=== PATIENT | female | born 1955 | race African-American/Black ===

== ENCOUNTER 2022-02-08 18:12 | Outpatient (REF) | payer MEDICARE, SELFPAY ==
[2022-02-09 10:56] LABS: BV Int Neg Control Negative (Negative); BV Int Pos Control Positive (Positive)
== END 2022-02-08 18:13 | disposition home or self-care (01) ==
LOC: HO.LNP 18:12
PROVIDERS: Visit Provider Nurse Practitioner Family
DX: N89.8 Other specified noninflammatory disorders of vagina (principal)
CPT/HCPCS: 87480; 87510; 87660

== ENCOUNTER 2022-02-16 11:05 | Outpatient (REF) | payer MEDICARE, SELFPAY ==
[2022-02-16 11:58] LABS: Estimated Average Glucose 212 mg/dL
[2022-02-16 11:59] LABS: Appearance Urine CLOUDY; Color Urine YELLOW; Glucose Urine UA 100 MG/DL (NEG); Leukocyte Esterase Urine 2+ (NEG); Nitrite Urine NEG (NEG); UACC Culture Trigger YES; Urine Blood TRACE (NEG); Urine Ketones NEG (NEG); Urine Protein NEG (NEG-TRACE)
[2022-02-16 12:14] LABS: Cholesterol 240 mg/dL; HDL Cholesterol 38 mg/dL; LDL Cholesterol Calculated 171 mg/dl; Triglycerides 157 mg/dL
[2022-02-16 12:17] LABS: Bacteria Urine 1+ /LPF; Squamous Epithelial Cell Urine 1+ /LPF; WBC Urine TNTC /HPF (0-4)
== END 2022-02-16 11:06 | disposition home or self-care (01) ==
LOC: HO.LAB 11:05
PROVIDERS: PCP Internal Medicine; Visit Provider Nurse Practitioner Family
DX: Z00.00 Encounter for general adult medical examination without abnormal findings (principal); E78.00 Pure hypercholesterolemia, unspecified; E11.9 Type 2 diabetes mellitus without complications
CPT/HCPCS: 36415; 80061; 81001; 81003; 83036; 87086; 87147

== ENCOUNTER 2022-05-01 11:30 | Outpatient (REF) | payer MEDICARE, SELFPAY ==
[2022-05-05 14:37] LABS: HPV mRNA E6/E7 rflx Not Detected (Not Detected)
== END 2022-05-01 11:31 | disposition home or self-care (01) ==
LOC: HO.LAB 11:30
PROVIDERS: Visit Provider Advanced Practice Midwife
DX: Z01.419 Encounter for gynecological examination (general) (routine) without abnormal findings (principal); Z11.51 Encounter for screening for human papillomavirus (HPV)
CPT/HCPCS: 87624; 88142

== ENCOUNTER 2022-06-01 11:23 | Outpatient (REF) | payer MEDICARE, SELFPAY ==
--- NOTE | ~2022-06-01 | MM_ITS ---
EXAMINATION: MM SCREENING DIGITAL BREAST TOMOSYNTHESIS, BILATERAL CLINICAL INFORMATION: Screening. Asymptomatic. The lifetime risk of breast cancer based on the Tyrer-Cuzick Model is 4%. COMPARISON: Mammography: 08/10/2017, 05/24/2016, 04/08/2015 TECHNIQUE: Digital breast tomosynthesis is performed in both the craniocaudal and mediolateral oblique views along with computer-aided detection (CAD). Synthesized 2D images are generated from the tomosynthesis. FINDINGS: There are scattered areas of fibroglandular density (ACR BI-RADS breast composition Category b). Left breast shows no significant change from prior studies. There is no developing density or architectural abnormality. Neither breast shows abnormal calcifications. The axilla and skin contours are unremarkable. Right breast has a new nodule just under 5 mm in the lower breast approximately 6 cm from nipple. Margins are incompletely defined. Patient will be recalled for additional imaging. MM/MM tomosynthesis screening BI IMPRESSION: Right: -Nodule lower inner quadrant, new from prior studies. Left: -No mammographic evidence of malignancy. ASSESSMENT: BI-RADS 0: Incomplete - Need Additional Imaging Evaluation RECOMMENDATION: 1. Additional views of the right breast for margins (spot CC, spot ML). 2. Targeted ultrasound right breast. 3. Radiology department staff will contact the patient for additional imaging. This patient's information was entered into a reminder system with a target due date for their next mammogram.
== END 2022-06-01 11:24 | disposition home or self-care (01) ==
LOC: HO.MAMMO 11:23
PROVIDERS: PCP Internal Medicine; Visit Provider Internal Medicine
DX: Z12.31 Encounter for screening mammogram for malignant neoplasm of breast (principal)
CPT/HCPCS: 77063; 77067

== ENCOUNTER 2022-06-07 10:22 | Outpatient (REF) | payer MEDICARE, SELFPAY ==
--- NOTE | ~2022-06-07 | MM_ITS ---
EXAMINATION: MM DIAGNOSTIC DIGITAL BREAST TOMOSYNTHESIS, RIGHT US DIAGNOSTIC ULTRASOUND BREAST, RIGHT CLINICAL INFORMATION: Recall from screening for new nodule lower right breast just under 5 mm. COMPARISON: Mammography: 06/01/2022, 08/10/2017 TECHNIQUE: Digital breast tomosynthesis is performed. 2D images are generated from the tomosynthesis. The following views are obtained: Spot CC, spot MLO x2. Ultrasound right breast is targeted to the lower breast using grayscale imaging and color Doppler without and with harmonics. FINDINGS: There are scattered areas of fibroglandular density (ACR BI-RADS breast composition Category b). The additional views confirm a superficial nodule just under 5 mm which appears to likely correspond to an intradermal lesion on the MLO views. No spiculation or associated calcifications. Ultrasound confirms an intradermal cystic lesion just under 5 mm lower right breast. There is no subdermal extension. No surrounding hyperemia on color Doppler. No other cystic or solid mass. Results are discussed with the patient at time of visit. Patient notes that the finding is palpable for a while and non-tender and stable in size. MM/MM tomosynthesis added views R IMPRESSION: Small intradermal cystic lesion lower right breast just under 5 mm corresponding to recent mammography, likely sebaceous cyst or epidermal cyst. No surrounding hyperemia. ASSESSMENT: BI-RADS 2: Benign RECOMMENDATION: Patient may be managed based on the clinical impression as needed. Otherwise, routine annual screening mammography. This patient's information was entered into a reminder system with a target due date for their next mammogram.
== END 2022-06-07 10:23 | disposition home or self-care (01) ==
LOC: HO.MAMMO 10:22
PROVIDERS: PCP Internal Medicine; Visit Provider Internal Medicine
DX: N60.01 Solitary cyst of right breast (principal)
CPT/HCPCS: 76642; 77061; 77065

== ENCOUNTER 2023-01-17 15:11 | Outpatient (REF) | payer MEDICARE, SELFPAY ==
--- NOTE | ~2023-01-17 | US_ITS ---
EXAMINATION: US VENOUS ULTRASOUND WITH DOPPLER LOWER EXTREMITY, RIGHT CLINICAL INFORMATION: Pain. COMPARISON: None available. TECHNIQUE: Ultrasound of the deep veins is performed from the hip to the calf with compression sonography and color and pulse Doppler assessment. Spectral analysis with color-flow imaging is performed. FINDINGS: There is normal venous compression and respiratory variation and augmented flow. The visualized common femoral vein, superficial femoral vein, profunda femoral vein, popliteal vein, and the trifurcation region shows no evidence of deep venous thrombosis. There is no significant popliteal fossa cyst. If the patient's symptoms persist, followup ultrasound in 5 days 7 days might be of value to exclude proximal propagation from a non-visualized calf vein. US/US venous duplex LE RT IMPRESSION: No DVT demonstrated in the right lower extremity.
== END 2023-01-17 15:12 | disposition home or self-care (01) ==
LOC: HO.HMGCX 15:11
PROVIDERS: Visit Provider Nurse Practitioner Family
DX: M79.604 Pain in right leg (principal)
CPT/HCPCS: 93971

== ENCOUNTER 2023-02-01 12:40 | Outpatient (REF) | payer MEDICARE, SELFPAY ==
--- NOTE | ~2023-02-01 | XR_ITS ---
EXAMINATION: Right hip and right knee x-ray CLINICAL INFORMATION: Pain COMPARISON: None. TECHNIQUE: 2 views of the right hip and 3 views of the right knee FINDINGS: Right knee: The bones are osteopenic. Bone alignment is normal. No fracture or dislocation. Normal joint spaces. Small osteophyte at the quadriceps tendon insertion to the patella and patellar tendon origin. No joint effusion. Right hip: Bone alignment is normal. No fracture or dislocation. Mild degenerative changes of the right hip joint with joint space narrowing and osteophyte formation. Normal soft tissues. XR/XR hip RT min 2V IMPRESSION: Mild degenerative changes at the right knee and hip joint.
--- NOTE | ~2023-02-01 | XR_ITS ---
EXAMINATION: Right hip and right knee x-ray CLINICAL INFORMATION: Pain COMPARISON: None. TECHNIQUE: 2 views of the right hip and 3 views of the right knee FINDINGS: Right knee: The bones are osteopenic. Bone alignment is normal. No fracture or dislocation. Normal joint spaces. Small osteophyte at the quadriceps tendon insertion to the patella and patellar tendon origin. No joint effusion. Right hip: Bone alignment is normal. No fracture or dislocation. Mild degenerative changes of the right hip joint with joint space narrowing and osteophyte formation. Normal soft tissues. XR/XR knee RT 3V IMPRESSION: Mild degenerative changes at the right knee and hip joint.
== END 2023-02-01 12:41 | disposition home or self-care (01) ==
LOC: HO.XRAY 12:40
PROVIDERS: PCP Internal Medicine; Visit Provider Nurse Practitioner Family
DX: M79.606 Pain in leg, unspecified (principal); M25.551 Pain in right hip
CPT/HCPCS: 73502; 73562

== ENCOUNTER 2023-03-10 11:17 | Observation (INO) | payer MEDICARE, SELFPAY ==
--- NOTE | ~2023-03-10 | CT_ITS ---
EXAMINATION: CT ANGIOGRAPHY CHEST PE PROTOCOL CT ABDOMEN AND PELVIS WITH IV CONTRAST CLINICAL INFORMATION: Shortness of breath. Lung mass. Rule out pulmonary embolism. Lower abdominal pain. Vaginal bleeding and active bleeding. COMPARISON: Pelvic ultrasound of 03/10/2023, 06/06/2018. CT abdomen and pelvis of 11/12/2015. Chest x-ray of 03/10/2023. TECHNIQUE: A few noncontrast axial images of the chest are obtained for contrast localization purposes. Following intravenous administration of 85 mL of Omnipaque [address] imaging of the chest is acquired as per pulmonary CT angiography protocol. Post processing is performed at a dedicated workstation. Multiplanar reformatted images and vascular MIPS are submitted for review. Following acquisition of the CT angiography, multidetector volumetric CT imaging of the abdomen and pelvis is acquired as well. Postprocessing is performed at a dedicated workstation. Multiplanar reformatted images are submitted. This CT scan was performed using dose optimization techniques as appropriate to a performed exam including the following: *Automated exposure control *Adjustment of mA and/or kV according to patient size (this includes techniques or standardized protocols for targeted exams were dose is matched to indication/reason for exam; i.e. extremities or head) *Use of iterative reconstruction technique. DLP: 243 mGy-cm. (Chest CT) 486 mGy-cm (abdomen and pelvic CT). FINDINGS: CHEST: There is satisfactory enhancement of the pulmonary arterial tree. There is no evidence of pulmonary embolism. Moderate changes of centrilobular emphysema are noted throughout the lungs. Paraseptal emphysematous changes are noted at the lung apices. There is an irregular spiculated mass in the left upper lobe measuring 4.6 x 3.9 x 3.6 cm abutting the pleural surface of the left apex posterolaterally. A 0.2 cm nodule is noted in the right upper lobe anterolaterally (series 10, image 98). There is a 0.3 cm nodule in the right upper lobe (series 10, image 157). A 0.4 cm noncalcified nodule is noted in the right middle lobe (series 10, image 226). Mild bronchiectatic changes are noted as well. Diffuse enlargement of the visualized thyroid gland is noted without focal nodule. Mediastinal and left hilar adenopathy is noted with more discrete-appearing prevascular lymph node measuring 2.8 x 2.3 cm in AP and transverse dimension (series 10, image 125). Left hilar lymph node measures 1.6 x 2.2 cm (series 10, image 174). Subcarinal nilo mass measures 2.6 x 4.5 cm. Trachea and central bronchi are well patent; however, there is mild extrinsic mass effect over the distalmost trachea and left mainstem bronchi from surrounding adenopathy. There is no evidence of pleural effusion, pleural mass or pneumothorax. Cardiac size is normal. Small pericardial fluid. No definite coronary calcifications are noted. Small hiatal hernia. Aorta is normal in caliber. Mild calcific atherosclerosis of the aortic arch. There is no evidence of axillary adenopathy. Chest wall soft tissues are grossly unremarkable. ABDOMEN AND PELVIS: The liver is normal in size, contour and attenuation. Ill-defined hypoattenuation noted in the liver adjacent to the falciform ligament is a stable finding when compared to previous CT scan of 2016 representing focal area of fatty infiltration or transient perfusion abnormality. No focal liver lesion is seen. The gallbladder is unremarkable without evidence of radiopaque stones, wall thickening or pericholecystic inflammatory changes. No evidence of biliary ductal dilatation. No radiopaque filling defect is noted in the common bile duct. The spleen, adrenal glands, and pancreas is unremarkable. The kidneys are normal in size, shape and attenuation. There is symmetrical enhancement of the kidneys. A 1 cm hypoattenuation in the right mid kidney laterally is a stable finding since previous CT probably representing a cyst. No further imaging follow-up of this finding is warranted. There is no evidence of radiopaque urinary tract calculi, hydroureteronephrosis or perinephric stranding. Urinary bladder is largely decompressed and therefore not optimally evaluated. Enlarged fibroid containing multiple calcified and noncalcified fibroids is again noted. There is overall increased size of the uterus/uterine fibroids since the previous CT scan of 2016. No adnexal masses are noted otherwise. The stomach is partially distended and grossly unremarkable. No abnormal small bowel dilatation is noted. An appendix is not clearly identified however there are no inflammatory changes in the expected location of the appendix. Moderate stool burden is noted in the colon. In the pelvis, there is presacral enhancing ill-defined soft tissue/phlegmonous changes which are inseparable from the rectosigmoid colon in the region. Thickening of the wall of the lower rectum/anal canal is suspected. Remainder of the colon is unremarkable without evidence of wall thickening of pericolonic fat stranding. Aortoiliac vessels are normal in caliber and well opacified. Moderate calcific atherosclerosis of the aortoiliac vessels. There is no evidence of free intraperitoneal air or fluid. There is no evidence of significant abdominal wall hernia. OSSEOUS STRUCTURES: There is no evidence of acute or suspicious osseous lesions in the chest, abdomen and pelvis. Mild degenerative changes in the spine. 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 Mild thoracic dextroscoliosis and mild left convex curvature of the lumbar spine. CT/CT abdomen pelvis w IV con IMPRESSION: 1. No evidence of pulmonary embolism. 2. A 4.6 x 3.9 x 3.6 cm irregular spiculated mass in the left upper lobe abutting the pleural surface in the late left apex posterolaterally is highly concerning for malignancy. 3. Mediastinal and left hilar adenopathy concerning for metastasis adenopathy. 4. A few subcentimeter right lung nodules are nonspecific. Given the left lung mass and mediastinal and left hilar adenopathy, findings could represent metastatic nodules. Recommend attention to the finding on follow-up imaging. 5. Enlarged uterus containing multiple calcified and noncalcified fibroids with overall increase in the size of the uterus/multiple fibroids since previous CT of 2016. 6. Enhancing ill-defined soft tissue/phlegmonous changes in the presacral region inseparable from the rectosigmoid colon in the region with suggestion of thickening of the wall of the lower rectum/anal canal. This finding is nonspecific and could be inflammatory or infectious in etiology, however, neoplastic process cannot be excluded. 7. Otherwise, no evidence of metastatic disease in the abdomen and pelvis. VTE: Negative.
--- NOTE | ~2023-03-10 | US_ITS ---
EXAMINATION: US PELVIS CLINICAL INFORMATION: Vaginal bleeding and lower abdominal pain. COMPARISON: Previous pelvic ultrasound 05/[address] of the abdomen and pelvis from 2016. TECHNIQUE: Ultrasound of the pelvis is performed using both transabdominal and transvaginal transducers along with Doppler. Transvaginal imaging is performed due to inadequate visualization transabdominally. Exam is limited due to patient body habitus and physical limitations. FINDINGS: The uterus is anteverted and measures 8.6 x 6.6 x 10 cm in sagittal, AP and transverse dimension. There are two partially calcified uterine lesions probably representing fibroids measuring 6.4 x 5.5 x 5.8 cm centrally in the upper uterine body or fundus and 2.3 x 2.4 x 2.2 cm in the left upper uterine body. The endometrium is not seen. The cervix is normal-appearing. The right ovary is seen transabdominally only and measures 2 x 1.2 x 1 cm. Arterial and venous flow is documented to the right ovary. The left ovary is not seen. There is a 1.4 x 1.4 x 1.5 cm simple left adnexal cyst. There is no fluid in the pelvis. US/US pelvic ovarian doppler IMPRESSION: Limited exam. Enlarged fibroid uterus. Endometrium not seen. Normal-appearing right ovary. Left ovary not seen. Small left simple adnexal cyst.
--- NOTE | ~2023-03-10 | US_ITS ---
EXAMINATION: US PELVIS CLINICAL INFORMATION: Vaginal bleeding and lower abdominal pain. COMPARISON: Previous pelvic ultrasound 05/[address] of the abdomen and pelvis from 2016. TECHNIQUE: Ultrasound of the pelvis is performed using both transabdominal and transvaginal transducers along with Doppler. Transvaginal imaging is performed due to inadequate visualization transabdominally. Exam is limited due to patient body habitus and physical limitations. FINDINGS: The uterus is anteverted and measures 8.6 x 6.6 x 10 cm in sagittal, AP and transverse dimension. There are two partially calcified uterine lesions probably representing fibroids measuring 6.4 x 5.5 x 5.8 cm centrally in the upper uterine body or fundus and 2.3 x 2.4 x 2.2 cm in the left upper uterine body. The endometrium is not seen. The cervix is normal-appearing. The right ovary is seen transabdominally only and measures 2 x 1.2 x 1 cm. Arterial and venous flow is documented to the right ovary. The left ovary is not seen. There is a 1.4 x 1.4 x 1.5 cm simple left adnexal cyst. There is no fluid in the pelvis. US/US pelvic and transvaginal IMPRESSION: Limited exam. Enlarged fibroid uterus. Endometrium not seen. Normal-appearing right ovary. Left ovary not seen. Small left simple adnexal cyst.
--- NOTE | ~2023-03-10 | XR_ITS ---
EXAMINATION: XR CHEST CLINICAL INFORMATION: Cough. Smoker. COMPARISON: Previous chest x-ray November 2009 TECHNIQUE: Frontal view of the chest was obtained. FINDINGS: The heart does not appear enlarged. There is increased soft tissue seen in the left AP window region and paratracheal region questionable for lymphadenopathy. There is a 3.6 x 4.8 cm mass in the left lung apex worrisome for neoplasm. The lungs are otherwise clear. There is bilateral pleural thickening. There is no pleural effusion. There is scoliosis and degenerative changes of the spine. XR/XR chest 1V IMPRESSION: 4.8 x 3.7 cm left upper lobe mass and likely lymphadenopathy. Appearance is concerning for neoplasm. Findings will be communicated by the [facility] work flow produce specialist.
[2023-03-10 11:18] VITALS: BP 118/62; PULSE 93; RESP 18; TEMP 36.7; O2SAT 99; BMI 25.7
--- NOTE | 2023-03-10 11:27 | ED_ITS ---
HPI - General Adult General Chief complaint: General Medical Stated complaint: cough vaginal discharge Time Seen by Provider: 03/10/23 12:44 Source: patient Mode of arrival: ambulatory Limitations: no limitations History of Present Illness HPI narrative: This is a 67-year-old female history of diabetes, hypertension, GERD, CVA with right-sided hemiparesis presenting to the emergency department for evaluation of productive cough for the past few weeks worsening with some associated shortness of breath, also reporting vaginal discharge with occasional vaginal bleeding for the past few weeks also. Patient reports when she wipes she notices blood on the tissue. She is not sure if it is coming from her vagina or her rectum. She reports a moderate amount of white foul-smelling vaginal discharge, denies francisco rns for STDs or STIs. Patient tells me she was a daily smoker who smoked a half a pack a day for over 20 years, recently stop smoking 3 weeks ago. Patient reports associated fatigue, malaise and a 20 lb unintentional weight loss. Patient denies fevers, chills, chest pain, headache, vision changes, dizziness. Related Data Home Medications Medication Instructions Recorded Confirmed aspirin 81 mg tablet,delayed 81 mg PO DAILY 02/08/22 03/13/23 release (Adult Low Dose Aspirin) escitalopram oxalate 10 mg tablet 10 mg PO DAILY 02/08/22 03/13/23 trazodone 50 mg tablet 50 mg PO BEDTIME 01/17/23 03/13/23 Previous Rx's Medication Instructions Recorded insulin degludec 100 unit/mL (3 28 unit (0.28 mL) subcut BEDTIME 03/13/22 mL) subcutaneous pen (Tresiba 90 days #25.2 mL FlexTouch U-100 insulin) cholecalciferol (vitamin D3) 50 50 mcg PO DAILY 90 days #90 caps 06/24/22 mcg (2,000 unit) capsule pioglitazone 30 mg tablet 30 mg PO DAILY 90 days #90 tabs 07/01/22 pen needle, diabetic 31 gauge x #100 ea 10/03/2202/12 (Comfort EZ Pen Hawley) cetirizine 10 mg tablet (Allergy 10 mg PO DAILY PRN allergy 10/29/22 Relief (cetirizine)) symptoms 90 days #90 tabs ferrous sulfate 325 mg (65 mg 325 mg PO DAILY 90 days #90 tabs 10/29/22 iron) tablet irbesartan 150 mg tablet 150 mg PO DAILY 90 days #90 tabs 10/29/22 lorazepam 0.5 mg tablet 0.5 mg PO DAILY PRN anxiety 90 10/30/22 days #90 tabs tramadol 50 mg tablet 50 mg PO BID PRN pain 30 days #60 02/20/23 tabs acetaminophen 650 mg 650 mg PO Q8H PRN fever or pain 90 03/06/23 tablet,extended release (Mapap days #270 tabs Arthritis Pain) cefuroxime axetil 500 mg tablet 500 mg PO BID #14 tabs 03/12/23 hydrocortisone 2.5 % topical cream 1 appl MN BEDTIME PRN hemorrhoids 03/12/23 with perineal applicator #30 grams (Procto-Med HC) pseudoephedrine-guaifenesin ER 60 1 tab PO Q12H PRN Cough #30 tabs 03/13/23 mg-600 mg tablet,extend release 12hr (Mucinex D) Allergies Allergy/AdvReac Type Severity Reaction Status Date / Time codeine [CODEINE] Allergy Unknown HIVES Verified 01/29/23 10:59 morphine [MORPHINE] Allergy Unknown ITCHING, Verified 01/29/23 10:59 itchy Review of Systems Review of Systems: Constitutional : + Weight loss, No Fever, No Chills, + Fatigue, + Malaise ENT/Mouth : No sore throat, No Rhinorrhea Eyes: No Eye Pain, No Swelling, No Redness Cardiovascular : No Chest Pain, + SOB, + Dyspnea on Exertion, No Orthopnea, No Edema, No Palpitations Respiratory : + Cough, + Sputum, No Wheezing Gastrointestinal : No Nausea, No Vomiting, No Diarrhea, No Constipation, No abdominal Pain, No Hematochezia, No Melena Genitourinary : No Dysuria, No Urinary Frequency, No Hematuria, + vaginal bleeding Musculoskeletal : No joint pain, No Myalgias, No Joint Swelling Skin : No Skin Lesions, No rash Neuro : + Weakness, No Numbness, No Dizziness, No Headache Psych : No Anxiety/Panic, No Depression All other systems reviewed and are negative Yes all other systems are reviewed and are negative [facility] Past Medical History Attestation statement: The following information was validated with the patient. Source: old records reviewed and nursing notes reviewed Medical History (Updated 03/13/23 @ 09:37 by Edna Carcamo MD) Diabetes mellitus Essential hypertension History of gastric ulcer Stroke Surgical History (Updated 03/13/23 @ 09:37 by Edna Carcamo MD) Hx of colonoscopy No pertinent past surgical history Family History Family History Mother Hypertension Father No problems noted. Social History Social History (Updated 03/13/23 @ 09:29 by Allyssa Burks) Household Members: Spouse Housing: House Do you presently have visiting nurse or other home services: No Alcohol intake: never Patient Tobacco Use Status: Former Tobacco user Quit Date: Quit a month ago Tobacco use type: Cigarette Years Smoked: 30 e-Cigarette/Vaping Use: Never Used Second Hand Smoke Exposure: No service: No Current occupational status: retired Cognitive needs: No Hearing needs: No Vision needs: No Physical Exam ED Vital Signs: Vital Signs - 24 hr 03/10/23 11:18 03/10/23 19:14 Temperature 98.1 F 97.6 F Pulse Rate 93 77 Respiratory Rate 18 14 Blood Pressure 118/62 176/82 H Pulse Oximetry 99 98 Oxygen Delivery Method Room Air Room Air BMI result Body Mass Index 25.7 vss Appearance: Alert.? Oriented X3.? No acute distress.? Head: Normocephalic, atraumatic, no step-offs or deformities Eyes: Pupils equal, round and reactive to light.? ENT: Pharynx normal.? Neck: Normal inspection.? Neck supple.? CVS: Normal heart rate and rhythm.? Pulses normal.? Respiratory: No respiratory distress.? Breath sounds diminished bilaterally.? Abdomen: Soft and nontender.? Skin: Skin warm and dry.? Normal skin color.? Normal skin turgor.? Extremities: No lower extremity edema.? No calf ttp. 5/5 strength to bilateral upper and lower extremities Sensitive exam: Normal external genitalia, there is a moderate amount of white cream colored discharge from vaginal canal with scant bleeding, friable vaginal canal, closed cervical os, cervical os appears friable. Discomfort with pelvic exam. Rectal exam was done no osvaldo blood. OBS sent for analysis. Neuro: Oriented X 3.? No motor deficit.? No sensory deficit. CN 2-12 intact Course Course Course Narrative: RME: 67 yold female smokwer with pmh of stroke presents to the ED with cough for 3 weeks wih green phglegm AND ALSO vaginal discharge that is white for one month and now dark brown blood discharge. patient states maybe rectal bleeding also. labs and chest xray ordered. Reevaluation(s) Reevaluation #1: CBC appears to be around patient's baseline with normocytic anemia. Chemistry with no acute electrolyte abnormalities requiring intervention. Lactic elevated likely secondary to poor p.o. intake/dehydration. Coags unremarkable. COVID, influenza negative. Patient is noted to have a 4.8 x 3.7 cm left upper lobe mass unlikely lymphadenopathy. Concerning for neoplasm. CTA ordered, CT of the abdomen and pelvis ordered. Ultrasound ordered. Patient aware of mass found on x-ray of chest. Patient will likely require hospital admission. Time: 13:31 Reevaluation #2: No Trichomonas or yeast noted. Remainder of swabs pending. OBS was negative unlikely lower GI bleed. Pending CTA of chest, abdomen and pelvis. Pending ultrasound & UA Time: 13:50 Reevaluation #3: Sign out to [employer] Anjali pending imaging, disposition Medications Administered Discontinued Medications Generic Name Dose Route Start Last Admin Trade Name Freq PRN Reason Stop Dose Admin Albuterol Sulfate 2.5 mg 03/11/23 13:24 03/11/23 13:36 Albuterol Sulfate (0.083%) 2.5 Mg/3 Ml Vial.Neb INHALE 03/11/23 13:25 2.5 mg ONCE ONE Administration Albuterol Sulfate 2.5 mg 03/11/23 13:20 03/11/23 16:38 Albuterol Sulfate (0.083%) 2.5 Mg/3 Ml Vial.Neb INHALE 03/11/23 13:21 2.5 mg PREOP ONE Administration Benzonatate 100 mg 03/10/23 20:13 03/11/23 17:55 Benzonatate 100 Mg Capsule PO 100 mg TID PRN Administration Cough Cefuroxime Axetil 500 mg 03/12/23 11:45 03/12/23 12:11 Cefuroxime Axetil 500 Mg Tablet PO 03/12/23 11:46 500 mg ONCE ONE Administration Fluconazole 150 mg 03/10/23 20:08 03/10/23 20:36 Fluconazole 150 Mg Tablet PO 03/10/23 20:09 150 mg ONCE ONE Administration Sodium Chloride 1,000 mls @ 999 mls/hr 03/10/23 14:45 03/10/23 17:26 Ns IV 03/10/23 15:45 Infused .Q1H1M JANNETH Infusion Ceftriaxone Sodium 1 gm/ 50 mls @ 100 mls/hr 03/10/23 14:38 03/10/23 17:26 Sodium Chloride IV 03/10/23 15:07 Infused ONCE ONE Infusion Sodium Chloride 1,000 mls @ 999 mls/hr 03/10/23 15:45 03/10/23 17:57 Ns IV 03/10/23 16:45 Infused .Q1H1M JANNETH Infusion Ceftriaxone Sodium 1 gm/ 50 mls @ 100 mls/hr 03/11/23 16:00 03/11/23 18:42 Sodium Chloride IV Infused Q24H JANNETH Infusion Dextrose 250 mls @ 0 mls/hr 03/11/23 13:24 03/11/23 17:29 D5w IV Infused .Q0M PRN Infusion Per Protocol KVO Lactated Ringer's 1,000 mls @ 100 mls/hr 03/11/23 13:30 03/12/23 09:16 Lr IVCONT 100 mls/hr .Q10H JANNETH Administration Dextrose 500 mls @ 250 mls/hr 03/11/23 13:22 03/11/23 17:25 D5w IV 03/11/23 15:21 Not Given .Q2H ONE Insulin Glargine 15 unit 03/10/23 21:00 03/11/23 20:42 Insulin Glargine,Hum.Rec.Anlog 100 Unit/Ml 10 Ml Vial SUBCUT 15 unit BEDTIME JANNETH Administration Insulin Human Lispro 0 unit 03/10/23 21:00 03/12/23 07:45 Insulin Lispro 100 Unit/Ml 3 Ml Vial SUBCUT Not Given QIDACHS [facility] Protocol Iohexol 100 ml 03/10/23 16:20 03/10/23 16:20 Iohexol 350 Mg/Ml 100 Ml Infus..Btl IV 03/10/23 16:21 85 ml ONCE ONE Administration Polyethylene Glycol/Electrolytes 4,000 ml 03/10/23 19:45 03/10/23 20:36 Peg 3350/Na Sulf,Bicarb,Cl/Kcl 4,000 Ml Soln.Recon PO 03/10/23 19:46 4,000 ml ONCE ONE Administration Sodium Chloride 3 ml 03/11/23 00:00 03/12/23 07:05 0.9 % Sodium Chloride Flush 3 Ml Syringe IVFLUSH Not Given QSHIFT JANNETH Trazodone HCl 50 mg 03/10/23 21:00 03/11/23 20:41 Trazodone Hcl 50 Mg Tablet PO 50 mg BEDTIME JANNETH Administration Medical Decision Making Medical Decision Making [facility] Narrative: 67-year-old female presents with productive cough for the past few weeks worsening as well as vaginal discharge and scant bleeding, fatigue, malaise, unintentional weight loss the past few weeks Physical exam significant for Normal external genitalia, there is a moderate amount of white cream colored discharge from vaginal canal with scant bleeding, friable vaginal canal, closed cervical os, cervical os appears friable. Discomfort with pelvic exam. Rectal exam was done no osvaldo blood. OBS sent for analysis. Breath sounds diminished bilaterally. Regular rate and rhythm. Abdomen soft nontender nondistended. Concerns for possible malignancy. Will rule out electrolyte abnormalities, anemia. Unlikely ACS, CHF. Will rule out pneumonia, PE. Plan labs, imaging, urine Differential Diagnosis Differential Diagnoses: The differential diagnosis associated with the presentation includes Concerns for possible malignancy. Will rule out electrolyte abnormalities, anemia. Unlikely ACS, CHF. Will rule out pneumonia, PE. Admission/Observation Consideration of admission/observation: Escalation of care including admission/observation considered Likely hospital admission Consult Healthcare Provider Management of the patient was discussed with: Hospitalist and Head Of Conservation I spoke to Dr. Awan from Oncology b due to the new lung mass seen on CT scan with associated adenopathy. She will follow the patient outpatient I spoke to Dr. Pires from GI. Patient has concern for rectal mass. He will see the patient and perform a colonoscopy tomorrow. Recommended clear liquids with GoLYTELY prep tonight I discussed the case with Dr. De Los Santos from the medicine team who accepted admission Lab Data [facility] Lab Attestation statement: I reviewed the patient's lab results. 03/10/23 11:42 03/10/23 11:42 Labs: Lab Results 03/10/23 03/10/23 03/10/23 Range/Units 11:38 11:38 11:42 WBC 5.3 (4.8-10.8) X10*3/uL RBC 3.90 L (4.20-5.50) X10*6/uL Hgb 11.9 L (12.0-16.0) g/dl Hct 37.3 (37.0-47.0) % MCV 95.6 (80.0-98.0) fL MCH 30.5 (27.0-33.0) pg MCHC 31.9 (31.0-35.0) g/dl RDW 13.2 (11.0-16.0) % Plt Count 276 (160-400) X10*3/uL MPV 9.1 L (9.4-12.3) fL Immature Gran % (Auto) 0.4 (0.0-0.4) % Neut % (Auto) 74.7 H (45-73) % Lymph % (Auto) 16.4 L (20-40) % [place] % (Auto) 7.7 (2-11) % Eos % (Auto) 0.4 (0-4) % Baso % (Auto) 0.4 (0-2) % Lymph # (Auto) 0.9 L (1.2-4.9) X10*3/uL [place] # (Auto) 0.4 (0.1-1.2) X10*3/uL Eos # (Auto) 0.0 (0.0-0.4) X10*3/uL Baso # (Auto) 0.0 (0.0-0.2) X10*3/uL Abs Immat Gran (auto) 0.02 (0.00-0.03) X10*3/uL Absolute Neuts (auto) 4.0 (2.0-8.3) x10*3/uL Absolute Nucleated RBC 0.000 (0.0-0.012) X10*3/uL Nucleated RBC % (auto) 0.0 (0.0-0.2) /100WBC PT (10.0-13.1) SEC INR (0.9-1.1) APTT (26.0-36.4) SEC Sodium (135-145) mmol/L Potassium (3.3-5.1) mmol/L Chloride (96-108) mmol/L Carbon Dioxide (22-29) mmol/L Anion Gap (12-20) BUN (9-16) mg/dL Creatinine (0.5-1.4) mg/dL Estim Creat Clear Calc Estimated GFR Random Glucose (60-115) mg/dL Lactic Acid (0.5-2.0) mmol/L Lactic Acid F/U @ 2Hr (0.5-2.0) mmol/L Calcium (8.4-10.2) mg/dL Total Bilirubin (0.0-1.0) mg/dL AST (5-31) U/L ALT (0-31) U/L Alkaline Phosphatase (39-117) U/L Troponin I High Sens (<3.5-17.0) ng/L B-Natriuretic Peptide (<100) pg/mL Total Protein (6.5-8.0) g/dL Albumin (3.5-5.0) g/dL Urine Color Urine Appearance Urine pH (5.0-9.0) Ur Specific [place] (1.005-1.025) Urine Protein (Neg-Trace) mg/dL Urine Glucose (UA) (Negative) mg/dL Urine Ketones (Negative) mg/dL Urine Blood (Negative) Urine Nitrite (Negative) Ur Leukocyte Esterase (Negative) Urine RBC (0-2) /HPF Urine WBC (0-5) /HPF Ur Squamous Epith Cells (0-2) /HPF Urine Bacteria (None Seen) Hyaline Casts (0-2) /LPF Stool Occult Blood (NEGATIVE) Sweetie species DNA (Negative) Chlam trachomat DNA PCR (Not Detect.) COVID-19 (ISAEL) Negative (Negative) COVID-19 Clin Com See Note Gardnerella DNA Probe (Negative) Influenza Type A (GORDON) Negative (Negative) Influenza Type B (GORDON) Negative (Negative) Influenza A & B Note See Note N.gonorrhoeae DNA (PCR) (Not Detect.) Trichomonas DNA Probe (Negative) 03/10/23 03/10/23 03/10/23 Range/Units 11:42 11:42 13:24 WBC (4.8-10.8) X10*3/uL RBC (4.20-5.50) X10*6/uL Hgb (12.0-16.0) g/dl Hct (37.0-47.0) % MCV (80.0-98.0) fL MCH (27.0-33.0) pg MCHC (31.0-35.0) g/dl RDW (11.0-16.0) % Plt Count (160-400) X10*3/uL MPV (9.4-12.3) fL Immature Gran % (Auto) (0.0-0.4) % Neut % (Auto) (45-73) % Lymph % (Auto) (20-40) % [place] % (Auto) (2-11) % Eos % (Auto) (0-4) % Baso % (Auto) (0-2) % Lymph # (Auto) (1.2-4.9) X10*3/uL [place] # (Auto) (0.1-1.2) X10*3/uL Eos # (Auto) (0.0-0.4) X10*3/uL Baso # (Auto) (0.0-0.2) X10*3/uL Abs Immat Gran (auto) (0.00-0.03) X10*3/uL Absolute Neuts (auto) (2.0-8.3) x10*3/uL Absolute Nucleated RBC (0.0-0.012) X10*3/uL Nucleated RBC % (auto) (0.0-0.2) /100WBC PT 11.4 (10.0-13.1) SEC INR 1.0 (0.9-1.1) APTT 35.1 (26.0-36.4) SEC Sodium 142 (135-145) mmol/L Potassium 4.2 (3.3-5.1) mmol/L Chloride 106 (96-108) mmol/L Carbon Dioxide 27 (22-29) mmol/L Anion Gap 13 (12-20) BUN 8 L (9-16) mg/dL Creatinine 0.81 (0.5-1.4) mg/dL Estim Creat Clear Calc 62.2 Estimated GFR > 60 Random Glucose 77 (60-115) mg/dL Lactic Acid (0.5-2.0) mmol/L Lactic Acid F/U @ 2Hr (0.5-2.0) mmol/L Calcium 9.6 (8.4-10.2) mg/dL Total Bilirubin 0.9 (0.0-1.0) mg/dL AST 12 (5-31) U/L ALT 6 (0-31) U/L Alkaline Phosphatase 90 (39-117) U/L Troponin I High Sens (<3.5-17.0) ng/L B-Natriuretic Peptide (<100) pg/mL Total Protein 7.8 (6.5-8.0) g/dL Albumin 4.0 (3.5-5.0) g/dL Urine Color Urine Appearance Urine pH (5.0-9.0) Ur Specific [place] (1.005-1.025) Urine Protein (Neg-Trace) mg/dL Urine Glucose (UA) (Negative) mg/dL Urine Ketones (Negative) mg/dL Urine Blood (Negative) Urine Nitrite (Negative) Ur Leukocyte Esterase (Negative) Urine RBC (0-2) /HPF Urine WBC (0-5) /HPF Ur Squamous Epith Cells (0-2) /HPF Urine Bacteria (None Seen) Hyaline Casts (0-2) /LPF Stool Occult Blood (NEGATIVE) Sweetie species DNA (Negative) Chlam trachomat DNA PCR NOT DETECTED (Not Detect.) COVID-19 (ISAEL) (Negative) COVID-19 Clin Com [place]rella DNA Probe (Negative) Influenza Type A (GORDON) (Negative) Influenza Type B (GORDON) (Negative) Influenza A & B Note N.gonorrhoeae DNA (PCR) NOT DETECTED (Not Detect.) Trichomonas DNA Probe (Negative) 03/10/23 03/10/23 03/10/23 Range/Units 13:24 13:25 14:16 WBC (4.8-10.8) X10*3/uL RBC (4.20-5.50) X10*6/uL Hgb (12.0-16.0) g/dl Hct (37.0-47.0) % MCV (80.0-98.0) fL MCH (27.0-33.0) pg MCHC (31.0-35.0) g/dl RDW (11.0-16.0) % Plt Count (160-400) X10*3/uL MPV (9.4-12.3) fL Immature Gran % (Auto) (0.0-0.4) % Neut % (Auto) (45-73) % Lymph % (Auto) (20-40) % [place] % (Auto) (2-11) % Eos % (Auto) (0-4) % Baso % (Auto) (0-2) % Lymph # (Auto) (1.2-4.9) X10*3/uL [place] # (Auto) (0.1-1.2) X10*3/uL Eos # (Auto) (0.0-0.4) X10*3/uL Baso # (Auto) (0.0-0.2) X10*3/uL Abs Immat Gran (auto) (0.00-0.03) X10*3/uL Absolute Neuts (auto) (2.0-8.3) x10*3/uL Absolute Nucleated RBC (0.0-0.012) X10*3/uL Nucleated RBC % (auto) (0.0-0.2) /100WBC PT (10.0-13.1) SEC INR (0.9-1.1) APTT (26.0-36.4) SEC Sodium (135-145) mmol/L Potassium (3.3-5.1) mmol/L Chloride (96-108) mmol/L Carbon Dioxide (22-29) mmol/L Anion Gap (12-20) BUN (9-16) mg/dL Creatinine (0.5-1.4) mg/dL Estim Creat Clear Calc Estimated GFR Random Glucose (60-115) mg/dL Lactic Acid (0.5-2.0) mmol/L Lactic Acid F/U @ 2Hr (0.5-2.0) mmol/L Calcium (8.4-10.2) mg/dL Total Bilirubin (0.0-1.0) mg/dL AST (5-31) U/L ALT (0-31) U/L Alkaline Phosphatase (39-117) U/L Troponin I High Sens < 2.7 (<3.5-17.0) ng/L B-Natriuretic Peptide (<100) pg/mL Total Protein (6.5-8.0) g/dL Albumin (3.5-5.0) g/dL Urine Color Urine Appearance Urine pH (5.0-9.0) Ur Specific [place] (1.005-1.025) Urine Protein (Neg-Trace) mg/dL Urine Glucose (UA) (Negative) mg/dL Urine Ketones (Negative) mg/dL Urine Blood (Negative) Urine Nitrite (Negative) Ur Leukocyte Esterase (Negative) Urine RBC (0-2) /HPF Urine WBC (0-5) /HPF Ur Squamous Epith Cells (0-2) /HPF Urine Bacteria (None Seen) Hyaline Casts (0-2) /LPF Stool Occult Blood NEGATIVE (NEGATIVE) Sweetie species DNA Negative (Negative) Chlam trachomat DNA PCR (Not Detect.) COVID-19 (ISAEL) (Negative) COVID-19 Clin Com [place] DNA Probe Negative (Negative) Influenza Type A (GORDON) (Negative) Influenza Type B (GORDON) (Negative) Influenza A & B Note N.gonorrhoeae DNA (PCR) (Not Detect.) Trichomonas DNA Probe Negative (Negative) 03/10/23 03/10/23 03/10/23 Range/Units 14:16 14:16 16:36 WBC (4.8-10.8) X10*3/uL RBC (4.20-5.50) X10*6/uL Hgb (12.0-16.0) g/dl Hct (37.0-47.0) % MCV (80.0-98.0) fL MCH (27.0-33.0) pg MCHC (31.0-35.0) g/dl RDW (11.0-16.0) % Plt Count (160-400) X10*3/uL MPV (9.4-12.3) fL Immature Gran % (Auto) (0.0-0.4) % Neut % (Auto) (45-73) % Lymph % (Auto) (20-40) % [place] % (Auto) (2-11) % Eos % (Auto) (0-4) % Baso % (Auto) (0-2) % Lymph # (Auto) (1.2-4.9) X10*3/uL [place] # (Auto) (0.1-1.2) X10*3/uL Eos # (Auto) (0.0-0.4) X10*3/uL Baso # (Auto) (0.0-0.2) X10*3/uL Abs Immat Gran (auto) (0.00-0.03) X10*3/uL Absolute Neuts (auto) (2.0-8.3) x10*3/uL Absolute Nucleated RBC (0.0-0.012) X10*3/uL Nucleated RBC % (auto) (0.0-0.2) /100WBC PT (10.0-13.1) SEC INR (0.9-1.1) APTT (26.0-36.4) SEC Sodium (135-145) mmol/L Potassium (3.3-5.1) mmol/L Chloride (96-108) mmol/L Carbon Dioxide (22-29) mmol/L Anion Gap (12-20) BUN (9-16) mg/dL Creatinine (0.5-1.4) mg/dL Estim Creat Clear Calc Estimated GFR Random Glucose (60-115) mg/dL Lactic Acid 2.6 H* (0.5-2.0) mmol/L Lactic Acid F/U @ 2Hr (0.5-2.0) mmol/L Calcium (8.4-10.2) mg/dL Total Bilirubin (0.0-1.0) mg/dL AST (5-31) U/L ALT (0-31) U/L Alkaline Phosphatase (39-117) U/L Troponin I High Sens (<3.5-17.0) ng/L B-Natriuretic Peptide 49 (<100) pg/mL Total Protein (6.5-8.0) g/dL Albumin (3.5-5.0) g/dL Urine Color Yellow Urine Appearance Clear Urine pH 7.5 (5.0-9.0) Ur Specific [place] 1.025 (1.005-1.025) Urine Protein Negative (Neg-Trace) mg/dL Urine Glucose (UA) Negative (Negative) mg/dL Urine Ketones Trace (Negative) mg/dL Urine Blood Trace H (Negative) Urine Nitrite Negative (Negative) Ur Leukocyte Esterase Large (3+) H (Negative) Urine RBC 0-2 (0-2) /HPF Urine WBC >50 H (0-5) /HPF Ur Squamous Epith Cells 6-10 (0-2) /HPF Urine Bacteria 2+ (None Seen) Hyaline Casts 0-2 (0-2) /LPF Stool Occult Blood (NEGATIVE) Sweetie species DNA (Negative) Chlam trachomat DNA PCR (Not Detect.) COVID-19 (ISAEL) (Negative) COVID-19 Clin Com Gard[place]rella DNA Probe (Negative) Influenza Type A (GORDON) (Negative) Influenza Type B (GORDON) (Negative) Influenza A & B Note N.gonorrhoeae DNA (PCR) (Not Detect.) Trichomonas DNA Probe (Negative) 03/10/23 Range/Units 18:03 WBC (4.8-10.8) X10*3/uL RBC (4.20-5.50) X10*6/uL Hgb (12.0-16.0) g/dl Hct (37.0-47.0) % MCV (80.0-98.0) fL MCH (27.0-33.0) pg MCHC (31.0-35.0) g/dl RDW (11.0-16.0) % Plt Count (160-400) X10*3/uL MPV (9.4-12.3) fL Immature Gran % (Auto) (0.0-0.4) % Neut % (Auto) (45-73) % Lymph % (Auto) (20-40) % [place] % (Auto) (2-11) % Eos % (Auto) (0-4) % Baso % (Auto) (0-2) % Lymph # (Auto) (1.2-4.9) X10*3/uL [place] # (Auto) (0.1-1.2) X10*3/uL Eos # (Auto) (0.0-0.4) X10*3/uL Baso # (Auto) (0.0-0.2) X10*3/uL Abs Immat Gran (auto) (0.00-0.03) X10*3/uL Absolute Neuts (auto) (2.0-8.3) x10*3/uL Absolute Nucleated RBC (0.0-0.012) X10*3/uL Nucleated RBC % (auto) (0.0-0.2) /100WBC PT (10.0-13.1) SEC INR (0.9-1.1) APTT (26.0-36.4) SEC Sodium (135-145) mmol/L Potassium (3.3-5.1) mmol/L Chloride (96-108) mmol/L Carbon Dioxide (22-29) mmol/L Anion Gap (12-20) BUN (9-16) mg/dL Creatinine (0.5-1.4) mg/dL Estim Creat Clear Calc Estimated GFR Random Glucose (60-115) mg/dL Lactic Acid (0.5-2.0) mmol/L Lactic Acid F/U @ 2Hr 0.9 (0.5-2.0) mmol/L Calcium (8.4-10.2) mg/dL Total Bilirubin (0.0-1.0) mg/dL AST (5-31) U/L ALT (0-31) U/L Alkaline Phosphatase (39-117) U/L Troponin I High Sens (<3.5-17.0) ng/L B-Natriuretic Peptide (<100) pg/mL Total Protein (6.5-8.0) g/dL Albumin (3.5-5.0) g/dL Urine Color Urine Appearance Urine pH (5.0-9.0) Ur Specific [place] (1.005-1.025) Urine Protein (Neg-Trace) mg/dL Urine Glucose (UA) (Negative) mg/dL Urine Ketones (Negative) mg/dL Urine Blood (Negative) Urine Nitrite (Negative) Ur Leukocyte Esterase (Negative) Urine RBC (0-2) /HPF Urine WBC (0-5) /HPF Ur Squamous Epith Cells (0-2) /HPF Urine Bacteria (None Seen) Hyaline Casts (0-2) /LPF Stool Occult Blood (NEGATIVE) Sweetie species DNA (Negative) Chlam trachomat DNA PCR (Not Detect.) COVID-19 (ISAEL) (Negative) COVID-19 Clin Com [place] DNA Probe (Negative) Influenza Type A (GORDON) (Negative) Influenza Type B (GORDON) (Negative) Influenza A & B Note N.gonorrhoeae DNA (PCR) (Not Detect.) Trichomonas DNA Probe (Negative) Independent Interpretation I performed an independent interpretation of an: Plain X-Ray Radiology Impression Discussion of test interpretation with radiology: I have reviewed the radiologist's reading. Radiologist Impression: [address] [address] [address] Scan Report Signed Patient: Jennifer Reid MR#: [id number] : 1955 Acct:[id number] Age/Sex: 67 / F ADM Date: 03/10/23 Loc: HO.ED Attending Dr: Ordering Physician: Rod Dsouza Date of Service: 03/10/23 Procedure(s): CT angio chest PE protocol Accession Number(s): [id number] cc: Rod Dsouza~ EXAMINATION: CT ANGIOGRAPHY CHEST PE PROTOCOL CT ABDOMEN AND PELVIS WITH IV CONTRAST CLINICAL INFORMATION: Shortness of breath. Lung mass. Rule out pulmonary embolism. Lower abdominal pain. Vaginal bleeding and active bleeding. COMPARISON: Pelvic ultrasound of 03/10/2023, 06/06/2018. CT abdomen and pelvis of 11/12/2015. Chest x-ray of 03/10/2023. TECHNIQUE: A few noncontrast axial images of the chest are obtained for contrast localization purposes. Following intravenous administration of 85 mL of Omnipaque [address] imaging of the chest is acquired as per pulmonary CT angiography protocol. Post processing is performed at a dedicated workstation. Multiplanar reformatted images and vascular MIPS are submitted for review. Following acquisition of the CT angiography, multidetector volumetric CT imaging of the abdomen and pelvis is acquired as well. Postprocessing is performed at a dedicated workstation. Multiplanar reformatted images are submitted. This CT scan was performed using dose optimization techniques as appropriate to a performed exam including the following: *Automated exposure control *Adjustment of mA and/or kV according to patient size (this includes techniques or standardized protocols for targeted exams were dose is matched to indication/reason for exam; i.e. extremities or head) *Use of iterative reconstruction technique. DLP: 243 mGy-cm. (Chest CT) 486 mGy-cm (abdomen and pelvic CT). FINDINGS: CHEST: There is satisfactory enhancement of the pulmonary arterial tree. There is no evidence of pulmonary embolism. Moderate changes of centrilobular emphysema are noted throughout the lungs. Paraseptal emphysematous changes are noted at the lung apices. There is an irregular spiculated mass in the left upper lobe measuring 4.6 x 3.9 x 3.6 cm abutting the pleural surface of the left apex posterolaterally. A 0.2 cm nodule is noted in the right upper lobe anterolaterally (series 10, image 98). There is a 0.3 cm nodule in the right upper lobe (series 10, image 157). A 0.4 cm noncalcified nodule is noted in the right middle lobe (series 10, image 226). Mild bronchiectatic changes are noted as well. Diffuse enlargement of the visualized thyroid gland is noted without focal nodule. Mediastinal and left hilar adenopathy is noted with more discrete-appearing prevascular lymph node measuring 2.8 x 2.3 cm in AP and transverse dimension (series 10, image 125). Left hilar lymph node measures 1.6 x 2.2 cm (series 10, image 174). Subcarinal nilo mass measures 2.6 x 4.5 cm. Trachea and central bronchi are well patent; however, there is mild extrinsic mass effect over the distalmost trachea and left mainstem bronchi from surrounding adenopathy. There is no evidence of pleural effusion, pleural mass or pneumothorax. Cardiac size is normal. Small pericardial fluid. No definite coronary calcifications are noted. Small hiatal hernia. Aorta is normal in caliber. Mild calcific atherosclerosis of the aortic arch. There is no evidence of axillary adenopathy. Chest wall soft tissues are grossly unremarkable. ABDOMEN AND PELVIS: The liver is normal in size, contour and attenuation. Ill-defined hypoattenuation noted in the liver adjacent to the falciform ligament is a stable finding when compared to previous CT scan of 2016 representing focal area of fatty infiltration or transient perfusion abnormality. No focal liver lesion is seen. The gallbladder is unremarkable without evidence of radiopaque stones, wall thickening or pericholecystic inflammatory changes. No evidence of biliary ductal dilatation. No radiopaque filling defect is noted in the common bile duct. The spleen, adrenal glands, and pancreas is unremarkable. The kidneys are normal in size, shape and attenuation. There is symmetrical enhancement of the kidneys. A 1 cm hypoattenuation in the right mid kidney laterally is a stable finding since previous CT probably representing a cyst. No further imaging follow-up of this finding is warranted. There is no evidence of radiopaque urinary tract calculi, hydroureteronephrosis or perinephric stranding. Urinary bladder is largely decompressed and therefore not optimally evaluated. Enlarged fibroid containing multiple calcified and noncalcified fibroids is again noted. There is overall increased size of the uterus/uterine fibroids since the previous CT scan of 2016. No adnexal masses are noted otherwise. The stomach is partially distended and grossly unremarkable. No abnormal small bowel dilatation is noted. An appendix is not clearly identified however there are no inflammatory changes in the expected location of the appendix. Moderate stool burden is noted in the colon. In the pelvis, there is presacral enhancing ill-defined soft tissue/phlegmonous changes which are inseparable from the rectosigmoid colon in the region. Thickening of the wall of the lower rectum/anal canal is suspected. Remainder of the colon is unremarkable without evidence of wall thickening of pericolonic fat stranding. Aortoiliac vessels are normal in caliber and well opacified. Moderate calcific atherosclerosis of the aortoiliac vessels. There is no evidence of free intraperitoneal air or fluid. There is no evidence of significant abdominal wall hernia. OSSEOUS STRUCTURES: There is no evidence of acute or suspicious osseous lesions in the chest, abdomen and pelvis. Mild degenerative changes in the spine. 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 Mild thoracic dextroscoliosis and mild left convex curvature of the lumbar spine. CT/CT angio chest PE protocol IMPRESSION: 1.? No evidence of pulmonary embolism. 2.? A 4.6 x 3.9 x 3.6 cm irregular spiculated mass in the left upper lobe abutting the pleural surface in the late left apex posterolaterally is highly concerning for malignancy. 3.? Mediastinal and left hilar adenopathy concerning for metastasis adenopathy. 4.? A few subcentimeter right lung nodules are nonspecific. Given the left lung mass and mediastinal and left hilar adenopathy, findings could represent metastatic nodules. Recommend attention to the finding on follow-up imaging. 5.? Enlarged uterus containing multiple calcified and noncalcified fibroids with overall increase in the size of the uterus/multiple fibroids since previous CT of 2016. 6.? Enhancing ill-defined soft tissue/phlegmonous changes in the presacral region inseparable from the rectosigmoid colon in the region with suggestion of thickening of the wall of the lower rectum/anal canal. This finding is nonspecific and could be inflammatory or infectious in etiology, however, neoplastic process cannot be excluded. 7.? Otherwise, no evidence of metastatic disease in the abdomen and pelvis. ? VTE: Negative. [address] [address] Ultrasound Report Signed Patient: Jennifer Reid MR#: [id number] : 1955 Acct:[id number] Age/Sex: 67 / F ADM Date: 03/10/23 Loc: [facility].ED Attending Dr: Ordering Physician: Rod Dsouza Date of Service: 03/10/23 Procedure(s): US pelvic and transvaginal Accession Number(s): [id number] cc: Rod Dsouza~ EXAMINATION:? US PELVIS CLINICAL INFORMATION:? Vaginal bleeding and lower abdominal pain. COMPARISON: Previous pelvic ultrasound 05/[address] of the abdomen and pelvis from 2015. TECHNIQUE: Ultrasound of the pelvis is performed using both transabdominal and transvaginal transducers along with Doppler. Transvaginal imaging is performed due to inadequate visualization transabdominally. Exam is limited due to patient body habitus and physical limitations. FINDINGS: The uterus is anteverted and measures 8.6 x 6.6 x 10 cm in sagittal, AP and transverse dimension. There are two partially calcified uterine lesions probably representing fibroids measuring 6.4 x 5.5 x 5.8 cm centrally in the upper uterine body or fundus and 2.3 x 2.4 x 2.2 cm in the left upper uterine body. The endometrium is not seen. The cervix is normal-appearing. The right ovary is seen transabdominally only and measures 2 x 1.2 x 1 cm. Arterial and venous flow is documented to the right ovary. The left ovary is not seen. There is a 1.4 x 1.4 x 1.5 cm simple left adnexal cyst. There is no fluid in the pelvis. US/US pelvic and transvaginal IMPRESSION: Limited exam. Enlarged fibroid uterus. Endometrium not seen. Normal-appearing right ovary. Left ovary not seen. Small left simple adnexal cyst. ? External Record Review External record reviewed: Inpatient record, Office record, Outpatient record, Prior outpatient labs, Prior outpatient radiology, Primary care record and Outside ED record Core Measures AMI core measures followed: Yes Measure exclusions: not indicated Critical Care Time Critical Care Time Critical Care Time: No Discharge Plan Discharge Clinical Impression: Abnormal vaginal bleeding, Discharge of vagina, Lung mass, Shortness of breath, Rectal mass, Acute UTI Patient Disposition: Admitted As Inpatient Interventions: Admission Worksheet (ED) Last Done: 03/10/23 21:00 Discharge Date/Time: 03/10/23 21:00
[2023-03-10 11:46] LABS: MANUAL DIFF FLAG NO
[2023-03-10 11:48] LABS: Basophils Percent Auto 0.4 % (0-2); Eosinophils Percent Auto 0.4 % (0-4); Hematocrit 37.3 % (37.0-47.0); Hemoglobin 11.9 g/dl (12.0-16.0); Imm Gran Abs Auto 0.02 X10*3/uL (0.00-0.03); Imm Gran Pct Auto 0.4 % (0.0-0.4); Lymphocytes Absolute Auto 0.9 X10*3/uL (1.2-4.9); Lymphocytes Percent Auto 16.4 % (20-40); Mean Corpuscular HGB Conc 31.9 g/dl (31.0-35.0); Mean Corpuscular Hemoglobin 30.5 pg (27.0-33.0); Mean Corpuscular Volume 95.6 fL (80.0-98.0); Mean Platelet Volume 9.1 fL (9.4-12.3); Monocytes Absolute Auto 0.4 X10*3/uL (0.1-1.2); Monocytes Percent Auto 7.7 % (2-11); Neutrophils Percent Auto 74.7 % (45-73); Platelet Count 276 X10*3/uL (160-400); Red Cell Distribution Width 13.2 % (11.0-16.0); White Blood Count 5.3 X10*3/uL (4.8-10.8)
[2023-03-10 11:54] LABS: Prothrombin Time 11.4 SEC (10.0-13.1)
[2023-03-10 11:57] LABS: Partial Thromboplastin Time 35.1 SEC (26.0-36.4)
[2023-03-10 12:04] LABS: COVID-19 Test Negative (Negative); IDNOW Serial# 08D9AD1C
[2023-03-10 12:06] LABS: IDNOW Serial# BCCEAD1C; Influenza A Negative (Negative); Influenza B2 Negative (Negative)
[2023-03-10 12:09] LABS: Alanine Aminotransferase 6 U/L (0-31); Alkaline Phosphatase 90 U/L (39-117); Anion Gap 13 (12-20); Aspartate Amino Transferase 12 U/L (5-31); Bilirubin Total 0.9 mg/dL (0.0-1.0); Blood Urea Nitrogen 8 mg/dL (9-16); Calcium 9.6 mg/dL (8.4-10.2); Carbon Dioxide 27 mmol/L (22-29); Chloride 106 mmol/L (96-108); Creatinine Clr Calc Pharmacy 62.2; Estimated Glomerular Filt Rate > 60; Glucose Random 77 mg/dL (60-115); Potassium 4.2 mmol/L (3.3-5.1); Sodium 142 mmol/L (135-145); Total Protein 7.8 g/dL (6.5-8.0)
[2023-03-10 13:31] LABS: OBS Int Ctl Valid YES; OBS1 NEGATIVE (NEGATIVE)
[2023-03-10 14:36] LABS: Lactic Acid 2.6 mmol/L (0.5-2.0)
[2023-03-10 14:44] LABS: B Type Natriuretic Peptide 49 pg/mL (<100)
[2023-03-10 14:46] LABS: Troponin-I High Sensitivity < 2.7 ng/L (<3.5-17.0)
[2023-03-10] MEDS: 0.9 % Sodium Chloride 1,000 ML 999 ML IV ×2 (15:12→16:55)
[2023-03-10 16:13] LABS: CT PCR NOT DETECTED (Not Detect.); NG PCR NOT DETECTED (Not Detect.)
[2023-03-10 16:20] LABS: Reflex Lactate? Lactic Acid Added
[2023-03-10] MEDS: iohexoL 350 MG/ML 100 ML INFUS..BTL IV (16:20)
[2023-03-10 16:44] LABS: Appearance Urine Clear; Color Urine Yellow; Glucose Urine UA Negative (Negative); Leukocyte Esterase Urine Large (3+) (Negative); Nitrite Urine Negative (Negative); PH 7.5 (5.0-9.0); Specific Gravity - Urine 1.025 (1.005-1.025); UMIC TRIGGER UACC YES; Urine Blood Trace (Negative); Urine Ketones Trace mg/dL (Negative); Urine Protein Negative (Neg-Trace)
[2023-03-10] MEDS: cefTRIAXone sodium 1 GM in 0.9 % Sodium Chloride 50 ML IV (16:48)
[2023-03-10 16:49] LABS: Bacteria Urine 2+ (None Seen); Hyaline Casts Urine 0-2 /LPF (0-2); RBC Urine 0-2 /HPF (0-2); UACC Culture Trigger YES; WBC Urine >50 /HPF (0-5)
--- NOTE | 2023-03-10 18:34 | PHA.MEDREC ---
Pharmacy Consult ? Medication Reconciliation Pharmacy has completed the medication reconciliation. Spoke with patient. She brought in her medications and confirmed all of them including her insulin units.
[2023-03-10 18:37] LABS: ~Lactic Acid-LAB USE ONLY 0.9 mmol/L (0.5-2.0)
[2023-03-10 19:14] VITALS: BP 176/82; PULSE 77; RESP 14; TEMP 36.4; O2SAT 98
--- NOTE | 2023-03-10 19:40 | PC.NURSE ---
this rn assumed care of pt @ 1900. pt calm and cooperative. this rn provided pt with warm blanket at this time
--- NOTE | 2023-03-10 19:48 | P.HPHOSP_ITS ---
History of Present Illness Date of Service: 03/10/23 Attending physician on admission: Avril De Los Santos Chief Complaint: cough, vaginal bleeding 67 year old female with history of GERD, htn, hx cva, insulin dependent type 2 diabetes, who recently quit smoking 2 weeks ago presented to the ED earlier today for evaluation of productive cough with clear sputum ongoing for two weeks (preceded smoking cessation) as well as for suspected vaginal bleeding. She reports pleuritic chest pain associated with the cough but no fevers, chills, sore throat, congestion, sick contacts, or chest pressure. She states for the past week she has had white vaginal discharge without any foul odor, pruritus. She states it may have been tinged brown at some points but no osvaldo bleeding from the vaginal canal. She did also no 2 episodes of bright red blood on the toilet paper following a bowel movement. There is no associated abdominal pain, nausea, vomiting, constipation, diarrhea, rectal pressure. She does endorse tenesmus as well as a an unintentional 20 lb weight loss with anorexia ongoing f or several months. Has no prior history of cancer or known family history of cancer. On arrival, patient hypertensive to 176/82, vital signs otherwise stable. There is no leukocytosis. Mild normocytic anemia with H/H 11.9/37.3%. Coag studies normal. Electrolyte levels normal, renal function normal. Lactic acid initially elevated at 2.6 and given IV fluids with improvement to 0.9. Hepatic function normal. BNP normal, troponin below detectable limits. Urinalysis significant for 3+ leukocytes, negative nitrites, trace blood, urinary sediment, 2+ bacteria. Patient denies any urinary symptoms. Stool occult blood is negative. Pelvic exam was performed noting friable vaginal canal and cervix but no osvaldo bleeding. Cervical swab negative for chlamydia, gonorrhea and [place] pending for Gardnerella, Trichomonas, and Sweetie. CXR showed a 4.8 x 3.7 cm left upper lobe mass and probable lymphadenopathy concerning for neoplasm. CTA chest negative for PE but confirms presence of an irregular Jessica speculated mass measuring 4.6 x 3.9 x 3.6 cm in the left upper lobe abutting the pleural space in the late left apex highly concerning for malignancy as well as mediastinal and left hilar adenopathy concerning for metastasis. There also several subcentimeter right lung nodules are nonspecific. There is an enlarged uterus containing multiple calcified and noncalcified fibroids with overall increase in size of the uterus. There is also enhancing ill-defined soft tissue/phlegmonous changes in the presacral region inseparable from the rectosigmoid colon in the region with suggestion of thickening of the wall of the lower rectum/anal canal possibly inflammatory or infectious or neoplastic. No other evidence of metastatic disease in the abdomen and pelvis. Transvaginal ultrasound with similar findings as well as normal appearing right ovary but left ovary not seen with a small left simple adnexal cyst. In the ED, given 2 L IV NS, 1 g IV Rocephin. ED provider discussed case with Gastroenterology who will perform colonoscopy tomorrow. Review of Systems Review of Systems: General: No fevers, malaise. +unintentional weight loss HEENT: No blurred vision, diplopia. No sore throat, nasal congestion, rhinorrhea, sinus pain, ear pain Cardiovascular: +pleuritic chest pain. No chest pressure, palpitations, or leg edema Respiratory: +cough. No shortness of breath, wheezin GI: +BRBPR. No abdominal pain, nausea, vomiting, diarrhea, constipation, melena, hematochezia : No dysuria, hematuria, increased urinary frequency, decreased urinary output DRIVE THRU ORDER TAKER: +vaginal discharge. No osvaldo vaginal bleeding, pain, pruritus, foul odor MSK: No myalgia, back pain Neuro: No headaches, weakness, paresthesias Skin: No rashes or lesions [facility] Medical History (Updated 03/10/23 @ 20:08 by LAQUITA Banks) Diabetes mellitus Essential hypertension History of gastric ulcer Stroke Family History Mother Hypertension Father No problems noted. Surgical History No pertinent past surgical history Social History Alcohol intake: never Patient Tobacco Use Status: Current someday Tobacco user Tobacco use type: Cigarette Cigarettes Per Day: 6 Years Smoked: 30 e-Cigarette/Vaping Use: Never Used Second Hand Smoke Exposure: No Advance Directives: No Advance Directives Information Provided: Yes Cognitive needs: No Hearing needs: No Vision needs: No Meds Allergies Allergy/AdvReac Type Severity Reaction Status Date / Time codeine [CODEINE] Allergy Unknown HIVES Verified 01/29/23 10:59 morphine [MORPHINE] Allergy Unknown ITCHING, Verified 01/29/23 10:59 itchy Active Medications: Current Medications Acetaminophen (Acetaminophen 325 Mg Tablet) 650 mg PO Q6H PRN PRN Reason: Pain, Mild (Pain Scale 1-3) Docusate Sodium (Docusate Sodium 100 Mg Capsule) 100 mg PO DAILY PRN PRN Reason: Constipation Ondansetron HCl (Ondansetron Hcl 4 Mg/2 Ml Vial) 4 mg IVPUSH Q8H PRN PRN Reason: Nausea and Vomiting Pharmacy Consult (Consult Rx Perform Med Rec) 1 each MISCELLANE ONCE PRN PRN Reason: Consult order Sodium Chloride (0.9 % Sodium Chloride Flush 3 Ml Syringe) 3 ml IVFLUSH [facility] Home Medications Medication Instructions Recorded Confirmed Last Taken Type aspirin 81 mg tablet,delayed 81 mg PO DAILY 02/08/22 03/10/23 03/10/23 History release (Adult Low Dose Aspirin) escitalopram oxalate 10 mg tablet 10 mg PO DAILY 02/08/22 03/10/23 03/10/23 History trazodone 50 mg tablet 50 mg PO BEDTIME 01/17/23 03/10/23 Unknown History Physical Exam Vital Signs and Narrative: Vital Signs: Last Vital Signs Temp 97.6 F 03/10/23 19:14 Pulse 77 03/10/23 19:14 Resp 14 03/10/23 19:14 BP 176/82 H 03/10/23 19:14 Pulse Ox 98 03/10/23 19:14 O2 Del Method Room Air 03/10/23 19:14 BMI result Body Mass Index 25.7 Constitutional - Awake and Alert, No apparent distress Eyes - PERRLA, EOMI Cardiovascular - S1S2, RRR, No edema Respiratory - Normal lung expansion, Normal respiratory effort, No respiratory distress, CTA bilaterally Gastrointestinal - NT / ND; +BS; No rebound or guarding Extremities - no calf tenderness bilaterally, no swelling Skin - Warm/Dry Neurological - Alert & oriented x3 Psychological - Appropriate affect Results Labs 03/10/23 11:42 03/10/23 11:42 Labs: Laboratory Results - last 24 hr 03/10/23 03/10/23 03/10/23 11:38 11:38 11:42 MCV 95.6 MCH 30.5 MCHC 31.9 RDW 13.2 Plt Count 276 MPV 9.1 L Immature Gran % (Auto) 0.4 Neut % (Auto) 74.7 H Lymph % (Auto) 16.4 L Carl[place] % (Auto) 7.7 Eos % (Auto) 0.4 Baso % (Auto) 0.4 Lymph # (Auto) 0.9 L [place] # (Auto) 0.4 Eos # (Auto) 0.0 Baso # (Auto) 0.0 Abs Immat Gran (auto) 0.02 Absolute Neuts (auto) 4.0 Absolute Nucleated RBC 0.000 Nucleated RBC % (auto) 0.0 PT INR APTT Anion Gap Estim Creat Clear Calc Estimated GFR Random Glucose Lactic Acid Lactic Acid F/U @ 2Hr Calcium Total Bilirubin AST ALT Alkaline Phosphatase Troponin I High Sens B-Natriuretic Peptide Total Protein Albumin Urine Color Urine Appearance Urine pH Ur Specific [place] Urine Protein Urine Glucose (UA) Urine Ketones Urine Blood Urine Nitrite Ur Leukocyte Esterase Urine RBC Urine WBC Ur Squamous Epith Cells Urine Bacteria Hyaline Casts Stool Occult Blood Chlam trachomat DNA PCR COVID-19 (ISAEL) Negative COVID-19 Clin Com See Note Influenza Type A (GORDON) Negative Influenza Type B (GORDON) Negative Influenza A & B Note See Note N.gonorrhoeae DNA (PCR) 03/10/23 03/10/23 03/10/23 11:42 11:42 13:24 MCV MCH MCHC RDW Plt Count MPV Immature Gran % (Auto) Neut % (Auto) Lymph % (Auto) [place] % (Auto) Eos % (Auto) Baso % (Auto) Lymph # (Auto) [place] # (Auto) Eos # (Auto) Baso # (Auto) Abs Immat Gran (auto) Absolute Neuts (auto) Absolute Nucleated RBC Nucleated RBC % (auto) PT 11.4 INR 1.0 APTT 35.1 Anion Gap 13 Estim Creat Clear Calc 62.2 Estimated GFR > 60 Random Glucose 77 Lactic Acid Lactic Acid F/U @ 2Hr Calcium 9.6 Total Bilirubin 0.9 AST 12 ALT 6 Alkaline Phosphatase 90 Troponin I High Sens B-Natriuretic Peptide Total Protein 7.8 Albumin 4.0 Urine Color Urine Appearance Urine pH Ur Specific [place] Urine Protein Urine Glucose (UA) Urine Ketones Urine Blood Urine Nitrite Ur Leukocyte Esterase Urine RBC Urine WBC Ur Squamous Epith Cells Urine Bacteria Hyaline Casts Stool Occult Blood Chlam trachomat DNA PCR NOT DETECTED COVID-19 (ISAEL) COVID-19 Clin Com Influenza Type A (GORDON) Influenza Type B (GORDON) Influenza A & B Note N.gonorrhoeae DNA (PCR) NOT DETECTED 03/10/23 03/10/23 03/10/23 13:25 14:16 14:16 MCV MCH MCHC RDW Plt Count MPV Immature Gran % (Auto) Neut % (Auto) Lymph % (Auto) [place] % (Auto) Eos % (Auto) Baso % (Auto) Lymph # (Auto) [place] # (Auto) Eos # (Auto) Baso # (Auto) Abs Immat Gran (auto) Absolute Neuts (auto) Absolute Nucleated RBC Nucleated RBC % (auto) PT INR APTT Anion Gap Estim Creat Clear Calc Estimated GFR Random Glucose Lactic Acid Lactic Acid F/U @ 2Hr Calcium Total Bilirubin AST ALT Alkaline Phosphatase Troponin I High Sens < 2.7 B-Natriuretic Peptide 49 Total Protein Albumin Urine Color Urine Appearance Urine pH Ur Specific [place] Urine Protein Urine Glucose (UA) Urine Ketones Urine Blood Urine Nitrite Ur Leukocyte Esterase Urine RBC Urine WBC Ur Squamous Epith Cells Urine Bacteria Hyaline Casts Stool Occult Blood NEGATIVE Chlam trachomat DNA PCR COVID-19 (ISAEL) COVID-19 Clin Com Influenza Type A (GORDON) Influenza Type B (GORDON) Influenza A & B Note N.gonorrhoeae DNA (PCR) 03/10/23 03/10/23 03/10/23 14:16 16:36 18:03 MCV MCH MCHC RDW Plt Count MPV Immature Gran % (Auto) Neut % (Auto) Lymph % (Auto) [place] % (Auto) Eos % (Auto) Baso % (Auto) Lymph # (Auto) [place] # (Auto) Eos # (Auto) Baso # (Auto) Abs Immat Gran (auto) Absolute Neuts (auto) Absolute Nucleated RBC Nucleated RBC % (auto) PT INR APTT Anion Gap Estim Creat Clear Calc Estimated GFR Random Glucose Lactic Acid 2.6 H* Lactic Acid F/U @ 2Hr 0.9 Calcium Total Bilirubin AST ALT Alkaline Phosphatase Troponin I High Sens B-Natriuretic Peptide Total Protein Albumin Urine Color Yellow Urine Appearance Clear Urine pH 7.5 Ur Specific [place] 1.025 Urine Protein Negative Urine Glucose (UA) Negative Urine Ketones Trace Urine Blood Trace H Urine Nitrite Negative Ur Leukocyte Esterase Large (3+) H Urine RBC 0-2 Urine WBC >50 H Ur Squamous Epith Cells 6-10 Urine Bacteria 2+ Hyaline Casts 0-2 Stool Occult Blood Chlam trachomat DNA PCR COVID-19 (ISAEL) COVID-19 Clin Com Influenza Type A (GORDON) Influenza Type B (GORDON) Influenza A & B Note N.gonorrhoeae DNA (PCR) Imaging Radiologist's Impressions: Impressions Chest X-Ray 03/10/23 12:10 IMPRESSION: 4.8 x 3.7 cm left upper lobe mass and likely lymphadenopathy. Appearance is concerning for neoplasm. Findings will be communicated by the [place] work flow system safety manager. Doppler Study Ultrasound 03/10/23 15:31 IMPRESSION: Limited exam. Enlarged fibroid uterus. Endometrium not seen. Normal-appearing right ovary. Left ovary not seen. Small left simple adnexal cyst. Pelvic/Transvag US 03/10/23 15:31 IMPRESSION: Limited exam. Enlarged fibroid uterus. Endometrium not seen. Normal-appearing right ovary. Left ovary not seen. Small left simple adnexal cyst. Abdomen/Pelvis CT 03/10/23 16:05 IMPRESSION: 1. No evidence of pulmonary embolism. 2. A 4.6 x 3.9 x 3.6 cm irregular spiculated mass in the left upper lobe abutting the pleural surface in the late left apex posterolaterally is highly concerning for malignancy. 3. Mediastinal and left hilar adenopathy concerning for metastasis adenopathy. 4. A few subcentimeter right lung nodules are nonspecific. Given the left lung mass and mediastinal and left hilar adenopathy, findings could represent metastatic nodules. Recommend attention to the finding on follow-up imaging. 5. Enlarged uterus containing multiple calcified and noncalcified fibroids with overall increase in the size of the uterus/multiple fibroids since previous CT of 2016. 6. Enhancing ill-defined soft tissue/phlegmonous changes in the presacral region inseparable from the rectosigmoid colon in the region with suggestion of thickening of the wall of the lower rectum/anal canal. This finding is nonspecific and could be inflammatory or infectious in etiology, however, neoplastic process cannot be excluded. 7. Otherwise, no evidence of metastatic disease in the abdomen and pelvis. VTE: Negative. Chest CTA 03/10/23 16:05 IMPRESSION: 1. No evidence of pulmonary embolism. 2. A 4.6 x 3.9 x 3.6 cm irregular spiculated mass in the left upper lobe abutting the pleural surface in the late left apex posterolaterally is highly concerning for malignancy. 3. Mediastinal and left hilar adenopathy concerning for metastasis adenopathy. 4. A few subcentimeter right lung nodules are nonspecific. Given the left lung mass and mediastinal and left hilar adenopathy, findings could represent metastatic nodules. Recommend attention to the finding on follow-up imaging. 5. Enlarged uterus containing multiple calcified and noncalcified fibroids with overall increase in the size of the uterus/multiple fibroids since previous CT of 2016. 6. Enhancing ill-defined soft tissue/phlegmonous changes in the presacral region inseparable from the rectosigmoid colon in the region with suggestion of thickening of the wall of the lower rectum/anal canal. This finding is nonspecific and could be inflammatory or infectious in etiology, however, neoplastic process cannot be excluded. 7. Otherwise, no evidence of metastatic disease in the abdomen and pelvis. VTE: Negative. Assessment and Plan (1) Rectal mass: Status: Acute (2) Unintentional weight loss: Status: Acute (3) Mass of upper lobe of left lung: Status: Acute (4) Discharge of vagina: Status: Acute Plan 67 year old female with history of GERD, htn, hx cva, insulin dependent type 2 diabetes, who recently quit smoking 2 weeks ago to be observed overnight for rectal mass with plan for colonoscopy tomorrow. #Rectal mass -Suspcious for malignancy on CT scan. Has constitutional symptoms including anorexia and unintentional weight loss -2 episodes blood on toilet paper, most likely rectal in origin. No significant blood loss anemia -ED discussed with GI. Plan for colonoscopy tomorrow -Golytely colonoscopy prep ordered -Clear liquid diet, NPO after midnight -GI consult. Oncology consult -Remote history colonoscopy which she believes was negative. No FH GI cancer #TYE lung mass -suspicious for malignancy with mediastinal adenopathy. Recently quit smoking 2 weeks ago -Oncology consult -Outpt follow up with thoracic surgery #Acute cough -likely secondary to above. Recent smoking cessation likely contributory -symptomatic management #Vaginal discharge -Most consistent with a vaginal candidiasis though cultures for Gardnerella, Trichomonas, Sweetie are still pending -will empirically treat with fluconazole 150 mg once, can repeat dose once in 72 hours if symptoms persist -per ED provider, vaginal and cervical friability noted on exam without osvaldo bleeding. However patient has question of brown vaginal discharge. Outpatient follow-up with house admin recommended # asymptomatic bacteruria -UA positive for 3+ leuks, neg nitrates, negative blood, urinary sediment, 2+ bacteria -possibly related to above -hold on empiric abx treatment until cultures result # insulin-dependent type 2 diabetes -hold basal insulin tonight as patient is on clear liquids and will be NPO after midnight with glucose on arrival in the 70s -once diet is resumed, consider resuming dose adjusted basal insulin -diabetic diet -POC glucose -Humalog on sliding scale # hypertension -continue home meds DVT prophylaxis- SCPs Full code Time Spent With Patient Time: Total time managing care of this patient today ____ minutes. Quality Stroke Does the patient have a stroke diagnosis?: No VTE Prior VTE?: No VTE Risk Level:: Medical - moderate - high VTE Device Contraindication: N/A - Device Ordered VTE Drug Contraindication: Treatment Not Indicated
[2023-03-10] MEDS: Fluconazole 150 MG TABLET PO (20:36)
[2023-03-10] MEDS: PEG 3350/Na Sulf,Bicarb,Cl/KCL 4,000 ML SOLN.RECON 4000 ML PO (20:36)
--- NOTE | 2023-03-10 20:59 | PC.NURSE ---
pt medicated according to nov. rn to rn report given. pt awaiting transport to bed assignment
[2023-03-10 21:35] VITALS: BP 168/86; PULSE 68; RESP 16; TEMP 36.3; O2SAT 96
[2023-03-10 21:36] LABS: Glucose, Whole Blood 69 mg/dL (60-115)
[2023-03-10] MEDS: traZODone HCL 50 MG TABLET PO (22:56)
[2023-03-10] MEDS: 0.9 % Sodium Chloride Flush 3 ML SYRINGE IVFLUSH (22:59)
[2023-03-11] VITALS (11 sets, daily range): BP systolic 107–183; BP diastolic 52–88; PULSE 65–116; RESP 16–24; TEMP 36.2–37.6; O2SAT 94–100; BMI 25.7
[2023-03-11 05:10] LABS: MANUAL DIFF FLAG NO
[2023-03-11 05:12] LABS: Basophils Percent Auto 0.2 % (0-2); Eosinophils Percent Auto 0.2 % (0-4); Imm Gran Abs Auto 0.04 X10*3/uL (0.00-0.03); Imm Gran Pct Auto 0.6 % (0.0-0.4); Lymphocytes Absolute Auto 0.9 X10*3/uL (1.2-4.9); Lymphocytes Percent Auto 14.3 % (20-40); Mean Corpuscular HGB Conc 32.4 g/dl (31.0-35.0); Mean Corpuscular Hemoglobin 31.3 pg (27.0-33.0); Mean Corpuscular Volume 96.6 fL (80.0-98.0); Mean Platelet Volume 9.4 fL (9.4-12.3); Monocytes Absolute Auto 0.6 X10*3/uL (0.1-1.2); Monocytes Percent Auto 10.4 % (2-11); Neutrophils Absolute Auto 4.6 x10*3/uL (2.0-8.3); Neutrophils Percent Auto 74.3 % (45-73); Platelet Count 266 X10*3/uL (160-400); Red Blood Count 3.52 X10*6/uL (4.20-5.50); Red Cell Distribution Width 13.1 % (11.0-16.0); White Blood Count 6.2 X10*3/uL (4.8-10.8)
[2023-03-11 05:25] LABS: Anion Gap 15 (12-20); Blood Urea Nitrogen 5 mg/dL (9-16); Calcium 8.9 mg/dL (8.4-10.2); Carbon Dioxide 23 mmol/L (22-29); Chloride 108 mmol/L (96-108); Creatinine Clr Calc Pharmacy 67.2; Estimated Glomerular Filt Rate > 60; Glucose Random 107 mg/dL (60-115); Potassium 3.9 mmol/L (3.3-5.1); Sodium 142 mmol/L (135-145)
--- NOTE | 2023-03-11 07:27 | P.PNIM_ITS ---
Subjective Subjective Date of Service: 03/11/23 Interval History: f/u rectal mass, rectal bleed Physical Exam Vital Signs: Vital Signs: Last Vital Signs Temp 97.3 F 03/11/23 03:13 Pulse 88 03/11/23 03:13 Resp 16 03/11/23 03:13 BP 148/88 H 03/11/23 03:13 Pulse Ox 97 03/11/23 03:13 O2 Del Method Room Air 03/11/23 03:13 BMI result Body Mass Index 25.7 Const: Other: General: AO X 3, no acute distress Resp: CTA bilateral CVS: S1,S2,RRR GI: +BS, NT, no distention rectal and vaginal exam defered Skin: No rash Neuro: motor grossly intact Psych: appropriate affect Objective Data Active Medications Acetaminophen (Acetaminophen 325 Mg Tablet) 650 mg PO Q6H PRN PRN Reason: Pain, Mild (Pain Scale 1-3) Benzonatate (Benzonatate 100 Mg Capsule) 100 mg PO TID PRN PRN Reason: Cough Docusate Sodium (Docusate Sodium 100 Mg Capsule) 100 mg PO DAILY PRN PRN Reason: Constipation Glucose (Glucose Gel 15 Gm Gel..Gram.) 15 gm PO Q15M PRN; Protocol PRN Reason: per Hypoglycemia Standing Ord. Dextrose (D10) 250 mls @ 750 mls/hr IV Q15M PRN; Protocol PRN Reason: per Hypoglycemia Standing Ord. Insulin Glargine (Insulin Glargine,Hum.Rec.Anlog 100 Unit/Ml 10 Ml Vial) 15 unit SUBCUT BEDTIME [facility] Last Admin: 03/10/23 21:59 Dose: Not Given Documented By: KYM Non-Admin Reason: NPO Insulin Human Lispro (Insulin Lispro 100 Unit/Ml 3 Ml Vial) 0 unit SUBCUT Q IDACHS [facility]; Protocol Last Admin: 03/10/23 21:59 Dose: Not Given Documented By: KYM Non-Admin Reason: No Insulin Coverage Loratadine (Loratadine 10 Mg Tablet) 10 mg PO DAILY PRN PRN Reason: allergy symptoms Lorazepam (Lorazepam 0.5 Mg Tablet) 0.5 mg PO DAILY PRN PRN Reason: anxiety Ondansetron HCl (Ondansetron Hcl 4 Mg/2 Ml Vial) 4 mg IVPUSH Q8H PRN PRN Reason: Nausea and Vomiting Pharmacy Consult (Consult Rx Perform Med Rec) 1 each MISCELLANE ONCE PRN PRN Reason: Consult order Sodium Chloride (0.9 % Sodium Chloride Flush 3 Ml Syringe) 3 ml IVFLUSH QSHIFT [facility] Last Admin: 03/10/23 22:59 Dose: 3 ml Documented By: KYM Tramadol HCl (Tramadol Hcl 50 Mg Tablet) 50 mg PO BID PRN PRN Reason: Pain, Moderate(Pain Scale 4-6) Trazodone HCl (Trazodone Hcl 50 Mg Tablet) 50 mg PO BEDTIME [facility] Last Admin: 03/10/23 22:56 Dose: 50 mg Documented By: KYM Labs 03/11/23 05:05 03/11/23 05:05 Labs: Laboratory Results - last 24 hr 03/10/23 03/10/23 03/10/23 11:38 11:38 11:42 MCV 95.6 MCH 30.5 MCHC 31.9 RDW 13.2 Plt Count 276 MPV 9.1 L Immature Gran % (Auto) 0.4 Neut % (Auto) 74.7 H Lymph % (Auto) 16.4 L [place] % (Auto) 7.7 Eos % (Auto) 0.4 Baso % (Auto) 0.4 Lymph # (Auto) 0.9 L [place] # (Auto) 0.4 Eos # (Auto) 0.0 Baso # (Auto) 0.0 Abs Immat Gran (auto) 0.02 Absolute Neuts (auto) 4.0 Absolute Nucleated RBC 0.000 Nucleated RBC % (auto) 0.0 PT INR APTT Anion Gap Estim Creat Clear Calc Estimated GFR POC Glucose Random Glucose Lactic Acid Lactic Acid F/U @ 2Hr Calcium Total Bilirubin AST ALT Alkaline Phosphatase Troponin I High Sens B-Natriuretic Peptide Total Protein Albumin Urine Color Urine Appearance Urine pH Ur Specific [place] Urine Protein Urine Glucose (UA) Urine Ketones Urine Blood Urine Nitrite Ur Leukocyte Esterase Urine RBC Urine WBC Ur Squamous Epith Cells Urine Bacteria Hyaline Casts Stool Occult Blood Chlam trachomat DNA PCR COVID-19 (ISAEL) Negative COVID-19 Clin Com See Note Influenza Type A (GORDON) Negative Influenza Type B (GORDON) Negative Influenza A & B Note See Note N.gonorrhoeae DNA (PCR) 03/10/23 03/10/23 03/10/23 11:42 11:42 13:24 MCV MCH MCHC RDW Plt Count MPV Immature Gran % (Auto) Neut % (Auto) Lymph % (Auto) [place] % (Auto) Eos % (Auto) Baso % (Auto) Lymph # (Auto) [place] # (Auto) Eos # (Auto) Baso # (Auto) Abs Immat Gran (auto) Absolute Neuts (auto) Absolute Nucleated RBC Nucleated RBC % (auto) PT 11.4 INR 1.0 APTT 35.1 Anion Gap 13 Estim Creat Clear Calc 62.2 Estimated GFR > 60 POC Glucose Random Glucose 77 Lactic Acid Lactic Acid F/U @ 2Hr Calcium 9.6 Total Bilirubin 0.9 AST 12 ALT 6 Alkaline Phosphatase 90 Troponin I High Sens B-Natriuretic Peptide Total Protein 7.8 Albumin 4.0 Urine Color Urine Appearance Urine pH Ur Specific [place] Urine Protein Urine Glucose (UA) Urine Ketones Urine Blood Urine Nitrite Ur Leukocyte Esterase Urine RBC Urine WBC Ur Squamous Epith Cells Urine Bacteria Hyaline Casts Stool Occult Blood Chlam trachomat DNA PCR NOT DETECTED COVID-19 (ISAEL) COVID-19 Clin Com Influenza Type A (GORDON) Influenza Type B (GORDON) Influenza A & B Note N.gonorrhoeae DNA (PCR) NOT DETECTED 03/10/23 03/10/23 03/10/23 13:25 14:16 14:16 MCV MCH MCHC RDW Plt Count MPV Immature Gran % (Auto) Neut % (Auto) Lymph % (Auto) [place] % (Auto) Eos % (Auto) Baso % (Auto) Lymph # (Auto) [place] # (Auto) Eos # (Auto) Baso # (Auto) Abs Immat Gran (auto) Absolute Neuts (auto) Absolute Nucleated RBC Nucleated RBC % (auto) PT INR APTT Anion Gap Estim Creat Clear Calc Estimated GFR POC Glucose Random Glucose Lactic Acid Lactic Acid F/U @ 2Hr Calcium Total Bilirubin AST ALT Alkaline Phosphatase Troponin I High Sens < 2.7 B-Natriuretic Peptide 49 Total Protein Albumin Urine Color Urine Appearance Urine pH Ur Specific [place] Urine Protein Urine Glucose (UA) Urine Ketones Urine Blood Urine Nitrite Ur Leukocyte Esterase Urine RBC Urine WBC Ur Squamous Epith Cells Urine Bacteria Hyaline Casts Stool Occult Blood NEGATIVE Chlam trachomat DNA PCR COVID-19 (ISAEL) COVID-19 Clin Com Influenza Type A (GORDON) Influenza Type B (GORDON) Influenza A & B Note N.gonorrhoeae DNA (PCR) 03/10/23 03/10/23 03/10/23 14:16 16:36 18:03 MCV MCH MCHC RDW Plt Count MPV Immature Gran % (Auto) Neut % (Auto) Lymph % (Auto) [place] % (Auto) Eos % (Auto) Baso % (Auto) Lymph # (Auto) [place] # (Auto) Eos # (Auto) Baso # (Auto) Abs Immat Gran (auto) Absolute Neuts (auto) Absolute Nucleated RBC Nucleated RBC % (auto) PT INR APTT Anion Gap Estim Creat Clear Calc Estimated GFR POC Glucose Random Glucose Lactic Acid 2.6 H* Lactic Acid F/U @ 2Hr 0.9 Calcium Total Bilirubin AST ALT Alkaline Phosphatase Troponin I High Sens B-Natriuretic Peptide Total Protein Albumin Urine Color Yellow Urine Appearance Clear Urine pH 7.5 Ur Specific [place] 1.025 Urine Protein Negative Urine Glucose (UA) Negative Urine Ketones Trace Urine Blood Trace H Urine Nitrite Negative Ur Leukocyte Esterase Large (3+) H Urine RBC 0-2 Urine WBC >50 H Ur Squamous Epith Cells 6-10 Urine Bacteria 2+ Hyaline Casts 0-2 Stool Occult Blood Chlam trachomat DNA PCR COVID-19 (ISAEL) COVID-19 Clin Com Influenza Type A (GORDON) Influenza Type B (GORDON) Influenza A & B Note N.gonorrhoeae DNA (PCR) 03/10/23 03/11/23 03/11/23 21:18 05:05 05:05 MCV 96.6 MCH 31.3 MCHC 32.4 RDW 13.1 Plt Count 266 MPV 9.4 Immature Gran % (Auto) 0.6 H Neut % (Auto) 74.3 H Lymph % (Auto) 14.3 L [place] % (Auto) 10.4 Eos % (Auto) 0.2 Baso % (Auto) 0.2 Lymph # (Auto) 0.9 L [place] # (Auto) 0.6 Eos # (Auto) 0.0 Baso # (Auto) 0.0 Abs Immat Gran (auto) 0.04 H Absolute Neuts (auto) 4.6 Absolute Nucleated RBC 0.000 Nucleated RBC % (auto) 0.0 PT INR APTT Anion Gap 15 Estim Creat Clear Calc 67.2 Estimated GFR > 60 POC Glucose 69 Random Glucose 107 Lactic Acid Lactic Acid F/U @ 2Hr Calcium 8.9 D Total Bilirubin AST ALT Alkaline Phosphatase Troponin I High Sens B-Natriuretic Peptide Total Protein Albumin Urine Color Urine Appearance Urine pH Ur Specific [place] Urine Protein Urine Glucose (UA) Urine Ketones Urine Blood Urine Nitrite Ur Leukocyte Esterase Urine RBC Urine WBC Ur Squamous Epith Cells Urine Bacteria Hyaline Casts Stool Occult Blood Chlam trachomat DNA PCR COVID-19 (ISAEL) COVID-19 Clin Com Influenza Type A ([facility]ORDON) Influenza Type B (G[facility]ON) Influenza A & B Note N.gonorrhoeae DNA (PCR) Microbiology Microbiology Results: Microbiology 03/10/23 13:24 Trichomonas Preparation - Final Vaginal Assessment and Plan (1) Rectal mass: Status: Acute (2) Acute UTI: Status: Acute Plan 67 year old female with history of GERD, htn, hx cva, insulin dependent type 2 diabetes, who recently quit smoking 2 weeks ago to be observed overnight for rectal mass with plan for colonoscopy tomorrow. #Rectal mass, rectal blee, acute blood loss anemia -Suspcious for malignancy on CT scan. Has constitutional symptoms including anorexia and unintentional weight loss -2 episodes blood on toilet paper, most likely rectal in origin. 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 Recently quit smoking 2 weeks ago -Oncology consult -Outpt follow up with thoracic surgery #Acute cough -likely secondary to above. Recent smoking cessation likely contributory -symptomatic management #Vaginal discharge -Most consistent with a vaginal candidiasis though cultures for Gardnerella, Trichomonas, Sweetie are still pending -will empirically treat with fluconazole 150 mg once, can repeat dose once in 72 hours if symptoms persist -per ED provider, vaginal and cervical friability noted on exam without osvaldo bleeding.? However patient has question of brown vaginal discharge.? 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 Quality Stroke Does the patient have a stroke diagnosis?: No VTE Prior VTE?: No VTE Risk Level:: Medical - moderate - high VTE Device Contraindication: N/A - Device Ordered VTE Drug Contraindication: Treatment Not Indicated
[2023-03-11 07:45] LABS: Glucose, Whole Blood 106 mg/dL (60-115)
[2023-03-11] MEDS: 0.9 % Sodium Chloride Flush 3 ML SYRINGE IVFLUSH ×2 (08:22→20:42)
[2023-03-11 10:52] LABS: BV Int Neg Control Negative (Negative); BV Int Pos Control Positive (Positive)
[2023-03-11 11:19] LABS: Glucose, Whole Blood 90 mg/dL (60-115)
--- NOTE | 2023-03-11 11:35 | MHC.CM.PN ---
PT REPORTS SHE LIVES WITH HER AND IS INDEPENDENT WITH CARE SHE DENIES USE OF DME OR HOME SERVICES PT SAYS SHE HAS A HCP NAMING HER DAUGHTER, MEKHI, HER AGENT PCP: ALANNAH TIMMONS OBSERVATION NOTICE DELIVERED CURRENT DC PLAN IS HOME WITH NO SERVICES TO TRANSPORT PER MD ROUNDS, PT WILL NOT BE MEDICALLY CLEARED TO DC TODAY, HOWEVER PT REPORTS SHE WILL LEAVE AFTER HER PROCEDURE AND PLANS TO FOLLOW UP OUTPATIENT
[2023-03-11 12:50] LABS: Glucose, Whole Blood 78 mg/dL (60-115)
--- NOTE | 2023-03-11 12:57 | PM.GICN ---
History of Present Illness Data of Consult Service Date: 03/11/23 [facility] Primary Care Provider: Lizy Laguna MD HPI Reason for consult: abn imaging of rectum 67 year old female with history of GERD, htn, hx cva, insulin dependent type 2 diabetes, who I am seeing for abn imaging Patient came to the ED due to abn vaginal brownish d/c. She also incidentally mentioned a few episodes of rectal bleeding with bowel motions as well as cough with clear sputum. she denied abdominal pain, nausea, vomiting, constipation, diarrhea, rectal pressure but did admit to tenesmus and weight loss of 20 lb with poor appetite for several months. She had imaging which revealed left upper lobe mass and probable lymphadenopathy concerning for neoplasm with enhancing ill-defined soft tissue/phlegmonous changes in the presacral region inseparable from the rectosigmoid colon. Fibroids and bulky uterus was also noted. Patient said she has not had colonoscopy in >10 yrs Labs: mild anemia Review of Systems Review of Systems: Constitutional : + Weight loss, No Fever, No Chills ENT/Mouth : No sore throat, No Rhinorrhea Eyes: No Swelling, No Redness Cardiovascular : No Chest Pain, No SOB, No Edema Respiratory : No Cough, No Sputum, No Wheezing Gastrointestinal : see HPI Genitourinary : NO Dysuria, No Urinary Frequency, No Hematuria, No Urgency Musculoskeletal : No joint pain, No Myalgias, No Joint Swelling Skin : No Skin Lesions, No rash Neuro : No Weakness, No Numbness, No Dizziness, No Headache Psych : No Anxiety/Panic, No Depression Heme/Lymph: No Bruising, No Lymphadenopathy Endocrine : No Polyuria, No Polydipsia All other systems reviewed and are negative. [facility] Past Medical History Medical History (Updated 03/11/23 @ 13:09 by Howard Pires MD) Diabetes mellitus Essential hypertension History of gastric ulcer Stroke Family History Family History Mother Hypertension Father No problems noted. Surgical History Surgical History No pertinent past surgical history Social History Social History Household Members: Spouse Housing: House Do you presently have visiting nurse or other home services: No Alcohol intake: never Patient Tobacco Use Status: Former Tobacco user Tobacco use type: Cigarette Cigarettes Per Day: 6 Years Smoked: 30 e-Cigarette/Vaping Use: Never Used Second Hand Smoke Exposure: No service: No Current occupational status: retired Cognitive needs: No Hearing needs: No Vision needs: No Meds Allergies Allergy/AdvReac Type Severity Reaction Status Date / Time codeine [CODEINE] Allergy Unknown HIVES Verified 01/29/23 10:59 morphine [MORPHINE] Allergy Unknown ITCHING, Verified 01/29/23 10:59 itchy Active Medications: Current Medications Acetaminophen (Acetaminophen 325 Mg Tablet) 650 mg PO Q6H PRN PRN Reason: Pain, Mild (Pain Scale 1-3) Benzonatate (Benzonatate 100 Mg Capsule) 100 mg PO TID PRN PRN Reason: Cough Docusate Sodium (Docusate Sodium 100 Mg Capsule) 100 mg PO DAILY PRN PRN Reason: Constipation Glucose (Glucose Gel 15 Gm Gel..Gram.) 15 gm PO Q15M PRN; Protocol PRN Reason: per Hypoglycemia Standing Ord. Dextrose (D10) 250 mls @ 750 mls/hr IV Q15M PRN; Protocol PRN Reason: per Hypoglycemia Standing Ord. Ceftriaxone Sodium 1 gm/ (Sodium Chloride) 50 mls @ 100 mls/hr IV Q24H [facility] Insulin Glargine (Insulin Glargine,Hum.Rec.Anlog 100 Unit/Ml 10 Ml Vial) 15 unit SUBCUT BEDTIME [facility] Last Admin: 03/10/23 21:59 Dose: Not Given Insulin Human Lispro (Insulin Lispro 100 Unit/Ml 3 Ml Vial) 0 unit SUBCUT QIDACHS [facility]; Protocol Last Admin: 03/11/23 11:23 Dose: Not Given Loratadine (Loratadine 10 Mg Tablet) 10 mg PO DAILY PRN PRN Reason: allergy symptoms Lorazepam (Lorazepam 0.5 Mg Tablet) 0.5 mg PO DAILY PRN PRN Reason: anxiety Ondansetron HCl (Ondansetron Hcl 4 Mg/2 Ml Vial) 4 mg IVPUSH Q8H PRN PRN Reason: Nausea and Vomiting Pharmacy Consult (Consult Rx Perform Med Rec) 1 each MISCELLANE ONCE PRN PRN Reason: Consult order Sodium Chloride (0.9 % Sodium Chloride Flush 3 Ml Syringe) 3 ml IVFLUSH QSHIFT [facility] Last Admin: 03/11/23 08:22 Dose: 3 ml Tramadol HCl (Tramadol Hcl 50 Mg Tablet) 50 mg PO BID PRN PRN Reason: Pain, Moderate(Pain Scale 4-6) Trazodone HCl (Trazodone Hcl 50 Mg Tablet) 50 mg PO BEDTIME [facility] Last Admin: 03/10/23 22:56 Dose: 50 mg Home Medications Medication Instructions Recorded Confirmed Last Taken Type aspirin 81 mg tablet,delayed 81 mg PO DAILY 02/08/22 03/10/23 03/10/23 History release (Adult Low Dose Aspirin) escitalopram oxalate 10 mg tablet 10 mg PO DAILY 02/08/22 03/10/23 03/10/23 History trazodone 50 mg tablet 50 mg PO BEDTIME 01/17/23 03/10/23 Unknown History Physical Exam Vital Signs: Vital Signs: Last Vital Signs Temp 98.6 F 03/11/23 12:45 Pulse 99 03/11/23 12:45 Resp 18 03/11/23 12:45 BP 153/63 H 03/11/23 12:45 Pulse Ox 99 03/11/23 12:45 O2 Del Method Room Air 03/11/23 12:45 BMI result Body Mass Index 25.7 EXAM: GENERAL: The patient is well developed and nontoxic. VITAL SIGNS:see workflow HEENT: Nonicteric sclerae, PERRLA, EOMI. Oropharynx clear. Moist mucous membranes. Conjunctivae appear well perfused. No thyroid mass. CHEST: Chest wall is nontender. HEART: Regular rate and rhythm without murmurs. LUNGS: Clear to auscultation bilaterally. ABDOMEN: Soft, positive bowel sounds, nontender, no organomegaly.no flank tenderness SKIN: No rash, no excessive bruising, petechiae, or purpura. NEUROLOGIC: Cranial nerves II-XII intact without motor/sensory deficit. Psych: Appearance: grossly normal Results Labs 03/11/23 05:05 03/11/23 05:05 Labs: Short CBC 03/11/23 Range/Units 05:05 WBC 6.2 (4.8-10.8) X10*3/uL Hgb 11.0 L (12.0-16.0) g/dl Hct 34.0 L (37.0-47.0) % Plt Count 266 (160-400) X10*3/uL BMP 03/11/23 05:05 Sodium 142 Potassium 3.9 Chloride 108 Carbon Dioxide 23 BUN 5 L Creatinine 0.75 Calcium 8.9 D Urine 03/10/23 Range/Units 16:36 Urine Color Yellow Urine Appearance Clear Urine pH 7.5 (5.0-9.0) Ur Specific [place] 1.025 (1.005-1.025) Urine Protein Negative (Neg-Trace) mg/dL Urine Glucose (UA) Negative (Negative) mg/dL Microbiology Microbiology Results: Microbiology 03/10/23 16:50 Urine clean catch - Urine german top Urine Culture - Preliminary Gram negative maria alejandra 03/10/23 13:24 Vaginal Trichomonas Preparation - Final Imaging CT scan - abdomen: My impression: spiculated mass left upper lobe noted spondylosis rectal thickening with stranding bulky uterus with calcifications Assessment and Plan (1) Rectal mass: Status: Acute (2) Unintentional weight loss: Status: Acute (3) Anemia: Status: Acute Plan 1/Lung mass with changes in the rectum, may have 2 primary tumours or mets from rectum to the lung, or maybe endometrial ca 2/ anemia 2/2 to rectal bleeding PLAN: 1/ Colonoscopy for further assessment and bx today Time Spent With Patient Time: Total time managing care of this patient today ____ minutes. Procedures Date of Service Date of Service: 03/11/23
--- NOTE | 2023-03-11 13:10 | MHC.SHP ---
Pre-Procedural Eval Section A Date of Service: 03/11/23 The patient is an INPATIENT: Yes The History & Physical has been completed within 30 days and I have reviewed it.: Yes Section B Chief Complaint: rectal mass Allergies: Allergies Allergy/AdvReac Type Severity Reaction Status Date / Time codeine [CODEINE] Allergy Unknown HIVES Verified 01/29/23 10:59 morphine [MORPHINE] Allergy Unknown ITCHING, Verified 01/29/23 10:59 itchy Plan Diagnosis/Plan: Unchanged I have reviewed the history and physical and performed a pertinent physical examination on my patient. No changes have occurred unless specified. Time Spent With Patient Time: Total time managing care of this patient today ____ minutes.
[2023-03-11] MEDS: Dextrose 5 % 250 ML IV (13:34)
[2023-03-11] MEDS: Albuterol Sulfate (0.083%) 2.5 MG/3 ML VIAL.NEB INHALE ×2 (13:36→16:38)
--- NOTE | 2023-03-11 14:00 | HO.ANESPROP2 ---
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 Past Medical History Medical History Diabetes mellitus Essential hypertension History of gastric ulcer Stroke Family History Family History Mother Hypertension Father No problems noted. Family history of problems with anesthesia: No Surgical History Surgical History (Updated 03/11/23 @ 15:00 by Rhoda Bobby MD) Hx of colonoscopy No pertinent past surgical history History of Problems with Anesthesia: No Social History Social History (Updated 03/11/23 @ 15:01 by Rhoda Bobby MD) Household Members: Spouse Housing: House Do you presently have visiting nurse or other home services: No Alcohol intake: never Patient Tobacco Use Status: Former Tobacco user Quit Date: Quit a month ago Tobacco use type: Cigarette Cigarettes Per Day: 6 Years Smoked: 30 e-Cigarette/Vaping Use: Never Used Second Hand Smoke Exposure: No service: No Current occupational status: retired Cognitive needs: No Hearing needs: No Vision needs: No Meds Allergies Allergy/AdvReac Type Severity Reaction Status Date / Time codeine [CODEINE] Allergy Unknown HIVES Verified 01/29/23 10:59 morphine [MORPHINE] Allergy Unknown ITCHING, Verified 01/29/23 10:59 itchy Active Medications: Current Medications Acetaminophen (Acetaminophen 325 Mg Tablet) 650 mg PO Q6H PRN PRN Reason: Pain, Mild (Pain Scale 1-3) Benzonatate (Benzonatate 100 Mg Capsule) 100 mg PO TID PRN PRN Reason: Cough Docusate Sodium (Docusate Sodium 100 Mg Capsule) 100 mg PO DAILY PRN PRN Reason: Constipation Glucose (Glucose Gel 15 Gm Gel..Gram.) 15 gm PO Q15M PRN; Protocol PRN Reason: per Hypoglycemia Standing Ord. Dextrose (D10) 250 mls @ 750 mls/hr IV Q15M PRN; Protocol PRN Reason: per Hypoglycemia Standing Ord. Ceftriaxone Sodium 1 gm/ (Sodium Chloride) 50 mls @ 100 mls/hr IV Q24H JANNETH Lactated Ringer's (Lr) 1,000 mls @ 100 mls/hr IVCONT .Q10H JANNETH Dextrose (D5w) 500 mls @ 250 mls/hr IV .Q2H ONE Stop: 03/11/23 15:21 Insulin Glargine (Insulin Glargine,Hum.Rec.Anlog 100 Unit/Ml 10 Ml Vial) 15 unit SUBCUT BEDTIME [facility] Last Admin: 03/10/23 21:59 Dose: Not Given Insulin Human Lispro (Insulin Lispro 100 Unit/Ml 3 Ml Vial) 0 unit SUBCUT QIDACHS [facility]; Protocol Last Admin: 03/11/23 11:23 Dose: Not Given Loratadine (Loratadine 10 Mg Tablet) 10 mg PO DAILY PRN PRN Reason: allergy symptoms Lorazepam (Lorazepam 0.5 Mg Tablet) 0.5 mg PO DAILY PRN PRN Reason: anxiety Ondansetron HCl (Ondansetron Hcl 4 Mg/2 Ml Vial) 4 mg IVPUSH Q8H PRN PRN Reason: Nausea and Vomiting Pharmacy Consult (Consult Rx Perform Med Rec) 1 each MISCELLANE ONCE PRN PRN Reason: Consult order Sodium Chloride (0.9 % Sodium Chloride Flush 3 Ml Syringe) 3 ml IVFLUSH QSHIFT [facility] Last Admin: 03/11/23 08:22 Dose: 3 ml Tramadol HCl (Tramadol Hcl 50 Mg Tablet) 50 mg PO BID PRN PRN Reason: Pain, Moderate(Pain Scale 4-6) Trazodone HCl (Trazodone Hcl 50 Mg Tablet) 50 mg PO BEDTIME [facility] Last Admin: 03/10/23 22:56 Dose: 50 mg Home Medications Medication Instructions Recorded Confirmed Last Taken Type aspirin 81 mg tablet,delayed 81 mg PO DAILY 02/08/22 03/10/23 03/10/23 History release (Adult Low Dose Aspirin) escitalopram oxalate 10 mg tablet 10 mg PO DAILY 02/08/22 03/10/23 03/10/23 History trazodone 50 mg tablet 50 mg PO BEDTIME 01/17/23 03/10/23 Unknown History Exam Exam Date and Time: March 11, 2023 1400 Height,Weight and Vital Signs: Height 5 ft 3 in Weight 65.771 kg Last Vital Signs Temp 98.6 F 03/11/23 12:45 Pulse 99 03/11/23 12:45 Resp 18 03/11/23 12:45 BP 153/63 H 03/11/23 12:45 Pulse Ox 99 03/11/23 12:45 O2 Del Method Room Air 03/11/23 12:45 Pertinent Lab Results Pertinent Lab Results: Laboratory Tests 03/10/23 03/10/23 03/10/23 11:38 11:38 11:42 WBC 5.3 RBC 3.90 L Hgb 11.9 L Hct 37.3 MCV 95.6 MCH 30.5 MCHC 31.9 RDW 13.2 Plt Count 276 MPV 9.1 L Immature Gran % (Auto) 0.4 Neut % (Auto) 74.7 H Lymph % (Auto) 16.4 L [place] % (Auto) 7.7 Eos % (Auto) 0.4 Baso % (Auto) 0.4 Lymph # (Auto) 0.9 L [place] # (Auto) 0.4 Eos # (Auto) 0.0 Baso # (Auto) 0.0 Abs Immat Gran (auto) 0.02 Absolute Neuts (auto) 4.0 Absolute Nucleated RBC 0.000 Nucleated RBC % (auto) 0.0 PT INR APTT Sodium Potassium Chloride Carbon Dioxide Anion Gap BUN Creatinine Estim Creat Clear Calc Estimated GFR POC Glucose Random Glucose Lactic Acid Lactic Acid F/U @ 2Hr Calcium Total Bilirubin AST ALT Alkaline Phosphatase Troponin I High Sens B-Natriuretic Peptide Total Protein Albumin Urine Color Urine Appearance Urine pH Ur Specific [place] Urine Protein Urine Glucose (UA) Urine Ketones Urine Blood Urine Nitrite Ur Leukocyte Esterase Urine RBC Urine WBC Ur Squamous Epith Cells Urine Bacteria Hyaline Casts Stool Occult Blood Sweetie species DNA Chlam trachomat DNA PCR COVID-19 (ISAEL) Negative COVID-19 Clin Com See Note Gardnerella DNA Probe Influenza Type A (GORDON) Negative Influenza Type B (GORDON) Negative Influenza A & B Note See Note N.gonorrhoeae DNA (PCR) Trichomonas DNA Probe 03/10/23 03/10/23 03/10/23 11:42 11:42 13:24 WBC RBC Hgb Hct MCV MCH MCHC RDW Plt Count MPV Immature Gran % (Auto) Neut % (Auto) Lymph % (Auto) [place] % (Auto) Eos % (Auto) Baso % (Auto) Lymph # (Auto) [place] # (Auto) Eos # (Auto) Baso # (Auto) Abs Immat Gran (auto) Absolute Neuts (auto) Absolute Nucleated RBC Nucleated RBC % (auto) PT 11.4 INR 1.0 APTT 35.1 Sodium 142 Potassium 4.2 Chloride 106 Carbon Dioxide 27 Anion Gap 13 BUN 8 L Creatinine 0.81 Estim Creat Clear Calc 62.2 Estimated GFR > 60 POC Glucose Random Glucose 77 Lactic Acid Lactic Acid F/U @ 2Hr Calcium 9.6 Total Bilirubin 0.9 AST 12 ALT 6 Alkaline Phosphatase 90 Troponin I High Sens B-Natriuretic Peptide Total Protein 7.8 Albumin 4.0 Urine Color Urine Appearance Urine pH Ur Specific [place] Urine Protein Urine Glucose (UA) Urine Ketones Urine Blood Urine Nitrite Ur Leukocyte Esterase Urine RBC Urine WBC Ur Squamous Epith Cells Urine Bacteria Hyaline Casts Stool Occult Blood Sweetie species DNA Chlam trachomat DNA PCR NOT DETECTED COVID-19 (ISAEL) COVID-19 Clin Com Gardnerella DNA Probe Influenza Type A (GORDON) Influenza Type B (GORDON) Influenza A & B Note N.gonorrhoeae DNA (PCR) NOT DETECTED Trichomonas DNA Probe 03/10/23 03/10/23 03/10/23 13:24 13:25 14:16 WBC RBC Hgb Hct MCV MCH MCHC RDW Plt Count MPV Immature Gran % (Auto) Neut % (Auto) Lymph % (Auto) [place] % (Auto) Eos % (Auto) Baso % (Auto) Lymph # (Auto) [place] # (Auto) Eos # (Auto) Baso # (Auto) Abs Immat Gran (auto) Absolute Neuts (auto) Absolute Nucleated RBC Nucleated RBC % (auto) PT INR APTT Sodium Potassium Chloride Carbon Dioxide Anion Gap BUN Creatinine Estim Creat Clear Calc Estimated GFR POC Glucose Random Glucose Lactic Acid Lactic Acid F/U @ 2Hr Calcium Total Bilirubin AST ALT Alkaline Phosphatase Troponin I High Sens < 2.7 B-Natriuretic Peptide Total Protein Albumin Urine Color Urine Appearance Urine pH Ur Specific [place] Urine Protein Urine Glucose (UA) Urine Ketones Urine Blood Urine Nitrite Ur Leukocyte Esterase Urine RBC Urine WBC Ur Squamous Epith Cells Urine Bacteria Hyaline Casts Stool Occult Blood NEGATIVE Sweetie species DNA Negative Chlam trachomat DNA PCR COVID-19 (ISAEL) COVID-19 Clin Com Gard[place]rella DNA Probe Negative Influenza Type A (GORDON) Influenza Type B (GORDON) Influenza A & B Note N.gonorrhoeae DNA (PCR) Trichomonas DNA Probe Negative 03/10/23 03/10/23 03/10/23 14:16 14:16 16:36 WBC RBC Hgb Hct MCV MCH MCHC RDW Plt Count MPV Immature Gran % (Auto) Neut % (Auto) Lymph % (Auto) [place] % (Auto) Eos % (Auto) Baso % (Auto) Lymph # (Auto) [place] # (Auto) Eos # (Auto) Baso # (Auto) Abs Immat Gran (auto) Absolute Neuts (auto) Absolute Nucleated RBC Nucleated RBC % (auto) PT INR APTT Sodium Potassium Chloride Carbon Dioxide Anion Gap BUN Creatinine Estim Creat Clear Calc Estimated GFR POC Glucose Random Glucose Lactic Acid 2.6 H* Lactic Acid F/U @ 2Hr Calcium Total Bilirubin AST ALT Alkaline Phosphatase Troponin I High Sens B-Natriuretic Peptide 49 Total Protein Albumin Urine Color Yellow Urine Appearance Clear Urine pH 7.5 Ur Specific [place] 1.025 Urine Protein Negative Urine Glucose (UA) Negative Urine Ketones Trace Urine Blood Trace H Urine Nitrite Negative Ur Leukocyte Esterase Large (3+) H Urine RBC 0-2 Urine WBC >50 H Ur Squamous Epith Cells 6-10 Urine Bacteria 2+ Hyaline Casts 0-2 Stool Occult Blood Sweetie species DNA Chlam trachomat DNA PCR COVID-19 (ISAEL) COVID-19 Clin Com Gard[place]rella DNA Probe Influenza Type A (GORDON) Influenza Type B (GORDON) Influenza A & B Note N.gonorrhoeae DNA (PCR) Trichomonas DNA Probe 03/10/23 03/10/23 03/11/23 18:03 21:18 05:05 WBC 6.2 RBC 3.52 L Hgb 11.0 L Hct 34.0 L MCV 96.6 MCH 31.3 MCHC 32.4 RDW 13.1 Plt Count 266 MPV 9.4 Immature Gran % (Auto) 0.6 H Neut % (Auto) 74.3 H Lymph % (Auto) 14.3 L [place] % (Auto) 10.4 Eos % (Auto) 0.2 Baso % (Auto) 0.2 Lymph # (Auto) 0.9 L [place] # (Auto) 0.6 Eos # (Auto) 0.0 Baso # (Auto) 0.0 Abs Immat Gran (auto) 0.04 H Absolute Neuts (auto) 4.6 Absolute Nucleated RBC 0.000 Nucleated RBC % (auto) 0.0 PT INR APTT Sodium Potassium Chloride Carbon Dioxide Anion Gap BUN Creatinine Estim Creat Clear Calc Estimated GFR POC Glucose 69 Random Glucose Lactic Acid Lactic Acid F/U @ 2Hr 0.9 Calcium Total Bilirubin AST ALT Alkaline Phosphatase Troponin I High Sens B-Natriuretic Peptide Total Protein Albumin Urine Color Urine Appearance Urine pH Ur Specific [place] Urine Protein Urine Glucose (UA) Urine Ketones Urine Blood Urine Nitrite Ur Leukocyte Esterase Urine RBC Urine WBC Ur Squamous Epith Cells Urine Bacteria Hyaline Casts Stool Occult Blood Sweetie species DNA Chlam trachomat DNA PCR COVID-19 (ISAEL) COVID-19 Clin Com Gardnerella DNA Probe Influenza Type A (GRODON) Influenza Type B (GORDON) Influenza A & B Note N.gonorrhoeae DNA (PCR) Trichomonas DNA Probe 03/11/23 03/11/23 03/11/23 05:05 07:38 11:15 WBC RBC Hgb Hct MCV MCH MCHC RDW Plt Count MPV Immature Gran % (Auto) Neut % (Auto) Lymph % (Auto) [place] % (Auto) Eos % (Auto) Baso % (Auto) Lymph # (Auto) [place] # (Auto) Eos # (Auto) Baso # (Auto) Abs Immat Gran (auto) Absolute Neuts (auto) Absolute Nucleated RBC Nucleated RBC % (auto) PT INR APTT Sodium 142 Potassium 3.9 Chloride 108 Carbon Dioxide 23 Anion Gap 15 BUN 5 L Creatinine 0.75 Estim Creat Clear Calc 67.2 Estimated GFR > 60 POC Glucose 106 90 Random Glucose 107 Lactic Acid Lactic Acid F/U @ 2Hr Calcium 8.9 D Total Bilirubin AST ALT Alkaline Phosphatase Troponin I High Sens B-Natriuretic Peptide Total Protein Albumin Urine Color Urine Appearance Urine pH Ur Specific [place] Urine Protein Urine Glucose (UA) Urine Ketones Urine Blood Urine Nitrite Ur Leukocyte Esterase Urine RBC Urine WBC Ur Squamous Epith Cells Urine Bacteria Hyaline Casts Stool Occult Blood Sweetie species DNA Chlam trachomat DNA PCR COVID-19 (ISAEL) COVID-19 Clin Com Gard[place]rella DNA Probe Influenza Type A (GORDON) Influenza Type B (GORDON) Influenza A & B Note N.gonorrhoeae DNA (PCR) Trichomonas DNA Probe 03/11/23 12:44 WBC RBC Hgb Hct MCV MCH MCHC RDW Plt Count MPV Immature Gran % (Auto) Neut % (Auto) Lymph % (Auto) [place] % (Auto) Eos % (Auto) Baso % (Auto) Lymph # (Auto) [place] # (Auto) Eos # (Auto) Baso # (Auto) Abs Immat Gran (auto) Absolute Neuts (auto) Absolute Nucleated RBC Nucleated RBC % (auto) PT INR APTT Sodium Potassium Chloride Carbon Dioxide Anion Gap BUN Creatinine Estim Creat Clear Calc Estimated GFR POC Glucose 78 Random Glucose Lactic Acid Lactic Acid F/U @ 2Hr Calcium Total Bilirubin AST ALT Alkaline Phosphatase Troponin I High Sens B-Natriuretic Peptide Total Protein Albumin Urine Color Urine Appearance Urine pH Ur Specific [place] Urine Protein Urine Glucose (UA) Urine Ketones Urine Blood Urine Nitrite Ur Leukocyte Esterase Urine RBC Urine WBC Ur Squamous Epith Cells Urine Bacteria Hyaline Casts Stool Occult Blood Sweetie species DNA Chlam trachomat DNA PCR COVID-19 (ISAEL) COVID-19 Clin Com [place]rella DNA Probe Influenza Type A (GORDON) Influenza Type B (GORDON) Influenza A & B Note N.gonorrhoeae DNA (PCR) Trichomonas DNA Probe Airway Mallampati Class: III TM Dist: >3cm Neck ROM: Limited (Limited extension) Loose/Missing/Broken Teeth: Yes (Edentulous) Heart: RRR Lungs: CTAB. No wheezing post respiratory treatment Assessment and Plan Assessment Anesthesia Assessment: Anesthesia Plan Discussed and Chart Reviewed Final Anesthetic Review Family History of Problems with Anesthesia: No History of Problems with Anesthesia: No NPO: Yes ASA Class: III Final Preanesthetic Review: No Changes in Pt Med Stat, Meds/Allgs Chart Reviewed, Consent Obtained/Reviewed and Anes Risks/Benef Reviewed Patient Risk: Intermediate Procedure Risk: Low Assessment/Block/Sedation in SS: Assess/Block/Sedation- Anesthetic Plan Anesthetic Plan: MAC: Disposition: Standard PACU
--- NOTE | 2023-03-11 16:11 | W.PM.OPN ---
Operative Note Operative Note Date of Service: 03/11/23 Narrative: Operative Information Procedure Description: Colonoscopy Indication: rectal mass Anesthesia: MAC COLONOSCOPY Instrument: Olympus variable stiffness pediatric scope 190L thenswapped for upper GI scope due to tight sigmoid possibly from extrinsic compression Colonoscopy Monitoring: Vital signs and clinical assessment, continuous EKG monitoring, Pulse oximetry, Carbon Dioxide monitoring and blood pressure monitoring were done throughout the procedure. Procedure: The patient was placed in the left lateral decubitis position and pre-procedure medications were administered. After a digital rectal examination of the ano-rectum, the video colonoscope was inserted into the rectum and advanced through the colon to the cecum/TI. The colonoscope was slowly withdrawn in a retrograde panoramic fashion and the colon mucosa was carefully examined including a retroflexed view of the rectum. Findings and interventions are described below. Procedure Difficulty: difficult Findings: Terminal Ileum- 5-6 mm sessile polyp over ileocecal valve removed with cold snare Cecum:normal Ascending Colon: x 2 semi pedunculated polyps 14-16 mm removed piece meal and one area clipped x 2 for hemostasis Transverse Colon -normal Descending Colon: distal area 14-18 mm semi pedunculated polyp removed piece meal with cold snare with x 2 clips applied for hemostais Sigmoid Colon: severe diverticulosis with narrowing and edema of mucosa, possible extrinsic compression Rectum: Retroflexion with small internal hemorrhoids, grade I, rectal mucosa appeared congested and edematous, cold forceps biopsies taken Anorectum - normal Colon preparation: [place] Bowel Preparation Scale Right colon; 1 Transverse colon: 1 Left colon; 1-2 (0 = Unprepared colon segment with mucosa not seen due to solid stool that cannot be cleared. 1 = Portion of mucosa of the colon segment seen, but other areas of the colon segment not well seen due to staining, residual stool and/or opaque liquid. 2 = Minor amount of residual staining, small fragments of stool and/or opaque liquid, but mucosa of colon segment seen well. 3 = Entire mucosa of colon segment seen well with no residual staining, small fragments of stool or opaque liquid) Impression and Post Procedure Diagnosis: polyps internal hemorrhoids diverticular disease Plan: High fiber diet leaflet Avoid straining at stool, epsom salts and sitz bath, anusol supps or cream Repeat Colonoscopy 3-6 months depending on her lung mass work up, she should also see social media content manager for endometrial bx Above findings were reviewed with the patient and relevant handouts were provided if indicated.
[2023-03-11 16:42] LABS: Glucose, Whole Blood 124 mg/dL (60-115)
--- NOTE | 2023-03-11 16:47 | PM.DS ---
DS: Providers Provider Date of Service: 03/11/23 Date of admission: 03/10/23 19:41 Primary care physician: Lizy Laguna MD Consults: 03/10/23 19:41 Consult to Gastroenterology Routine Consulting Provider: Howard Pires Reason for consultation: rectal mass; colonoscopy Consult to Hematology / Oncology Routine Consulting Provider: Darling Awan Reason for consultation: rectal and lung mass DS: Diagnosis Discharge Diagnosis (1) Rectal mass: Status: Acute (2) Unintentional weight loss: Status: Acute (3) Anemia: Status: Acute DS: Summary Time Spent with Patient Time attestation: Total time managing care of this patient today ____ minutes. Physical Exam Vital Signs: Vital Signs: Last Vital Signs Temp 97.6 F 03/11/23 16:20 Pulse 104 H 03/11/23 16:41 Resp 16 03/11/23 16:41 BP 107/62 03/11/23 16:20 Pulse Ox 94 03/11/23 16:20 O2 Del Method Room Air 03/11/23 16:20 BMI result Body Mass Index 25.7 DS: Data Data Completed and Pending Pending studies at discharge: Pending at discharge 03/11/23 16:22 Surgical [PTH] Routine Labs on day of discharge: Laboratory Results - last 24 hr 03/10/23 03/10/23 03/10/23 13:24 16:36 18:03 WBC RBC Hgb Hct MCV MCH MCHC RDW Plt Count MPV Immature Gran % (Auto) Neut % (Auto) Lymph % (Auto) [place] % (Auto) Eos % (Auto) Baso % (Auto) Lymph # (Auto) [place] # (Auto) Eos # (Auto) Baso # (Auto) Abs Immat Gran (auto) Absolute Neuts (auto) Absolute Nucleated RBC Nucleated RBC % (auto) Sodium Potassium Chloride Carbon Dioxide Anion Gap BUN Creatinine Estim Creat Clear Calc Estimated GFR POC Glucose Random Glucose Lactic Acid F/U @ 2Hr 0.9 Calcium Urine Color Yellow Urine Appearance Clear Urine pH 7.5 Ur Specific [place] 1.025 Urine Protein Negative Urine Glucose (UA) Negative Urine Ketones Trace Urine Blood Trace H Urine Nitrite Negative Ur Leukocyte Esterase Large (3+) H Urine RBC 0-2 Urine WBC >50 H Ur Squamous Epith Cells 6-10 Urine Bacteria 2+ Hyaline Casts 0-2 Sweetie species DNA Negative [place] DNA Probe Negative Trichomonas DNA Probe Negative 03/10/23 03/11/23 03/11/23 21:18 05:05 05:05 WBC 6.2 RBC 3.52 L Hgb 11.0 L Hct 34.0 L MCV 96.6 MCH 31.3 MCHC 32.4 RDW 13.1 Plt Count 266 MPV 9.4 Immature Gran % (Auto) 0.6 H Neut % (Auto) 74.3 H Lymph % (Auto) 14.3 L [place] % (Auto) 10.4 Eos % (Auto) 0.2 Baso % (Auto) 0.2 Lymph # (Auto) 0.9 L [place] # (Auto) 0.6 Eos # (Auto) 0.0 Baso # (Auto) 0.0 Abs Immat Gran (auto) 0.04 H Absolute Neuts (auto) 4.6 Absolute Nucleated RBC 0.000 Nucleated RBC % (auto) 0.0 Sodium 142 Potassium 3.9 Chloride 108 Carbon Dioxide 23 Anion Gap 15 BUN 5 L Creatinine 0.75 Estim Creat Clear Calc 67.2 Estimated GFR > 60 POC Glucose 69 Random Glucose 107 Lactic Acid F/U @ 2Hr Calcium 8.9 D Urine Color Urine Appearance Urine pH Ur Specific [place] Urine Protein Urine Glucose (UA) Urine Ketones Urine Blood Urine Nitrite Ur Leukocyte Esterase Urine RBC Urine WBC Ur Squamous Epith Cells Urine Bacteria Hyaline Casts Sweetie species DNA [place] DNA Probe Trichomonas DNA Probe 03/11/23 03/11/23 03/11/23 07:38 11:15 12:44 WBC RBC Hgb Hct MCV MCH MCHC RDW Plt Count MPV Immature Gran % (Auto) Neut % (Auto) Lymph % (Auto) [place] % (Auto) Eos % (Auto) Baso % (Auto) Lymph # (Auto) [place] # (Auto) Eos # (Auto) Baso # (Auto) Abs Immat Gran (auto) Absolute Neuts (auto) Absolute Nucleated RBC Nucleated RBC % (auto) Sodium Potassium Chloride Carbon Dioxide Anion Gap BUN Creatinine Estim Creat Clear Calc Estimated GFR POC Glucose 106 90 78 Random Glucose Lactic Acid F/U @ 2Hr Calcium Urine Color Urine Appearance Urine pH Ur Specific [place] Urine Protein Urine Glucose (UA) Urine Ketones Urine Blood Urine Nitrite Ur Leukocyte Esterase Urine RBC Urine WBC Ur Squamous Epith Cells Urine Bacteria Hyaline Casts Sweetie species DNA [place] DNA Probe Trichomonas DNA Probe 03/11/23 16:37 WBC RBC Hgb Hct MCV MCH MCHC RDW Plt Count MPV Immature Gran % (Auto) Neut % (Auto) Lymph % (Auto) [place] % (Auto) Eos % (Auto) Baso % (Auto) Lymph # (Auto) [place] # (Auto) Eos # (Auto) Baso # (Auto) Abs Immat Gran (auto) Absolute Neuts (auto) Absolute Nucleated RBC Nucleated RBC % (auto) Sodium Potassium Chloride Carbon Dioxide Anion Gap BUN Creatinine Estim Creat Clear Calc Estimated GFR POC Glucose 124 H Random Glucose Lactic Acid F/U @ 2Hr Calcium Urine Color Urine Appearance Urine pH Ur Specific [place] Urine Protein Urine Glucose (UA) Urine Ketones Urine Blood Urine Nitrite Ur Leukocyte Esterase Urine RBC Urine WBC Ur Squamous Epith Cells Urine Bacteria Hyaline Casts Sweetie species DNA [place] DNA Probe Trichomonas DNA Probe Preliminary micro results at discharge 03/10/23 14:16 Blood Culture - Preliminary Blood - Venous No growth after 24 hours. 03/10/23 14:16 Blood Culture - Preliminary Blood - Venous No growth after 24 hours. 03/10/23 16:50 Urine Culture - Preliminary Urine clean catch - Urine german top Gram negative maria alejandra Discharge Plan Discharge Patient Disposition: Home, Self-Care Discharge Diagnosis: lung mass, internal hemorrhoid, anemia, uti, vaginitis Referrals: Lizy Carey MD [Primary Care Provider] - 1 Week Discharge Medications: Continued Tresiba FlexTouch U-100 100 unit/mL (3 mL) insulin pen 28 unit subcut BEDTIME 90 Days Qty: 25.2 3RF cholecalciferol (vitamin D3) 50 mcg (2,000 unit) capsule 50 mcg PO DAILY 90 Days Qty: 90 1RF pioglitazone 30 mg tablet 30 mg PO DAILY 90 Days Qty: 90 1RF (DME) pen needle, diabetic [Comfort EZ Pen [place]] 31 gauge x 5/16 needle See Rx Instructions .Route Qty: 100 3RF Rx Instructions: Use 1 pen needle once a day ferrous sulfate 325 mg (65 mg iron) tablet 325 mg PO DAILY 90 Days Qty: 90 1RF irbesartan 150 mg tablet 150 mg PO DAILY 90 Days Qty: 90 1RF cetirizine [Allergy Relief (cetirizine)] 10 mg tablet 10 mg PO DAILY PRN (Reason: allergy symptoms) 90 Days Qty: 90 1RF lorazepam 0.5 mg tablet 0.5 mg PO DAILY PRN (Reason: anxiety) 90 Days Qty: 90 0RF tramadol 50 mg tablet 50 mg PO BID PRN (Reason: pain) 30 Days Qty: 60 0RF acetaminophen [Mapap Arthritis Pain] 650 mg tablet extended release 650 mg PO Q8H PRN (Reason: fever or pain) 90 Days Qty: 270 2RF aspirin [Adult Low Dose Aspirin] 81 mg tablet,delayed release (DR/EC) 81 mg PO DAILY escitalopram oxalate 10 mg tablet 10 mg PO DAILY trazodone 50 mg tablet 50 mg PO BEDTIME Diet: Advance to usual diet Activity on Discharge: As tolerated Stand Alone Forms: Patient Portal Discharge page Care Plan Goals: Full work up for lung mass treatment for hemorrhoid Health Concerns: lung mass Plan of Treatment: follow up with Dr. Carcamo office for lung mass work up Assessment: As above
[2023-03-11 16:57] LABS: Lactate Dehydrogenase 301 U/L (122-220)
[2023-03-11 17:30] LABS: Glucose, Whole Blood 122 mg/dL (60-115)
[2023-03-11] MEDS: cefTRIAXone sodium 1 GM in 0.9 % Sodium Chloride 50 ML IV (17:40)
[2023-03-11] MEDS: Benzonatate 100 MG CAPSULE PO (17:55)
[2023-03-11 20:31] LABS: Glucose, Whole Blood 195 mg/dL (60-115)
[2023-03-11] MEDS: traZODone HCL 50 MG TABLET PO (20:41)
[2023-03-11] MEDS: Insulin Lispro 100 UNIT/ML 3 ML VIAL SUBCUT (20:41)
[2023-03-11] MEDS: Insulin Glargine,Hum.rec.anlog 100 UNIT/ML 10 ML VIAL 15 UNIT SUBCUT (20:42)
[2023-03-11] MEDS: Lactated Ringers 1,000 ML 100 ML IVCONT (22:31)
[2023-03-12 04:00] VITALS: BP 132/60; PULSE 100; RESP 18; TEMP 36.4; O2SAT 97
[2023-03-12 07:27] VITALS: BP 113/63; PULSE 80; RESP 18; TEMP 36.2; O2SAT 100
[2023-03-12 07:35] VITALS: BP 135/60; PULSE 92; RESP 16; TEMP 36.6; O2SAT 95
[2023-03-12 07:42] LABS: Glucose, Whole Blood 110 mg/dL (60-115)
[2023-03-12] MEDS: Lactated Ringers 1,000 ML 100 ML IVCONT (09:16)
[2023-03-12 11:23] LABS: Glucose, Whole Blood 166 mg/dL (60-115)
--- NOTE | 2023-03-12 11:33 | MHC.CM.PN ---
pt [facility] no skilled services ordered by
--- NOTE | 2023-03-12 11:43 | PM.DS ---
DS: Providers Provider Date of Service: 03/12/23 Date of admission: 03/10/23 19:41 Date of discharge: 03/12/23 Primary care physician: Lizy Laguna MD Consults: 03/10/23 19:41 Consult to Gastroenterology Routine Consulting Provider: Howard Pires Reason for consultation: rectal mass; colonoscopy Consult to Hematology / Oncology Routine Consulting Provider: Darling Awan Reason for consultation: rectal and lung mass DS: Diagnosis Discharge Diagnosis (1) Rectal mass: Status: Acute (2) Unintentional weight loss: Status: Acute (3) Anemia: Status: Acute DS: Summary Hospital Course Hospital Course: 67 year old female with history of GERD, htn, hx cva, insulin dependent type 2 diabetes, who recently quit smoking 2 weeks ago presented to the ED earlier today for evaluation of productive cough with clear sputum ongoing for two weeks (preceded smoking cessation) as well as for suspected vaginal bleeding. She reports pleuritic chest pain associated with the cough but no fevers, chills, sore throat, congestion, sick contacts, or chest pressure. She states for the past week she has had white vaginal discharge without any foul odor, pruritus.? She states it may have been tinged brown at some points but no osvaldo bleeding from the vaginal canal.? She did also no 2 episodes of bright red blood on the toilet paper following a bowel movement.? There is no associated abdominal pain, nausea, vomiting, constipation, diarrhea, rectal pressure.? She does endorse tenesmus as well as a an unintentional 20 lb weight loss with anorexia ongoing for several months.? Has no prior history of cancer or known family history of cancer. On arrival, patient hypertensive to 176/82, vital signs otherwise stable.? There is no leukocytosis.? Mild normocytic anemia with H/H 11.9/37.3%.? Coag studies normal.? Electrolyte levels normal, renal function normal.? Lactic acid initially elevated at 2.6 and given IV fluids with improvement to 0.9.? Hepatic function normal.? BNP normal, troponin below detectable limits.? Urinalysis significant for 3+ leukocytes, negative nitrites, trace blood, urinary sediment, 2+ bacteria.? Patient denies any urinary symptoms.? Stool occult blood is negative.? Pelvic exam was performed noting friable vaginal canal and cervix but no osvaldo bleeding.? Cervical swab negative for chlamydia, gonorrhea and Mandujano pending for Gardnerella, Trichomonas, and Sweetie.? CXR showed a 4.8 x 3.7 cm left upper lobe mass and probable lymphadenopathy concerning for neoplasm.? CTA chest negative for PE but confirms presence of an irregular Jessica speculated mass measuring 4.6 x 3.9 x 3.6 cm in the left upper lobe abutting the pleural space in the late left apex highly concerning for malignancy as well as mediastinal and left hilar adenopathy concerning for metastasis.? There also several subcentimeter right lung nodules are nonspecific.? There is an enlarged uterus containing multiple calcified and noncalcified fibroids with overall increase in size of the uterus.? There is also enhancing ill-defined soft tissue/phlegmonous changes in the presacral region inseparable from the rectosigmoid colon in the region with suggestion of thickening of the wall of the lower rectum/anal canal possibly inflammatory or infectious or neoplastic.? No other evidence of metastatic disease in the abdomen and pelvis.? Transvaginal ultrasound with similar findings as well as normal appearing right ovary but left ovary not seen with a small left simple adnexal cyst.? In the ED, given 2 L IV NS, 1 g IV Rocephin.? ED provider discussed case with Gastroenterology who will perform colonoscopy tomorrow. Hospital course and plan: Patient was admitted for dry cough, possible vaginal discharge-further workup and imaging done-found to have possible lung mass, also UTI-started on IV antibiotics, blood culture urine culture sent as well as checked for Sweetie, chlamydia, Gardnerella, gonorrhea, Trichomonas, in addition patient also had a colonoscopy due to question of rectal bleeding-on colonoscopy patient was found to have hemorrhoids, diverticulosis, terminal ileum and ascending and descending colon polyps. Gi biopsy taken during colonoscopy. Patient cough is improved, chest imaging showed -possible lung mass (please see imaging section for further details). currently patient seems imporoving-no more vaginal discharge.Sweetie, chlamydia, Gardnerella, gonorrhea, Trichomonas-came negative. Blood culture negative at 24 hours, urine culture grew E coli sensitive to ceftriaxone. Patient will be going home p.o. antibiotics. follow-up of GI out patiently for biopsy results. Full work up for lung mass outpatient with oncology. follow up with painting and coating worker for uterus fibroids. treatment for hemorrhoid. plan: Complete course of Ceftin for 7 days. Patient needs to follow up with GI for biopsy results Follow-up with Oncology tomorrow for lung mass and further workup. Considering history of fibrillated, vaginal discharge -patient was strongly advised to follow-up with outpatient with painting and coating worker. Above management discussed with the patient and her in detail length, both understand and in agreement with the above plan, time spent 50 minute. Time Spent with Patient Time attestation: Total time managing care of this patient today ____ minutes. Discharge coordination time: Greater than 30 minutes Quality: Safe Use of Opioids Does Pt have an Active Cancer Diagnosis on the Problem List?: No Quality: Stroke Does the patient have a stroke diagnosis?: No Physical Exam Vital Signs: Vital Signs: Last Vital Signs Temp 97.9 F 03/12/23 07:35 Pulse 92 03/12/23 07:35 Resp 16 03/12/23 07:35 BP 135/60 03/12/23 07:35 Pulse Ox 95 03/12/23 07:35 O2 Del Method Room Air 03/12/23 07:35 O2 Flow Rate 1 03/12/23 07:27 BMI result Body Mass Index 25.7 General: AO X 3, no acute distress Resp:? CTA bilateral CVS: S1,S2,RRR GI: +BS, NT, no distention rectal and vaginal exam defered Skin: No rash Neuro:? motor grossly intact Psych: appropriate affect. DS: Data Data Completed and Pending Pending studies at discharge: Pending at discharge 03/11/23 16:23 Surgical [PTH] Routine Labs on day of discharge: Laboratory Results - last 24 hr 03/11/23 03/11/23 03/11/23 05:05 12:44 16:37 POC Glucose 78 124 H Lactate Dehydrogenase 301 H Carcinoembryonic Ag 81.40 03/11/23 03/11/23 03/12/23 17:26 20:15 07:36 POC Glucose 122 H 195 H 110 Lactate Dehydrogenase Carcinoembryonic Ag 03/12/23 11:18 POC Glucose 166 H Lactate Dehydrogenase Carcinoembryonic Ag Preliminary micro results at discharge 03/10/23 14:16 Blood Culture - Preliminary Blood - Venous No growth after 24 hours. 03/10/23 14:16 Blood Culture - Preliminary Blood - Venous No growth after 24 hours. Imaging Chest x-ray: Radiologist's impression: ITS Impressions Chest X-Ray 03/10/23 12:10 IMPRESSION: 4.8 x 3.7 cm left upper lobe mass and likely lymphadenopathy. Appearance is concerning for neoplasm. Findings will be communicated by the [facility] work flow per diem rn. Doppler Study Ultrasound 03/10/23 15:31 IMPRESSION: Limited exam. Enlarged fibroid uterus. Endometrium not seen. Normal-appearing right ovary. Left ovary not seen. Small left simple adnexal cyst. Pelvic/Transvag US 03/10/23 15:31 IMPRESSION: Limited exam. Enlarged fibroid uterus. Endometrium not seen. Normal-appearing right ovary. Left ovary not seen. Small left simple adnexal cyst. Abdomen/Pelvis CT 03/10/23 16:05 IMPRESSION: 1. No evidence of pulmonary embolism. 2. A 4.6 x 3.9 x 3.6 cm irregular spiculated mass in the left upper lobe abutting the pleural surface in the late left apex posterolaterally is highly concerning for malignancy. 3. Mediastinal and left hilar adenopathy concerning for metastasis adenopathy. 4. A few subcentimeter right lung nodules are nonspecific. Given the left lung mass and mediastinal and left hilar adenopathy, findings could represent metastatic nodules. Recommend attention to the finding on follow-up imaging. 5. Enlarged uterus containing multiple calcified and noncalcified fibroids with overall increase in the size of the uterus/multiple fibroids since previous CT of 2016. 6. Enhancing ill-defined soft tissue/phlegmonous changes in the presacral region inseparable from the rectosigmoid colon in the region with suggestion of thickening of the wall of the lower rectum/anal canal. This finding is nonspecific and could be inflammatory or infectious in etiology, however, neoplastic process cannot be excluded. 7. Otherwise, no evidence of metastatic disease in the abdomen and pelvis. VTE: Negative. Chest CTA 03/10/23 16:05 IMPRESSION: 1. No evidence of pulmonary embolism. 2. A 4.6 x 3.9 x 3.6 cm irregular spiculated mass in the left upper lobe abutting the pleural surface in the late left apex posterolaterally is highly concerning for malignancy. 3. Mediastinal and left hilar adenopathy concerning for metastasis adenopathy. 4. A few subcentimeter right lung nodules are nonspecific. Given the left lung mass and mediastinal and left hilar adenopathy, findings could represent metastatic nodules. Recommend attention to the finding on follow-up imaging. 5. Enlarged uterus containing multiple calcified and noncalcified fibroids with overall increase in the size of the uterus/multiple fibroids since previous CT of 2016. 6. Enhancing ill-defined soft tissue/phlegmonous changes in the presacral region inseparable from the rectosigmoid colon in the region with suggestion of thickening of the wall of the lower rectum/anal canal. This finding is nonspecific and could be inflammatory or infectious in etiology, however, neoplastic process cannot be excluded. 7. Otherwise, no evidence of metastatic disease in the abdomen and pelvis. VTE: Negative. Discharge Plan Discharge Anticipated Discharge Date/Time: 03/12/23 11:32 Patient Disposition: Home, Self-Care Discharge Diagnosis: lung mass, internal hemorrhoid, anemia, uti, vaginitis Referrals: Edna Carcamo MD [Physician] - 1 Week (follow up tomorrow outpatient) Howard Pires MD [Physician] - 1 Week (follow up outpatient ) Lizy Carey MD [Primary Care Provider] - 1 Week Discharge Medications: New cefuroxime axetil 500 mg tablet 500 mg PO BID Qty: 14 0RF hydrocortisone [Procto-Med HC] 2.5 % cream with perineal applicator 1 appl OK BEDTIME PRN (Reason: hemorrhoids) Qty: 30 0RF Continued Tresiba FlexTouch U-100 100 unit/mL (3 mL) insulin pen 28 unit subcut BEDTIME 90 Days Qty: 25.2 3RF cholecalciferol (vitamin D3) 50 mcg (2,000 unit) capsule 50 mcg PO DAILY 90 Days Qty: 90 1RF pioglitazone 30 mg tablet 30 mg PO DAILY 90 Days Qty: 90 1RF (DME) pen needle, diabetic [Comfort EZ Pen [place]co] 31 gauge x 5/16 needle See Rx Instructions .Route Qty: 100 3RF Rx Instructions: Use 1 pen needle once a day ferrous sulfate 325 mg (65 mg iron) tablet 325 mg PO DAILY 90 Days Qty: 90 1RF irbesartan 150 mg tablet 150 mg PO DAILY 90 Days Qty: 90 1RF cetirizine [Allergy Relief (cetirizine)] 10 mg tablet 10 mg PO DAILY PRN (Reason: allergy symptoms) 90 Days Qty: 90 1RF lorazepam 0.5 mg tablet 0.5 mg PO DAILY PRN (Reason: anxiety) 90 Days Qty: 90 0RF tramadol 50 mg tablet 50 mg PO BID PRN (Reason: pain) 30 Days Qty: 60 0RF acetaminophen [Mapap Arthritis Pain] 650 mg tablet extended release 650 mg PO Q8H PRN (Reason: fever or pain) 90 Days Qty: 270 2RF aspirin [Adult Low Dose Aspirin] 81 mg tablet,delayed release (DR/EC) 81 mg PO DAILY escitalopram oxalate 10 mg tablet 10 mg PO DAILY trazodone 50 mg tablet 50 mg PO BEDTIME Discharge Orders: Discharge Order (Routine); Ordered 03/12/23 Ordered By: Sharmin Castro Diet: Advance to usual diet Activity on Discharge: As tolerated Stand Alone Forms: Patient Portal Discharge page Care Plan Goals: Patient was admitted for dry cough, possible vaginal discharge-further workup and imaging done-found to have possible lung mass, also UTI-started on IV antibiotics, blood culture urine culture sent as well as checked for Sweetie, chlamydia, Gardnerella, gonorrhea, Trichomonas, in addition patient also had a colonoscopy due to question of rectal bleeding-on colonoscopy patient was found to have hemorrhoids, diverticulosis, terminal ileum and ascending and descending colon polyps. Gi biopsy taken during colonoscopy. Patient cough is improved, no more vaginal discharge.Sweetie, chlamydia, Gardnerella, gonorrhea, Trichomonas-came negative. Blood culture negative at 24 hours, urine culture grew E coli sensitive to ceftriaxone. Patient will be going home p.o. antibiotics. follow-up of GI out patiently for biopsy results. Full work up for lung mass outpatient with oncology. follow up with painting and coating worker for uterus fibroids. treatment for hemorrhoid Health Concerns: lung mass Plan of Treatment: follow up with Dr. Carcamo office for lung mass work up Assessment: As above Discharge Date/Time: 03/12/23 12:48
--- NOTE | 2023-03-12 13:57 | HO.POSTANES ---
Post Anesthesia Evaluation Post Anesthesia Evaluation Date of Service: 03/12/23 Vital Signs: Vital Signs Temp Pulse Resp BP Pulse Ox O2 Del Method O2 Flow Rate 03/12/23 07:35 97.9 F 92 16 135/60 95 Room Air 03/12/23 07:27 97.1 F 80 18 113/63 100 Nasal Cannula 1 03/12/23 04:00 97.6 F 100 18 132/60 97 Room Air Anesthesia: General Mental Status: Awake Pain Control: Satisfactory Nausea/Vomiting: None Hydration: Adequate Anesthesia-Related Issues: No Anes. Related Issues
== END 2023-03-12 12:48 | disposition home or self-care (01) ==
LOC: HO.ED 14:11 → HO.EDOVER 20:07 → HO.S3 20:11
PROVIDERS: Internal Medicine; Internal Medicine Gastroenterology; Physician Assistant; Student in an Organized Health Care Education/Training Program; Admitting Provider Physician Assistant; Emergency Provider Student in an Organized Health Care Education/Training Program; PCP Internal Medicine; Visit Provider Internal Medicine
PROC: 0DJD8ZZ Inspection of Lower Intestinal Tract, Via Natural or Artificial Opening Endoscopic (ICD-10-PCS; CPT 45378; principal; 2023-03-11 13:20)
DX: K63.5 Polyp of colon (principal); K64.8 Other hemorrhoids; D64.9 Anemia, unspecified; K57.30 Diverticulosis of large intestine without perforation or abscess without bleeding; K50.00 Crohn's disease of small intestine without complications; R91.8 Other nonspecific abnormal finding of lung field; N39.0 Urinary tract infection, site not specified; B96.20 Unspecified Escherichia coli [E. coli] as the cause of diseases classified elsewhere; R10.30 Lower abdominal pain, unspecified; R59.0 Localized enlarged lymph nodes; N85.2 Hypertrophy of uterus; N76.0 Acute vaginitis; D25.9 Leiomyoma of uterus, unspecified; N83.292 Other ovarian cyst, left side; K62.89 Other specified diseases of anus and rectum; N89.8 Other specified noninflammatory disorders of vagina; N93.9 Abnormal uterine and vaginal bleeding, unspecified; R05.9 Cough, unspecified; R63.4 Abnormal weight loss; Z68.25 Body mass index [BMI] 25.0-25.9, adult; R06.02 Shortness of breath; Z20.822 Contact with and (suspected) exposure to COVID-19; E11.9 Type 2 diabetes mellitus without complications; I10 Essential (primary) hypertension; I69.351 Hemiplegia and hemiparesis following cerebral infarction affecting right dominant side; F17.210 Nicotine dependence, cigarettes, uncomplicated; Z79.82 Long term (current) use of aspirin; Z79.4 Long term (current) use of insulin; Z79.899 Other long term (current) drug therapy
CPT/HCPCS: 45385; 45380; 0353U; 36415; 71045; 71275; 74177; 76830; 76856; 80048; 80053; 81001; 82272; 82378; 82947; 83605; 83615; 83880; 84484; 85025; 85610; 85730; 87040; 87086; 87088; 87186; 87480; 87502; 87510; 87635; 87660; 88305; 93975; 94640; 96361; 96365; 99221; 99285; J0696; Q9967

== ENCOUNTER 2023-03-13 09:18 | Outpatient (RCR) | payer MEDICARE, SELFPAY ==
[2023-03-13 09:27] VITALS: BP 156/70; PULSE 89; RESP 15; TEMP 36.4; O2SAT 100
--- NOTE | 2023-03-13 09:33 | PM.HEMONCCN ---
Subjective - Subjective Chief complaint: Cough Patient: new to practice Consult date: 03/13/23 Requesting Physician: Dr. Castro Primary Care Provider: Lizy Laguna MD Medical Summary: Diagnosis: Lung mass/rectal mass HPI - Consult Narrative Reason for consult: Probable lung cancer Narrative: Jennifer Reid is a 67 year old female sent for evaluation of recently diagnosed lung mass and mediastinal adenopathy. Patient presented to the emergency department in February 2023 with complaints of productive cough, pleuritic chest pain and vaginal spotting. She also had hematochezia, reported weight loss and anorexia for several months. Pelvic exam was performed noting friable vaginal canal and cervix but no osvaldo bleeding.? Cervical swab negative for chlamydia, gonorrhea and Mandujano pending for Gardnerella, Trichomonas, and Sweetie.? CXR showed a 4.8 x 3.7 cm left upper lobe mass and probable lymphadenopathy concerning for neoplasm.? CTA chest negative for PE but confirms presence of an irregular speculated mass measuring 4.6 x 3.9 x 3.6 cm in the left upper lobe abutting the pleural space in the late left apex highly concerning for malignancy as well as mediastinal and left hilar adenopathy concerning for metastasis.? There also several subcentimeter right lung nodules are nonspecific.? There is an enlarged uterus containing multiple calcified and noncalcified fibroids with overall increase in size of the uterus.? There is also enhancing ill-defined soft tissue/phlegmonous changes in the presacral region inseparable from the rectosigmoid colon in the region with suggestion of thickening of the wall of the lower rectum/anal canal possibly inflammatory or infectious or neoplastic.? No other evidence of metastatic disease in the abdomen and pelvis.? Transvaginal ultrasound with similar findings as well as normal appearing right ovary but left ovary not seen with a small left simple adnexal cyst.? She underwent colonoscopy on 03/11/2023 which revealed multiple sessile and pedunculated polyps in terminal ileum, ascending colon and descending colon. In the sigmoid colon there was severe diverticulosis with narrowing in edema mucosa, possible extrinsic compression. Rectal mucosa appeared congested and edema tests, biopsies were taken. Patient was discharged on oral antibiotics. Patient recently quit smoking. There is family history of lung cancer. Patient states that she had previous colonoscopy years ago. She denies vaginal bleeding at this time. No other complaints such as chest pain, shortness of breath, headache or dizziness. She does report productive cough and chest congestion, she wants something for it. 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 Review of Systems - Constitutional Reports as per HPI, Reports fatigue, Reports lack of energy, Reports malaise, Denies night sweats, Reports poor appetite - Cardiovascular Reports no additional cardiovascular complaints, Denies chest pain, Denies fast heart rate, Denies foot swelling - Respiratory Reports no additional respiratory complaints, Reports chest congestion, Reports cough, Denies hemoptysis - Gastrointestinal Reports no additional gastrointestinal complaints [facility] Medical History: Medical History (Last Reviewed 03/13/23 @ 09:29 by Allyssa Burks) Diabetes mellitus Essential hypertension History of gastric ulcer Stroke Family History: Family History (Last Reviewed 03/13/23 @ 09:29 by Allyssa Burks) Mother Hypertension Father No problems noted. Surgical History: Surgical History (Last Reviewed 03/13/23 @ 09:29 by Allyssa Burks) Hx of colonoscopy No pertinent past surgical history Social History: Social History (Last Updated 03/13/23 @ 09:29 by Allyssa Burks) Living Situation History: Household Members: Spouse Housing: House Do you presently have visiting nurse or other home services: No Alcohol History Details: 1. How often do you have a drink containing alcohol?: a. Never Tobacco History: Patient Tobacco Use Status: Former Tobacco user Tobacco use type: Cigarette Years Smoked: 30 Smoke Quit Date: Quit a month ago e-Cigarette/Vaping Use: Never Used Second Hand Smoke Exposure: No Substance Use History: Use of substances other than those prescribed or required for medical reasons: No Domestic Abuse History: Have you been hit, kicked, punched, or otherwise hurt by someone within the past year? If so, by whom?: No Do you feel safe in your current relationship?: Yes Homicidal Assessment: Do you have thoughts of harming others: None Do you have a plan to hurt others: No Plan Do you have the means to hurt others: No Nutrition Assessment: Recently lost weight without trying: No Occupation Assessmet: service: No Current occupational status: retired Home Medications and Allergies Home Medications Medication Instructions Recorded Confirmed Type aspirin 81 mg tablet,delayed 81 mg PO DAILY 02/08/22 03/13/23 History release (Adult Low Dose Aspirin) escitalopram oxalate 10 mg tablet 10 mg PO DAILY 02/08/22 03/13/23 History trazodone 50 mg tablet 50 mg PO BEDTIME 01/17/23 03/13/23 History Allergies Allergy/AdvReac Type Severity Reaction Status Date / Time codeine [CODEINE] Allergy Unknown HIVES Verified 01/29/23 10:59 morphine [MORPHINE] Allergy Unknown ITCHING, Verified 01/29/23 10:59 itchy Physical Exam Vital signs: Vital Signs Temp 97.6 F 03/13/23 09:27 Pulse 89 03/13/23 09:27 Resp 15 03/13/23 09:27 BP 156/70 H 03/13/23 09:27 Pulse Ox 100 03/13/23 09:27 O2 Del Method Room Air 03/13/23 09:27 - Constitutional Present: no acute distress - Routine HEENT Exam Head: Present: normal inspection Eye: Present: PERRL - Routine Neck Exam Present: supple. Absent: lymphadenopathy - Routine Respiratory Exam Present: rhonchi. Absent: accessory muscle use - Routine Cardiovascular Exam Cardiovascular: Present: S1, S2 - Routine Abdominal Exam Present: soft - Routine Extremities Exam Absent: pedal edema - Routine Skin Exam Present: intact. Absent: cyanosis - Routine Neurological Exam Present: alert, oriented X3 Hem/Onc Consult Result - Labs Labs: Laboratory Tests 03/11/23 03/11/23 05:05 05:05 WBC 6.2 RBC 3.52 L Hgb 11.0 L Hct 34.0 L Plt Count 266 Sodium 142 Potassium 3.9 BUN 5 L Creatinine 0.75 Lactate Dehydrogenase 301 H Carcinoembryonic Ag 81.40 Assessment and Plan Patient Active problem list reviewed?: Yes (1) Mass of upper lobe of left lung Status: Acute Assessment and plan: 1. This is a pleasant 67-year-old black woman, ex-smoker presenting with left upper lobe lung mass measuring 4.6 x 3.9 cm along with mediastinal and left hilar lymphadenopathy which is worrisome for malignancy. There were also bilateral subcentimeter pulmonary nodules, no pleural effusion. CEA is elevated at 81 NG/mL, LDH is also elevated 301 U/L. For further evaluation I have recommended pulmonary consultation for bronchoscopy and biopsy. CT abdomen/ pelvis showed ill-defined soft tissue mass in the presacral region inseparable from rectosigmoid colon. She has undergone colonoscopy on 03/11/2023, pathology is awaited. Patient appears to have metastatic lung cancer. Once pathological diagnosis is confirmed, staging with PET-CT and brain MRI will be performed. Recommendations about treatment will be made after pathological diagnosis. I explained all of the above to patient and her who was with her today. Follow-up in 2 weeks. - Time Spent With Patient Time Spent with Patient (in minutes): 45
--- NOTE | 2023-03-13 10:32 | MHC.HEMONCMA ---
Patient seen today for new consult for left lung mass, Neris BERNABE met with family and followup TBD.
--- NOTE | 2023-03-14 10:14 | MHC.HEMONCMA ---
Did urgent referral to pulmonary for patient.
--- NOTE | 2023-03-19 11:57 | MHC.HEMONC ---
I called pt to let her know about Pulmonology Appt tomorrow and she informed me that she canceled it as well as her f/u with Dr Carcamo, here, in March. I asked her if she was changing Providers and she said I really don't know what I'm doing - I have to think about things . I told her she could follow up with us at any point if she decides she wants to continue with workup and I did notify Dr Carcamo of pt's decision.
--- NOTE | 2023-07-15 09:48 | HE.ONCSEC ---
LVM reminding pt of appt on 07/15/23
== END 2023-07-26 | disposition home or self-care (01) ==
LOC: HO.ONC 09:18
PROVIDERS: PCP Internal Medicine; Visit Provider Internal Medicine
DX: R91.8 Other nonspecific abnormal finding of lung field (principal); R97.0 Elevated carcinoembryonic antigen [CEA]; Z87.891 Personal history of nicotine dependence
CPT/HCPCS: 99204

== ENCOUNTER 2023-06-08 05:32 | Emergency (ER) | payer MEDICARE, SELFPAY ==
--- NOTE | ~2023-06-08 | CT_ITS ---
CT brain and CT cervical spine without contrast. CLINICAL HISTORY: Fall. COMPARISON: CT head for stroke 10/27/2019. CTA chest 03/10/2023. TECHNIQUE: 5 mm thin axial and reformatted 2 mm thin sagittal and coronal images of brain were obtained. Subsequently axial 3 mm thin and reformatted 2 mm thin sagittal and coronal images of cervical spine were obtained. DLP 811. This CT examination was performed using dose optimization technique as appropriate, variously including the following: Automated exposure control Adjustment of MA and/or KV according to patient size(this includes techniques or standardized protocols for targeted exams where dose is matched to indication/reason for exam; extremities or head. Use of iterative reconstruction techniques. FINDINGS: Brain: There is no acute intra-axial, extra-axial bleed, masses or midline shift. There is no acute infarction in evolution. There is no edema. The german to white matter differentiation is maintained. The lateral ventricles are symmetrical in size and configuration without enlargement. Bone windows reveal no calvarial abnormality. There is no scalp soft tissue abnormality. Bilateral paranasal sinuses and mastoid air cells are well aerated. Cervical spine: There is mild straightening of cervical lordosis. The vertebral heights, and alignment is normal. There is mild loss of disc at C3-C4 through C6-C7 disc levels with moderate ventral spondylosis. The craniovertebral junction and C1-C2 alignment is normal. There is no visible acute fracture, dislocation or subluxation seen. The facet joints are symmetric and normal. The prevertebral and paravertebral soft tissues are normal. There is mild bilateral uncovertebral hypertrophic changes from C3-C4 through C6-C7 disc levels with narrowing of neural foramina. The central trachea and the airway is widely patent. Left thyroid lobe is enlarged. There is a large left apical mass measuring at least 4 cm. It is partially visualized on this exam This was noted on the previous CTA chest 03/10/2023. CT/CT cervical spine wo IV con IMPRESSION: No acute intracranial process seen. Reversal of cervical lordosis with degenerative disc changes and ventral spondylosis. No visible acute fracture or dislocation seen. 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 Large left upper lobe pulmonary mass. It was noted on the previous CTA exam 03/10/2023
[2023-06-08 05:54] LABS: MANUAL DIFF FLAG NO
[2023-06-08 05:56] VITALS: BMI 20.6
[2023-06-08 05:56] LABS: Basophils Percent Auto 0.2 % (0-2); Hematocrit 35.8 % (37.0-47.0); Hemoglobin 11.6 g/dl (12.0-16.0); Imm Gran Abs Auto 0.05 X10*3/uL (0.00-0.03); Imm Gran Pct Auto 0.8 % (0.0-0.4); Lymphocytes Absolute Auto 0.8 X10*3/uL (1.2-4.9); Lymphocytes Percent Auto 12.3 % (20-40); Mean Corpuscular HGB Conc 32.4 g/dl (31.0-35.0); Mean Corpuscular Hemoglobin 30.9 pg (27.0-33.0); Mean Corpuscular Volume 95.5 fL (80.0-98.0); Monocytes Absolute Auto 0.4 X10*3/uL (0.1-1.2); Monocytes Percent Auto 6.8 % (2-11); Neutrophils Percent Auto 79.9 % (45-73); Platelet Count 333 X10*3/uL (160-400); Red Blood Count 3.75 X10*6/uL (4.20-5.50); Red Cell Distribution Width 13.1 % (11.0-16.0); White Blood Count 6.2 X10*3/uL (4.8-10.8)
--- NOTE | 2023-06-08 05:56 | ECG_ITS ---
Test Reason : FALL Blood Pressure : / mmHG Vent. Rate : 099 BPM Atrial Rate : 099 BPM P-R Int : 112 ms QRS Dur : 066 ms QT Int : 338 ms P-R-T Axes : 076 064 -22 degrees QTc Int : 433 ms Normal sinus rhythm Nonspecific T wave abnormality Abnormal ECG When compared with ECG of 27-OCT-2019 14:04, T wave inversion now evident in Inferior leads Referred By: Rashel Hamilton Electronically Signed By:ARACELIS MARIN
[2023-06-08 06:03] LABS: Glucose, Whole Blood 34 mg/dL (60-115)
[2023-06-08] MEDS: Dextrose 50 % 25 GM/50 ML SYRINGE IVPUSH (06:09)
[2023-06-08 06:11] LABS: Glucose, Whole Blood 35 mg/dL (60-115)
[2023-06-08] MEDS: Glucose Gel 15 GM GEL..GRAM. PO (06:15)
[2023-06-08 06:17] LABS: Alanine Aminotransferase 8 U/L (0-31); Albumin Level 3.4 g/dL (3.5-5.0); Alkaline Phosphatase 90 U/L (39-117); Anion Gap 12 (12-20); Aspartate Amino Transferase 17 U/L (5-31); Bilirubin Total 0.7 mg/dL (0.0-1.0); Blood Urea Nitrogen 10 mg/dL (9-16); Calcium 9.5 mg/dL (8.4-10.2); Carbon Dioxide 24 mmol/L (22-29); Chloride 106 mmol/L (96-108); Estimated Glomerular Filt Rate > 60; Glucose Random 44 mg/dL (60-115); Potassium 3.8 mmol/L (3.3-5.1); Sodium 138 mmol/L (135-145); Total Protein 7.3 g/dL (6.5-8.0)
[2023-06-08 06:24] VITALS: BP 163/75; PULSE 101; RESP 19; TEMP 36.8; O2SAT 97
--- NOTE | 2023-06-08 06:25 | PC.NURSE ---
critical lab Poc 44 reported to JEFFY Mariscal and Shailesh. Dr. Padilla aware.
[2023-06-08 06:29] LABS: Magnesium 2.2 mg/dL (1.6-2.6)
[2023-06-08 06:34] LABS: Glucose, Whole Blood 166 mg/dL (60-115)
[2023-06-08 06:41] LABS: Troponin-I High Sensitivity < 2.7 ng/L (<3.5-17.0)
[2023-06-08 07:06] VITALS: BP 131/67; PULSE 100; RESP 16; O2SAT 98
--- NOTE | 2023-06-08 07:16 | ED.GENADULT ---
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 Her glucose was found to be in the 40s. Patient has minimal recollection of the events other than she fell twice in the bathroom and was unable to get up. She does not know how long she was on the floor for. She hit her forehead and sustained a laceration. She denies losing consciousness. She denies any pain or injuries from the fall. She denies history of frequent falls. She states she has been taking her insulin as directed but she admits to not eating dinner yesterday. She cannot recall if she ate lunch or not. She reports history of frequent hypoglycemia events. She does not check her blood sugar reguarly. She was admitted to [facility] in February and found to have a spiculated lung mass concerning for malignancy. She was supposed to set up outpatient bronch and biopsy but never did. She admits she was too scared to know the true diagnosis but now she is ready to proceed with further evaluation. MD complaint: fall 2/2 hypoglycemia Onset (ago): hour(s) Location: head Radiation: non-radiation Severity: mild Pain Consistency: constant Relieving factors: none Exacerbating factors: none Associated symptoms: confusion, headaches, loss of appetite and malaise Treatments prior to arrival: none Related Data Home Medications Medication Instructions Recorded Confirmed aspirin 81 mg tablet,delayed 81 mg PO DAILY 02/08/22 06/08/23 release (Adult Low Dose Aspirin) escitalopram oxalate 10 mg tablet 10 mg PO DAILY 02/08/22 06/08/23 trazodone 100 mg tablet 100 mg PO BEDTIME 06/08/23 06/08/23 Previous Rx's Medication Instructions Recorded cholecalciferol (vitamin D3) 50 50 mcg PO DAILY 90 days #90 caps 06/24/22 mcg (2,000 unit) capsule pen needle, diabetic 31 gauge x #100 ea 01/04/23 5/16 (Comfort EZ Pen [place]) cetirizine 10 mg tablet (Allergy 10 mg PO DAILY PRN allergy 10/29/22 Relief (cetirizine)) symptoms 90 days #90 tabs ferrous sulfate 325 mg (65 mg 325 mg PO DAILY 90 days #90 tabs 10/29/22 iron) tablet lorazepam 0.5 mg tablet 0.5 mg PO DAILY PRN anxiety 90 10/30/22 days #90 tabs acetaminophen 650 mg 650 mg PO Q8H PRN fever or pain 90 03/06/23 tablet,extended release (Mapap days #270 tabs Arthritis Pain) hydrocortisone 2.5 % topical cream 1 appl CA BEDTIME PRN hemorrhoids 03/12/23 with perineal applicator #30 grams (Procto-Med HC) insulin degludec 100 unit/mL (3 28 unit (0.28 mL) subcut BEDTIME 03/22/23 mL) subcutaneous pen (Tresiba 90 days #25.2 mL FlexTouch U-100 insulin) tramadol 50 mg tablet 50 mg PO BID PRN pain 30 days #60 04/17/23 tabs irbesartan 150 mg tablet 150 mg PO DAILY 90 days #90 tabs 04/25/23 Allergies Allergy/AdvReac Type Severity Reaction Status Date / Time codeine [CODEINE] Allergy Unknown HIVES Verified 04/03/23 11:26 morphine [MORPHINE] Allergy Unknown ITCHING, Verified 04/03/23 11:26 itchy Review of Systems Review of Systems: Yes all other systems are reviewed and are negative [facility] Past Medical History Medical History (Updated 06/08/23 @ 16:21 by LAQUITA Goodrich) History of gastric ulcer Stroke Diabetes mellitus Essential hypertension Surgical History Hx of colonoscopy No pertinent past surgical history Family History Family History Mother Hypertension Father No problems noted. Social History Social History Household Members: Spouse Housing: House Do you presently have visiting nurse or other home services: No Alcohol intake: never Patient Tobacco Use Status: Former Tobacco user Quit Date: Quit a month ago Tobacco use type: Cigarette Years Smoked: 30 e-Cigarette/Vaping Use: Never Used Second Hand Smoke Exposure: No Advance Directives: Yes Advance Directives on File: Yes Advance Directives Date on File: 06/10/23 service: No Current occupational status: retired Cognitive needs: No Hearing needs: No Vision needs: No Physical Exam ED Vital Signs: Vital Signs - 24 hr 06/09/23 14:00 06/09/23 22:24 06/10/23 06:00 Temperature 98.6 F 97.8 F 96.8 F Pulse Rate 97 109 H 100 Respiratory Rate 18 20 18 Blood Pressure 128/65 140/72 H 120/62 Pulse Oximetry 99 100 95 Oxygen Delivery Method Room Air Room Air Room Air 06/10/23 08:40 Temperature 97.8 F Pulse Rate 112 H Respiratory Rate 18 Blood Pressure 132/75 Pulse Oximetry 98 Oxygen Delivery Method Room Air BMI result Body Mass Index 20.6 Appearance: Alert. Oriented X3. No acute distress. Appears older than stated age, frail Head: normocephalic, superficial 3cm linear laceration down the center of the forehead without active bleeding or surrounding ecchymosis Eyes: Pupils equal, round and reactive to light. EOMI. ENT: Pharynx normal. No tonsillar swelling or exudate. Neck: Normal inspection. Neck supple. No midline tenderness. CVS: Normal heart rate and rhythm. Pulses normal. Respiratory: No respiratory distress. Breath sounds diminished in TYE. No wheezing or rhonchi Abdomen: Soft and nontender. +BS x4 Skin: Skin warm and dry. Normal skin color. Normal skin turgor. No rashes. Extremities: No lower extremity edema. No joint swelling. Neuro/psych: Oriented X 3. No motor deficit. No sensory deficit. CN II-XII intact. Normal speech and cognition. Slow but steady gait with walker Course Course Course Narrative: 06/10/23-1139--physician observation completed. Patient accepted to [facility] will be transferred via BLS at 12pm. Reevaluation(s) Reevaluation #1: Patient seen by Physical therapy. They are recommending short-term rehab. will need to do med rec and restart home meds, may need to adjust insulin dosing with weight loss and decreased PO intake. Time: 15:29 Reevaluation #2: At this time patient to remain in observation, med reconciliation done, and acknowledged, home meds to be administered. Pending case management and disposition. Time: 08:14 Medications Administered Generic Name Dose Route Start Last Admin Trade Name Lidia PRN Reason Stop Dose Admin Acetaminophen 650 mg 06/09/23 08:48 06/09/23 10:12 Acetaminophen 325 Mg Tablet PO 650 mg Q8H PRN Administration fever or pain Aspirin 81 mg 06/09/23 09:00 06/10/23 09:28 Aspirin Enteric Coated 81 Mg Tablet. PO 81 mg DAILY JANNETH Administration Cefuroxime Axetil 250 mg 06/08/23 16:20 06/10/23 09:28 Cefuroxime Axetil 250 Mg Tablet PO 250 mg BID JANNETH Administration Escitalopram Oxalate 10 mg 06/09/23 09:00 06/10/23 09:28 Escitalopram Oxalate 10 Mg Tablet PO 10 mg DAILY JANNETH Administration Ferrous Sulfate 324 mg 06/09/23 09:00 06/10/23 09:28 Ferrous Sulfate 324 Mg Tablet. PO 324 mg DAILY JANNETH Administration Insulin Glargine 20 unit 06/09/23 21:00 06/09/23 20:24 Insulin Glargine,Hum.Rec.Anlog 100 Unit/Ml 10 Ml Vial SUBCUT 20 unit BEDTIME JANNETH Administration Trazodone HCl 100 mg 06/09/23 21:00 06/09/23 20:23 Trazodone Hcl 100 Mg Tablet PO 100 mg BEDTIME JANNETH Administration Valsartan 80 mg 06/09/23 09:00 06/10/23 09:28 Valsartan 80 Mg Tablet PO 80 mg DAILY JANNETH Administration Vitamin D 50 mcg 06/09/23 09:00 06/10/23 09:28 Cholecalciferol (Vitamin D3) 25 Mcg Tablet PO 50 mcg DAILY JANNETH Administration Discontinued Medications Generic Name Dose Route Start Last Admin Trade Name Lidia PRN Reason Stop Dose Admin Dextrose 25 gm 06/08/23 06:07 06/08/23 06:09 Dextrose 50 % 25 Gm/50 Ml Syringe IVPUSH 06/08/23 06:08 25 gm ONCE ONE Administration Glucagon 1 mg 06/08/23 05:56 06/08/23 06:58 Glucagon Hcl 1 Mg Vial IM 06/08/23 05:57 Not Given ONCE ONE Glucose 15 gm 06/08/23 06:10 06/08/23 06:15 Glucose Gel 15 Gm Gel..Gram. 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 +headstrike w/ lac to the forehead, no LOC. Not on blood thinners. Slightly tachycardic on arrival. glucose 44. Given amp D50 and oral glucose gel. Glucose improved to 166. Awake and drinking juice. Reporting mild headache. Lac was able to be repaired w/ exofin skin glue and steristrips. CT head and C-spine unremarkable for bleed or trauamtic injuried. C-collar cleared. Labs showing stable anemia, negative troponin, normal renal function and normal CPK. Spoke w/ patient's at the bedside who reports overall decline at home. Poor PO intake, weight loss and weakness. PT consult ordered for possible short term rehab. Will place in physician observation pending PT eval and case management consult. Differential Diagnosis Differential Diagnoses: The differential diagnosis associated with the presentation includes hypoglycemia due to poor PO intake vs infection vs MA vs exogenous insulin may have UTI or other infection doubt PE as she has no chest pain or SOB, not sob or hypoxic. she most likely has a metastatic lung cancer so it at high risk however no clinical signs of DVT or PE Admission/Observation Consideration of admission/observation: Escalation of care including admission/observation considered Lab Data [facility] Lab Attestation statement: I reviewed the patient's lab results. Stable anemia, hypoglycemia, normal renal function, negative troponin, negative CPK 06/08/23 05:51 06/08/23 05:51 Labs: Lab Results 06/08/23 06/08/23 06/08/23 Range/Units 05:40 05:51 06:06 WBC 6.2 (4.8-10.8) X10*3/uL RBC 3.75 L (4.20-5.50) X10*6/uL Hgb 11.6 L (12.0-16.0) g/dl Hct 35.8 L (37.0-47.0) % MCV 95.5 (80.0-98.0) fL MCH 30.9 (27.0-33.0) pg MCHC 32.4 (31.0-35.0) g/dl RDW 13.1 (11.0-16.0) % Plt Count 333 D (160-400) X10*3/uL MPV 8.0 L (9.4-12.3) fL Immature Gran % (Auto) 0.8 H (0.0-0.4) % Neut % (Auto) 79.9 H (45-73) % Lymph % (Auto) 12.3 L (20-40) % [place] % (Auto) 6.8 (2-11) % Eos % (Auto) 0.0 (0-4) % Baso % (Auto) 0.2 (0-2) % Lymph # (Auto) 0.8 L (1.2-4.9) X10*3/uL [place] # (Auto) 0.4 (0.1-1.2) X10*3/uL Eos # (Auto) 0.0 (0.0-0.4) X10*3/uL Baso # (Auto) 0.0 (0.0-0.2) X10*3/uL Abs Immat Gran (auto) 0.05 H (0.00-0.03) X10*3/uL Absolute Neuts (auto) 5.0 (2.0-8.3) x10*3/uL Absolute Nucleated RBC 0.000 (0.0-0.012) X10*3/uL Nucleated RBC % (auto) 0.0 (0.0-0.2) /100WBC Sodium 138 (135-145) mmol/L Potassium 3.8 (3.3-5.1) mmol/L Chloride 106 (96-108) mmol/L Carbon Dioxide 24 (22-29) mmol/L Anion Gap 12 (12-20) BUN 10 (9-16) mg/dL Creatinine 0.78 (0.5-1.4) mg/dL Estim Creat Clear Calc TNP Estimated GFR > 60 POC Glucose 34 L* 35 L* (60-115) mg/dL Random Glucose 44 L* (60-115) mg/dL Calcium 9.5 D (8.4-10.2) mg/dL Magnesium 2.2 (1.6-2.6) mg/dL Total Bilirubin 0.7 (0.0-1.0) mg/dL AST 17 (5-31) U/L ALT 8 (0-31) U/L Alkaline Phosphatase 90 (39-117) U/L Total Creatine Kinase 74 (26-140) U/L Troponin I High Sens < 2.7 (<3.5-17.0) ng/L Total Protein 7.3 (6.5-8.0) g/dL Albumin 3.4 L (3.5-5.0) g/dL Urine Color Urine Appearance Urine pH (5.0-9.0) Ur Specific [place] (1.005-1.025) Urine Protein (Neg-Trace) mg/dL Urine Glucose (UA) (Negative) mg/dL Urine Ketones (Negative) mg/dL Urine Blood (Negative) Urine Nitrite (Negative) Ur Leukocyte Esterase (Negative) Urine RBC (0-2) /HPF Urine WBC (0-5) /HPF Ur Squamous Epith Cells (0-2) /HPF Urine Bacteria (None Seen) Hyaline Casts (0-2) /LPF 06/08/23 06/08/23 06/08/23 Range/Units 06:31 15:47 15:52 WBC (4.8-10.8) X10*3/uL RBC (4.20-5.50) X10*6/uL Hgb (12.0-16.0) g/dl Hct (37.0-47.0) % MCV (80.0-98.0) fL MCH (27.0-33.0) pg MCHC (31.0-35.0) g/dl RDW (11.0-16.0) % Plt Count (160-400) X10*3/uL MPV (9.4-12.3) fL Immature Gran % (Auto) (0.0-0.4) % Neut % (Auto) (45-73) % Lymph % (Auto) (20-40) % [place] % (Auto) (2-11) % Eos % (Auto) (0-4) % Baso % (Auto) (0-2) % Lymph # (Auto) (1.2-4.9) X10*3/uL [place] # (Auto) (0.1-1.2) X10*3/uL Eos # (Auto) (0.0-0.4) X10*3/uL Baso # (Auto) (0.0-0.2) X10*3/uL Abs Immat Gran (auto) (0.00-0.03) X10*3/uL Absolute Neuts (auto) (2.0-8.3) x10*3/uL Absolute Nucleated RBC (0.0-0.012) X10*3/uL Nucleated RBC % (auto) (0.0-0.2) /100WBC Sodium (135-145) mmol/L Potassium (3.3-5.1) mmol/L Chloride (96-108) mmol/L Carbon Dioxide (22-29) mmol/L Anion Gap (12-20) BUN (9-16) mg/dL Creatinine (0.5-1.4) mg/dL Estim Creat Clear Calc Estimated GFR POC Glucose 166 H 284 H (60-115) mg/dL Random Glucose (60-115) mg/dL Calcium (8.4-10.2) mg/dL Magnesium (1.6-2.6) mg/dL Total Bilirubin (0.0-1.0) mg/dL AST (5-31) U/L ALT (0-31) U/L Alkaline Phosphatase (39-117) U/L Total Creatine Kinase (26-140) U/L Troponin I High Sens (<3.5-17.0) ng/L Total Protein (6.5-8.0) g/dL Albumin (3.5-5.0) g/dL Urine Color Dark Yellow Urine Appearance Cloudy Urine pH 5.5 (5.0-9.0) Ur Specific [place] 1.025 (1.005-1.025) Urine Protein 30 (1+) H (Neg-Trace) mg/dL Urine Glucose (UA) Negative (Negative) mg/dL Urine Ketones Trace (Negative) mg/dL Urine Blood Negative (Negative) Urine Nitrite Positive H (Negative) Ur Leukocyte Esterase Moderate (2+) H (Negative) Urine RBC 11-20 H (0-2) /HPF Urine WBC >50 H (0-5) /HPF Ur Squamous Epith Cells 6-10 (0-2) /HPF Urine Bacteria 4+ (None Seen) Hyaline Casts 3-5 (0-2) /LPF 06/09/23 06/10/23 06/10/23 Range/Units 19:51 07:26 08:15 WBC (4.8-10.8) X10*3/uL RBC (4.20-5.50) X10*6/uL Hgb (12.0-16.0) g/dl Hct (37.0-47.0) % MCV (80.0-98.0) fL MCH (27.0-33.0) pg MCHC (31.0-35.0) g/dl RDW (11.0-16.0) % Plt Count (160-400) X10*3/uL MPV (9.4-12.3) fL Immature Gran % (Auto) (0.0-0.4) % Neut % (Auto) (45-73) % Lymph % (Auto) (20-40) % [place] % (Auto) (2-11) % Eos % (Auto) (0-4) % Baso % (Auto) (0-2) % Lymph # (Auto) (1.2-4.9) X10*3/uL [place] # (Auto) (0.1-1.2) X10*3/uL Eos # (Auto) (0.0-0.4) X10*3/uL Baso # (Auto) (0.0-0.2) X10*3/uL Abs Immat Gran (auto) (0.00-0.03) X10*3/uL Absolute Neuts (auto) (2.0-8.3) x10*3/uL Absolute Nucleated RBC (0.0-0.012) X10*3/uL Nucleated RBC % (auto) (0.0-0.2) /100WBC Sodium (135-145) mmol/L Potassium (3.3-5.1) mmol/L Chloride (96-108) mmol/L Carbon Dioxide (22-29) mmol/L Anion Gap (12-20) BUN (9-16) mg/dL Creatinine (0.5-1.4) mg/dL Estim Creat Clear Calc Estimated GFR POC Glucose 314 H 57 L* 100 (60-115) mg/dL Random Glucose (60-115) mg/dL Calcium (8.4-10.2) mg/dL Magnesium (1.6-2.6) mg/dL Total Bilirubin (0.0-1.0) mg/dL AST (5-31) U/L ALT (0-31) U/L Alkaline Phosphatase (39-117) U/L Total Creatine Kinase (26-140) U/L Troponin I High Sens (<3.5-17.0) ng/L Total Protein (6.5-8.0) g/dL Albumin (3.5-5.0) g/dL Urine Color Urine Appearance Urine pH (5.0-9.0) Ur Specific [place] (1.005-1.025) Urine Protein (Neg-Trace) mg/dL Urine Glucose (UA) (Negative) mg/dL Urine Ketones (Negative) mg/dL Urine Blood (Negative) Urine Nitrite (Negative) Ur Leukocyte Esterase (Negative) Urine RBC (0-2) /HPF Urine WBC (0-5) /HPF Ur Squamous Epith Cells (0-2) /HPF Urine Bacteria (None Seen) Hyaline Casts (0-2) /LPF 06/10/23 Range/Units 10:05 WBC (4.8-10.8) X10*3/uL RBC (4.20-5.50) X10*6/uL Hgb (12.0-16.0) g/dl Hct (37.0-47.0) % MCV (80.0-98.0) fL MCH (27.0-33.0) pg MCHC (31.0-35.0) g/dl RDW (11.0-16.0) % Plt Count (160-400) X10*3/uL MPV (9.4-12.3) fL Immature Gran % (Auto) (0.0-0.4) % Neut % (Auto) (45-73) % Lymph % (Auto) (20-40) % [place] % (Auto) (2-11) % Eos % (Auto) (0-4) % Baso % (Auto) (0-2) % Lymph # (Auto) (1.2-4.9) X10*3/uL [place] # (Auto) (0.1-1.2) X10*3/uL Eos # (Auto) (0.0-0.4) X10*3/uL Baso # (Auto) (0.0-0.2) X10*3/uL Abs Immat Gran (auto) (0.00-0.03) X10*3/uL Absolute Neuts (auto) (2.0-8.3) x10*3/uL Absolute Nucleated RBC (0.0-0.012) X10*3/uL Nucleated RBC % (auto) (0.0-0.2) /100WBC Sodium (135-145) mmol/L Potassium (3.3-5.1) mmol/L Chloride (96-108) mmol/L Carbon Dioxide (22-29) mmol/L Anion Gap (12-20) BUN (9-16) mg/dL Creatinine (0.5-1.4) mg/dL Estim Creat Clear Calc Estimated GFR POC Glucose 102 (60-115) mg/dL Random Glucose (60-115) mg/dL Calcium (8.4-10.2) mg/dL Magnesium (1.6-2.6) mg/dL Total Bilirubin (0.0-1.0) mg/dL AST (5-31) U/L ALT (0-31) U/L Alkaline Phosphatase (39-117) U/L Total Creatine Kinase (26-140) U/L Troponin I High Sens (<3.5-17.0) ng/L Total Protein (6.5-8.0) g/dL Albumin (3.5-5.0) g/dL Urine Color Urine Appearance Urine pH (5.0-9.0) Ur Specific [place] (1.005-1.025) Urine Protein (Neg-Trace) mg/dL Urine Glucose (UA) (Negative) mg/dL Urine Ketones (Negative) mg/dL Urine Blood (Negative) Urine Nitrite (Negative) Ur Leukocyte Esterase (Negative) Urine RBC (0-2) /HPF Urine WBC (0-5) /HPF Ur Squamous Epith Cells (0-2) /HPF Urine Bacteria (None Seen) Hyaline Casts (0-2) /LPF Independent Interpretation I performed an independent interpretation of an: EKG and CT Scan Interpretation: EKG with normal sinus rhythm, ventricular rate 99 beats per minute, normal CA interval, normal QTC, no ST segment elevations or depressions CT scan of the head without any edema or bleed, agree w/ radiology read Radiology Impression Discussion of test interpretation with radiology: I have reviewed the radiologist's reading. Radiologist Impression: CT brain and CT cervical spine without contrast. CLINICAL HISTORY: Fall. COMPARISON: CT head for stroke 10/27/2019. CTA chest 03/10/2023. TECHNIQUE: 5 mm thin axial and reformatted 2 mm thin sagittal and coronal images of brain were obtained. Subsequently axial 3 mm thin and reformatted 2 mm thin sagittal and coronal images of cervical spine were obtained. DLP 811. This CT examination was performed using dose optimization technique as appropriate, variously including the following: Automated exposure control Adjustment of MA and/or KV according to patient size(this includes techniques or standardized protocols for targeted exams where dose is matched to indication/reason for exam; extremities or head. Use of iterative reconstruction techniques. FINDINGS: Brain: There is no acute intra-axial, extra-axial bleed, masses or midline shift. There is no acute infarction in evolution. There is no edema. The german to white matter differentiation is maintained. The lateral ventricles are symmetrical in size and configuration without enlargement. Bone windows reveal no calvarial abnormality. There is no scalp soft tissue abnormality. Bilateral paranasal sinuses and mastoid air cells are well aerated. Cervical spine: There is mild straightening of cervical lordosis. The vertebral heights, and alignment is normal. There is mild loss of disc at C3-C4 through C6-C7 disc levels with moderate ventral spondylosis. The craniovertebral junction and C1-C2 alignment is normal. There is no visible acute fracture, dislocation or subluxation seen. The facet joints are symmetric and normal. The prevertebral and paravertebral soft tissues are normal. There is mild bilateral uncovertebral hypertrophic changes from C3-C4 through C6-C7 disc levels with narrowing of neural foramina. The central trachea and the airway is widely patent. Left thyroid lobe is enlarged. There is a large left apical mass measuring at least 4 cm. It is partially visualized on this exam This was noted on the previous CTA chest 03/10/2023. CT/CT head/brain wo IV con IMPRESSION: No acute intracranial process seen. Reversal of cervical lordosis with degenerative disc changes and ventral spondylosis. No visible acute fracture or dislocation seen. 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 Large left upper lobe pulmonary mass. It was noted on the previous CTA exam 03/10/2023 Independent Historian Clinical information obtained from an independent historian. History obtained from or confirmed by: Spouse and EMS External Record Review External record reviewed: Inpatient record, Outpatient record, Prior outpatient labs and Prior outpatient radiology Prescription Management I considered prescription management with: Pain Medication Chronic Conditions Patient?s care impacted by: Diabetes Critical Care Time Critical Care Time Critical Care Time: Yes Total Critical Care Time: 38 Attestation: I have personally provided critical care time exclusive of time spent on separately billable procedures. Time includes review of lab data, radiology results, frequent bedside reevaluations of mental status and glucose levels and monitoring for potential decompensation. Intervention performed as documented. Discharge Plan Discharge Clinical Impression: Hypoglycemia, Fall, Forehead laceration, Adult failure to thrive, Acute UTI Patient Disposition: Still a Patient Prescriptions: No Action cholecalciferol (vitamin D3) 50 mcg (2,000 unit) capsule 50 mcg PO DAILY 90 Days Qty: 90 1RF (DME) pen needle, diabetic [Comfort EZ Pen [place]] 31 gauge x 5/16 needle See Rx Instructions .Route Qty: 100 3RF Rx Instructions: Use 1 pen needle once a day ferrous sulfate 325 mg (65 mg iron) tablet 325 mg PO DAILY 90 Days Qty: 90 1RF cetirizine [Allergy Relief (cetirizine)] 10 mg tablet 10 mg PO DAILY PRN (Reason: allergy symptoms) 90 Days Qty: 90 1RF lorazepam 0.5 mg tablet 0.5 mg PO DAILY PRN (Reason: anxiety) 90 Days Qty: 90 0RF acetaminophen [Mapap Arthritis Pain] 650 mg tablet extended release 650 mg PO Q8H PRN (Reason: fever or pain) 90 Days Qty: 270 2RF insulin degludec [Tresiba FlexTouch U-100] 100 unit/mL (3 mL) insulin pen 28 unit subcut BEDTIME 90 Days Qty: 25.2 3RF tramadol 50 mg tablet 50 mg PO BID PRN (Reason: pain) 30 Days Qty: 60 0RF irbesartan 150 mg tablet 150 mg PO DAILY 90 Days Qty: 90 1RF hydrocortisone [Procto-Med HC] 2.5 % cream with perineal applicator 1 appl CA BEDTIME PRN (Reason: hemorrhoids) Qty: 30 0RF trazodone 100 mg tablet 100 mg PO BEDTIME aspirin [Adult Low Dose Aspirin] 81 mg tablet,delayed release (DR/EC) 81 mg PO DAILY escitalopram oxalate 10 mg tablet 10 mg PO DAILY Referrals: [facility] [Outside]
--- NOTE | 2023-06-08 07:27 | PC.NURSE ---
ed provider at bedside. c-collar on. pt axox4; neuros intact (R. sided weakness noted which pt states to be baseline from previous stroke). forehead lac cleaned; steri strips applied by provider. vss. multiple failed attempts to obtain blood cultures d/t pt difficult stick. will continue to attempt to draw labs. call brannon within reach.
--- NOTE | 2023-06-08 08:10 | PC.NURSE ---
c-collar removed by LAQUITA Kumar.
--- NOTE | 2023-06-08 10:22 | PC.NURSE ---
pt ambulatory to bathroom with walker; steady gait.
--- NOTE | 2023-06-08 11:52 | PC.NURSE ---
vital sign interval changed to q8 per provider approval.
--- NOTE | 2023-06-08 12:16 | PC.NURSE ---
pt aware of plan for pt/cm. denies questions/concerns at this time. will reach out to transport for hospital bed for pt comfort. call brannon within reach.
--- NOTE | 2023-06-08 12:59 | PC.NURSE ---
PT at bedside ambulating pt.
[2023-06-08 13:10] VITALS: PULSE 128; O2SAT 97
--- NOTE | 2023-06-08 14:52 | PC.NURSE ---
pt ate 100% lunch; family at bedside. call brannon within reach.
--- NOTE | 2023-06-08 15:37 | MHC.CM.PN ---
CM RECEIVED CONSULT FROM ED PROVIDER. MET WITH PT AT BEDSIDE. PT HAS BEEN REC FOR STR BY Anil. PT IS AGREEABLE BUT CONCERNED ABOUT COST. REFERRALS SENT TO SNF'S IN THE [facility] THAT ARE CONTRACTED WITH HER INSURANCE. AWAITING RESPONSES. INSURANCE AUTH MAY NOT BE ABLE TO HAPPEN UNTIL SATURDAY. PT GAVE PERMISSION FOR CM TO CALL DAUGHTER MEKHI JIMENEZ TO REQUEST A COPY OF HER HCP. MESSAGE LEFT FOR MEKHI AT [phone]. CM WILL CONTINUE TO FOLLOW FOR DC NEEDS/PLAN.
[2023-06-08 15:50] VITALS: BP 128/62; PULSE 106; RESP 16; O2SAT 100
[2023-06-08 15:53] LABS: Glucose, Whole Blood 284 mg/dL (60-115)
[2023-06-08 16:12] LABS: Appearance Urine Cloudy; Color Urine Dark Yellow; Glucose Urine UA Negative (Negative); Leukocyte Esterase Urine Moderate (2+) (Negative); Nitrite Urine Positive (Negative); PH 5.5 (5.0-9.0); Specific Gravity - Urine 1.025 (1.005-1.025); UMIC TRIGGER UACC YES; Urine Blood Negative (Negative); Urine Ketones Trace mg/dL (Negative); Urine Protein 30 (1+) mg/dL (Neg-Trace)
[2023-06-08 16:26] LABS: Bacteria Urine 4+ (None Seen); UACC Culture Trigger YES; WBC Urine >50 /HPF (0-5)
--- NOTE | 2023-06-08 16:27 | MHC.EDTECH ---
Pt walked with assistance from walker to the bathroom. Pt had BM, washed hands and walked back to room with walker. She was able to get out of bed with very little asstance, and return to bed with no assistance. SG
--- NOTE | 2023-06-08 16:37 | PHA.MEDREC ---
Pharmacy Consult ? Medication Reconciliation Pharmacy has completed the medication reconciliation. Spoke to patient to confirm meds.
[2023-06-08 21:10] VITALS: BP 131/69; PULSE 95; RESP 16; TEMP 36.7; O2SAT 96
[2023-06-08] MEDS: traZODone HCL 100 MG TABLET PO (21:48)
--- NOTE | 2023-06-09 01:44 | PC.NURSE ---
Assumed care for patient at apporoximately 1900. A&O x3, no c/o pain. Patient resting comfortably. Continue with plan care.
[2023-06-09 06:13] VITALS: BP 141/70; PULSE 97; RESP 16; TEMP 37.2; O2SAT 100
[2023-06-09] MEDS: Acetaminophen 325 MG TABLET 650 MG PO (10:12)
[2023-06-09] MEDS: Valsartan 80 MG TABLET PO (10:12)
[2023-06-09] MEDS: Ferrous Sulfate 324 MG TABLET.DR PO (10:13)
[2023-06-09] MEDS: Aspirin Enteric Coated 81 MG TABLET.DR PO (10:13)
[2023-06-09] MEDS: Cholecalciferol (Vitamin D3) 25 MCG TABLET 50 MCG PO (10:13)
[2023-06-09] MEDS: Escitalopram Oxalate 10 MG TABLET PO (10:14)
--- NOTE | 2023-06-09 13:57 | MHC.CM.PN ---
CM CONTACTED PT'S DTR MEKHI AT NUMBER IN PREVIOUS CM NOTE, MEKHI REPORTS THAT WE WILL NEED TO DISCUSS SNF'S W/PT'S [facility], BARRETT CONTACTED [facility] AT 1:50PM TO REVIEW SNF OPRTIONS, [facility] REPORTS [facility] PREFERRED [facility], DTR MEKHI REPORTS SHE WILL GO TO PT'S HOUSE TO LOOK FOR HCP AND WILL BE HERE AT [facility] BETWEEN 9:30-10AM TOMORROW 06/10. CM WILL CONT TO FOLLOW.
[2023-06-09 14:00] VITALS: BP 128/65; PULSE 97; RESP 18; TEMP 37; O2SAT 99
--- NOTE | 2023-06-09 15:11 | PC.NURSE ---
pt assisted to bedside commode. complete bed change done and new merrick put on. pt resting quietly, no apparent distress. denies pain.
--- NOTE | 2023-06-09 16:08 | MHC.EDTECH ---
Assisted patient on to commode.
[2023-06-09 20:15] LABS: Glucose, Whole Blood 314 mg/dL (60-115)
[2023-06-09] MEDS: traZODone HCL 100 MG TABLET PO (20:23)
[2023-06-09] MEDS: Insulin Glargine,Hum.rec.anlog 100 UNIT/ML 10 ML VIAL 20 UNIT SUBCUT (20:24)
[2023-06-09 22:24] VITALS: BP 140/72; PULSE 109; RESP 20; TEMP 36.6; O2SAT 100
[2023-06-10 06:00] VITALS: BP 120/62; PULSE 100; RESP 18; TEMP 36; O2SAT 95
[2023-06-10 07:30] LABS: Glucose, Whole Blood 57 mg/dL (60-115)
[2023-06-10 08:18] LABS: Glucose, Whole Blood 100 mg/dL (60-115)
[2023-06-10 08:40] VITALS: BP 132/75; PULSE 112; RESP 18; TEMP 36.6; O2SAT 98
--- NOTE | 2023-06-10 09:05 | MHC.CM.ED ---
Patient remains in ER overflow. [facility] is able to offer a bed once a copy of HCP is provided. Patient's daughter will be at [facility] by 10am with a HCP. HCP will be provided to [facility]. Continue to monitor for d/c needs.
[2023-06-10] MEDS: Ferrous Sulfate 324 MG TABLET.DR PO (09:28)
[2023-06-10] MEDS: Escitalopram Oxalate 10 MG TABLET PO (09:28)
[2023-06-10] MEDS: Valsartan 80 MG TABLET PO (09:28)
[2023-06-10] MEDS: Aspirin Enteric Coated 81 MG TABLET.DR PO (09:28)
[2023-06-10] MEDS: Cholecalciferol (Vitamin D3) 25 MCG TABLET 50 MCG PO (09:28)
[2023-06-10 10:09] LABS: Glucose, Whole Blood 102 mg/dL (60-115)
--- NOTE | 2023-06-10 10:37 | PC.NURSE ---
resting, calm, no distress. talking w visitors. no pain reported. reg breathing. no cp/dizziness/SOB/CAMERON. piv c/d/i.
--- NOTE | 2023-06-10 11:12 | MHC.CM.ED ---
Patient remains in ER overflow. HCP completed, signed, and witnessed. Original given to patient. Copy placed in chart. [facility] is able to offer a bed and has obtained insurance auth. Patient can leave at 12pm. Dannie SUN booked. [facility] with chart. Patient, daughter JeriAnnalisa tyler RN and Yun COELHO aware. Continue to monitor for d/c needs.
--- NOTE | 2023-06-10 11:45 | PC.NURSE ---
eating lunch. no distress.
[2023-06-10 11:52] LABS: Glucose, Whole Blood 88 mg/dL (60-115)
--- NOTE | 2023-06-10 12:21 | PC.NURSE ---
being d/c'd w ambulance. iv taken out. no distress. calm, coop, talking well +CMS
== END 2023-06-10 12:23 | disposition skilled nursing facility (03) ==
PROVIDERS: Physician Assistant; Emergency Provider Internal Medicine; PCP Internal Medicine
DX: E11.649 Type 2 diabetes mellitus with hypoglycemia without coma (principal); S01.81XA Laceration without foreign body of other part of head, initial encounter; W18.30XA Fall on same level, unspecified, initial encounter; R29.6 Repeated falls; N39.0 Urinary tract infection, site not specified; R62.7 Adult failure to thrive; Z68.20 Body mass index [BMI] 20.0-20.9, adult; R00.0 Tachycardia, unspecified; R91.8 Other nonspecific abnormal finding of lung field; R59.0 Localized enlarged lymph nodes; I10 Essential (primary) hypertension; Z91.81 History of falling; Z86.73 Personal history of transient ischemic attack (TIA), and cerebral infarction without residual deficits; Z87.891 Personal history of nicotine dependence; Z79.899 Other long term (current) drug therapy; Z79.4 Long term (current) use of insulin; Y93.9 Activity, unspecified; Y92.019 Unspecified place in single-family (private) house as the place of occurrence of the external cause; Y99.9 Unspecified external cause status
CPT/HCPCS: 36415; 70450; 72125; 80053; 81001; 82550; 82947; 83735; 84484; 85025; 87086; 93005; 96374; 97163; 99285

== ENCOUNTER 2023-06-13 18:31 | Inpatient (IN) | payer MEDICARE, SELFPAY ==
--- NOTE | ~2023-06-13 | XR_ITS ---
EXAMINATION: XR CHEST CLINICAL INFORMATION: Hypoxia COMPARISON: Chest CT June 14, 2023 and chest x-ray June 13, 2023 TECHNIQUE: Frontal view of the chest was obtained. FINDINGS: Cardiac silhouette is normal in size. The lungs are well aerated. No left upper lobe mass again demonstrated. No gross lobar consolidation. No pleural effusion or pneumothorax. XR/XR chest 1V IMPRESSION: 1. No acute pulmonary pathology. 2. Left upper lobe mass again demonstrated.
--- NOTE | ~2023-06-13 | XR_ITS ---
EXAMINATION: XR HUMERUS, RIGHT CLINICAL INFORMATION: Follow-up sclerotic lesion right humeral head on chest x-ray COMPARISON: Previous chest x-ray 06/13/2023 TECHNIQUE: AP and lateral views of the right humerus. FINDINGS: The sclerotic density in the right humeral head on yesterday's chest x-ray is no longer seen. There is a sclerotic density in the distal humeral shaft seen on one of 2 views, the lateral view measuring 1 cm. There is a more inferior 7 mm sclerotic density in the distal humeral metaphysis seen on one of 2 views, the AP view. Findings may represent osteopenia and heterogeneous attenuation of the bones as opposed to true sclerotic bone lesions. Follow-up bone scan should be considered given lung mass. There is arthritis at the right shoulder joint. The right elbow joint is normal. Soft tissues are normal. XR/XR humerus RT IMPRESSION: Sclerotic focus in the right humeral head on yesterday's chest x-ray to longer seen. There are two 7 and 10 mm sclerotic densities seen in the distal humeral shaft and metaphysis measuring 1 and 0.7 cm on only one of 2 views. Question findings secondary to heterogeneous attenuation of the bones and osteopenia. Given lung mass, follow-up bone scan should be considered.
--- NOTE | ~2023-06-13 | CT_ITS ---
EXAMINATION: CT CHEST WITHOUT CONTRAST CLINICAL INFORMATION: Follow-up lung mass COMPARISON: Previous chest x-ray from yesterday and chest CT February 2023 TECHNIQUE: Multidetector volumetric CT imaging of the chest was done. Axial MIP volume rendering provided. Sagittal and coronal reformatted images were obtained. This CT examination was performed using dose optimization techniques as appropriate, variously including the following: *Automated exposure control *Adjustment of mA and/or kV according to patient size (this includes techniques or standardized protocols for targeted exams where dose is matched to indication/reason for exam; i.e. extremities or head) *Use of iterative reconstruction technique DLP: 180 mGy-cm FINDINGS: LUNGS: There is emphysema. Lobulated left upper lobe mass measures 3.6 x 3.6 cm in AP and transverse dimension and is probably not appreciably changed in size. Evaluation of the lungs is limited due to respiratory motion artifact. There is a 4 mm right upper lobe nodule axial image 197. There is a 3 to 4 mm right middle lobe nodule axial image 257 series 7. Both these nodules are stable. MEDIASTINUM: The visualized thyroid gland appears enlarged. There there are enlarged mediastinal lymph nodes. Comparison with February exam is difficult due to lack of IV contrast. There is an AP window lymph node that measures 2.2 cm in short axis axial image 20 series 5 that appears unchanged. There is pretracheal lymphadenopathy measuring 2 x 2.4 cm axial image 18 series 5 compared probably unchanged. There is a subcarinal lymphadenopathy measuring 2.3 cm in short axis axial image 26 series 5 that is unchanged. There is adenopathy encasing the left proximal mainstem bronchus. This is difficult to define and measure due to lack of IV contrast. Overall, mediastinal lymphadenopathy is probably not appreciably changed. Evaluation for hilar lymphadenopathy is difficult due to lack of IV contrast. There is left hilar lymphadenopathy. The heart size is normal. There is a small pericardial effusion that is appreciably changed. The thoracic aorta is normal in caliber. There are bilateral lower cervical or supraclavicular lymph nodes largest is in the right lower cervical or supraclavicular region measuring 1.3 cm in short axis. Coronal reconstructed image 34 There are enlarged left direct lymph nodes, largest measuring 8 mm in short axis axial image 41 series 5 CORONARY ARTERY CALCIFICATION: Mild to moderate PLEURA: There is no pleural effusion. Left lateral apical pleural thickening adjacent to the mass and left first and second ribs. AXILLA: No lymphadenopathy. Subcutaneous nodule in the right medial lower chest wall measuring 6 mm axial image 48 series 5. This is similar to previous exam. UPPER ABDOMEN: Unremarkable. OSSEOUS STRUCTURES: Mild degenerative changes of the thoracic spine and scoliosis. No focal bone lesion or fracture seen. CT/CT chest wo IV con IMPRESSION: Emphysema. No appreciable change in the left upper lobe mass, mediastinal lymphadenopathy and lower cervical or supraclavicular lymphadenopathy. Left retrocrural adenopathy appears increased. Small stable periCardial effusion.. Stable subcutaneous nodule in the right lower medial chest wall. Fleischner guidelines were followed.
--- NOTE | ~2023-06-13 | XR_ITS ---
EXAMINATION: XR CHEST CLINICAL INFORMATION: Shortness of breath. COMPARISON: Chest radiograph and CT chest dated 03/10/2023. TECHNIQUE: Frontal view of the chest was obtained. FINDINGS: The heart, great vessels, pulmonary vasculature and mediastinum are stable. There is atherosclerotic calcification of the aortic knob. At the left apex, a 3.9 x 4.3 cm mass is redemonstrated. No new infiltrate, effusion or pneumothorax is seen. There is a moderately severe thoracic dextroscoliosis. An 8 mm sclerotic density is newly seen of the right humeral head. There are degenerative changes of the shoulders. XR/XR chest 1V IMPRESSION: 1. A 4.3 cm in maximal diameter left apical mass is redemonstrated, consistent with prior CT findings. Again, this is highly concerning for neoplasm. Further work-up is indicated, possibly to include bronchoscopy or CT biopsy. 2. There is interim appearance of an 8 mm sclerotic lesion within the right humeral head. This could be more fully evaluated with dedicated right humeral radiographs.
--- NOTE | ~2023-06-13 | MR_ITS ---
EXAMINATION: MR BRAIN WITHOUT AND WITH CONTRAST CLINICAL INFORMATION: Evaluate for brain metastases, seizure COMPARISON: CT head without contrast 06/13/2023, MRI Brain without contrast 05/16/2020 TECHNIQUE: Multiplanar multisequence MR imaging of the brain was obtained without and following the administration of 5 mL Gadavist intravenous contrast. FINDINGS: Significantly motion degraded examination. There is no acute infarct on diffusion-weighted imaging. There is no intracranial hemorrhage on iron-sensitive imaging. No extra-axial collection or mass effect/herniation. Scattered periventricular and deep white matter T2 FLAIR hyperintensities consistent with mild underlying microangiopathy. Chronic lacunar infarcts involving the bilateral basal ganglia, thalami, and hossein. No hydrocephalus. The ventricles are normal in morphology and size. No abnormal parenchymal or extra-axial enhancement. The major flow voids at the skull base are preserved. The midline structures are normal. The cerebellar tonsils are normally positioned. The craniocervical junction is normal. Marrow signal is within normal limits. The visualized soft tissues are without significant abnormality. No signal abnormality within the paranasal sinuses or within the mastoid air cells. MR/MR head/brain wo/w con IMPRESSION: Significantly motion degraded examination. Within this limitation, no acute intracranial abnormality or evidence of intracranial metastatic disease. Sensitivity for small metastases is limited and repeat examination can be obtained if clinically indicated.
--- NOTE | ~2023-06-13 | CT_ITS ---
EXAMINATION: CT HEAD WITHOUT CONTRAST CLINICAL INFORMATION: Status post seizure. COMPARISON: CT head dated 06/08/2023. TECHNIQUE: Contiguous axial imaging was performed from the skull base to vertex without intravenous administration of contrast. Multiplanar reformatted images are submitted. This CT examination was performed using dose optimization techniques as appropriate, variously including the following: *Automated exposure control *Adjustment of mA and/or kV according to patient size (this includes techniques or standardized protocols for targeted exams where dose is matched to indication/reason for exam; i.e. extremities or head) *Use of iterative reconstruction technique DLP: 1102 mGy-cm FINDINGS: There is no acute intracranial hemorrhage or evidence of territorial infarction. No abnormal mass effect or midline shift is seen. Tsai to white matter differentiation is well preserved. There is no abnormal attenuation within the brain parenchyma. The ventricles are normal in size. No extra-axial fluid collections are identified. The calvarium and scalp soft tissues are normal. The middle ear cavity and mastoid air cells are clear. The visualized paranasal sinuses are clear. CT/CT head/brain wo IV con IMPRESSION: No acute intracranial pathology.
--- NOTE | ~2023-06-13 | CT_ITS ---
EXAMINATION: CT ABDOMEN AND PELVIS WITHOUT CONTRAST CLINICAL INFORMATION: Lung mass. Question ET tube biopsy site. COMPARISON: Pelvic ultrasound May [address] of the abdomen and pelvis October 2015 TECHNIQUE: Multidetector volumetric imaging was performed from the superior aspect of the liver through the pubic symphysis. Sagittal and coronal reformatted images were obtained on the technologist's workstation. This CT examination was performed using dose optimization techniques as appropriate, variously including the following: *Automated exposure control *Adjustment of mA and/or kV according to patient size (this includes techniques or standardized protocols for targeted exams where dose is matched to indication/reason for exam; i.e. extremities or head) *Use of iterative reconstruction technique DLP: 326 mGy-cm FINDINGS: LIVER, GALLBLADDER, AND BILIARY TREE: The liver is normal in size, shape, and attenuation. No focal hepatic lesion or biliary ductal dilatation is present. The gallbladder is unremarkable with no evidence of radiopaque gallstones, gallbladder wall thickening, or obvious pericholecystic inflammatory changes. PANCREAS: Unremarkable. SPLEEN: Unremarkable. ADRENAL GLANDS: Unremarkable. KIDNEYS AND URETERS: The kidneys are normal in size, shape, and attenuation. No hydronephrosis, hydroureter, or calculi seen. No perinephric stranding. BLADDER: Unremarkable. GASTROINTESTINAL TRACT: Stool throughout the colon suggestive of constipation. Mild diverticulosis of the distal colon. No evidence of diverticulitis. There is wall thickening of the rectum. There is stranding of the surrounding fat and infiltration of the presacral space. There is air outside the left lateral wall of the rectum axial image 74 series 8. This measures 1 x 1.4 x 1.5 cm. The small and large bowel are otherwise unremarkable. The appendix is unremarkable. ABDOMINAL WALL: No significant hernia is appreciated. Air in the subcutaneous fat of the left lower abdominal wall likely related to injection site. LYMPH NODES: perirectal lymph nodes, largest measuring 7 mm in short axis axial series 8. VASCULAR: Atherosclerotic disease. No aneurysm. PELVIC VISCERA: Enlarged lobulated uterus with calcifications probably representing an enlarged fibroid uterus. OSSEOUS STRUCTURES: Degenerative changes of the spine and hip joints. Mild curvature of the lumbar spine to the left. CT/CT abdomen pelvis wo IV con IMPRESSION: Wall thickening of the rectum. Stranding of the surrounding fat and infiltration of the fat in the presacral space. Small extraluminal air outside the left lateral wall of the rectum. Appearance is suggestive of proctitis and perirectal abscess. Rectal mass cannot be excluded. Correlation with clinical findings recommended. Mild diverticulosis of the colon and constipation. Enlarged fibroid uterus. Fleischner guidelines were followed. Findings will be communicated by the [place] work flow x ray tech
[2023-06-13 18:36] VITALS: BP 176/91; PULSE 117; O2SAT 100
[2023-06-13 18:42] VITALS: BP 156/80; PULSE 112; RESP 14; TEMP 36.8; O2SAT 100; BMI 19.6
[2023-06-13 18:58] LABS: MANUAL DIFF FLAG NO
[2023-06-13 19:00] LABS: Basophils Percent Auto 0.2 % (0-2); Eosinophils Percent Auto 0.3 % (0-4); Hematocrit 35.5 % (37.0-47.0); Hemoglobin 11.7 g/dl (12.0-16.0); Imm Gran Abs Auto 0.09 X10*3/uL (0.00-0.03); Imm Gran Pct Auto 1.4 % (0.0-0.4); Lymphocytes Absolute Auto 1.3 X10*3/uL (1.2-4.9); Lymphocytes Percent Auto 19.9 % (20-40); Mean Corpuscular Volume 94.2 fL (80.0-98.0); Mean Platelet Volume 8.1 fL (9.4-12.3); Monocytes Absolute Auto 0.7 X10*3/uL (0.1-1.2); Monocytes Percent Auto 10.7 % (2-11); Neutrophils Absolute Auto 4.3 x10*3/uL (2.0-8.3); Neutrophils Percent Auto 67.5 % (45-73); Platelet Count 326 X10*3/uL (160-400); Red Blood Count 3.77 X10*6/uL (4.20-5.50); Red Cell Distribution Width 12.6 % (11.0-16.0); White Blood Count 6.3 X10*3/uL (4.8-10.8)
[2023-06-13 19:12] LABS: Alanine Aminotransferase 12 U/L (0-31); Albumin Level 3.4 g/dL (3.5-5.0); Alkaline Phosphatase 77 U/L (39-117); Anion Gap 14 (12-20); Aspartate Amino Transferase 18 U/L (5-31); Bilirubin Total 0.6 mg/dL (0.0-1.0); Blood Urea Nitrogen 9 mg/dL (9-16); Calcium 9.2 mg/dL (8.4-10.2); Carbon Dioxide 24 mmol/L (22-29); Chloride 103 mmol/L (96-108); Estimated Glomerular Filt Rate > 60; Glucose Random 111 mg/dL (60-115); Potassium 3.7 mmol/L (3.3-5.1); Sodium 137 mmol/L (135-145); Total Protein 7.1 g/dL (6.5-8.0)
--- NOTE | 2023-06-13 19:37 | ED.SEIZURE ---
HPI - Seizure General Chief Complaint: Seizure Stated Complaint: SEIZURES Time Seen by Provider: 06/13/23 18:33 Source: patient and family () Mode of arrival: EMS History of Present Illness HPI Narrative: 67-year-old [facility] having 1 unwitnessed seizure, she did have a 2nd seizure that was witnessed by staff lasting approximately 2-3 minutes, no fall or head strike, patient does not have a seizure history. Patient has had a recent fall on Saturday with a head strike and at that time underwent full evaluation to include a CT of the head. Patient does have history of prior CVAs and has known metastatic lung mass. Seizure History: No Place: SNF Related Data Home Medications Medication Instructions Recorded Confirmed aspirin 81 mg tablet,delayed 81 mg PO DAILY 02/08/22 06/08/23 release (Adult Low Dose Aspirin) escitalopram oxalate 10 mg tablet 10 mg PO DAILY 02/08/22 06/08/23 trazodone 100 mg tablet 100 mg PO BEDTIME 06/08/23 06/13/23 Previous Rx's Medication Instructions Recorded cholecalciferol (vitamin D3) 50 50 mcg PO DAILY 90 days #90 caps 06/24/22 mcg (2,000 unit) capsule pen needle, diabetic 31 gauge x #100 ea 10/03/2202/12 (Comfort EZ Pen [place]) cetirizine 10 mg tablet (Allergy 10 mg PO DAILY PRN allergy 10/29/22 Relief (cetirizine)) symptoms 90 days #90 tabs ferrous sulfate 325 mg (65 mg 325 mg PO DAILY 90 days #90 tabs 10/29/22 iron) tablet lorazepam 0.5 mg tablet 0.5 mg PO DAILY PRN anxiety 90 10/30/22 days #90 tabs acetaminophen 650 mg 650 mg PO Q8H PRN fever or pain 90 03/06/23 tablet,extended release (Mapap days #270 tabs Arthritis Pain) hydrocortisone 2.5 % topical cream 1 appl [place] BEDTIME PRN hemorrhoids 03/12/23 with perineal applicator #30 grams (Procto-Med HC) insulin degludec 100 unit/mL (3 28 unit (0.28 mL) subcut BEDTIME 03/22/23 mL) subcutaneous pen (Tresiba 90 days #25.2 mL FlexTouch U-100 insulin) tramadol 50 mg tablet 50 mg PO BID PRN pain 30 days #60 04/17/23 tabs irbesartan 150 mg tablet 150 mg PO DAILY 90 days #90 tabs 04/25/23 Allergies Allergy/AdvReac Type Severity Reaction Status Date / Time codeine [CODEINE] Allergy Unknown HIVES Verified 04/03/23 11:26 morphine [MORPHINE] Allergy Unknown ITCHING, Verified 04/03/23 11:26 itchy Review of Systems Review of Systems: Pertinent positives and negatives as stated in [facility] Past Medical History Source: nursing notes reviewed Medical History (Updated 06/13/23 @ 21:49 by Isadora Brito MD) History of gastric ulcer Stroke Diabetes mellitus Essential hypertension Surgical History Hx of colonoscopy No pertinent past surgical history Family History Family History Mother Hypertension Father No problems noted. Social History Social History Household Members: Spouse Housing: House Do you presently have visiting nurse or other home services: No Alcohol intake: never Patient Tobacco Use Status: Former Tobacco user Quit Date: Quit a month ago Tobacco use type: Cigarette Years Smoked: 30 e-Cigarette/Vaping Use: Never Used Second Hand Smoke Exposure: No Advance Directives: Yes Advance Directives on File: Yes Advance Directives Date on File: 06/10/23 service: No Current occupational status: retired Cognitive needs: No Hearing needs: No Vision needs: No Physical Exam Vital Signs: Vital Signs: Last Vital Signs Temp 98.3 F 06/13/23 18:42 Pulse 106 H 06/13/23 20:47 Resp 15 06/13/23 20:47 BP 178/88 H 06/13/23 20:47 Pulse Ox 97 06/13/23 20:47 O2 Del Method Room Air 06/13/23 20:47 BMI result Body Mass Index 19.6 VITAL SIGNS: Reviewed. GENERAL: Cachectic, elderly, frail, in no acute distress. HEAD: Normocephalic/patient has mid forehead Steri-Strips EYES: PERRLA, EOMI EARS: Ext canals without abnormality NOSE: Nares patent bilateral OROPHARYNX: no oral lesions noted, posterior pharynx clear NECK: Supple, no adenopathy LUNGS: Normal breath sounds. No adventitious sounds or accessory muscle use. SpO2<97> CARDIOVASCULAR: Regular rate and rhythm without noted murmurs ABDOMEN: Soft, non-tender, non-distended with bowel sounds. MUSCULOSKELETAL: No tenderness, deformities, or effusions noted on gross inspection. EXTREMITIES: No cyanosis, clubbing or edema. SKIN: Inspection of the skin reveals no rashes NEUROLOGIC: Alert and oriented x 3. Strength and sensation to light touch were grossly intact x 4. Medications Administered Discontinued Medications Generic Name Dose Route Start Last Admin Trade Name Freq PRN Reason Stop Dose Admin Sodium Chloride 500 mls @ 999 mls/hr 06/13/23 20:00 06/13/23 20:45 Ns IV 06/13/23 20:30 999 mls/hr .Q31M JANNETH Administration Levetiracetam 1,000 mg in 100 mls @ 400 mls/hr 06/13/23 20:33 06/13/23 20:45 Keppra IV 06/13/23 20:47 400 mls/hr ONCE ONE Administration Lorazepam 1 mg 06/13/23 19:35 06/13/23 19:40 Lorazepam 2 Mg/Ml Vial IVPUSH 06/13/23 19:36 1 mg ONCE ONE Administration Medical Decision Making Medical Decision Making MDM Narrative: 67-year-old female with history and clinical presentation concerning for etiology of onset of seizure that could be evaluated for possible infection, anemia, electrolyte abnormality, intracranial hemorrhage. 1936: myoclonic seizure and given 1mg Ativan, fall last week, but also has lung mass 1944: I spoke with Jamel, of the patient, who states he is unsure with the plan is with patient's current status as she does not tell him anything. He does endorse that she informed him she has the doctor's appointment on June 30. New onset seizures, recurrent, 1 mg Ativan provided and will Keppra load with 1000 mg. 2114: I reviewed all investigations, hematologic indices negative for leukocytosis or left shift, there is a stable normocytic anemia, no thrombocytopenia.Chemistry indices are grossly within normal limits without electrolyte or liver enzyme abnormalities, TSH is within normal limits, there is no EMIL. Patient is not hypoglycemic. Urinalysis although not positive for nitrites shows moderate leukocyte esterase with 4+ bacteria. I did discuss this with the inpatient hospital does not feel that this is a positive urinalysis and I will defer. Pain is otherwise admitted. CT head negative for intracranial hemorrhage or other mass effect findings. Chest x-ray redemonstrates lung mass with new right humeral head sclerotic lesion. My interpretation is that patient has developed new onset of recurrent seizures of unclear etiology at this time. Differential Diagnosis Differential Diagnoses: The differential diagnosis associated with the presentation includes Please see the discussion above Admission/Observation Consideration of admission/observation: Escalation of care including admission/observation considered Please see the discussion above Consult Healthcare Provider Management of the patient was discussed with: Hospitalist Please see the discussion above Lab Data MDM Lab Attestation statement: I reviewed the patient's lab results. Please see the discussion above 06/13/23 18:55 06/13/23 18:55 Labs: Lab Results 06/13/23 06/13/23 Range/Units 18:55 20:32 WBC 6.3 (4.8-10.8) X10*3/uL RBC 3.77 L (4.20-5.50) X10*6/uL Hgb 11.7 L (12.0-16.0) g/dl Hct 35.5 L (37.0-47.0) % MCV 94.2 (80.0-98.0) fL MCH 31.0 (27.0-33.0) pg MCHC 33.0 (31.0-35.0) g/dl RDW 12.6 (11.0-16.0) % Plt Count 326 (160-400) X10*3/uL MPV 8.1 L (9.4-12.3) fL Immature Gran % (Auto) 1.4 H (0.0-0.4) % Neut % (Auto) 67.5 (45-73) % Lymph % (Auto) 19.9 L (20-40) % [place] % (Auto) 10.7 (2-11) % Eos % (Auto) 0.3 (0-4) % Baso % (Auto) 0.2 (0-2) % Lymph # (Auto) 1.3 (1.2-4.9) X10*3/uL [place] # (Auto) 0.7 (0.1-1.2) X10*3/uL Eos # (Auto) 0.0 (0.0-0.4) X10*3/uL Baso # (Auto) 0.0 (0.0-0.2) X10*3/uL Abs Immat Gran (auto) 0.09 H (0.00-0.03) X10*3/uL Absolute Neuts (auto) 4.3 (2.0-8.3) x10*3/uL Absolute Nucleated RBC 0.000 (0.0-0.012) X10*3/uL Nucleated RBC % (auto) 0.0 (0.0-0.2) /100WBC Sodium 137 (135-145) mmol/L Potassium 3.7 (3.3-5.1) mmol/L Chloride 103 (96-108) mmol/L Carbon Dioxide 24 (22-29) mmol/L Anion Gap 14 (12-20) BUN 9 (9-16) mg/dL Creatinine 0.72 (0.5-1.4) mg/dL Estim Creat Clear Calc 61.0 Estimated GFR > 60 Random Glucose 111 (60-115) mg/dL Calcium 9.2 (8.4-10.2) mg/dL Total Bilirubin 0.6 (0.0-1.0) mg/dL AST 18 (5-31) U/L ALT 12 (0-31) U/L Alkaline Phosphatase 77 (39-117) U/L Total Protein 7.1 (6.5-8.0) g/dL Albumin 3.4 L (3.5-5.0) g/dL TSH 0.91 (0.32-4.0) uIU/mL Urine Color Yellow Urine Appearance Clear Urine pH 6.0 (5.0-9.0) Ur Specific [place] 1.010 (1.005-1.025) Urine Protein Negative (Neg-Trace) mg/dL Urine Glucose (UA) Negative (Negative) mg/dL Urine Ketones Negative (Negative) mg/dL Urine Blood Negative (Negative) Urine Nitrite Negative (Negative) Ur Leukocyte Esterase Moderate (2+) H (Negative) Urine RBC 0-2 (0-2) /HPF Urine WBC 0-5 (0-5) /HPF Ur Squamous Epith Cells 0-2 (0-2) /HPF Urine Bacteria 4+ (None Seen) Hyaline Casts 0-2 (0-2) /LPF Urine Opiates Screen Not Detected (Not Detect) Urine Fentanyl Screen Not Detected (Not Detect) Ur Barbiturates Screen Not Detected (Not Detect) Ur Phencyclidine Scrn Not Detected (Not Detect) Ur Amphetamines Screen Not Detected (Not Detect) U Benzodiazepines Scrn Not Detected (Not Detect) Urine Cocaine Screen Not Detected (Not Detect) U Marijuana (THC) Screen Not Detected (Not Detect) Radiology Impression Discussion of test interpretation with radiology: I have reviewed the radiologist's reading. Radiologist Impression: Please see the discussion above External Record Review External record reviewed: Office record, Outpatient record, Prior outpatient labs and Prior outpatient radiology Chronic Conditions Patient?s care impacted by: Diabetes and Hypertension Critical Care Time Critical Care Time Critical Care Time: Yes Total Critical Care Time: 30 Attestation: I personally attest to this time spent taking care of the patient. Discharge Plan Discharge Clinical Impression: New onset seizure with history of head trauma, Lung mass Patient Disposition: Admitted As Inpatient Prescriptions: No Action cholecalciferol (vitamin D3) 50 mcg (2,000 unit) capsule 50 mcg PO DAILY 90 Days Qty: 90 1RF (DME) pen needle, diabetic [Comfort EZ Pen [place]] 31 gauge x 5/16 needle See Rx Instructions .Route Qty: 100 3RF Rx Instructions: Use 1 pen needle once a day ferrous sulfate 325 mg (65 mg iron) tablet 325 mg PO DAILY 90 Days Qty: 90 1RF cetirizine [Allergy Relief (cetirizine)] 10 mg tablet 10 mg PO DAILY PRN (Reason: allergy symptoms) 90 Days Qty: 90 1RF lorazepam 0.5 mg tablet 0.5 mg PO DAILY PRN (Reason: anxiety) 90 Days Qty: 90 0RF acetaminophen [Mapap Arthritis Pain] 650 mg tablet extended release 650 mg PO Q8H PRN (Reason: fever or pain) 90 Days Qty: 270 2RF insulin degludec [Tresiba FlexTouch U-100] 100 unit/mL (3 mL) insulin pen 28 unit subcut BEDTIME 90 Days Qty: 25.2 3RF tramadol 50 mg tablet 50 mg PO BID PRN (Reason: pain) 30 Days Qty: 60 0RF irbesartan 150 mg tablet 150 mg PO DAILY 90 Days Qty: 90 1RF hydrocortisone [Procto-Med HC] 2.5 % cream with perineal applicator 1 appl [place] BEDTIME PRN (Reason: hemorrhoids) Qty: 30 0RF trazodone 100 mg tablet 100 mg PO BEDTIME aspirin [Adult Low Dose Aspirin] 81 mg tablet,delayed release (DR/EC) 81 mg PO DAILY escitalopram oxalate 10 mg tablet 10 mg PO DAILY
[2023-06-13] MEDS: LORazepam 2 MG/ML VIAL 1 MG IVPUSH (19:40)
[2023-06-13 20:27] LABS: Thyroid Stimulating Hormone 0.91 uIU/mL (0.32-4.0)
[2023-06-13 20:41] LABS: Appearance Urine Clear; Color Urine Yellow; Glucose Urine UA Negative (Negative); Leukocyte Esterase Urine Moderate (2+) (Negative); Nitrite Urine Negative (Negative); UMIC TRIGGER UACC YES; Urine Blood Negative (Negative); Urine Ketones Negative (Negative); Urine Protein Negative (Neg-Trace)
[2023-06-13] MEDS: levETIRAcetam in NaCl (iso-os) 1,000 MG/100 ML PIGGYBACK 400 MG IV (20:45)
[2023-06-13] MEDS: 0.9 % Sodium Chloride 500 ML 999 ML IV ×2 (20:45→22:33)
[2023-06-13 20:47] VITALS: BP 178/88; PULSE 106; RESP 15; O2SAT 97
[2023-06-13 21:07] LABS: Amphetamine Screen Urine Not Detected (Not Detect); Bacteria Urine 4+ (None Seen); Barbiturates, Urine Not Detected (Not Detect); Benzodiazepines Screen Urine Not Detected (Not Detect); Cannabinoid Screen Urine Not Detected (Not Detect); Cocaine Screen Urine Not Detected (Not Detect); Fentanyl, urine Not Detected (Not Detect); Hyaline Casts Urine 0-2 /LPF (0-2); Opiate Screen Urine Not Detected (Not Detect); Phencyclidine Screen Urine Not Detected (Not Detect); RBC Urine 0-2 /HPF (0-2); Squamous Epithelial Cell Urine 0-2 /HPF (0-2); WBC Urine 0-5 /HPF (0-5)
--- NOTE | 2023-06-13 21:41 | PHA.MEDREC ---
Addendum entered by Dolores Campos [facility] 06/14/23 08:48: Patient awake when I went to speak with her, however she was not very verbal. Nodded head yes or no to medications on list. Used claim history and pt information. She was unsure about some of the medications names like irbesartan, but considering how recently they were filled I added to med list. Said she does not take tramadol. Unsure of when she last took her medications Original Note: med rec partially done based on pharmacy claim history only. Patient was post seizure and extremely tired and unable to answer. was called but does not know her medications at all. Will need to revisit justin to see if patient alert. Pharmacy Consult ? Medication Reconciliation Pharmacy has completed the medication reconciliation.
--- NOTE | 2023-06-13 21:46 | P.HPHOSP_ITS ---
History of Present Illness Date of Service: 06/13/23 Attending physician on admission: Avril De Los Santos Chief Complaint: New onset seizure Pt is a 67-year-old female with a PMH significant for?HTN, hx of CVA, insulin- dependent type 2 diabetes, GERD, and recent diagnosis of lung mass concerning for malignancy who presents to the ED after having an unwitnessed seizure at home and a 2nd seizure witnessed by staff in the ED that lasted approximately 2- 3 minutes. Patient currently nonverbal, confused, possibly postictal and does incapable of providing HPI which is instead obtained from provider and chart review. Patient without fall or head strike today. No known previous seizure history. Patient did have a recent fall 5 days prior on Saturday with a head strike. Presented to the ED where frontal scalp laceration was repaired with glue and Steri-Strips. CT of head and C-spine unremarkable for bleeding or acute traumatic injury. Labs unremarkable. Patient was admitted in February for evaluation of productive cough, pleuritic chest pain, and vaginal spotting. Patient had hematochezia, reported weight loss, and anorexia for several months. CTA of chest found irregular spiculated mass measuring 4.6 x 3.9 x 3.6 cm and upper left lobe concerning for malignancy, as well finding mediastinal and left hilar adenopathy concerning for metastasis. Patient was supposed to have outpatient bronchoscopy and biopsy, however patient does not appear to have completed these procedures. According to ED note on 06/08/2023 she admits that she was too scared to know her true diagnosis. In the ED labs were largely unremarkable: No leukocytosis, H&H stable. Electrolytes WNL. Renal function baseline, hepatic function baseline. UA likely negative for UTI. Tox screen negative. CXR redemonstrated left atypical mass concerning for neoplasm, and interim appearance of an 8 mm sclerotic lesion within the right humeral head. CT?of head showed no acute intracranial pathology. Pt was treated with Ativan, Keppra, and IVF. Pt will be admitted to the hospital under observation on telemetry for further evaluation of new onset seizures in the setting of recent fall with head strike and lung mass concerning for malignancy with possible metastasis. Review of Systems 2 Review of Systems: Unable to obtain due to patient's mentation [facility] Medical History (Updated 06/13/23 @ 22:54 by LAQUITA Cho) History of gastric ulcer Stroke Diabetes mellitus Essential hypertension Family History Mother Hypertension Father No problems noted. Surgical History Hx of colonoscopy No pertinent past surgical history Social History Household Members: Spouse Housing: House Do you presently have visiting nurse or other home services: No Alcohol intake: never Patient Tobacco Use Status: Former Tobacco user Quit Date: Quit a month ago Tobacco use type: Cigarette Years Smoked: 30 e-Cigarette/Vaping Use: Never Used Second Hand Smoke Exposure: No Advance Directives: Yes Advance Directives on File: Yes Advance Directives Date on File: 06/10/23 service: No Current occupational status: retired Cognitive needs: No Hearing needs: No Vision needs: No Meds Allergies Allergy/AdvReac Type Severity Reaction Status Date / Time codeine [CODEINE] Allergy Unknown HIVES Verified 04/03/23 11:26 morphine [MORPHINE] Allergy Unknown ITCHING, Verified 04/03/23 11:26 itchy Active Medications: Current Medications Acetaminophen (Acetaminophen 325 Mg Tablet) 650 mg PO Q6H PRN PRN Reason: Pain, Mild (Pain Scale 1-3) Dextrose (Dextrose 50 % 25 Gm/50 Ml Syringe) 25 gm IVPUSH Q15M PRN; Protocol PRN Reason: per Hypoglycemia Standing Ord. Enoxaparin Sodium (Enoxaparin Sodium 40 Mg/0.4 Ml Syringe) 40 mg SUBCUT Q24H JANNETH Glucose (Glucose Gel 15 Gm Gel..Gram.) 15 gm PO Q15M PRN; Protocol PRN Reason: per Hypoglycemia Standing Ord. Insulin Human Lispro (Insulin Lispro 100 Unit/Ml 3 Ml Vial) 0 unit SUBCUT QIDACHS [facility]; Protocol Melatonin (Melatonin 3 Mg Tablet) 6 mg PO BEDTIME PRN PRN Reason: Insomnia Ondansetron HCl (Ondansetron Hcl 4 Mg/2 Ml Vial) 4 mg IVPUSH Q8H PRN PRN Reason: Nausea and Vomiting Sodium Chloride (0.9 % Sodium Chloride Flush 3 Ml Syringe) 3 ml [facility]USH [facility] Home Medications Medication Instructions Recorded Confirmed Last Taken Type aspirin 81 mg tablet,delayed 81 mg PO DAILY 05/12/22 09/09/23 09/08/23 History release (Adult Low Dose Aspirin) escitalopram oxalate 10 mg tablet 10 mg PO DAILY 02/08/22 06/08/23 06/07/23 History trazodone 100 mg tablet 100 mg PO BEDTIME 06/08/23 06/13/23 06/07/23 History Physical Exam 2 Vital Signs and Narrative: Vital Signs: Last Vital Signs Temp 98.3 F 06/13/23 18:42 Pulse 106 H 06/13/23 20:47 Resp 15 06/13/23 20:47 BP 178/88 H 06/13/23 20:47 Pulse Ox 97 06/13/23 20:47 O2 Del Method Room Air 06/13/23 20:47 BMI result Body Mass Index 19.6 General: Alert, cachectic, frail, somnolent but arousable, currently nonverbal, not answering questions, no acute distress Head: Small vertical, healing laceration on forehead covered by Steri-Strips Resp: Diffuse rhonchi bilaterally CVS: S1, S2, RRR GI: +BS, NT, no distention Skin: No rash Neuro: Cranial nerves II-XII grossly intact bilaterally. Motor grossly intact bilaterally Extremities: No edema Results Labs 06/13/23 18:55 06/13/23 18:55 Labs: Laboratory Results - last 24 hr 06/13/23 06/13/23 18:55 20:32 MCV 94.2 MCH 31.0 MCHC 33.0 RDW 12.6 Plt Count 326 MPV 8.1 L Immature Gran % (Auto) 1.4 H Neut % (Auto) 67.5 Lymph % (Auto) 19.9 L Steele % (Auto) 10.7 Eos % (Auto) 0.3 Baso % (Auto) 0.2 Lymph # (Auto) 1.3 Steele # (Auto) 0.7 Eos # (Auto) 0.0 Baso # (Auto) 0.0 Abs Immat Gran (auto) 0.09 H Absolute Neuts (auto) 4.3 Absolute Nucleated RBC 0.000 Nucleated RBC % (auto) 0.0 Anion Gap 14 Estim Creat Clear Calc 61.0 Estimated GFR > 60 Random Glucose 111 Calcium 9.2 Total Bilirubin 0.6 AST 18 ALT 12 Alkaline Phosphatase 77 Total Protein 7.1 Albumin 3.4 L TSH 0.91 Urine Color Yellow Urine Appearance Clear Urine pH 6.0 Ur Specific [place] 1.010 Urine Protein Negative Urine Glucose (UA) Negative Urine Ketones Negative Urine Blood Negative Urine Nitrite Negative Ur Leukocyte Esterase Moderate (2+) H Urine RBC 0-2 Urine WBC 0-5 Ur Squamous Epith Cells 0-2 Urine Bacteria 4+ Hyaline Casts 0-2 Urine Opiates Screen Not Detected Urine Fentanyl Screen Not Detected Ur Barbiturates Screen Not Detected Ur Phencyclidine Scrn Not Detected Ur Amphetamines Screen Not Detected U Benzodiazepines Scrn Not Detected Urine Cocaine Screen Not Detected U Marijuana (THC) Screen Not Detected Imaging Radiologist's Impressions: Impressions Head CT 06/13/23 19:55 IMPRESSION: No acute intracranial pathology. Chest X-Ray 06/13/23 20:27 IMPRESSION: 1. A 4.3 cm in maximal diameter left apical mass is redemonstrated, consistent with prior CT findings. Again, this is highly concerning for neoplasm. Further work-up is indicated, possibly to include bronchoscopy or CT biopsy. 2. There is interim appearance of an 8 mm sclerotic lesion within the right humeral head. This could be more fully evaluated with dedicated right humeral radiographs. Assessment and Plan (1) New onset seizure: Status: Acute Plan Pt is a 67-year-old female with a PMH significant for?HTN, hx of CVA, insulin- dependent type 2 diabetes, GERD, and recent diagnosis of lung mass concerning for malignancy who [facility] ED [facility] after having 1 unwitnessed seizure and a 2nd seizure witnessed by staff that lasted approximately 2-3 minutes. Pt will be admitted to the hospital under observation on telemetry for further evaluation of new onset seizures in the setting of recent fall with head strike and lung mass concerning for malignancy with possible metastasis. New onset seizures Patient with 2 episodes of seizure activity at earlier today, 1st unwitnessed at home with 2nd witnessed by staff at ED Etiology unclear:? No history of seizures, lytes normal, random glucose 111, CT negative for acute intracranial pathology Patient did have fall with head strike 5 days prior on 06/08/2023, has lung mass concerning for metastatic cancer: Head trauma versus metastasis to brain Patient loaded with 1000 mg of Keppra in the ED Will start Keppra 500mg bid Will get EEG Will get MRI of head and brain Aspiration precautions Seizure precautions Neurology consult Admit to observation Monitor on telemetry Altered mental status Likely multifactorial: Postictal, received Ativan, question of metastasis to brain Keep patient NPO for now pending swallow evaluation Monitor mental status Abnormal CXR findings CXR found interference of an 8 mm sclerotic lesion within the right humeral head Will get dedicated right humeral radiographs tomorrow Lung mass with mediastinal adenopathy CTA from February 2023 found irregular spiculated mass measuring 4.6 x 3.9 x 3.6 cm in left upper lobe, highly concerning for malignancy as well as mediastinal and left hilar adenopathy concerning for metastasis Patient followed by Dr. Carcamo, the patient apparently has missed follow-up appointments Patient has not set up pulmonology/thoracic surgery outpatient follow-up Will get Oncology consult Will get pulmonology consult Insulin-dependent type 2 diabetes Hold basal insulin tonight since patient NPO Once diet is resumed, consider resuming adjusted basal insulin Placed on sliding scale insulin Diabetic diet Full Code Attending:? DVT Prophylaxis: [place] Patient be admitted hospital under observation on telemetry for treatment further evaluation of new onset seizures in the setting of possible head trauma versus metastasis. Time Spent With Patient Time: Total time managing care of this patient today ____ minutes. Quality Stroke Does the patient have a stroke diagnosis?: No VTE Prior VTE?: No VTE Risk Level:: Medical - moderate - high VTE Device Contraindication: Treatment Not Indicated VTE Drug Contraindication: N/A - Med Ordered
[2023-06-13 22:09] VITALS: BP 168/95; PULSE 106; RESP 18; TEMP 37.1
--- NOTE | 2023-06-14 | EEG_ITS ---
This is a 16 channel EEG with an EKG lead. The patient is reported awake and confused during the tracing. Background EEG rhythm is almost continuously contaminated by muscle artifacts. Occasionally activity without muscle artifacts is noted and it was low amplitude fast with no obvious asymmetry or paroxysmal tendency. Photic stimulation does not produce any significant abnormality. Hyperventilation is not performed. Cardiac lead does not reveal any significant abnormality. No obvious sharp wave spikes or paroxysmal tendency noted. IMPRESSION: Limited EEG with no obvious indication of epilepsy. MD WILLY Lamar/GURMEET / [id number]
[2023-06-14 00:34] VITALS: BP 152/79; PULSE 93; RESP 14; O2SAT 96
[2023-06-14] MEDS: Enoxaparin Sodium 40 MG/0.4 ML SYRINGE SUBCUT (01:07)
[2023-06-14 01:10] LABS: Glucose, Whole Blood 113 mg/dL (60-115)
[2023-06-14 03:11] VITALS: BP 152/71; PULSE 96; RESP 12; O2SAT 98
--- NOTE | 2023-06-14 03:16 | MHC.EDTECH ---
while rounding this Tech noticed pt was soiled. Pt cleaned by this Tech and ERT [place] bed linens changed and mattress cleaned. pt placed in a clean hospital gown and clean pullup. Pt placed back on nuclear monitoring technician and vital signs updated
[2023-06-14 05:19] LABS: Alanine Aminotransferase 11 U/L (0-31); Albumin Level 2.9 g/dL (3.5-5.0); Alkaline Phosphatase 73 U/L (39-117); Anion Gap 13 (12-20); Aspartate Amino Transferase 17 U/L (5-31); Bilirubin Total 0.6 mg/dL (0.0-1.0); Blood Urea Nitrogen 6 mg/dL (9-16); Calcium 8.6 mg/dL (8.4-10.2); Carbon Dioxide 19 mmol/L (22-29); Chloride 108 mmol/L (96-108); Creatinine Clr Calc Pharmacy 70.8; Estimated Glomerular Filt Rate > 60; Glucose Random 105 mg/dL (60-115); Potassium 3.6 mmol/L (3.3-5.1); Sodium 136 mmol/L (135-145); Total Protein 6.6 g/dL (6.5-8.0)
[2023-06-14 07:27] VITALS: BP 136/74; PULSE 100; RESP 14; O2SAT 100
[2023-06-14 07:33] LABS: Glucose, Whole Blood 84 mg/dL (60-115)
--- NOTE | 2023-06-14 08:17 | PM.HEMONCCN ---
Subjective - Subjective Chief complaint: None reported Patient: known to practice within the last 3 years Consult date: 06/14/23 Primary Care Provider: Lizy Laguna MD Medical Summary: Diagnosis: Lung mass/rectal mass Patient presented to the emergency department in February 2023 with complaints of productive cough, pleuritic chest pain and vaginal spotting. She also had hematochezia, reported weight loss and anorexia for several months. Pelvic exam was performed noting friable vaginal canal and cervix but no osvaldo bleeding.? Cervical swab negative for chlamydia, gonorrhea and Mandujano pending for Gardnerella, Trichomonas, and Sweetie.? CXR showed a 4.8 x 3.7 cm left upper lobe mass and probable lymphadenopathy concerning for neoplasm.? CTA chest negative for PE but confirms presence of an irregular speculated mass measuring 4.6 x 3.9 x 3.6 cm in the left upper lobe abutting the pleural space in the late left apex highly concerning for malignancy as well as mediastinal and left hilar adenopathy concerning for metastasis.? There also several subcentimeter right lung nodules are nonspecific.? There is an enlarged uterus containing multiple calcified and noncalcified fibroids with overall increase in size of the uterus.? There is also enhancing ill-defined soft tissue/phlegmonous changes in the presacral region inseparable from the rectosigmoid colon in the region with suggestion of thickening of the wall of the lower rectum/anal canal possibly inflammatory or infectious or neoplastic.? No other evidence of metastatic disease in the abdomen and pelvis.? She underwent colonoscopy on 03/11/2023 which revealed multiple sessile and pedunculated polyps in terminal ileum, ascending colon and descending colon. In the sigmoid colon there was severe diverticulosis with narrowing in edema mucosa, possible extrinsic compression. Rectal mucosa appeared congested and edema tests, biopsies were taken. Multiple adenomatous polyps but no carcinoma. HPI - Consult Narrative Reason for consult: Probable lung cancer, admitted with new onset seizures Narrative: Jennifer Reid is a 67 year old female with a recently diagnosed lung mass suspicious for cancer, remote history of CVA, type 2 diabetes mellitus and GERD who is presenting from home with new onset seizures. She had a the seizure witnessed by the ED staff, CT head and C-spine did not show any bleed or acute pathology. MRI with contrast has been ordered. CTA of chest previously found irregular spiculated mass measuring 4.6 x 3.9 x 3.6 cm and upper left lobe concerning for malignancy, as well finding mediastinal and left hilar adenopathy concerning for metastasis. Patient was supposed to have outpatient bronchoscopy and biopsy, however patient canceled her appointments and did not want to pursue diagnostic workup. On admission, her kidney functions and CBCs at baseline. CXR redemonstrated left atypical mass concerning for neoplasm, and interim appearance of an 8 mm sclerotic lesion within the right humeral head. At this time patient is awake, responding minimally to questions. Unable to provide history. She seems to be oriented to place and person. Review of Systems - Constitutional Reports as per [facility] Medical History: Medical History (Last Reviewed 06/08/23 @ 13:10 by Zhang Walker PT) Diabetes mellitus Essential hypertension History of gastric ulcer Stroke Family History: Family History (Last Reviewed 04/03/23 @ 11:28 by ALEXANDRA Andrade) Mother Hypertension Father No problems noted. Surgical History: Surgical History (Last Reviewed 06/08/23 @ 13:10 by Zhang Walker, PT) Hx of colonoscopy No pertinent past surgical history Social History: Social History (Last Reviewed 04/03/23 @ 11:28 by ALEXANDRA Andrade) Living Situation History: Household Members: Spouse Housing: House Do you presently have visiting nurse or other home services: No Tobacco History: Patient Tobacco Use Status: Former Tobacco user Tobacco use type: Cigarette Years Smoked: 30 Smoke Quit Date: Quit a month ago e-Cigarette/Vaping Use: Never Used Second Hand Smoke Exposure: No Advance Directives: Advance Directives: Yes Advance Directives on File: Yes Advance Directives Date on File: 06/10/23 Occupation Assessmet: service: No Current occupational status: retired Home Medications and Allergies Current Medications: Current Medications Acetaminophen (Acetaminophen 325 Mg Tablet) 650 mg PO Q6H PRN PRN Reason: Pain, Mild (Pain Scale 1-3) Dextrose (Dextrose 50 % 25 Gm/50 Ml Syringe) 25 gm IVPUSH Q15M PRN; Protocol PRN Reason: per Hypoglycemia Standing Ord. Enoxaparin Sodium (Enoxaparin Sodium 40 Mg/0.4 Ml Syringe) 40 mg SUBCUT Q24H JANNETH Last Admin: 06/14/23 01:07 Dose: 40 mg Glucose (Glucose Gel 15 Gm Gel..Gram.) 15 gm PO Q15M PRN; Protocol PRN Reason: per Hypoglycemia Standing Ord. Levetiracetam (Keppra) 500 mg in 100 mls @ 400 mls/hr IV Q12H [facility] Insulin Human Lispro (Insulin Lispro 100 Unit/Ml 3 Ml Vial) 0 unit SUBCUT QIDACHS [facility]; Protocol Last Admin: 06/14/23 07:48 Dose: Not Given Melatonin (Melatonin 3 Mg Tablet) 6 mg PO BEDTIME PRN PRN Reason: Insomnia Ondansetron HCl (Ondansetron Hcl 4 Mg/2 Ml Vial) 4 mg IVPUSH Q8H PRN PRN Reason: Nausea and Vomiting Sodium Chloride (0.9 % Sodium Chloride Flush 3 Ml Syringe) [facility] Last Admin: 06/14/23 01:55 Dose: Not Given Home Medications Medication Instructions Recorded Confirmed Type aspirin 81 mg tablet,delayed 81 mg PO DAILY 02/08/22 06/08/23 History release (Adult Low Dose Aspirin) escitalopram oxalate 10 mg tablet 10 mg PO DAILY 02/08/22 06/08/23 History trazodone 100 mg tablet 100 mg PO BEDTIME 06/08/23 06/13/23 History Allergies Allergy/AdvReac Type Severity Reaction Status Date / Time codeine [CODEINE] Allergy Unknown HIVES Verified 04/03/23 11:26 morphine [MORPHINE] Allergy Unknown ITCHING, Verified 04/03/23 11:26 itchy Physical Exam Vital signs: Vital Signs Temp 98.7 F 06/13/23 22:09 Pulse 100 06/14/23 07:27 Resp 14 06/14/23 07:27 BP 136/74 06/14/23 07:27 Pulse Ox 100 06/14/23 07:27 O2 Del Method Room Air 06/14/23 07:27 O2 Flow Rate 98 06/13/23 22:09 Intake & Output 06/13/23 06/14/23 06/14/23 18:59 06:59 18:59 Intake Total 1100 / 1100 Balance 1100 / 1100 Intake: Intake, IV Amount 1100 / 1100 0.9 % Sodium Chloride 500 ml @ 1000 / 1000 999 mls/hr IV .Q31M [facility] Rx#: [id number] levETIRAcetam in NaCl (iso-os) 100 / 100 1,000 mg In 100 ml @ 400 mls/hr IV ONCE ONE Rx#:[id number] Other: Weight 50.3 kg Weight 50.3 kg - Constitutional Present: no acute distress, chronically ill appearing - Routine HEENT Exam Eye: Present: normal appearance, PERRL - Routine Neck Exam Absent: lymphadenopathy - Routine Respiratory Exam Present: CTAB - Routine Cardiovascular Exam Cardiovascular: Present: S1, S2 - Routine Abdominal Exam Present: soft Hem/Onc Consult Result - Labs CBC & Chem 7: 06/13/23 18:55 06/14/23 04:20 Labs: Short CBC 06/13/23 Range/Units 18:55 WBC 6.3 (4.8-10.8) X10*3/uL Hgb 11.7 L (12.0-16.0) g/dl Hct 35.5 L (37.0-47.0) % Plt Count 326 (160-400) X10*3/uL BMP 06/13/23 06/14/23 18:55 04:20 Sodium 137 136 Potassium 3.7 3.6 Chloride 103 108 Carbon Dioxide 24 19 L BUN 9 6 L Creatinine 0.72 0.62 Calcium 9.2 8.6 D Liver Function 06/13/23 06/14/23 Range/Units 18:55 04:20 Total Bilirubin 0.6 0.6 (0.0-1.0) mg/dL AST 18 17 (5-31) U/L ALT 12 11 (0-31) U/L Alkaline Phosphatase 77 73 (39-117) U/L Albumin 3.4 L 2.9 L (3.5-5.0) g/dL Urine 06/13/23 Range/Units 20:32 Urine Color Yellow Urine Appearance Clear Urine pH 6.0 (5.0-9.0) Ur Specific [place] 1.010 (1.005-1.025) Urine Protein Negative (Neg-Trace) mg/dL Urine Glucose (UA) Negative (Negative) mg/dL Assessment and Plan Patient Active problem list reviewed?: Yes (1) Lung mass Status: Acute Assessment and plan: 1. This is a 67-year-old woman who was diagnosed with left upper lobe lung mass measuring 4.6 x 3.9 cm along with mediastinal and left hilar lymphadenopathy in February [address]23. CT abdomen/pelvis showed ill-defined soft tissue mass in the presacral region inseparable from rectosigmoid colon. She had undergone colonoscopy in February 2023, she was found to have benign polyps, no carcinoma. CEA was elevated at 81 NG/mL and LDH was 301 units/liter. She was recommended at bronchoscopy/biopsy but patient cancelled all appointments including a follow-up with Oncology. According to chart review, patient's reports overall decline with poor oral intake, weight loss and generalized weakness. She was seen in the emergency department on 06/08/2023 for a fall at home and short-term rehabilitation was recommended. She now presents with seizure disorder. MRI brain with contrast is awaited. She has been started on Keppra. Given her history, brain metastasis is a possibility. It is not clear if patient wants to pursue further workup or treatment for her lung cancer. I agree with above plan of care. I will follow with you thank you for the consultation. - Time Spent With Patient Time Spent with Patient (in minutes): 15
[2023-06-14] MEDS: 0.9 % Sodium Chloride Flush 3 ML SYRINGE IVFLUSH (08:46)
--- NOTE | 2023-06-14 08:51 | P.CONPL_ITS ---
History of Present Illness History of Present Illness Consult date: 06/14/23 Chief complaint: seizure Narrative: This is an inpatient pulmonary consultation. Currently with altered mental status ?post ictal, there the information was gathered from the chart. The patient is a 67-year-old female with a PMH significant for?HTN, hx of CVA, insulin-dependent type 2 diabetes, GERD, and recent diagnosis of lung mass concerning for malignancy who presents to the ED after having an unwitnessed seizure at home and a 2nd seizure witnessed by staff in the ED that lasted approximately 2-3 minutes. Patient currently nonverbal, confused, possibly postictal and does incapable of providing HPI which is instead obtained from provider and chart review. Patient without fall or head strike today. No known previous seizure history. Patient did have a recent fall 5 days prior on Saturday with a head strike. Presented to the ED where frontal scalp laceration was repaired with glue and Steri-Strips. CT of head and C-spine unremarkable for bleeding or acute traumatic injury. Labs unremarkable. Patient was admitted in February for evaluation of productive cough, pleuritic chest pain, and vaginal spotting. Patient had hematochezia, reported weight loss, and anorexia for several months. CTA of chest found irregular spiculated mass measuring 4.6 x 3.9 x 3.6 cm and upper left lobe concerning for malignancy, as well finding mediastinal and left hilar adenopathy concerning for metastasis. Patient was supposed to have outpatient bronchoscopy and biopsy, however patient does not appear to have completed these procedures. According to ED note on 06/08/2023 she admits that she was too scared to know her true diagnosis. Pt was treated with Ativan, Keppra, and IVF. Pt will be admitted to the hospital under observation on telemetry for further evaluation of new onset seizures in the setting of recent fall with head strike and lung mass concerning for malignancy with possible metastasis. Review of Systems 2 Review of Systems: Yes Unobtainable due to mental status Constitutional: Constitutional: Reports fatigue and Reports weakness Eyes: Eyes: Denies change in vision ENT: Denies neck pain Cardiovascular: Cardiovascular: Denies chest pain Respiratory: Respiratory: Reports chest congestion, Reports cough and Reports wheezing Gastrointestinal: Gastrointestinal: Reports no additional gastrointestinal complaints Musculoskeletal: Musculoskeletal: Denies neck pain Neurologic: Reports Abnormal speech present and Reports weakness Endocrine: Endocrine: Reports fatigue Hematologic/Lymphatic: Hematologic/Lymphatic: Reports lymphadenopathy Allergic/Immunologic: Allergic/Immunologic: Reports wheezing [facility] Past Medical History Medical History (Updated 06/14/23 @ 09:01 by Salvador Waller MD) Bronchitis History of gastric ulcer Stroke Diabetes mellitus Essential hypertension Family History Family History Mother Hypertension Father No problems noted. Surgical History Surgical History Hx of colonoscopy No pertinent past surgical history Social History Social History Household Members: Spouse Housing: House Do you presently have visiting nurse or other home services: No Alcohol intake: never Patient Tobacco Use Status: Former Tobacco user Quit Date: Quit a month ago Tobacco use type: Cigarette Years Smoked: 30 Smoked in Last 30 Days: No e-Cigarette/Vaping Use: Never Used Second Hand Smoke Exposure: No Use of substances other than those prescribed or required for medical reasons: No Advance Directives: Yes Advance Directives on File: Yes Advance Directives Date on File: 06/10/23 Nutrition Risks: No Nutritional Risk service: No Current occupational status: retired Cognitive needs: No Hearing needs: No Vision needs: No Meds Allergies Allergy/AdvReac Type Severity Reaction Status Date / Time codeine [CODEINE] Allergy Unknown HIVES Verified 04/03/23 11:26 morphine [MORPHINE] Allergy Unknown ITCHING, Verified 04/03/23 11:26 itchy Active Medications: Current Medications Acetaminophen (Acetaminophen 325 Mg Tablet) 650 mg PO Q6H PRN PRN Reason: Pain, Mild (Pain Scale 1-3) Dextrose (Dextrose 50 % 25 Gm/50 Ml Syringe) 25 gm IVPUSH Q15M PRN; Protocol PRN Reason: per Hypoglycemia Standing Ord. Enoxaparin Sodium (Enoxaparin Sodium 40 Mg/0.4 Ml Syringe) 40 mg SUBCUT Q24H JANNETH Last Admin: 06/14/23 01:07 Dose: 40 mg Glucose (Glucose Gel 15 Gm Gel..Gram.) 15 gm PO Q15M PRN; Protocol PRN Reason: per Hypoglycemia Standing Ord. Levetiracetam (Keppra) 500 mg in 100 mls @ 400 mls/hr IV Q12H [facility] Insulin Human Lispro (Insulin Lispro 100 Unit/Ml 3 Ml Vial) 0 unit SUBCUT QIDACHS [facility]; Protocol Last Admin: 06/14/23 07:48 Dose: Not Given Melatonin (Melatonin 3 Mg Tablet) 6 mg PO BEDTIME PRN PRN Reason: Insomnia Ondansetron HCl (Ondansetron Hcl 4 Mg/2 Ml Vial) 4 mg IVPUSH Q8H PRN PRN Reason: Nausea and Vomiting Sodium Chloride (0.9 % Sodium Chloride Flush 3 Ml Syringe) [facility] Last Admin: 06/14/23 08:46 Dose: 3 ml Home Medications Medication Instructions Recorded Confirmed Last Taken Type aspirin 81 mg tablet,delayed 81 mg PO DAILY 02/08/22 06/14/23 06/07/23 History release (Adult Low Dose Aspirin) escitalopram oxalate 10 mg tablet 10 mg PO DAILY 02/08/22 06/14/23 06/07/23 History trazodone 100 mg tablet 100 mg PO BEDTIME 06/08/23 06/14/23 06/07/23 History Physical Exam 2 Vital Signs: Vital Signs: Last Vital Signs Temp 98.7 F 06/13/23 22:09 Pulse 100 06/14/23 07:27 Resp 14 06/14/23 07:27 BP 136/74 06/14/23 07:27 Pulse Ox 100 06/14/23 07:27 O2 Del Method Room Air 06/14/23 07:27 O2 Flow Rate 98 06/13/23 22:09 BMI result Body Mass Index 19.6 Const: General: tired appearing Nutritional Appearance: underweight HEENT: Head: Yes normocephalic Neck: Neck: Yes supple Chest: Chest palpation & inspection: normal inspection of the chest Resp: Effort & Inspection: normal respiratory effort Auscultation: rhonchi Cardio: Heart sounds: S1 normal heart sound present and S2 normal heart sound present GI: Palpation (GI): Soft to palpation Skin: General skin exam: no rashes or lesions noted Neuro: Speech: Abnormal speech present Extrem: General: Yes no clubbing, cyanosis or edema Results Laboratory Findings 06/13/23 18:55 06/14/23 04:20 Abnormal lab findings: Abnormal Labs 06/13/23 06/13/23 06/14/23 18:55 20:32 04:20 RBC 3.77 L Hgb 11.7 L Hct 35.5 L MPV 8.1 L Immature Gran % (Auto) 1.4 H Lymph % (Auto) 19.9 L Abs Immat Gran (auto) 0.09 H Carbon Dioxide 19 L BUN 6 L Albumin 3.4 L 2.9 L Ur Leukocyte Esterase Moderate (2+) H Assessment and Plan (1) New onset seizure: Status: Acute (2) Lung mass: Status: Acute Likely stage 4 lung cancer with significant mediastinal lymphadenopathy, lytic bone lesions and now with new onset seizures (3) Bronchitis: Status: Acute Plan MRI of the brain Will benefit from IV decadron Nebs as needed repeat CTchest/ABD Will need a biopsy to assess type of lung cancer, but would not recommend lung biopsy if an alternative safer site is located (ie. bone lesion) Time Spent With Patient Time: Total time managing care of this patient today ____ minutes. Procedures Date of Service Date of Service: 06/14/23
[2023-06-14] MEDS: levETIRAcetam in NaCl (iso-os) 500 MG/100 ML PIGGYBACK 400 MG IV (08:59)
--- NOTE | 2023-06-14 09:03 | PC.NURSE ---
pt is alert and oriented but pt is very slow in responding, skin appropriate for ethnicity, respirations even and unlabored, pt denies pain at this time, vs stable and ns on the monitor, seizure precautions in place and no seizure activity at this time.
[2023-06-14 09:08] LABS: Lactate Dehydrogenase 495 U/L (122-220)
--- NOTE | 2023-06-14 09:27 | PC.NURSE ---
called med/surg for report awaiting a call back
--- NOTE | 2023-06-14 09:39 | PC.NURSE ---
report given to imc rn
--- NOTE | 2023-06-14 10:14 | P.PNIM_ITS ---
Subjective Subjective Date of Service: 06/14/23 Interval History: no complaints Physical Exam 2 Vital Signs: Vital Signs: Last Vital Signs Temp 98.7 F 06/13/23 22:09 Pulse 100 06/14/23 07:27 Resp 14 06/14/23 07:27 BP 136/74 06/14/23 07:27 Pulse Ox 100 06/14/23 07:27 O2 Del Method Room Air 06/14/23 07:27 O2 Flow Rate 98 06/13/23 22:09 BMI result Body Mass Index 19.6 alert, oriented times 3, poor insight, Objective Data Active Medications Acetaminophen (Acetaminophen 325 Mg Tablet) 650 mg PO Q6H PRN PRN Reason: Pain, Mild (Pain Scale 1-3) Dextrose (Dextrose 50 % 25 Gm/50 Ml Syringe) 25 gm IVPUSH Q15M PRN; Protocol PRN Reason: per Hypoglycemia Standing Ord. Enoxaparin Sodium (Enoxaparin Sodium 40 Mg/0.4 Ml Syringe) 40 mg SUBCUT Q24H [facility] Last Admin: 06/14/23 01:07 Dose: 40 mg Documented By: JOO Glucose (Glucose Gel 15 Gm Gel..Gram.) 15 gm PO Q15M PRN; Protocol PRN Reason: per Hypoglycemia Standing Ord. Levetiracetam (Keppra) 500 mg in 100 mls @ 400 mls/hr IV Q12H [facility] Last Infusion: 06/14/23 09:27 Dose: Infused Documented By: NOLAN Insulin Human Lispro (Insulin Lispro 100 Unit/Ml 3 Ml Vial) 0 unit SUBCUT QIDACHS [facility]; Protocol Last Admin: 06/14/23 07:48 Dose: Not Given Documented By: NOLAN Non-Admin Reason: poc 84 npo Melatonin (Melatonin 3 Mg Tablet) 6 mg PO BEDTIME PRN PRN Reason: Insomnia Ondansetron HCl (Ondansetron Hcl 4 Mg/2 Ml Vial) 4 mg IVPUSH Q8H PRN PRN Reason: Nausea and Vomiting Sodium Chloride (0.9 % Sodium Chloride Flush 3 Ml Syringe) 3 ml IVFLUSH QSHIFT [facility] Last Admin: 06/14/23 08:46 Dose: 3 ml Documented By: NOLAN Labs 06/13/23 18:55 06/14/23 04:20 Labs: Laboratory Results - last 24 hr 06/13/23 06/13/23 06/14/23 18:55 20:32 01:01 MCV 94.2 MCH 31.0 MCHC 33.0 RDW 12.6 Plt Count 326 MPV 8.1 L Immature Gran % (Auto) 1.4 H Neut % (Auto) 67.5 Lymph % (Auto) 19.9 L [place] % (Auto) 10.7 Eos % (Auto) 0.3 Baso % (Auto) 0.2 Lymph # (Auto) 1.3 [place] # (Auto) 0.7 Eos # (Auto) 0.0 Baso # (Auto) 0.0 Abs Immat Gran (auto) 0.09 H Absolute Neuts (auto) 4.3 Absolute Nucleated RBC 0.000 Nucleated RBC % (auto) 0.0 Anion Gap 14 Estim Creat Clear Calc 61.0 Estimated GFR > 60 POC Glucose 113 Random Glucose 111 Calcium 9.2 Total Bilirubin 0.6 AST 18 ALT 12 Alkaline Phosphatase 77 Lactate Dehydrogenase Total Protein 7.1 Albumin 3.4 L Carcinoembryonic Ag TSH 0.91 Urine Color Yellow Urine Appearance Clear Urine pH 6.0 Ur Specific [place] 1.010 Urine Protein Negative Urine Glucose (UA) Negative Urine Ketones Negative Urine Blood Negative Urine Nitrite Negative Ur Leukocyte Esterase Moderate (2+) H Urine RBC 0-2 Urine WBC 0-5 Ur Squamous Epith Cells 0-2 Urine Bacteria 4+ Hyaline Casts 0-2 Urine Opiates Screen Not Detected Urine Fentanyl Screen Not Detected Ur Barbiturates Screen Not Detected Ur Phencyclidine Scrn Not Detected Ur Amphetamines Screen Not Detected U Benzodiazepines Scrn Not Detected Urine Cocaine Screen Not Detected U Marijuana (THC) Screen Not Detected 06/14/23 06/14/23 04:20 07:26 MCV MCH MCHC RDW Plt Count MPV Immature Gran % (Auto) Neut % (Auto) Lymph % (Auto) [place] % (Auto) Eos % (Auto) Baso % (Auto) Lymph # (Auto) [place] # (Auto) Eos # (Auto) Baso # (Auto) Abs Immat Gran (auto) Absolute Neuts (auto) Absolute Nucleated RBC Nucleated RBC % (auto) Anion Gap 13 Estim Creat Clear Calc 70.8 Estimated GFR > 60 POC Glucose 84 Random Glucose 105 Calcium 8.6 D Total Bilirubin 0.6 AST 17 ALT 11 Alkaline Phosphatase 73 Lactate Dehydrogenase 495 H Total Protein 6.6 Albumin 2.9 L Carcinoembryonic Ag 80.00 TSH Urine Color Urine Appearance Urine pH Ur Specific [place] Urine Protein Urine Glucose (UA) Urine Ketones Urine Blood Urine Nitrite Ur Leukocyte Esterase Urine RBC Urine WBC Ur Squamous Epith Cells Urine Bacteria Hyaline Casts Urine Opiates Screen Urine Fentanyl Screen Ur Barbiturates Screen Ur Phencyclidine Scrn Ur Amphetamines Screen U Benzodiazepines Scrn Urine Cocaine Screen U Marijuana (THC) Screen Assessment and Plan (1) New onset seizure: Status: Acute Plan 67F PMH htn, cva, dm, gerd, lung mass (patient did not follow up for work up), presented with seizure seizure concern for brain mets MRI keppra lung mass check ct chest and abd, ? optimal biopsy site hsitory of cva holding asa dm insulin dvt prophylaxis - lovenox full code reason for continued hospitalization:working up seizure Time Spent With Patient Time: Total time managing care of this patient today ____ minutes. Quality Stroke Does the patient have a stroke diagnosis?: No VTE Prior VTE?: No VTE Risk Level:: Medical - moderate - high VTE Device Contraindication: Treatment Not Indicated VTE Drug Contraindication: N/A - Med Ordered
[2023-06-14 10:20] VITALS: BP 155/84; PULSE 92; RESP 18; TEMP 36.6; O2SAT 98
--- NOTE | 2023-06-14 11:20 | P.CNNE_ITS ---
History of Present Illness Data of Consult Service Date: 06/14/23 Primary Care Provider: Lizy Laguna MD HPI Reason for consult: Seizure disorder 67 years old woman with no previous history of seizure disorder came to hospital apparently after she had a seizure outside the hospital and then and other 1 in emergency room that was treated with medicine. 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 She was not known to have any long consider in the past. In emergency room she was noted to be not speaking and probably postictal. I saw her when she was admitted on the floor. Review of Systems 2 Review of Systems: No recent trauma cold or flu-like illness or headache PMFSH Past Medical History Medical History (Updated 06/14/23 @ 09:01 by Salvador Waller MD) Bronchitis History of gastric ulcer Stroke Diabetes mellitus Essential hypertension Family History Family History Mother Hypertension Father No problems noted. Surgical History Surgical History Hx of colonoscopy No pertinent past surgical history Social History Social History Household Members: Spouse Housing: House Do you presently have visiting nurse or other home services: No Alcohol intake: never Patient Tobacco Use Status: Former Tobacco user Quit Date: Quit a month ago Tobacco use type: Cigarette Years Smoked: 30 e-Cigarette/Vaping Use: Never Used Second Hand Smoke Exposure: No Advance Directives Date on File: 06/10/23 service: No Current occupational status: retired Cognitive needs: No Hearing needs: No Vision needs: No Meds Allergies Allergy/AdvReac Type Severity Reaction Status Date / Time codeine [CODEINE] Allergy Unknown HIVES Verified 04/03/23 11:26 morphine [MORPHINE] Allergy Unknown ITCHING, Verified 04/03/23 11:26 itchy Active Medications: Current Medications Acetaminophen (Acetaminophen 325 Mg Tablet) 650 mg PO Q6H PRN PRN Reason: Pain, Mild (Pain Scale 1-3) Dextrose (Dextrose 50 % 25 Gm/50 Ml Syringe) 25 gm IVPUSH Q15M PRN; Protocol PRN Reason: per Hypoglycemia Standing Ord. Enoxaparin Sodium (Enoxaparin Sodium 40 Mg/0.4 Ml Syringe) 40 mg SUBCUT Q24H [facility] Last Admin: 06/14/23 01:07 Dose: 40 mg Glucose (Glucose Gel 15 Gm Gel..Gram.) 15 gm PO Q15M PRN; Protocol PRN Reason: per Hypoglycemia Standing Ord. Levetiracetam (Keppra) 500 mg in 100 mls @ 400 mls/hr IV Q12H [facility] Last Infusion: 06/14/23 09:27 Dose: Infused Insulin Human Lispro (Insulin Lispro 100 Unit/Ml 3 Ml Vial) 0 unit SUBCUT QIDACHS [facility]; Protocol Last Admin: 06/14/23 07:48 Dose: Not Given Melatonin (Melatonin 3 Mg Tablet) 6 mg PO BEDTIME PRN PRN Reason: Insomnia Ondansetron HCl (Ondansetron Hcl 4 Mg/2 Ml Vial) 4 mg IVPUSH Q8H PRN PRN Reason: Nausea and Vomiting Sodium Chloride (0.9 % Sodium Chloride Flush 3 Ml Syringe) 3 ml IVFLUSH QSHIFT [facility] Last Admin: 06/14/23 08:46 Dose: 3 ml Home Medications Medication Instructions Recorded Confirmed Last Taken Type aspirin 81 mg tablet,delayed 81 mg PO DAILY 02/08/22 06/14/23 06/07/23 History release (Adult Low Dose Aspirin) escitalopram oxalate 10 mg tablet 10 mg PO DAILY 02/08/22 06/14/23 06/07/23 History trazodone 100 mg tablet 100 mg PO BEDTIME 06/08/23 06/14/23 06/07/23 History Physical Exam 2 Vital Signs: Vital Signs: Last Vital Signs Temp 97.8 F 06/14/23 10:20 Pulse 92 06/14/23 10:20 Resp 18 06/14/23 10:20 BP 155/84 H 06/14/23 10:20 Pulse Ox 98 06/14/23 10:20 O2 Del Method Room Air 06/14/23 10:20 O2 Flow Rate 98 06/13/23 22:09 BMI result Body Mass Index 19.6 Neuro: Other: She is alert and awake with normal spontaneity of speech fluency comprehension and affect. She is resistant to examination and and exam was limited. Face is symmetrical weight. Visual verdugo seem to be intact. There is no obvious focal arm or leg weakness. Results Labs 06/13/23 18:55 06/14/23 04:20 Labs: Short CBC 06/13/23 Range/Units 18:55 WBC 6.3 (4.8-10.8) X10*3/uL Hgb 11.7 L (12.0-16.0) g/dl Hct 35.5 L (37.0-47.0) % Plt Count 326 (160-400) X10*3/uL BMP 06/13/23 06/14/23 18:55 04:20 Sodium 137 136 Potassium 3.7 3.6 Chloride 103 108 Carbon Dioxide 24 19 L BUN 9 6 L Creatinine 0.72 0.62 Calcium 9.2 8.6 D Liver Function 06/13/23 06/14/23 Range/Units 18:55 04:20 Total Bilirubin 0.6 0.6 (0.0-1.0) mg/dL AST 18 17 (5-31) U/L ALT 12 11 (0-31) U/L Alkaline Phosphatase 77 73 (39-117) U/L Albumin 3.4 L 2.9 L (3.5-5.0) g/dL Urine 06/13/23 Range/Units 20:32 Urine Color Yellow Urine Appearance Clear Urine pH 6.0 (5.0-9.0) Ur Specific [place] 1.010 (1.005-1.025) Urine Protein Negative (Neg-Trace) mg/dL Urine Glucose (UA) Negative (Negative) mg/dL Noncontrast head CT did not reveal any significant abnormality. Assessment and Plan (1) New onset seizure: Status: Acute 67 years old woman with new onset of seizure disorder with possible left lung malignancy. As far as seizure disorder is concerned, continue levetiracetam 500 mg twice a day. An MRI of brain with and without contrast is recommended to rule out any possibility of metastatic disease. Time Spent With Patient Time: Total time managing care of this patient today ____ minutes. Procedures Date of Service Date of Service: 06/14/23
[2023-06-14 11:31] LABS: Glucose, Whole Blood 77 mg/dL (60-115)
--- NOTE | 2023-06-14 14:28 | MHC.SL.SWA ---
Speech Pathologist Impression: Risk of aspiration, oropharyngeal dysphagia Risk of Aspiration Due to: Neurological Condition Dysphasia Diet Status: START on NDD1/THIN Liquid Consistency and Strategies for Safe Swallow: Liquid Intake Recommendation: Thin Liquid Intake Strategies: Small Sips No Straws Solid Food Consistency: Dietary Recommendations: Pureed (NDD1) Additional Modifications to Solid Foods: Recommend UPGRADE from NPO, START on PUREED (NDD1) diet with THIN liquids, pills CRUSHED in PUREE. Pt to have 1:1 supervision during PO intake, provide assistance as needed throughout meal and ensure aspiration precautions. Oral Medication Intake: Crushed with Puree Please contact the pharmacy regarding appropriate crushable or liquid drug formulations that are available whenever modified delivery is recommended. Compensatory Strategies and Precautions to be Taken for Safe Swallow: Sitting Upright (90 deg) No Straw Liquids from Cup Liquids from Spoon Small Bites and Sips Alternate Liquids/Solids Rate of Ingestion Change Oral Check Avoid Specific Foods Supervision While Eating and Drinking for Safe Swallow: Total Assistance (1:1) Foods to Avoid: Mixed textures Swallowing Recommended Treatments: Compens. Strategy Educat. Recommendation for Speech: Inpatient Speech Therapy Comment: Pt w/ hx CVA, now here w/ new onset seizure. MICROFILM MACHINE OPERATOR to follow as needed during hospitalization. Vulcanizing Press Operator Clinican/Clinical Fellow: No Supervisory Statement: I have reviewed and agree with the student/clinical fellow's documentation: N/A Speech Language Pathologist: Sarah Dumont M.A., [facility]-MICROFILM MACHINE OPERATOR
--- NOTE | 2023-06-14 15:16 | MHC.CM.PN ---
PT REPORTS SHE LIVES WITH HER AND IS INDEPENDENT WITH CARE SHE DENIES USE OF DME OR HOME SERVICES PT HAS A HCP ON FILE, SHE CONFIRMS HER AGENT IS HER DAUGHTER, MEKHI PCP: ALANNAH TIMMONS OBSERVATION NOTICE DELIVERED DCP: HOME NO SERVICES VIA FAMILY TRANSPORT
[2023-06-14 15:49] VITALS: BP 186/90; PULSE 100; RESP 19; TEMP 36.1; O2SAT 99
[2023-06-14 16:52] LABS: Glucose, Whole Blood 80 mg/dL (60-115)
[2023-06-14 21:15] LABS: Glucose, Whole Blood 99 mg/dL (60-115)
[2023-06-14] MEDS: OLANZapine 10 MG VIAL 5 MG IM (22:37)
[2023-06-15] VITALS: TEMP 36.3
[2023-06-15] MEDS: LORazepam 2 MG/ML VIAL 1 MG IM (00:58)
[2023-06-15] MEDS: levETIRAcetam in NaCl (iso-os) 500 MG/100 ML PIGGYBACK 400 MG IV ×2 (02:57→13:25)
--- NOTE | 2023-06-15 07:14 | PC.NURSE ---
This RN assumed care of pt at 19:00. Pt A&Ox2, with no IV access, and resistive to care. According to AM RN shift report, pt was combative and pulled out IV. hr manager on unit was notified of the no IV access and attempted to get an IV but pt became combative and refused. Nure tool machine shop supervisor was notified and sent another RN to tried, but no success. MD De Los Santos was notified and ordered one time dose of Zyprexa 5mg IM. Medication was given to pt per NOV with no effect. Pt was still combative and resistive to care with no IV access. Later on, MD De Los Santos ordered one time dose of Ativan 1mg IM with positive effect. Nursing tool machine shop supervisor was able to get an #22 IV to R wrist with success. IV Keppra was given to pt per NOV after the new IV access. Will continue to monitor.
[2023-06-15 07:52] LABS: Glucose, Whole Blood 108 mg/dL (60-115)
[2023-06-15 08:00] VITALS: BP 114/64; PULSE 111; RESP 18; TEMP 36.1; O2SAT 100
--- NOTE | 2023-06-15 09:31 | HO.PM.IMPN ---
Subjective Subjective Date of Service: 06/15/23 Interval History: Seen and evaluated Sleepy but alert when stimulated Feels weak and sleepy No reported seizures overnight Review of Systems Review of Systems: Yes all other systems are reviewed and are negative Physical Exam Vital Signs: Vital Signs: Last Vital Signs Temp 96.9 F 06/15/23 08:00 Pulse 111 H 06/15/23 08:00 Resp 18 06/15/23 08:00 BP 114/64 06/15/23 08:00 Pulse Ox 100 06/15/23 08:00 O2 Del Method Room Air 06/15/23 08:00 O2 Flow Rate 98 06/13/23 22:09 BMI result Body Mass Index 19.6 Const: Other: Constitutional : Sleepy, easy to arouse but goes back easily to sleep, not in distress Neck : Normal inspection, Supple Cardiovascular : RRR, no JVP, no lower extremity edema Respiratory : good bilateral air entry, no crackles, scatterred wheezes Gastrointestinal: soft, lax, Normal bowel sounds, Non tender Skin : Warm, Dry Neurological : alert with stimulation but remains sleepy, no abnormal movements, No focal deficit Objective Data Active Medications Acetaminophen (Acetaminophen 325 Mg Tablet) 650 mg PO Q6H PRN PRN Reason: Pain, Mild (Pain Scale 1-3) Dextrose (Dextrose 50 % 25 Gm/50 Ml Syringe) 25 gm IVPUSH Q15M PRN; Protocol PRN Reason: per Hypoglycemia Standing Ord. Enoxaparin Sodium (Enoxaparin Sodium 40 Mg/0.4 Ml Syringe) 40 mg SUBCUT Q24H [facility] Last Admin: 06/15/23 00:23 Dose: Not Given Documented By: KAMLA Non-Admin Reason: Patient Refused Escitalopram Oxalate (Escitalopram Oxalate 10 Mg Tablet) 10 mg PO DAILY [facility] Glucose (Glucose Gel 15 Gm Gel..Gram.) 15 gm PO Q15M PRN; Protocol PRN Reason: per Hypoglycemia Standing Ord. Levetiracetam (Keppra) 500 mg in 100 mls @ 400 mls/hr IV Q12H [facility] Insulin Human Lispro (Insulin Lispro 100 Unit/Ml 3 Ml Vial) 0 unit SUBCUT QIDACHS [facility]; Protocol Last Admin: 06/15/23 08:01 Dose: Not Given Documented By: KYLEIGH Non-Admin Reason: No Insulin Coverage Lorazepam (Lorazepam 0.5 Mg Tablet) 0.5 mg PO DAILY PRN PRN Reason: anxiety Melatonin (Melatonin 3 Mg Tablet) 6 mg PO BEDTIME PRN PRN Reason: Insomnia Ondansetron HCl (Ondansetron Hcl 4 Mg/2 Ml Vial) 4 mg IVPUSH Q8H PRN PRN Reason: Nausea and Vomiting Sodium Chloride (0.9 % Sodium Chloride Flush 3 Ml Syringe) 3 ml IVFLUSH QSHIFT [facility] Last Admin: 06/15/23 00:28 Dose: Not Given Documented By: KAMLA Non-Admin Reason: No Access Trazodone HCl (Trazodone Hcl 100 Mg Tablet) 100 mg PO BEDTIME [facility] Last Admin: 06/15/23 01:03 Dose: Not Given Documented By: KAMLA Non-Admin Reason: Patient Refused Valsartan (Valsartan 80 Mg Tablet) 80 mg PO DAILY [facility] Labs 06/13/23 18:55 06/14/23 04:20 Labs: Laboratory Results - last 24 hr 06/14/23 06/14/23 06/14/23 11:27 16:35 21:10 POC Glucose 77 80 99 06/15/23 07:42 POC Glucose 108 Assessment and Plan (1) Bronchitis: Status: Acute (2) New onset seizure: Status: Acute (3) Lung mass: Status: Acute (4) Rectal mass: Status: Acute Plan 67F PMH htn, cva, dm, gerd, lung mass (patient did not follow up for work up), presented with seizure Toxic encephalopathy likely from medications; Zyprexa, keppra reorientation Acute seizure concern for brain mets MRI pending continue [facility] Neuro and Oncology input appreciated lung mass 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 hsitory of cva holding asa dm insulin dvt prophylaxis - lovenox full code reason for continued hospitalization:working up seizure Time Spent With Patient Time: Total time managing care of this patient today ____ minutes. Quality Stroke Does the patient have a stroke diagnosis?: No VTE Prior VTE?: No VTE Risk Level:: Medical - moderate - high VTE Device Contraindication: Treatment Not Indicated VTE Drug Contraindication: N/A - Med Ordered
[2023-06-15] MEDS: 0.9 % Sodium Chloride Flush 3 ML SYRINGE IVFLUSH ×3 (09:45→22:39)
[2023-06-15] MEDS: Escitalopram Oxalate 10 MG TABLET PO (09:49)
[2023-06-15] MEDS: Valsartan 80 MG TABLET PO (09:49)
[2023-06-15] MEDS: LORazepam 2 MG/ML VIAL 1 MG IVPUSH (11:33)
[2023-06-15] MEDS: gadobutroL 7.5 ML VIAL IVPUSH (12:01)
[2023-06-15 12:53] LABS: Glucose, Whole Blood 147 mg/dL (60-115)
--- NOTE | 2023-06-15 14:51 | P.CONGS_ITS ---
History of Present Illness Consult details Consult date: 06/15/23 Narrative: Patient is a 67-year-old female with a plethora of medical problems who on a CT scan of the abdomen pelvis had findings suggestive of proctitis and perirectal inflammation. Patient is essentially non communicative. She is unable to give any account of history or input in her evaluation . Chart was reviewed along with CT scan and patient evaluated PMFSH Past Medical History Medical History (Updated 06/15/23 @ 14:55 by Jevon Grayson MD) Bronchitis History of gastric ulcer Stroke Diabetes mellitus Essential hypertension Family History Family History Mother Hypertension Father No problems noted. Surgical History Surgical History Hx of colonoscopy No pertinent past surgical history Social History Social History Household Members: Spouse Housing: House Do you presently have visiting nurse or other home services: No Alcohol intake: never Patient Tobacco Use Status: Former Tobacco user Quit Date: Quit a month ago Tobacco use type: Cigarette Years Smoked: 30 e-Cigarette/Vaping Use: Never Used Second Hand Smoke Exposure: No Advance Directives Date on File: 06/10/23 service: No Current occupational status: retired Cognitive needs: No Hearing needs: No Vision needs: No Meds Allergies Allergy/AdvReac Type Severity Reaction Status Date / Time codeine [CODEINE] Allergy Unknown HIVES Verified 04/03/23 11:26 morphine [MORPHINE] Allergy Unknown ITCHING, Verified 04/03/23 11:26 itchy Active Medications: Current Medications Acetaminophen (Acetaminophen 325 Mg Tablet) 650 mg PO Q6H PRN PRN Reason: Pain, Mild (Pain Scale 1-3) Dextrose (Dextrose 50 % 25 Gm/50 Ml Syringe) 25 gm IVPUSH Q15M PRN; Protocol PRN Reason: per Hypoglycemia Standing Ord. Enoxaparin Sodium (Enoxaparin Sodium 40 Mg/0.4 Ml Syringe) 40 mg SUBCUT Q24H [facility] Last Admin: 06/15/23 00:23 Dose: Not Given Escitalopram Oxalate (Escitalopram Oxalate 10 Mg Tablet) 10 mg PO DAILY [facility] Last Admin: 06/15/23 09:49 Dose: 10 mg Glucose (Glucose Gel 15 Gm Gel..Gram.) 15 gm PO Q15M PRN; Protocol PRN Reason: per Hypoglycemia Standing Ord. Levetiracetam (Keppra) 500 mg in 100 mls @ 400 mls/hr IV Q12H [facility] Last Infusion: 06/15/23 13:46 Dose: Infused Insulin Human Lispro (Insulin Lispro 100 Unit/Ml 3 Ml Vial) 0 unit SUBCUT QIDACHS [facility]; Protocol Last Admin: 06/15/23 13:12 Dose: Not Given Lorazepam (Lorazepam 0.5 Mg Tablet) 0.5 mg PO DAILY PRN PRN Reason: anxiety Lorazepam (Lorazepam 2 Mg/Ml Vial) 1 mg IVPUSH ONCE PRN PRN Reason: anxiety/restlessness Last Admin: 06/15/23 11:33 Dose: 1 mg Melatonin (Melatonin 3 Mg Tablet) 6 mg PO BEDTIME PRN PRN Reason: Insomnia Ondansetron HCl (Ondansetron Hcl 4 Mg/2 Ml Vial) 4 mg IVPUSH Q8H PRN PRN Reason: Nausea and Vomiting Sodium Chloride (0.9 % Sodium Chloride Flush 3 Ml Syringe) 3 ml IVFLUSH QSHIFT [facility] Last Admin: 06/15/23 09:45 Dose: 3 ml Trazodone HCl (Trazodone Hcl 100 Mg Tablet) 100 mg PO BEDTIME [facility] Last Admin: 06/15/23 01:03 Dose: Not Given Valsartan (Valsartan 80 Mg Tablet) 80 mg PO DAILY [facility] Last Admin: 06/15/23 09:49 Dose: 80 mg Home Medications Medication Instructions Recorded Confirmed Last Taken Type aspirin 81 mg tablet,delayed 81 mg PO DAILY 02/08/22 06/14/23 06/07/23 History release (Adult Low Dose Aspirin) escitalopram oxalate 10 mg tablet 10 mg PO DAILY 02/08/22 06/14/23 06/07/23 History trazodone 100 mg tablet 100 mg PO BEDTIME 06/08/23 06/14/23 06/07/23 History Physical Exam 2 Vital Signs: Vital Signs: Last Vital Signs Temp 96.9 F 06/15/23 08:00 Pulse 111 H 06/15/23 08:00 Resp 18 06/15/23 08:00 BP 114/64 06/15/23 08:00 Pulse Ox 100 06/15/23 08:00 O2 Del Method Room Air 06/15/23 08:00 O2 Flow Rate 98 06/13/23 22:09 BMI result Body Mass Index 19.6 GI: Other: Abdomen soft. Appears nontender but again difficult with patient's mental status Issues. With the assistance pain nurse Rodrigo, risks was performed with no obvious evidence of erythema, abscess, or any perianal inflammation. Rectal exam demonstrated no obvious masses, and rectal vault was full of soft stool. Results Labs 06/13/23 18:55 06/14/23 04:20 Labs: Abnormal lab results 06/15/23 Range/Units 12:49 POC Glucose 147 H (60-115) mg/dL Urine 06/13/23 Range/Units 20:32 Urine Color Yellow Urine Appearance Clear Urine pH 6.0 (5.0-9.0) Ur Specific [place] 1.010 (1.005-1.025) Urine Protein Negative (Neg-Trace) mg/dL Urine Glucose (UA) Negative (Negative) mg/dL All other labs normal. Assessment and Plan (1) Proctitis: Status: Acute Plan At present, no acute or obvious anorectal issues. Will follow-up p.r.n. Time Spent With Patient Time: Total time managing care of this patient today ____ minutes. Procedures Date of Service Date of Service: 06/15/23
[2023-06-15 16:00] VITALS: BP 150/60; PULSE 100; RESP 16; TEMP 36.7; O2SAT 98
[2023-06-15 16:55] LABS: Glucose, Whole Blood 93 mg/dL (60-115)
[2023-06-15] MEDS: Acetaminophen 325 MG TABLET 650 MG PO (19:36)
[2023-06-15 20:33] LABS: Glucose, Whole Blood 177 mg/dL (60-115)
[2023-06-15] MEDS: traZODone HCL 100 MG TABLET PO (22:04)
[2023-06-15] MEDS: Insulin Lispro 100 UNIT/ML 3 ML VIAL SUBCUT (22:05)
[2023-06-15] MEDS: Enoxaparin Sodium 40 MG/0.4 ML SYRINGE SUBCUT (22:05)
[2023-06-15] MEDS: levETIRAcetam 500 MG TABLET PO (22:33)
[2023-06-16] VITALS: BP 144/65; PULSE 68; RESP 18; TEMP 36.3; O2SAT 95
[2023-06-16 04:06] VITALS: BP 123/58; PULSE 106; RESP 18; O2SAT 93
[2023-06-16 06:39] LABS: Anion Gap 15 (12-20); Blood Urea Nitrogen 8 mg/dL (9-16); Calcium 8.9 mg/dL (8.4-10.2); Carbon Dioxide 19 mmol/L (22-29); Chloride 106 mmol/L (96-108); Creatinine Clr Calc Pharmacy 67.6; Estimated Glomerular Filt Rate > 60; Glucose Random 81 mg/dL (60-115); Potassium 4.8 mmol/L (3.3-5.1); Sodium 135 mmol/L (135-145)
[2023-06-16 07:38] LABS: Glucose, Whole Blood 80 mg/dL (60-115)
[2023-06-16 08:00] VITALS: BP 121/56; PULSE 106; RESP 17; TEMP 36.8; O2SAT 96
[2023-06-16] MEDS: Valsartan 80 MG TABLET PO (08:28)
[2023-06-16] MEDS: levETIRAcetam 500 MG TABLET PO ×2 (08:28→21:20)
[2023-06-16] MEDS: Escitalopram Oxalate 10 MG TABLET PO (08:28)
[2023-06-16] MEDS: 0.9 % Sodium Chloride Flush 3 ML SYRINGE IVFLUSH ×3 (08:30→21:20)
--- NOTE | 2023-06-16 09:49 | P.PNIM_ITS ---
Subjective Subjective Date of Service: 06/16/23 Interval History: Seen and evaluated alert, interactive, having breakfast No reported seizures overnight Review of Systems Review of Systems: Yes all other systems are reviewed and are negative Physical Exam 2 Vital Signs: Vital Signs: Last Vital Signs Temp 98.2 F 06/16/23 08:00 Pulse 106 H 06/16/23 08:00 Resp 17 06/16/23 08:00 BP 121/56 L 06/16/23 08:00 Pulse Ox 96 06/16/23 08:00 O2 Del Method Room Air 06/16/23 08:00 O2 Flow Rate 98 06/13/23 22:09 BMI result Body Mass Index 19.6 Const: Other: Constitutional : alert, not in distress Neck : Normal inspection, Supple Cardiovascular : RRR, no JVP, no lower extremity edema Respiratory : good bilateral air entry, no crackles, scatterred wheezes Gastrointestinal: soft, lax, Normal bowel sounds, Non tender Skin : Warm, Dry Neurological : alert , oriented , no abnormal movements, No focal deficit Objective Data Active Medications Acetaminophen (Acetaminophen 325 Mg Tablet) 650 mg PO Q6H PRN PRN Reason: Pain, Mild (Pain Scale 1-3) Last Admin: 06/15/23 19:36 Dose: 650 mg Documented By: GIUSEPPE Dextrose (Dextrose 50 % 25 Gm/50 Ml Syringe) 25 gm IVPUSH Q15M PRN; Protocol PRN Reason: per Hypoglycemia Standing Ord. Enoxaparin Sodium (Enoxaparin Sodium 40 Mg/0.4 Ml Syringe) 40 mg SUBCUT Q24H [facility] Last Admin: 06/15/23 22:05 Dose: 40 mg Documented By: GIUSEPPE Escitalopram Oxalate (Escitalopram Oxalate 10 Mg Tablet) 10 mg PO DAILY [facility] Last Admin: 06/16/23 08:28 Dose: 10 mg Documented By: KYLEIGH Glucose (Glucose Gel 15 Gm Gel..Gram.) 15 gm PO Q15M PRN; Protocol PRN Reason: per Hypoglycemia Standing Ord. Insulin Human Lispro (Insulin Lispro 100 Unit/Ml 3 Ml Vial) 0 unit SUBCUT QIDACHS [facility]; Protocol Last Admin: 06/16/23 07:44 Dose: Not Given Documented By: KYLEIGH Non-Admin Reason: No Insulin Coverage Levetiracetam (Levetiracetam 500 Mg Tablet) 500 mg PO BID [facility] Last Admin: 06/16/23 08:28 Dose: 500 mg Documented By: KYLEIGH Lorazepam (Lorazepam 0.5 Mg Tablet) 0.5 mg PO DAILY PRN PRN Reason: anxiety Lorazepam (Lorazepam 2 Mg/Ml Vial) 1 mg IVPUSH ONCE PRN PRN Reason: anxiety/restlessness Last Admin: 06/15/23 11:33 Dose: 1 mg Documented By: KYLEIGH Melatonin (Melatonin 3 Mg Tablet) 6 mg PO BEDTIME PRN PRN Reason: Insomnia Ondansetron HCl (Ondansetron Hcl 4 Mg/2 Ml Vial) 4 mg IVPUSH Q8H PRN PRN Reason: Nausea and Vomiting Sodium Chloride (0.9 % Sodium Chloride Flush 3 Ml Syringe) 3 ml IVFLUSH QSHIFT [facility] Last Admin: 06/16/23 08:30 Dose: 3 ml Documented By: KYLEIGH Trazodone HCl (Trazodone Hcl 100 Mg Tablet) 100 mg PO BEDTIME [facility] Last Admin: 06/15/23 22:04 Dose: 100 mg Documented By: GIUSEPPE Valsartan (Valsartan 80 Mg Tablet) 80 mg PO DAILY [facility] Last Admin: 06/16/23 08:28 Dose: 80 mg Documented By: KYLEIGH Labs 06/13/23 18:55 06/16/23 05:13 Labs: Laboratory Results - last 24 hr 06/15/23 06/15/23 06/15/23 12:49 16:32 20:26 Anion Gap Estim Creat Clear Calc Estimated GFR POC Glucose 147 H 93 177 H Random Glucose Calcium 06/16/23 06/16/23 05:13 07:22 Anion Gap 15 Estim Creat Clear Calc 67.6 Estimated GFR > 60 POC Glucose 80 Random Glucose 81 Calcium 8.9 Assessment and Plan (1) Proctitis: Status: Acute (2) New onset seizure: Status: Acute (3) Lung mass: Status: Acute Plan 67F PMH htn, cva, dm, gerd, lung mass (patient did not follow up for work up), presented with seizure Toxic encephalopathy improving likely from medications; Zyprexa, keppra reorientation Acute seizure concern for brain mets MRI had lot of artifacts from movements, no clear metastasis noted but small mets can not be totally excluded. can be repeated as OP when more stable continue keppra No recurrence Neuro and Oncology input appreciated to do PT eval lung mass ct chest showing know TYE mass w mediastinal LN abd CT showing possible colon mass\proctatis , surgery eval , no intervention needed at this point for best biopsy place ? hsitory of cva holding asa dm insulin dvt prophylaxis - lovenox full code reason for continued hospitalization: pending safe discharge plan Time Spent With Patient Time: Total time managing care of this patient today ____ minutes. Quality Stroke Does the patient have a stroke diagnosis?: No VTE Prior VTE?: No VTE Risk Level:: Medical - moderate - high VTE Device Contraindication: Treatment Not Indicated VTE Drug Contraindication: N/A - Med Ordered
[2023-06-16] MEDS: Acetaminophen 325 MG TABLET 650 MG PO (11:01)
[2023-06-16 11:38] LABS: Glucose, Whole Blood 138 mg/dL (60-115)
[2023-06-16 15:34] VITALS: BP 119/58; PULSE 104; RESP 20; TEMP 36; O2SAT 98
[2023-06-16 16:27] LABS: Glucose, Whole Blood 143 mg/dL (60-115)
[2023-06-16] MEDS: Milk of Magnesia 30 ML ORAL.SUSP PO (17:29)
[2023-06-16 20:10] VITALS: BP 155/71; PULSE 116; RESP 20; TEMP 37; O2SAT 97
[2023-06-16 20:35] LABS: Glucose, Whole Blood 277 mg/dL (60-115)
[2023-06-16] MEDS: traZODone HCL 100 MG TABLET PO (21:20)
[2023-06-16] MEDS: Insulin Lispro 100 UNIT/ML 3 ML VIAL SUBCUT (21:20)
[2023-06-16] MEDS: Enoxaparin Sodium 40 MG/0.4 ML SYRINGE SUBCUT (21:21)
[2023-06-16 23:41] VITALS: BP 132/62; PULSE 113; RESP 18; TEMP 36.6; O2SAT 97
[2023-06-17 03:59] VITALS: BP 131/60; PULSE 111; RESP 18; TEMP 36.3; O2SAT 97
[2023-06-17 07:33] VITALS: BP 115/57; PULSE 111; RESP 17; TEMP 37.1; O2SAT 97
[2023-06-17 07:38] LABS: Glucose, Whole Blood 125 mg/dL (60-115)
--- NOTE | 2023-06-17 08:32 | HO.PM.IMPN ---
Subjective Subjective Date of Service: 06/17/23 Interval History: no complaints Physical Exam Vital Signs: Vital Signs: Last Vital Signs Temp 98.8 F 06/17/23 07:33 Pulse 111 H 06/17/23 07:33 Resp 17 06/17/23 07:33 BP 115/57 L 06/17/23 07:33 Pulse Ox 97 06/17/23 07:33 O2 Del Method Room Air 06/17/23 07:33 O2 Flow Rate 98 06/13/23 22:09 BMI result Body Mass Index 19.6 Const: Other: Constitutional : alert, not in distress Neck : Normal inspection, Supple Cardiovascular : RRR, no JVP, no lower extremity edema Respiratory : good bilateral air entry, no crackles, scatterred wheezes Gastrointestinal: soft, lax, Normal bowel sounds, Non tender Skin : Warm, Dry Neurological : alert , oriented , no abnormal movements, No focal deficit Objective Data Active Medications Acetaminophen (Acetaminophen 325 Mg Tablet) 650 mg PO Q6H PRN PRN Reason: Pain, Mild (Pain Scale 1-3) Last Admin: 06/16/23 11:01 Dose: 650 mg Documented By: KYLEIGH Dextrose (Dextrose 50 % 25 Gm/50 Ml Syringe) 25 gm IVPUSH Q15M PRN; Protocol PRN Reason: per Hypoglycemia Standing Ord. Enoxaparin Sodium (Enoxaparin Sodium 40 Mg/0.4 Ml Syringe) 40 mg SUBCUT Q24H [facility] Last Admin: 06/16/23 21:21 Dose: 40 mg Documented By: DIOMEDES Escitalopram Oxalate (Escitalopram Oxalate 10 Mg Tablet) 10 mg PO DAILY [facility] Last Admin: 06/16/23 08:28 Dose: 10 mg Documented By: KYLEIGH Glucose (Glucose Gel 15 Gm Gel..Gram.) 15 gm PO Q15M PRN; Protocol PRN Reason: per Hypoglycemia Standing Ord. Insulin Human Lispro (Insulin Lispro 100 Unit/Ml 3 Ml Vial) 0 unit SUBCUT QIDACHS [facility]; Protocol Last Admin: 06/17/23 07:51 Dose: Not Given Documented By: GUILHERME Non-Admin Reason: No Insulin Coverage Levetiracetam (Levetiracetam 500 Mg Tablet) 500 mg PO BID [facility] Last Admin: 06/16/23 21:20 Dose: 500 mg Documented By: DIOMEDES Lorazepam (Lorazepam 0.5 Mg Tablet) 0.5 mg PO DAILY PRN PRN Reason: anxiety Lorazepam (Lorazepam 2 Mg/Ml Vial) 1 mg IVPUSH ONCE PRN PRN Reason: anxiety/restlessness Last Admin: 06/15/23 11:33 Dose: 1 mg Documented By: KYLEIGH Melatonin (Melatonin 3 Mg Tablet) 6 mg PO BEDTIME PRN PRN Reason: Insomnia Ondansetron HCl (Ondansetron Hcl 4 Mg/2 Ml Vial) 4 mg IVPUSH Q8H PRN PRN Reason: Nausea and Vomiting Sodium Chloride (0.9 % Sodium Chloride Flush 3 Ml Syringe) 3 ml IVFLUSH QSHIFT [facility] Last Admin: 06/16/23 21:20 Dose: 3 ml Documented By: DIOMEDES Trazodone HCl (Trazodone Hcl 100 Mg Tablet) 100 mg PO BEDTIME [facility] Last Admin: 06/16/23 21:20 Dose: 100 mg Documented By: DIOMEDES Valsartan (Valsartan 80 Mg Tablet) 80 mg PO DAILY [facility] Last Admin: 06/16/23 08:28 Dose: 80 mg Documented By: KYLEIGH Labs 06/13/23 18:55 06/16/23 05:13 Labs: Laboratory Results - last 24 hr 06/16/23 06/16/23 06/16/23 11:31 16:21 20:30 POC Glucose 138 H 143 H 277 H 06/17/23 07:35 POC Glucose 125 H Assessment and Plan (1) Proctitis: Status: Acute (2) New onset seizure: Status: Acute (3) Lung mass: Status: Acute Plan 67F PMH htn, cva, dm, gerd, lung mass (patient did not follow up for work up), presented with seizure acute Toxic metabolic encephalopathy resolved Acute seizure concern for brain mets MRI had lot of artifacts from movements, no clear metastasis noted but small mets can not be totally excluded. 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 Quality Stroke Does the patient have a stroke diagnosis?: No VTE Prior VTE?: No VTE Risk Level:: Medical - moderate - high VTE Device Contraindication: Treatment Not Indicated VTE Drug Contraindication: N/A - Med Ordered
[2023-06-17] MEDS: Escitalopram Oxalate 10 MG TABLET PO (08:38)
[2023-06-17] MEDS: 0.9 % Sodium Chloride Flush 3 ML SYRINGE IVFLUSH ×3 (08:38→21:09)
[2023-06-17] MEDS: levETIRAcetam 500 MG TABLET PO ×2 (08:38→21:08)
[2023-06-17] MEDS: Valsartan 80 MG TABLET PO (08:38)
[2023-06-17 11:27] LABS: Glucose, Whole Blood 159 mg/dL (60-115)
--- NOTE | 2023-06-17 12:04 | P.PNPL_ITS ---
Subjective Subjective Date of Service: 06/17/23 Principal diagnosis: lung tumor/ mediastinal lymphadenopathy Interval history: Denies any respiratory compliant at this time. Objective Data Labs 06/13/23 18:55 06/16/23 05:13 Labs: Laboratory Results - last 24 hr 06/16/23 06/16/23 06/17/23 16:21 20:30 07:35 POC Glucose 143 H 277 H 125 H 06/17/23 11:20 POC Glucose 159 H Physical Exam 2 Vital Signs: Vital Signs: Last Vital Signs Temp 98.8 F 06/17/23 07:33 Pulse 111 H 06/17/23 07:33 Resp 17 06/17/23 07:33 BP 115/57 L 06/17/23 07:33 Pulse Ox 97 06/17/23 07:33 O2 Del Method Room Air 06/17/23 07:33 O2 Flow Rate 98 06/13/23 22:09 BMI result Body Mass Index 19.6 Const: General: alert and awake Resp: Effort & Inspection: normal respiratory effort Auscultation: clear to auscultation bilaterally Cardio: Rate: tachycardic Rhythm: regular rhythm Extrem: General: No clubbing, No cyanosis and No pedal edema Procedures Date of Service Date of Service: 06/17/23 Assessment and Plan Assessment and plan (1) Lung mass: Status: Acute (2) Mediastinal lymphadenopathy: Status: Acute Plan Impression: 67-year-old lady with a known lung mass /mediastinal lymphadenopathy, at least for the last 3 months. Also rectal mass and unintentional weight loss. Possibility of endobronchial /EBUS biopsy discussed with the patient would does not want to proceed with biopsy, at least at this time. Recommendations: Will rediscuss possibility of biopsy within next several days. Time Spent With Patient Time: Total time managing care of this patient today ____ minutes. Progress Note: Quality Stroke Does the patient have a stroke diagnosis?: No
--- NOTE | 2023-06-17 12:22 | MHC.CM.PN ---
pt from [facility] where she will retrurn when dcd pt is obs
[2023-06-17] MEDS: Acetaminophen 325 MG TABLET 650 MG PO (13:13)
[2023-06-17 13:59] VITALS: BP 115/57; PULSE 111; O2SAT 97
[2023-06-17 15:20] VITALS: BP 104/58; PULSE 104; RESP 20; TEMP 36.7; O2SAT 99
[2023-06-17 16:35] LABS: Glucose, Whole Blood 134 mg/dL (60-115)
[2023-06-17] MEDS: Loperamide HCl 2 MG CAPSULE PO (16:39)
--- NOTE | 2023-06-17 16:45 | MHC.SL.SWA ---
Speech Pathologist Impression: Risk of aspiration, oropharyngeal dysphagia Risk of Aspiration Due to: Neurological Condition Dysphasia Diet Status: Downgrade to HTL. Pt is edentulous. Recommend total supervision during PO intake, provide assistance as needed throughout meal and ensure aspiration precautions. Liquid Consistency and Strategies for Safe Swallow: Liquid Intake Recommendation: Honey Thick Liquid Intake Strategies: Small Sips No Straws Solid Food Consistency: Dietary Recommendations: Pureed (NDD1) Additional Modifications to Solid Foods: Notified team (MD, RN, RD) via [place] Message. Diet order updated by PODODERMATOLOGIST. Oral Medication Intake: Crushed with Puree Please contact the pharmacy regarding appropriate crushable or liquid drug formulations that are available whenever modified delivery is recommended. Compensatory Strategies and Precautions to be Taken for Safe Swallow: Sitting Upright (90 deg) No Straw Small Bites and Sips Rate of Ingestion Change Avoid Specific Foods Supervision While Eating and Drinking for Safe Swallow: Total Supervision (1:1) Foods to Avoid: Mixed textures Swallowing Recommended Treatments: Compens. Strategy Educat. Recommendation for Speech: Inpatient Speech Therapy Comment: Pt w/ hx CVA, now here w/ new onset seizure. PODODERMATOLOGIST to follow as needed during hospitalization. Microarray Specialist Clinican/Clinical Fellow: No Supervisory Statement: I have reviewed and agree with the student/clinical fellow's documentation: N/A Speech Language Pathologist: Sarah Dumont M.A., CCC-PODODERMATOLOGIST
[2023-06-17 19:56] LABS: Glucose, Whole Blood 130 mg/dL (60-115)
[2023-06-17] MEDS: Enoxaparin Sodium 40 MG/0.4 ML SYRINGE SUBCUT (21:08)
[2023-06-17] MEDS: traZODone HCL 100 MG TABLET PO (21:08)
[2023-06-17 23:27] VITALS: BP 128/74; PULSE 100; RESP 18; TEMP 36.5; O2SAT 98
[2023-06-18 07:18] VITALS: BP 127/53; PULSE 100; RESP 18; TEMP 36.1; O2SAT 94
[2023-06-18 08:05] LABS: Glucose, Whole Blood 109 mg/dL (60-115)
--- NOTE | 2023-06-18 08:14 | HO.PM.IMPN ---
Subjective Subjective Date of Service: 06/18/23 Interval History: no complaints Physical Exam Vital Signs: Vital Signs: Last Vital Signs Temp 97.0 F 06/18/23 07:18 Pulse 100 06/18/23 07:18 Resp 18 06/18/23 07:18 BP 127/53 L 06/18/23 07:18 Pulse Ox 94 06/18/23 07:18 O2 Del Method Room Air 06/18/23 07:18 O2 Flow Rate 98 06/13/23 22:09 BMI result Body Mass Index 19.6 Const: General: alert and awake Resp: Effort & Inspection: normal respiratory effort Auscultation: clear to auscultation bilaterally Cardio: Rate: tachycardic Rhythm: regular rhythm Extrem: General: No clubbing, No cyanosis and No pedal edema Objective Data Active Medications Acetaminophen (Acetaminophen 325 Mg Tablet) 650 mg PO Q6H PRN PRN Reason: Pain, Mild (Pain Scale 1-3) Last Admin: 06/17/23 13:13 Dose: 650 mg Documented By: GUILHERME Dextrose (Dextrose 50 % 25 Gm/50 Ml Syringe) 25 gm IVPUSH Q15M PRN; Protocol PRN Reason: per Hypoglycemia Standing Ord. Enoxaparin Sodium (Enoxaparin Sodium 40 Mg/0.4 Ml Syringe) 40 mg SUBCUT Q24H [facility] Last Admin: 06/17/23 21:08 Dose: 40 mg Documented By: DIOMEDES Escitalopram Oxalate (Escitalopram Oxalate 10 Mg Tablet) 10 mg PO DAILY [facility] Last Admin: 06/17/23 08:38 Dose: 10 mg Documented By: GUILHERME Glucose (Glucose Gel 15 Gm Gel..Gram.) 15 gm PO Q15M PRN; Protocol PRN Reason: per Hypoglycemia Standing Ord. Insulin Human Lispro (Insulin Lispro 100 Unit/Ml 3 Ml Vial) 0 unit SUBCUT QIDACHS [facility]; Protocol Last Admin: 06/18/23 08:06 Dose: Not Given Documented By: GUILHERME Non-Admin Reason: No Insulin Coverage Levetiracetam (Levetiracetam 500 Mg Tablet) 500 mg PO BID [facility] Last Admin: 06/17/23 21:08 Dose: 500 mg Documented By: DIOMEDES Loperamide HCl (Loperamide Hcl 2 Mg Capsule) 2 mg PO Q4H PRN PRN Reason: diasrrhea Last Admin: 06/17/23 16:39 Dose: 2 mg Documented By: GUILHERME Lorazepam (Lorazepam 0.5 Mg Tablet) 0.5 mg PO DAILY PRN PRN Reason: anxiety Lorazepam (Lorazepam 2 Mg/Ml Vial) 1 mg IVPUSH ONCE PRN PRN Reason: anxiety/restlessness Last Admin: 06/15/23 11:33 Dose: 1 mg Documented By: KYLEIGH Melatonin (Melatonin 3 Mg Tablet) 6 mg PO BEDTIME PRN PRN Reason: Insomnia Ondansetron HCl (Ondansetron Hcl 4 Mg/2 Ml Vial) 4 mg IVPUSH Q8H PRN PRN Reason: Nausea and Vomiting Sodium Chloride (0.9 % Sodium Chloride Flush 3 Ml Syringe) 3 ml IVFLUSH QSHIFT [facility] Last Admin: 06/17/23 21:09 Dose: 3 ml Documented By: TARAHORALLiberty Trazodone HCl (Trazodone Hcl 100 Mg Tablet) 100 mg PO BEDTIME [facility] Last Admin: 06/17/23 21:08 Dose: 100 mg Documented By: DIOMEDES Valsartan (Valsartan 80 Mg Tablet) 80 mg PO DAILY [facility] Last Admin: 06/17/23 08:38 Dose: 80 mg Documented By: GUILHERME Labs 06/13/23 18:55 06/16/23 05:13 Labs: Laboratory Results - last 24 hr 06/17/23 06/17/23 06/17/23 11:20 16:28 19:52 POC Glucose 159 H 134 H 130 H 06/18/23 07:51 POC Glucose 109 Assessment and Plan (1) Proctitis: Status: Acute (2) New onset seizure: Status: Acute (3) Lung mass: Status: Acute Plan 67F PMH htn, cva, dm, gerd, lung mass (patient did not follow up for work up), presented with seizure acute Toxic metabolic encephalopathy resolved Acute seizure concern for brain mets MRI had lot of artifacts from movements, no clear metastasis noted but small mets can not be totally excluded. 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 Quality Stroke Does the patient have a stroke diagnosis?: No VTE Prior VTE?: No VTE Risk Level:: Medical - moderate - high VTE Device Contraindication: Treatment Not Indicated VTE Drug Contraindication: N/A - Med Ordered
[2023-06-18] MEDS: Valsartan 80 MG TABLET PO (08:34)
[2023-06-18] MEDS: Escitalopram Oxalate 10 MG TABLET PO (08:34)
[2023-06-18] MEDS: levETIRAcetam 500 MG TABLET PO ×2 (08:34→21:00)
[2023-06-18] MEDS: 0.9 % Sodium Chloride Flush 3 ML SYRINGE IVFLUSH ×3 (08:35→21:00)
[2023-06-18 09:42] VITALS: BP 127/53; PULSE 100; O2SAT 94
[2023-06-18 11:06] LABS: Glucose, Whole Blood 188 mg/dL (60-115)
--- NOTE | 2023-06-18 12:07 | MHC.SL.DTX ---
Dysphagia Diet modifications: Last documented Solid diet consistencies: Pureed (NDD1) Last documented Liquid consistency: Honey Thick Changes made to current diet?: Yes: Downgrade to HTL Liquid Consistency and Strategies: Liquid Intake Recommendation: Honey Thick Compensatory Strategies for Safe Swallow: Small Sips No Straws Compensatory Strategies for Safe Swallow(b): Sitting Upright (90 deg) No Straw Small Bites and Sips Rate of Ingestion Change Avoid Specific Foods Solid Food Consistency: Dietary Recommendations: Pureed (NDD1) Additional Modifications to Solids: Notified team (MD, RN, RD) via [place] Message. Oral Medication Intake: Crushed with Puree Strategies and Precautions to be Taken for Safe Swallow: Sitting Upright (90 deg) No Straw Small Bites and Sips Rate of Ingestion Change Avoid Specific Foods Supervision While Eating and/Drinking: Total Supervision (1:1) Foods to Avoid: Mixed textures Swallowing Recommended Treatments: Compens. Strategy Educat. Recommendation for Speech: Inpatient Speech Therapy Comment: Pt w/ hx CVA, now here w/ new onset seizure. COMPUTER SYSTEMS HARDWARE ANALYST to follow as needed during hospitalization. Frequency/Duration: Date Range for Service Req: Timeline to reassess: Additional Comments: Pt w/ hx CVA, here w/ new onset seizure Treatment: Pt downgraded to Honey-Thick Liquids yesterday by COMPUTER SYSTEMS HARDWARE ANALYST. Pt is in her recliner chair and using her phone to look up electric wheelchairs. She is pleasant, but remains slightly confused. She has Thin Liquid water on her bedside table. Her board is updated with her current recommendations for Honey-Thick Liquids and Puree Solids. Pt is provided sips of Thin Liquids resulting in an immediate cough response highly likely to have been brought on by aspiration. She is provided Honey-Thick Liquids in a cup with a spoon. She was able to tolerate this texture with no overt s/s of aspiration. She did demonstrate throat clearance with Puree Solids, but this may have been effected by her previous aspiration event. Per COMPUTER SYSTEMS HARDWARE ANALYST who evaluated her on Saturday, this is a significant change from her initial presentation. She was recently started on Keppra, which can worsen/cause dysphagia in some cases. Pt would benefit from an MBSS to rule-out aspiration. Consider changing Keppra to alternative or lessening dosage. COMPUTER SYSTEMS HARDWARE ANALYST will relay to MD. Continue Honey-Thick Liquids and Puree Solids. Monitor under close supervision to assess for overt s/s of aspiration during meals. Biomedical Service Engineer Clinican/Clinical Fellow: No Supervisory Statement: I have reviewed and agree with the student/clinical fellow's documentation: N/A Speech Language Pathologist: Wenceslao Al M.A., CCC-COMPUTER SYSTEMS HARDWARE ANALYST
[2023-06-18 15:51] VITALS: BP 100/62; PULSE 107; RESP 20; TEMP 36; O2SAT 99
[2023-06-18] MEDS: Acetaminophen 325 MG TABLET 650 MG PO (15:56)
[2023-06-18 16:25] LABS: Glucose, Whole Blood 168 mg/dL (60-115)
[2023-06-18 19:43] VITALS: BP 165/85; PULSE 104; RESP 20; TEMP 36; O2SAT 99
[2023-06-18 20:36] LABS: Glucose, Whole Blood 199 mg/dL (60-115)
[2023-06-18] MEDS: Insulin Lispro 100 UNIT/ML 3 ML VIAL SUBCUT (21:00)
[2023-06-18] MEDS: traZODone HCL 100 MG TABLET PO (21:00)
[2023-06-18] MEDS: Enoxaparin Sodium 40 MG/0.4 ML SYRINGE SUBCUT (22:17)
[2023-06-19 00:14] VITALS: BP 105/58; PULSE 110; RESP 18; TEMP 36.4; O2SAT 96
[2023-06-19 07:30] VITALS: BP 109/60; PULSE 100; RESP 18; TEMP 36.4; O2SAT 99
[2023-06-19 08:00] LABS: Glucose, Whole Blood 103 mg/dL (60-115)
[2023-06-19] MEDS: levETIRAcetam 500 MG TABLET PO ×2 (08:40→20:20)
[2023-06-19] MEDS: Escitalopram Oxalate 10 MG TABLET PO (08:40)
[2023-06-19] MEDS: Valsartan 80 MG TABLET PO (08:40)
--- NOTE | 2023-06-19 08:50 | P.PNIM_ITS ---
Subjective Subjective Date of Service: 06/19/23 Interval History: no complaints Physical Exam 2 Vital Signs: Vital Signs: Last Vital Signs Temp 97.5 F 06/19/23 07:30 Pulse 100 06/19/23 07:30 Resp 18 06/19/23 07:30 BP 109/60 06/19/23 07:30 Pulse Ox 99 06/19/23 07:30 O2 Del Method Room Air 06/19/23 07:30 O2 Flow Rate 98 06/13/23 22:09 BMI result Body Mass Index 19.6 Const: General: alert and awake Resp: Effort & Inspection: normal respiratory effort Auscultation: clear to auscultation bilaterally Cardio: Rate: tachycardic Rhythm: regular rhythm Extrem: General: No clubbing, No cyanosis and No pedal edema Objective Data Active Medications Acetaminophen (Acetaminophen 325 Mg Tablet) 650 mg PO Q6H PRN PRN Reason: Pain, Mild (Pain Scale 1-3) Last Admin: 06/18/23 15:56 Dose: 650 mg Documented By: GUILHERME Dextrose (Dextrose 50 % 25 Gm/50 Ml Syringe) 25 gm IVPUSH Q15M PRN; Protocol PRN Reason: per Hypoglycemia Standing Ord. Enoxaparin Sodium (Enoxaparin Sodium 40 Mg/0.4 Ml Syringe) 40 mg SUBCUT Q24H [facility] Last Admin: 06/18/23 22:17 Dose: 40 mg Documented By: DIOMEDES Escitalopram Oxalate (Escitalopram Oxalate 10 Mg Tablet) 10 mg PO DAILY [facility] Last Admin: 06/19/23 08:40 Dose: 10 mg Documented By: RAUL Glucose (Glucose Gel 15 Gm Gel..Gram.) 15 gm PO Q15M PRN; Protocol PRN Reason: per Hypoglycemia Standing Ord. Insulin Human Lispro (Insulin Lispro 100 Unit/Ml 3 Ml Vial) 0 unit SUBCUT QIDACHS [facility]; Protocol Last Admin: 06/19/23 08:17 Dose: Not Given Documented By: RAUL Non-Admin Reason: See Note Levetiracetam (Levetiracetam 500 Mg Tablet) 500 mg PO BID [facility] Last Admin: 06/19/23 08:40 Dose: 500 mg Documented By: RAUL Loperamide HCl (Loperamide Hcl 2 Mg Capsule) 2 mg PO Q4H PRN PRN Reason: diasrrhea Last Admin: 06/17/23 16:39 Dose: 2 mg Documented By: GUILHERME Lorazepam (Lorazepam 0.5 Mg Tablet) 0.5 mg PO DAILY PRN PRN Reason: anxiety Lorazepam (Lorazepam 2 Mg/Ml Vial) 1 mg IVPUSH ONCE PRN PRN Reason: anxiety/restlessness Last Admin: 06/15/23 11:33 Dose: 1 mg Documented By: KYLEIGH Melatonin (Melatonin 3 Mg Tablet) 6 mg PO BEDTIME PRN PRN Reason: Insomnia Ondansetron HCl (Ondansetron Hcl 4 Mg/2 Ml Vial) 4 mg IVPUSH Q8H PRN PRN Reason: Nausea and Vomiting Sodium Chloride (0.9 % Sodium Chloride Flush 3 Ml Syringe) 3 ml IVFLUSH QSHIFT [facility] Last Admin: 06/19/23 07:22 Dose: Not Given Documented By: RAUL Non-Admin Reason: See Note Trazodone HCl (Trazodone Hcl 100 Mg Tablet) 100 mg PO BEDTIME [facility] Last Admin: 06/18/23 21:00 Dose: 100 mg Documented By: TARAHORALB Valsartan (Valsartan 80 Mg Tablet) 80 mg PO DAILY [facility] Last Admin: 06/19/23 08:40 Dose: 80 mg Documented By: RAUL Labs 06/13/23 18:55 06/16/23 05:13 Labs: Laboratory Results - last 24 hr 06/18/23 06/18/23 06/18/23 10:56 16:18 20:32 POC Glucose 188 H 168 H 199 H 06/19/23 07:33 POC Glucose 103 Assessment and Plan (1) Proctitis: Status: Acute (2) New onset seizure: Status: Acute (3) Lung mass: Status: Acute Plan 67F PMH htn, cva, dm, gerd, lung mass (patient did not follow up for work up), presented with seizure acute Toxic metabolic encephalopathy resolved Acute seizure concern for brain mets MRI had lot of artifacts from movements, no clear metastasis noted but small mets can not be totally excluded. 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 Quality Stroke Does the patient have a stroke diagnosis?: No VTE Prior VTE?: No VTE Risk Level:: Medical - moderate - high VTE Device Contraindication: Treatment Not Indicated VTE Drug Contraindication: N/A - Med Ordered
[2023-06-19 11:09] LABS: Glucose, Whole Blood 157 mg/dL (60-115)
[2023-06-19] MEDS: Insulin Lispro 100 UNIT/ML 3 ML VIAL SUBCUT ×2 (11:28→20:26)
[2023-06-19 12:38] VITALS: BP 109/60; PULSE 100; O2SAT 99
--- NOTE | 2023-06-19 15:25 | MHC.CM.PN ---
per rounds pt not ready for dc pt to have biopsy w/bronch tomorrow not dc ready
[2023-06-19 15:33] VITALS: BP 111/57; PULSE 99; RESP 20; TEMP 36; O2SAT 97
[2023-06-19 16:23] LABS: Glucose, Whole Blood 125 mg/dL (60-115)
--- NOTE | 2023-06-19 17:30 | MHC.SL.SWA ---
Speech Pathologist Impression: Risk of Aspiration Due to: Neurological Condition Weak Voice Weak Cough Dysphasia Diet Status: Recommend MBS Liquid Consistency and Strategies for Safe Swallow: Liquid Intake Recommendation: Honey Thick Liquid Intake Strategies: Small Sips No Straws Solid Food Consistency: Dietary Recommendations: Pureed (NDD1) Oral Medication Intake: Crushed with Puree Please contact the pharmacy regarding appropriate crushable or liquid drug formulations that are available whenever modified delivery is recommended. Compensatory Strategies and Precautions to be Taken for Safe Swallow: Sitting Upright (90 deg) No Straw Small Bites and Sips Rate of Ingestion Change Avoid Specific Foods Supervision While Eating and Drinking for Safe Swallow: Total Supervision (1:1) Foods to Avoid: Mixed textures Swallowing Recommended Treatments: Compens. Strategy Educat. Recommendation for Speech: Inpatient Speech Therapy MBS Recommend patient continue on honey thick liquids (NO STRAW) and pureed solids with cues to bear down and swallow hard to minimize/eliminate s/s aspiration. Pills crushed in puree. Recommend TOTAL SUPERVISION to assess for overt s/s of aspiration during meals, ensure aspiration precautions, and provide assistance as needed throughout meal. Recommend MBS d/t risk of aspiration and unprotected airway w/ weak cough and overt s/s aspiration during PO trials w/ MOTORCYCLE SUBASSEMBLER consistent for last 3 days. Per , YULI ordered. Pet Technologist Clinican/Clinical Fellow: No Supervisory Statement: I have reviewed and agree with the student/clinical fellow's documentation: N/A Speech Language Pathologist: Marybel Martinez M.A., [facility]-MOTOR[employer] SUBASSEMBLER
[2023-06-19] MEDS: 0.9 % Sodium Chloride Flush 3 ML SYRINGE IVFLUSH (19:13)
[2023-06-19 20:00] VITALS: BP 164/78; PULSE 107; RESP 19; TEMP 36.4; O2SAT 96
[2023-06-19 20:10] LABS: Glucose, Whole Blood 178 mg/dL (60-115)
[2023-06-19] MEDS: traZODone HCL 100 MG TABLET PO (20:20)
[2023-06-19] MEDS: Enoxaparin Sodium 40 MG/0.4 ML SYRINGE SUBCUT (23:38)
[2023-06-20 03:06] VITALS: BP 141/61; PULSE 110; RESP 16; TEMP 36.2; O2SAT 97
[2023-06-20 07:39] VITALS: BP 134/61; PULSE 105; RESP 18; TEMP 36.4; O2SAT 98
[2023-06-20 07:43] LABS: Glucose, Whole Blood 108 mg/dL (60-115)
[2023-06-20] MEDS: Escitalopram Oxalate 10 MG TABLET PO (08:37)
[2023-06-20] MEDS: levETIRAcetam 500 MG TABLET PO ×2 (08:37→22:52)
[2023-06-20] MEDS: 0.9 % Sodium Chloride Flush 3 ML SYRINGE IVFLUSH ×3 (08:37→19:56)
[2023-06-20] MEDS: Valsartan 80 MG TABLET PO (08:37)
[2023-06-20 10:38] VITALS: BP 134/61; PULSE 105; O2SAT 98
--- NOTE | 2023-06-20 10:58 | HO.PM.IMPN ---
Subjective Subjective Date of Service: 06/20/23 Interval History: Seen and evaluated alert, interactive, having breakfast No reported seizures overnight Physical Exam Vital Signs: Vital Signs: Last Vital Signs Temp 97.5 F 06/20/23 07:39 Pulse 105 H 06/20/23 10:38 Resp 18 06/20/23 07:39 BP 134/61 06/20/23 10:38 Pulse Ox 98 06/20/23 10:38 O2 Del Method Room Air 06/20/23 07:39 O2 Flow Rate 98 06/13/23 22:09 BMI result Body Mass Index 19.6 Const: Other: Constitutional : alert, not in distress Neck : Normal inspection, Supple Cardiovascular : RRR, no JVP, no lower extremity edema Respiratory : good bilateral air entry, no crackles, scatterred wheezes Gastrointestinal: soft, lax, Normal bowel sounds, Non tender Skin : Warm, Dry Neurological : alert , oriented , no abnormal movements, No focal deficit Objective Data Active Medications Acetaminophen (Acetaminophen 325 Mg Tablet) 650 mg PO Q6H PRN PRN Reason: Pain, Mild (Pain Scale 1-3) Last Admin: 06/18/23 15:56 Dose: 650 mg Documented By: GUILHERME Dextrose (Dextrose 50 % 25 Gm/50 Ml Syringe) 25 gm IVPUSH Q15M PRN; Protocol PRN Reason: per Hypoglycemia Standing Ord. Enoxaparin Sodium (Enoxaparin Sodium 40 Mg/0.4 Ml Syringe) 40 mg SUBCUT Q24H [facility] Last Admin: 06/19/23 23:38 Dose: 40 mg Documented By: ALVIN Escitalopram Oxalate (Escitalopram Oxalate 10 Mg Tablet) 10 mg PO DAILY [facility] Last Admin: 06/20/23 08:37 Dose: 10 mg Documented By: JOSELUIS Glucose (Glucose Gel 15 Gm Gel..Gram.) 15 gm PO Q15M PRN; Protocol PRN Reason: per Hypoglycemia Standing Ord. Insulin Human Lispro (Insulin Lispro 100 Unit/Ml 3 Ml Vial) 0 unit SUBCUT QIDACHS [facility]; Protocol Last Admin: 06/20/23 07:54 Dose: Not Given Documented By: JOSELUIS Non-Admin Reason: No Insulin Coverage Levetiracetam (Levetiracetam 500 Mg Tablet) 500 mg PO BID [facility] Last Admin: 06/20/23 08:37 Dose: 500 mg Documented By: JOSELUIS Loperamide HCl (Loperamide Hcl 2 Mg Capsule) 2 mg PO Q4H PRN PRN Reason: diasrrhea Last Admin: 06/17/23 16:39 Dose: 2 mg Documented By: GUILHERME Lorazepam (Lorazepam 0.5 Mg Tablet) 0.5 mg PO DAILY PRN PRN Reason: anxiety Lorazepam (Lorazepam 2 Mg/Ml Vial) 1 mg IVPUSH ONCE PRN PRN Reason: anxiety/restlessness Last Admin: 06/15/23 11:33 Dose: 1 mg Documented By: KYLEIGH Melatonin (Melatonin 3 Mg Tablet) 6 mg PO BEDTIME PRN PRN Reason: Insomnia Ondansetron HCl (Ondansetron Hcl 4 Mg/2 Ml Vial) 4 mg IVPUSH Q8H PRN PRN Reason: Nausea and Vomiting Sodium Chloride (0.9 % Sodium Chloride Flush 3 Ml Syringe) 3 ml IVFLUSH QSHIFT [facility] Last Admin: 06/20/23 08:37 Dose: 3 ml Documented By: JOSELUIS Trazodone HCl (Trazodone Hcl 100 Mg Tablet) 100 mg PO BEDTIME [facility] Last Admin: 06/19/23 20:20 Dose: 100 mg Documented By: ALVIN Valsartan (Valsartan 80 Mg Tablet) 80 mg PO DAILY [facility] Last Admin: 06/20/23 08:37 Dose: 80 mg Documented By: JOSELUIS Labs 06/13/23 18:55 06/16/23 05:13 Labs: Laboratory Results - last 24 hr 06/19/23 06/19/23 06/19/23 11:05 16:07 20:06 POC Glucose 157 H 125 H 178 H 06/20/23 07:38 POC Glucose 108 Assessment and Plan (1) Mediastinal lymphadenopathy: Status: Acute (2) New onset seizure: Status: Acute (3) Lung mass: Status: Acute Plan 67F PMH htn, cva, dm, gerd, lung mass (patient did not follow up for work up), presented with seizure acute Toxic metabolic encephalopathy resolved Acute seizure concern for brain mets MRI had lot of artifacts from movements, no clear metastasis noted but small mets can not be totally excluded. 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 Quality Stroke Does the patient have a stroke diagnosis?: No VTE Prior VTE?: No VTE Risk Level:: Medical - moderate - high VTE Device Contraindication: Treatment Not Indicated VTE Drug Contraindication: N/A - Med Ordered
[2023-06-20 11:30] LABS: Glucose, Whole Blood 155 mg/dL (60-115)
[2023-06-20] MEDS: Insulin Lispro 100 UNIT/ML 3 ML VIAL SUBCUT ×3 (11:40→22:50)
--- NOTE | 2023-06-20 13:58 | MHC.SL.SWA ---
Speech Pathologist Impression: Risk of Aspiration Due to: Neurological Condition Dysphasia Diet Status: Recommend patient continue on honey thick liquids and pureed solids with cues to swallow hard to minimize/eliminate s/s aspiration. Pills crushed in puree. Liquid Consistency and Strategies for Safe Swallow: Liquid Intake Recommendation: Honey Thick Liquid Intake Strategies: Small Sips No Straws Solid Food Consistency: Dietary Recommendations: Pureed (NDD1) Additional Modifications to Solid Foods: Oral Medication Intake: Crushed with Puree Please contact the pharmacy regarding appropriate crushable or liquid drug formulations that are available whenever modified delivery is recommended. Compensatory Strategies and Precautions to be Taken for Safe Swallow: Sitting Upright (90 deg) No Straw Small Bites and Sips Rate of Ingestion Change Avoid Specific Foods Supervision While Eating and Drinking for Safe Swallow: Total Supervision (1:1) Foods to Avoid: Mixed textures Swallowing Recommended Treatments: Compens. Strategy Educat. Recommendation for Speech: Inpatient Speech Therapy Comment: Patient seen during lunch for toleration of diet and re-assessment. Patient was seated in chair, awake, alert and pleasantly conversant. HYDROGENATION STILL OPERATOR brought in coffee that had been requested, however consistency was too thin, and TRACK WALKER adjusted to Honey Thick. Patient was observed taking bites of mashed potatoes with gravy, which was the preferred food on her tray, with patient saying she didn't care for the other stuff. Patient produced a timely oral phase, mild delay of swallow, complete oral clearance, no clinical signs of aspiration. TRACK WALKER observed patient taking sips of honey thick coffee, with timely oral phase, timely swallow, no clinical signs of aspiration. TRACK WALKER trialed nectar thick consistency, with patient initially presenting with timely swallow, however on further sips, noted wet vocal quality after swallow, and an episode of coughing. Patient was recommended/referred for MBSS, which was anticipated for tomorrow, however chart indicates patient is also scheduled for Bronchoscopy tomorrow and will be NPO. MBSS study may need to be done as out patient and it is still recommended for further assessment of swallow, possible aspiration. Recommend continuation of dysphagia treatment at next level of care. Frequency/Duration: Date Range for Service Req: Timeline to reassess: Reliner Clinican/Clinical Fellow: No Supervisory Statement: I have reviewed and agree with the student/clinical fellow's documentation: N/A Speech Language Pathologist: Krystina Miles M.A., CCC-TRACK WALKER
[2023-06-20 15:37] VITALS: BP 115/60; PULSE 111; RESP 20; TEMP 36; O2SAT 100
[2023-06-20 16:07] LABS: Glucose, Whole Blood 163 mg/dL (60-115)
[2023-06-20 20:00] VITALS: BP 118/59; PULSE 113; RESP 20; TEMP 36; O2SAT 98
[2023-06-20 20:51] LABS: Glucose, Whole Blood 155 mg/dL (60-115)
[2023-06-20] MEDS: traZODone HCL 100 MG TABLET PO (22:52)
[2023-06-21] VITALS (12 sets, daily range): BP systolic 115–169; BP diastolic 55–88; PULSE 86–108; RESP 14–20; TEMP 36.3–36.8; O2SAT 94–100
[2023-06-21 05:37] LABS: Prothrombin Time 11.9 SEC (11.1-13.3)
[2023-06-21 05:44] LABS: Anion Gap 12 (12-20); Blood Urea Nitrogen 7 mg/dL (9-16); Calcium 8.9 mg/dL (8.4-10.2); Carbon Dioxide 24 mmol/L (22-29); Chloride 109 mmol/L (96-108); Creatinine Clr Calc Pharmacy 63.7; Estimated Glomerular Filt Rate > 60; Glucose Random 117 mg/dL (60-115); Potassium 4.2 mmol/L (3.3-5.1); Sodium 141 mmol/L (135-145)
[2023-06-21 07:54] LABS: Glucose, Whole Blood 118 mg/dL (60-115)
--- NOTE | 2023-06-21 08:44 | MHC.SLORD ---
Speech Language Pathology Order Status: Patient was recommended/referred for MBSS by SHUTTLER, radiologist unavailable yesterday, today pt is NPO for bronch, which is scheduled for the afternoon. MBSS study is still recommended for further assessment of swallow, possible aspiration; per MD, to be ordered outpatient. Recommend continuation of dysphagia treatment at next level of care.
--- NOTE | 2023-06-21 10:54 | PC.NURSE ---
Pt refused to allow this RN to flush IV. States later. I am getting so frustrtaed with being here and need some answers This RN reassured pt of plan for the day regarding Bronchoscopy. Report given to Mike in preop
[2023-06-21 11:46] LABS: Glucose, Whole Blood 133 mg/dL (60-115)
--- NOTE | 2023-06-21 12:36 | HO.PM.IMPN ---
Subjective Subjective Date of Service: 06/21/23 Interval History: Seen and evaluated alert, interactive, waiting for Bronchoscopy No reported seizures overnight Review of Systems Review of Systems: Yes all other systems are reviewed and are negative Physical Exam Vital Signs: Vital Signs: Last Vital Signs Temp 97.4 F 06/21/23 08:00 Pulse 108 H 06/21/23 08:00 Resp 18 06/21/23 08:00 BP 124/69 06/21/23 08:00 Pulse Ox 96 06/21/23 08:00 O2 Del Method Room Air 06/21/23 08:00 O2 Flow Rate 98 06/13/23 22:09 BMI result Body Mass Index 19.6 Const: Other: Constitutional : alert, not in distress Neck : Normal inspection, Supple Cardiovascular : RRR, no JVP, no lower extremity edema Respiratory : good bilateral air entry, no crackles, scatterred wheezes Gastrointestinal: soft, lax, Normal bowel sounds, Non tender Skin : Warm, Dry Neurological : alert , oriented , no abnormal movements, No focal deficit Objective Data Active Medications Acetaminophen (Acetaminophen 325 Mg Tablet) 650 mg PO Q6H PRN PRN Reason: Pain, Mild (Pain Scale 1-3) Last Admin: 06/18/23 15:56 Dose: 650 mg Documented By: GUILHERME Dextrose (Dextrose 50 % 25 Gm/50 Ml Syringe) 25 gm IVPUSH Q15M PRN; Protocol PRN Reason: per Hypoglycemia Standing Ord. Enoxaparin Sodium (Enoxaparin Sodium 40 Mg/0.4 Ml Syringe) 40 mg SUBCUT Q24H [facility] Last Admin: 06/19/23 23:38 Dose: 40 mg Documented By: ALVIN Escitalopram Oxalate (Escitalopram Oxalate 10 Mg Tablet) 10 mg PO DAILY [facility] Last Admin: 06/21/23 11:46 Dose: Not Given Documented By: TREVIN Non-Admin Reason: NPO Glucose (Glucose Gel 15 Gm Gel..Gram.) 15 gm PO Q15M PRN; Protocol PRN Reason: per Hypoglycemia Standing Ord. Insulin Human Lispro (Insulin Lispro 100 Unit/Ml 3 Ml Vial) 0 unit SUBCUT QIDACHS [facility]; Protocol Last Admin: 06/21/23 11:46 Dose: Not Given Documented By: TREVIN Non-Admin Reason: No Insulin Coverage Levetiracetam (Levetiracetam 500 Mg Tablet) 500 mg PO BID [facility] Last Admin: 06/21/23 11:46 Dose: Not Given Documented By: TREVIN Non-Admin Reason: NPO Loperamide HCl (Loperamide Hcl 2 Mg Capsule) 2 mg PO Q4H PRN PRN Reason: diasrrhea Last Admin: 06/17/23 16:39 Dose: 2 mg Documented By: GUILHERME Lorazepam (Lorazepam 0.5 Mg Tablet) 0.5 mg PO DAILY PRN PRN Reason: anxiety Lorazepam (Lorazepam 2 Mg/Ml Vial) 1 mg IVPUSH ONCE PRN PRN Reason: anxiety/restlessness Last Admin: 06/15/23 11:33 Dose: 1 mg Documented By: GRAZMILENA Melatonin (Melatonin 3 Mg Tablet) 6 mg PO BEDTIME PRN PRN Reason: Insomnia Ondansetron HCl (Ondansetron Hcl 4 Mg/2 Ml Vial) 4 mg IVPUSH Q8H PRN PRN Reason: Nausea and Vomiting Sodium Chloride (0.9 % Sodium Chloride Flush 3 Ml Syringe) 3 ml IVFLUSH QSHIFT [facility] Last Admin: 06/21/23 11:46 Dose: Not Given Documented By: TREVIN Non-Admin Reason: Patient Refused Trazodone HCl (Trazodone Hcl 100 Mg Tablet) 100 mg PO BEDTIME [facility] Last Admin: 06/20/23 22:52 Dose: 100 mg Documented By: ALVIN Valsartan (Valsartan 80 Mg Tablet) 80 mg PO DAILY [facility] Last Admin: 06/21/23 11:46 Dose: Not Given Documented By: TREVIN Non-Admin Reason: NPO Labs 06/13/23 18:55 06/21/23 05:03 Labs: Laboratory Results - last 24 hr 06/20/23 06/20/23 06/21/23 16:04 20:42 05:03 PT 11.9 INR 1.0 Anion Gap 12 Estim Creat Clear Calc 63.7 Estimated GFR > 60 POC Glucose 163 H 155 H Random Glucose 117 H Calcium 8.9 06/21/23 06/21/23 07:45 11:36 PT INR Anion Gap Estim Creat Clear Calc Estimated GFR POC Glucose 118 H 133 H Random Glucose Calcium Assessment and Plan (1) Swallowing problem: Status: Acute (2) Mediastinal lymphadenopathy: Status: Acute (3) New onset seizure: Status: Acute Plan 67F PMH htn, cva, dm, gerd, lung mass (patient did not follow up for work up), presented with seizure acute Toxic metabolic encephalopathy resolved Acute seizure concern for brain mets MRI had lot of artifacts from movements, no clear metastasis noted but small mets can not be totally excluded. 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 Quality Stroke Does the patient have a stroke diagnosis?: No VTE Prior VTE?: No VTE Risk Level:: Medical - moderate - high VTE Device Contraindication: Treatment Not Indicated VTE Drug Contraindication: N/A - Med Ordered
--- NOTE | 2023-06-21 13:14 | HO.ANESPROP2 ---
HPI - Anesthesia Eval Consult details Narrative: for endo bronchial ultrasound PMFSH Active Problems Active Problems: All Active Problems (Updated 06/20/23 @ 16:26 by Yesy Osorio MD) Swallowing problem (Acute) Mediastinal lymphadenopathy (Acute) Proctitis (Acute) Bronchitis (Acute) New onset seizure (Acute) Lung mass (Acute) New onset seizure with history of head trauma (Acute) Screening for hyperlipidemia (Acute) Anemia (Acute) Rectal mass (Acute) Acute UTI (Acute) Rectal mass (Acute) Unintentional weight loss (Acute) Mass of upper lobe of left lung (Acute) Abnormal vaginal bleeding (Acute) Discharge of vagina (Acute) Lung mass (Acute) Shortness of breath (Acute) Meralgia paresthetica of right side (Acute) Leg pain (Acute) Encounter for annual routine gynecological examination (Acute) Vaginal irritation (Acute) CVA (cerebral vascular accident) (Acute) Encounter for Medicare annual wellness exam (Acute) GERD (gastroesophageal reflux disease) (Acute) Diabetes mellitus (Acute) Essential hypertension (Acute) Past Medical History Medical History (Updated 06/20/23 @ 16:26 by Yesy Osorio MD) Bronchitis History of gastric ulcer Stroke Diabetes mellitus Essential hypertension Family History Family History Mother Hypertension Father No problems noted. Family history of problems with anesthesia: No Surgical History Surgical History Hx of colonoscopy No pertinent past surgical history History of Problems with Anesthesia: No Social History Social History Household Members: Spouse Housing: House Do you presently have visiting nurse or other home services: No Alcohol intake: never Patient Tobacco Use Status: Former Tobacco user Quit Date: Quit a month ago Tobacco use type: Cigarette Years Smoked: 30 Smoked in Last 30 Days: No e-Cigarette/Vaping Use: Never Used Second Hand Smoke Exposure: No Use of substances other than those prescribed or required for medical reasons: No Currently Displaying Signs/Symptoms of Drug Intoxication Withdrawal: No Have you been hit, kicked, punched, or otherwise hurt by someone within the past year? If so, by whom?: No Do you feel safe in your current relationship?: Yes Is there a partner from a previous relationship who is making you feel unsafe now?: No Are you made to feel afraid or neglected: No Are you DNR?: No Advance Directives: Yes Advance Directives on File: Yes Advance Directives Date on File: 06/10/23 Do you have thoughts of harming others: None Do you have a plan to hurt others: No Plan Recently lost weight without trying: No How much weight loss: 14-23 pounds Eating poorly because of decreased appetite: No Nutrition screen score: 2 Nutrition Risks: No Nutritional Risk Patient : No : No Poor oral hygiene: No service: No Current occupational status: retired Cognitive needs: No Hearing needs: No Vision needs: No Meds Allergies Allergy/AdvReac Type Severity Reaction Status Date / Time codeine [CODEINE] Allergy Unknown HIVES Verified 04/03/23 11:26 morphine [MORPHINE] Allergy Unknown ITCHING, Verified 04/03/23 11:26 itchy Active Medications: Current Medications Acetaminophen (Acetaminophen 325 Mg Tablet) 650 mg PO Q6H PRN PRN Reason: Pain, Mild (Pain Scale 1-3) Last Admin: 06/18/23 15:56 Dose: 650 mg Dextrose (Dextrose 50 % 25 Gm/50 Ml Syringe) 25 gm IVPUSH Q15M PRN; Protocol PRN Reason: per Hypoglycemia Standing Ord. Enoxaparin Sodium (Enoxaparin Sodium 40 Mg/0.4 Ml Syringe) 40 mg SUBCUT Q24H [facility] Last Admin: 06/19/23 23:38 Dose: 40 mg Escitalopram Oxalate (Escitalopram Oxalate 10 Mg Tablet) 10 mg PO DAILY [facility] Last Admin: 06/21/23 11:46 Dose: Not Given Glucose (Glucose Gel 15 Gm Gel..Gram.) 15 gm PO Q15M PRN; Protocol PRN Reason: per Hypoglycemia Standing Ord. Insulin Human Lispro (Insulin Lispro 100 Unit/Ml 3 Ml Vial) 0 unit SUBCUT QIDACHS [facility]; Protocol Last Admin: 06/21/23 11:46 Dose: Not Given Levetiracetam (Levetiracetam 500 Mg Tablet) 500 mg PO BID [facility] Last Admin: 06/21/23 11:46 Dose: Not Given Loperamide HCl (Loperamide Hcl 2 Mg Capsule) 2 mg PO Q4H PRN PRN Reason: diasrrhea Last Admin: 06/17/23 16:39 Dose: 2 mg Lorazepam (Lorazepam 0.5 Mg Tablet) 0.5 mg PO DAILY PRN PRN Reason: anxiety Lorazepam (Lorazepam 2 Mg/Ml Vial) 1 mg IVPUSH ONCE PRN PRN Reason: anxiety/restlessness Last Admin: 06/15/23 11:33 Dose: 1 mg Melatonin (Melatonin 3 Mg Tablet) 6 mg PO BEDTIME PRN PRN Reason: Insomnia Ondansetron HCl (Ondansetron Hcl 4 Mg/2 Ml Vial) 4 mg IVPUSH Q8H PRN PRN Reason: Nausea and Vomiting Sodium Chloride (0.9 % Sodium Chloride Flush 3 Ml Syringe) 3 ml IVFLUSH QSHIFT [facility] Last Admin: 06/21/23 11:46 Dose: Not Given Trazodone HCl (Trazodone Hcl 100 Mg Tablet) 100 mg PO BEDTIME [facility] Last Admin: 06/20/23 22:52 Dose: 100 mg Valsartan (Valsartan 80 Mg Tablet) 80 mg PO DAILY [facility] Last Admin: 06/21/23 11:46 Dose: Not Given Home Medications Medication Instructions Recorded Confirmed Last Taken Type aspirin 81 mg tablet,delayed 81 mg PO DAILY 02/08/22 06/14/23 06/07/23 History release (Adult Low Dose Aspirin) escitalopram oxalate 10 mg tablet 10 mg PO DAILY 02/08/22 06/14/23 06/07/23 History trazodone 100 mg tablet 100 mg PO BEDTIME 06/08/23 06/14/23 06/07/23 History Exam Exam Date and Time: June 21, [id number] Height,Weight and Vital Signs: Height 5 ft 3 in Weight 50.3 kg Last Vital Signs Temp 98 F 06/21/23 13:06 Pulse 102 H 06/21/23 13:06 Resp 20 06/21/23 13:06 BP 130/68 06/21/23 13:06 Pulse Ox 98 06/21/23 13:06 O2 Del Method Room Air 06/21/23 13:06 O2 Flow Rate 98 06/13/23 22:09 Pertinent Lab Results Pertinent Lab Results: Laboratory Tests 06/13/23 06/13/23 06/14/23 18:55 20:32 01:01 WBC 6.3 RBC 3.77 L Hgb 11.7 L Hct 35.5 L MCV 94.2 MCH 31.0 MCHC 33.0 RDW 12.6 Plt Count 326 MPV 8.1 L Immature Gran % (Auto) 1.4 H Neut % (Auto) 67.5 Lymph % (Auto) 19.9 L Mckinley % (Auto) 10.7 Eos % (Auto) 0.3 Baso % (Auto) 0.2 Lymph # (Auto) 1.3 Mckinley # (Auto) 0.7 Eos # (Auto) 0.0 Baso # (Auto) 0.0 Abs Immat Gran (auto) 0.09 H Absolute Neuts (auto) 4.3 Absolute Nucleated RBC 0.000 Nucleated RBC % (auto) 0.0 PT INR Sodium 137 Potassium 3.7 Chloride 103 Carbon Dioxide 24 Anion Gap 14 BUN 9 Creatinine 0.72 Estim Creat Clear Calc 61.0 Estimated GFR > 60 POC Glucose 113 Random Glucose 111 Calcium 9.2 Total Bilirubin 0.6 AST 18 ALT 12 Alkaline Phosphatase 77 Lactate Dehydrogenase Total Protein 7.1 Albumin 3.4 L Carcinoembryonic Ag TSH 0.91 Urine Color Yellow Urine Appearance Clear Urine pH 6.0 Ur Specific Hope 1.010 Urine Protein Negative Urine Glucose (UA) Negative Urine Ketones Negative Urine Blood Negative Urine Nitrite Negative Ur Leukocyte Esterase Moderate (2+) H Urine RBC 0-2 Urine WBC 0-5 Ur Squamous Epith Cells 0-2 Urine Bacteria 4+ Hyaline Casts 0-2 Urine Opiates Screen Not Detected Urine Fentanyl Screen Not Detected Ur Barbiturates Screen Not Detected Ur Phencyclidine Scrn Not Detected Ur Amphetamines Screen Not Detected U Benzodiazepines Scrn Not Detected Urine Cocaine Screen Not Detected U Marijuana (THC) Screen Not Detected 06/14/23 06/14/23 06/14/23 04:20 07:26 11:27 WBC RBC Hgb Hct MCV MCH MCHC RDW Plt Count MPV Immature Gran % (Auto) Neut % (Auto) Lymph % (Auto) Mckinley % (Auto) Eos % (Auto) Baso % (Auto) Lymph # (Auto) Mckinley # (Auto) Eos # (Auto) Baso # (Auto) Abs Immat Gran (auto) Absolute Neuts (auto) Absolute Nucleated RBC Nucleated RBC % (auto) PT INR Sodium 136 Potassium 3.6 Chloride 108 Carbon Dioxide 19 L Anion Gap 13 BUN 6 L Creatinine 0.62 Estim Creat Clear Calc 70.8 Estimated GFR > 60 POC Glucose 84 77 Random Glucose 105 Calcium 8.6 D Total Bilirubin 0.6 AST 17 ALT 11 Alkaline Phosphatase 73 Lactate Dehydrogenase 495 H Total Protein 6.6 Albumin 2.9 L Carcinoembryonic Ag 80.00 TSH Urine Color Urine Appearance Urine pH Ur Specific Hope Urine Protein Urine Glucose (UA) Urine Ketones Urine Blood Urine Nitrite Ur Leukocyte Esterase Urine RBC Urine WBC Ur Squamous Epith Cells Urine Bacteria Hyaline Casts Urine Opiates Screen Urine Fentanyl Screen Ur Barbiturates Screen Ur Phencyclidine Scrn Ur Amphetamines Screen U Benzodiazepines Scrn Urine Cocaine Screen U Marijuana (THC) Screen 06/14/23 06/14/23 06/15/23 16:35 21:10 07:42 WBC RBC Hgb Hct MCV MCH MCHC RDW Plt Count MPV Immature Gran % (Auto) Neut % (Auto) Lymph % (Auto) Mckinley % (Auto) Eos % (Auto) Baso % (Auto) Lymph # (Auto) Mckinley # (Auto) Eos # (Auto) Baso # (Auto) Abs Immat Gran (auto) Absolute Neuts (auto) Absolute Nucleated RBC Nucleated RBC % (auto) PT INR Sodium Potassium Chloride Carbon Dioxide Anion Gap BUN Creatinine Estim Creat Clear Calc Estimated GFR POC Glucose 80 99 108 Random Glucose Calcium Total Bilirubin AST ALT Alkaline Phosphatase Lactate Dehydrogenase Total Protein Albumin Carcinoembryonic Ag TSH Urine Color Urine Appearance Urine pH Ur Specific Hope Urine Protein Urine Glucose (UA) Urine Ketones Urine Blood Urine Nitrite Ur Leukocyte Esterase Urine RBC Urine WBC Ur Squamous Epith Cells Urine Bacteria Hyaline Casts Urine Opiates Screen Urine Fentanyl Screen Ur Barbiturates Screen Ur Phencyclidine Scrn Ur Amphetamines Screen U Benzodiazepines Scrn Urine Cocaine Screen U Marijuana (THC) Screen 06/15/23 06/15/23 06/15/23 12:49 16:32 20:26 WBC RBC Hgb Hct MCV MCH MCHC RDW Plt Count MPV Immature Gran % (Auto) Neut % (Auto) Lymph % (Auto) Mckinley % (Auto) Eos % (Auto) Baso % (Auto) Lymph # (Auto) Mckinley # (Auto) Eos # (Auto) Baso # (Auto) Abs Immat Gran (auto) Absolute Neuts (auto) Absolute Nucleated RBC Nucleated RBC % (auto) PT INR Sodium Potassium Chloride Carbon Dioxide Anion Gap BUN Creatinine Estim Creat Clear Calc Estimated GFR POC Glucose 147 H 93 177 H Random Glucose Calcium Total Bilirubin AST ALT Alkaline Phosphatase Lactate Dehydrogenase Total Protein Albumin Carcinoembryonic Ag TSH Urine Color Urine Appearance Urine pH Ur Specific Hope Urine Protein Urine Glucose (UA) Urine Ketones Urine Blood Urine Nitrite Ur Leukocyte Esterase Urine RBC Urine WBC Ur Squamous Epith Cells Urine Bacteria Hyaline Casts Urine Opiates Screen Urine Fentanyl Screen Ur Barbiturates Screen Ur Phencyclidine Scrn Ur Amphetamines Screen U Benzodiazepines Scrn Urine Cocaine Screen U Marijuana (THC) Screen 06/16/23 06/16/23 06/16/23 05:13 07:22 11:31 WBC RBC Hgb Hct MCV MCH MCHC RDW Plt Count MPV Immature Gran % (Auto) Neut % (Auto) Lymph % (Auto) Mckinley % (Auto) Eos % (Auto) Baso % (Auto) Lymph # (Auto) Mckinley # (Auto) Eos # (Auto) Baso # (Auto) Abs Immat Gran (auto) Absolute Neuts (auto) Absolute Nucleated RBC Nucleated RBC % (auto) PT INR Sodium 135 Potassium 4.8 D Chloride 106 Carbon Dioxide 19 L Anion Gap 15 BUN 8 L Creatinine 0.65 Estim Creat Clear Calc 67.6 Estimated GFR > 60 POC Glucose 80 138 H Random Glucose 81 Calcium 8.9 Total Bilirubin AST ALT Alkaline Phosphatase Lactate Dehydrogenase Total Protein Albumin Carcinoembryonic Ag TSH Urine Color Urine Appearance Urine pH Ur Specific Hope Urine Protein Urine Glucose (UA) Urine Ketones Urine Blood Urine Nitrite Ur Leukocyte Esterase Urine RBC Urine WBC Ur Squamous Epith Cells Urine Bacteria Hyaline Casts Urine Opiates Screen Urine Fentanyl Screen Ur Barbiturates Screen Ur Phencyclidine Scrn Ur Amphetamines Screen U Benzodiazepines Scrn Urine Cocaine Screen U Marijuana (THC) Screen 06/16/23 06/16/23 06/17/23 16:21 20:30 07:35 WBC RBC Hgb Hct MCV MCH MCHC RDW Plt Count MPV Immature Gran % (Auto) Neut % (Auto) Lymph % (Auto) Mckinley % (Auto) Eos % (Auto) Baso % (Auto) Lymph # (Auto) Mckinley # (Auto) Eos # (Auto) Baso # (Auto) Abs Immat Gran (auto) Absolute Neuts (auto) Absolute Nucleated RBC Nucleated RBC % (auto) PT INR Sodium Potassium Chloride Carbon Dioxide Anion Gap BUN Creatinine Estim Creat Clear Calc Estimated GFR POC Glucose 143 H 277 H 125 H Random Glucose Calcium Total Bilirubin AST ALT Alkaline Phosphatase Lactate Dehydrogenase Total Protein Albumin Carcinoembryonic Ag TSH Urine Color Urine Appearance Urine pH Ur Specific Hope Urine Protein Urine Glucose (UA) Urine Ketones Urine Blood Urine Nitrite Ur Leukocyte Esterase Urine RBC Urine WBC Ur Squamous Epith Cells Urine Bacteria Hyaline Casts Urine Opiates Screen Urine Fentanyl Screen Ur Barbiturates Screen Ur Phencyclidine Scrn Ur Amphetamines Screen U Benzodiazepines Scrn Urine Cocaine Screen U Marijuana (THC) Screen 06/17/23 06/17/23 06/17/23 11:20 16:28 19:52 WBC RBC Hgb Hct MCV MCH MCHC RDW Plt Count MPV Immature Gran % (Auto) Neut % (Auto) Lymph % (Auto) Mckinley % (Auto) Eos % (Auto) Baso % (Auto) Lymph # (Auto) Mckinley # (Auto) Eos # (Auto) Baso # (Auto) Abs Immat Gran (auto) Absolute Neuts (auto) Absolute Nucleated RBC Nucleated RBC % (auto) PT INR Sodium Potassium Chloride Carbon Dioxide Anion Gap BUN Creatinine Estim Creat Clear Calc Estimated GFR POC Glucose 159 H 134 H 130 H Random Glucose Calcium Total Bilirubin AST ALT Alkaline Phosphatase Lactate Dehydrogenase Total Protein Albumin Carcinoembryonic Ag TSH Urine Color Urine Appearance Urine pH Ur Specific Hope Urine Protein Urine Glucose (UA) Urine Ketones Urine Blood Urine Nitrite Ur Leukocyte Esterase Urine RBC Urine WBC Ur Squamous Epith Cells Urine Bacteria Hyaline Casts Urine Opiates Screen Urine Fentanyl Screen Ur Barbiturates Screen Ur Phencyclidine Scrn Ur Amphetamines Screen U Benzodiazepines Scrn Urine Cocaine Screen U Marijuana (THC) Screen 06/18/23 06/18/23 06/18/23 07:51 10:56 16:18 WBC RBC Hgb Hct MCV MCH MCHC RDW Plt Count MPV Immature Gran % (Auto) Neut % (Auto) Lymph % (Auto) Mckinley % (Auto) Eos % (Auto) Baso % (Auto) Lymph # (Auto) Mckinley # (Auto) Eos # (Auto) Baso # (Auto) Abs Immat Gran (auto) Absolute Neuts (auto) Absolute Nucleated RBC Nucleated RBC % (auto) PT INR Sodium Potassium Chloride Carbon Dioxide Anion Gap BUN Creatinine Estim Creat Clear Calc Estimated GFR POC Glucose 109 188 H 168 H Random Glucose Calcium Total Bilirubin AST ALT Alkaline Phosphatase Lactate Dehydrogenase Total Protein Albumin Carcinoembryonic Ag TSH Urine Color Urine Appearance Urine pH Ur Specific Hope Urine Protein Urine Glucose (UA) Urine Ketones Urine Blood Urine Nitrite Ur Leukocyte Esterase Urine RBC Urine WBC Ur Squamous Epith Cells Urine Bacteria Hyaline Casts Urine Opiates Screen Urine Fentanyl Screen Ur Barbiturates Screen Ur Phencyclidine Scrn Ur Amphetamines Screen U Benzodiazepines Scrn Urine Cocaine Screen U Marijuana (THC) Screen 06/18/23 06/19/23 06/19/23 20:32 07:33 11:05 WBC RBC Hgb Hct MCV MCH MCHC RDW Plt Count MPV Immature Gran % (Auto) Neut % (Auto) Lymph % (Auto) Mckinley % (Auto) Eos % (Auto) Baso % (Auto) Lymph # (Auto) Mckinley # (Auto) Eos # (Auto) Baso # (Auto) Abs Immat Gran (auto) Absolute Neuts (auto) Absolute Nucleated RBC Nucleated RBC % (auto) PT INR Sodium Potassium Chloride Carbon Dioxide Anion Gap BUN Creatinine Estim Creat Clear Calc Estimated GFR POC Glucose 199 H 103 157 H Random Glucose Calcium Total Bilirubin AST ALT Alkaline Phosphatase Lactate Dehydrogenase Total Protein Albumin Carcinoembryonic Ag TSH Urine Color Urine Appearance Urine pH Ur Specific Hope Urine Protein Urine Glucose (UA) Urine Ketones Urine Blood Urine Nitrite Ur Leukocyte Esterase Urine RBC Urine WBC Ur Squamous Epith Cells Urine Bacteria Hyaline Casts Urine Opiates Screen Urine Fentanyl Screen Ur Barbiturates Screen Ur Phencyclidine Scrn Ur Amphetamines Screen U Benzodiazepines Scrn Urine Cocaine Screen U Marijuana (THC) Screen 06/19/23 06/19/23 06/20/23 16:07 20:06 07:38 WBC RBC Hgb Hct MCV MCH MCHC RDW Plt Count MPV Immature Gran % (Auto) Neut % (Auto) Lymph % (Auto) Mckinley % (Auto) Eos % (Auto) Baso % (Auto) Lymph # (Auto) Mckinley # (Auto) Eos # (Auto) Baso # (Auto) Abs Immat Gran (auto) Absolute Neuts (auto) Absolute Nucleated RBC Nucleated RBC % (auto) PT INR Sodium Potassium Chloride Carbon Dioxide Anion Gap BUN Creatinine Estim Creat Clear Calc Estimated GFR POC Glucose 125 H 178 H 108 Random Glucose Calcium Total Bilirubin AST ALT Alkaline Phosphatase Lactate Dehydrogenase Total Protein Albumin Carcinoembryonic Ag TSH Urine Color Urine Appearance Urine pH Ur Specific Hope Urine Protein Urine Glucose (UA) Urine Ketones Urine Blood Urine Nitrite Ur Leukocyte Esterase Urine RBC Urine WBC Ur Squamous Epith Cells Urine Bacteria Hyaline Casts Urine Opiates Screen Urine Fentanyl Screen Ur Barbiturates Screen Ur Phencyclidine Scrn Ur Amphetamines Screen U Benzodiazepines Scrn Urine Cocaine Screen U Marijuana (THC) Screen 06/20/23 06/20/23 06/20/23 11:26 16:04 20:42 WBC RBC Hgb Hct MCV MCH MCHC RDW Plt Count MPV Immature Gran % (Auto) Neut % (Auto) Lymph % (Auto) Mckinley % (Auto) Eos % (Auto) Baso % (Auto) Lymph # (Auto) Mckinley # (Auto) Eos # (Auto) Baso # (Auto) Abs Immat Gran (auto) Absolute Neuts (auto) Absolute Nucleated RBC Nucleated RBC % (auto) PT INR Sodium Potassium Chloride Carbon Dioxide Anion Gap BUN Creatinine Estim Creat Clear Calc Estimated GFR POC Glucose 155 H 163 H 155 H Random Glucose Calcium Total Bilirubin AST ALT Alkaline Phosphatase Lactate Dehydrogenase Total Protein Albumin Carcinoembryonic Ag TSH Urine Color Urine Appearance Urine pH Ur Specific Hope Urine Protein Urine Glucose (UA) Urine Ketones Urine Blood Urine Nitrite Ur Leukocyte Esterase Urine RBC Urine WBC Ur Squamous Epith Cells Urine Bacteria Hyaline Casts Urine Opiates Screen Urine Fentanyl Screen Ur Barbiturates Screen Ur Phencyclidine Scrn Ur Amphetamines Screen U Benzodiazepines Scrn Urine Cocaine Screen U Marijuana (THC) Screen 06/21/23 06/21/23 06/21/23 05:03 07:45 11:36 WBC RBC Hgb Hct MCV MCH MCHC RDW Plt Count MPV Immature Gran % (Auto) Neut % (Auto) Lymph % (Auto) Mckinley % (Auto) Eos % (Auto) Baso % (Auto) Lymph # (Auto) Mckinley # (Auto) Eos # (Auto) Baso # (Auto) Abs Immat Gran (auto) Absolute Neuts (auto) Absolute Nucleated RBC Nucleated RBC % (auto) PT 11.9 INR 1.0 Sodium 141 Potassium 4.2 Chloride 109 H Carbon Dioxide 24 Anion Gap 12 BUN 7 L Creatinine 0.69 Estim Creat Clear Calc 63.7 Estimated GFR > 60 POC Glucose 118 H 133 H Random Glucose 117 H Calcium 8.9 Total Bilirubin AST ALT Alkaline Phosphatase Lactate Dehydrogenase Total Protein Albumin Carcinoembryonic Ag TSH Urine Color Urine Appearance Urine pH Ur Specific Hope Urine Protein Urine Glucose (UA) Urine Ketones Urine Blood Urine Nitrite Ur Leukocyte Esterase Urine RBC Urine WBC Ur Squamous Epith Cells Urine Bacteria Hyaline Casts Urine Opiates Screen Urine Fentanyl Screen Ur Barbiturates Screen Ur Phencyclidine Scrn Ur Amphetamines Screen U Benzodiazepines Scrn Urine Cocaine Screen U Marijuana (THC) Screen Airway Mallampati Class: I TM Dist: >3cm Neck ROM: Full Denture: Upper and Lower Heart: ok Lungs: ok Assessment and Plan Final Anesthetic Review Family History of Problems with Anesthesia: No History of Problems with Anesthesia: No NPO: Yes ASA Class: III Final Preanesthetic Review: No Changes in Pt Med Stat, Meds/Allgs Chart Reviewed, Consent Obtained/Reviewed and Anes Risks/Benef Reviewed Patient Risk: Intermediate Procedure Risk: Intermediate Anesthetic Plan Anesthetic Plan: GA and Agree w/ Assess. and Plan Disposition: Standard PACU
--- NOTE | 2023-06-21 13:31 | MHC.SHP ---
Pre-Procedural Eval Section A Date of Service: 06/21/23 The patient is an INPATIENT: Yes Changes since office visit: Yes Patient answered all questions; No Cold of Flu in the past 2 weeks, No New Medical Problems and No Changes in Medication The History & Physical has been completed within 30 days and I have reviewed it.: Yes Section B Chief Complaint: seizure Allergies: Allergies Allergy/AdvReac Type Severity Reaction Status Date / Time codeine [CODEINE] Allergy Unknown HIVES Verified 04/03/23 11:26 morphine [MORPHINE] Allergy Unknown ITCHING, Verified 04/03/23 11:26 itchy Plan Diagnosis/Plan: Unchanged I have reviewed the history and physical and performed a pertinent physical examination on my patient. No changes have occurred unless specified. Time Spent With Patient Time: Total time managing care of this patient today ____ minutes.
--- NOTE | 2023-06-21 13:41 | MHC.CM.PN ---
EMR REVIEWED AND PER MD ROUNDS, PT WILL HAVE A BRONCH TODAY AND BE READY TO DC BACK TO [facility] PENDING AUTH 06/22. [facility] HAS BEEN UPDATED AND WILL START AUTH PROCESS. CM WILL CONTINUE TO FOLLOW FOR ANY CHANGES IN DC PLAN/NEEDS.
[2023-06-21] MEDS: 0.9 % Sodium Chloride Flush 3 ML SYRINGE IVFLUSH ×2 (15:38→20:22)
--- NOTE | 2023-06-21 16:24 | PM.OP ---
Brief Operative Note Date of Service: 06/21/23 Pre-op diagnosis: lung cancer Post-op diagnosis: same Procedure: Initially flexible bronchoscope advanced through the ET tube with patient intubated for the procedure through the tracheobronchial tree narrowing of the left mainstem bronchus by extrinsic compression noted at la with abnormal mucosa at that site. Endobronchial biopsy of origin over last mainstem bronchus obtained with samples sent for pathology. Otherwise, tracheobronchial tree normal. then bronchoscope was changed to flexible EBUS bronchoscope and EBUS guided sampling of 4R lymph node obtained with intraprocedure pathology showing carcinoma and additional 4R lymph node samples sent for further pathologic testing. Biopsy sites were observed with no ongoing bleeding noted. Patient tolerated procedure well and was returned to PACU in stable condition. Surgeon: Kevin Goetz MD Anesthesia: GETA Was an Delivery Truck Driver used for this Procedure?: No Estimated blood loss (mL): 0 Condition: stable Disposition: PACU
[2023-06-21 16:32] LABS: Glucose, Whole Blood 134 mg/dL (60-115)
[2023-06-21] MEDS: levETIRAcetam 500 MG TABLET PO (20:22)
[2023-06-21] MEDS: traZODone HCL 100 MG TABLET PO (20:22)
[2023-06-21] MEDS: Insulin Lispro 100 UNIT/ML 3 ML VIAL SUBCUT (20:41)
[2023-06-21 20:49] LABS: Glucose, Whole Blood 177 mg/dL (60-115)
[2023-06-22] VITALS (7 sets, daily range): BP systolic 110–137; BP diastolic 57–75; PULSE 98–116; RESP 16–20; TEMP 36.7–37.3; O2SAT 88–100
[2023-06-22 07:16] LABS: Glucose, Whole Blood 121 mg/dL (60-115)
[2023-06-22] MEDS: Escitalopram Oxalate 10 MG TABLET PO (09:26)
[2023-06-22] MEDS: Valsartan 80 MG TABLET PO (09:26)
[2023-06-22] MEDS: levETIRAcetam 500 MG TABLET PO ×2 (09:26→19:57)
[2023-06-22] MEDS: 0.9 % Sodium Chloride Flush 3 ML SYRINGE IVFLUSH ×3 (09:27→19:57)
--- NOTE | 2023-06-22 10:17 | HO.POSTANES ---
Post Anesthesia Evaluation Post Anesthesia Evaluation Date of Service: 06/22/23 Vital Signs: Vital Signs Temp Pulse Resp BP Pulse Ox O2 Del Method 06/22/23 09:50 100 Room Air 06/22/23 07:07 98.4 F 113 H 20 118/58 L 88 L Room Air 06/22/23 03:26 98.1 F 100 18 110/72 98 Room Air 06/21/23 23:23 97.6 F 107 H 18 133/60 94 Room Air Anesthesia: General Endotracheal-GETA Mental Status: Awake Pain Control: Satisfactory Nausea/Vomiting: None Hydration: Adequate Anesthesia-Related Issues: No Anes. Related Issues
[2023-06-22 11:22] LABS: Glucose, Whole Blood 183 mg/dL (60-115)
[2023-06-22] MEDS: guaiFENesin LA 600 MG TAB.ER.12H PO ×2 (11:28→19:57)
[2023-06-22] MEDS: Insulin Lispro 100 UNIT/ML 3 ML VIAL SUBCUT (11:35)
--- NOTE | 2023-06-22 13:15 | HO.PM.IMPN ---
Subjective Subjective Date of Service: 06/22/23 Interval History: Seen and evaluated alert, interactive Having more cough and thick secretions this morning with drop in O2 sat to early 90s No reported seizures overnight Review of Systems Review of Systems: Yes all other systems are reviewed and are negative Physical Exam Vital Signs: Vital Signs: Last Vital Signs Temp 98.4 F 06/22/23 11:19 Pulse 107 H 06/22/23 11:19 Resp 16 06/22/23 11:19 BP 116/57 L 06/22/23 11:19 Pulse Ox 97 06/22/23 11:19 O2 Del Method Room Air 06/22/23 11:19 O2 Flow Rate 2 06/21/23 15:45 BMI result Body Mass Index 19.6 Const: Other: Constitutional : alert, not in distress Neck : Normal inspection, Supple Cardiovascular : RRR, no JVP, no lower extremity edema Respiratory : fair air entry bilaterally, less on the left side, no crackles, scatterred wheezes Gastrointestinal: soft, lax, Normal bowel sounds, Non tender Skin : Warm, Dry Neurological : alert , oriented , no abnormal movements, No focal deficit Objective Data Active Medications Acetaminophen (Acetaminophen 325 Mg Tablet) 650 mg PO Q6H PRN PRN Reason: Pain, Mild (Pain Scale 1-3) Last Admin: 06/18/23 15:56 Dose: 650 mg Documented By: GUILHERME Acetaminophen (Acetaminophen 325 Mg Tablet) 650 mg PO ONCE PRN PRN Reason: Pain, Mild (Pain Scale 1-3) Dextrose (Dextrose 50 % 25 Gm/50 Ml Syringe) 25 gm IVPUSH Q15M PRN; Protocol PRN Reason: per Hypoglycemia Standing Ord. Enoxaparin Sodium (Enoxaparin Sodium 40 Mg/0.4 Ml Syringe) 40 mg SUBCUT Q24H [facility] Last Admin: 06/19/23 23:38 Dose: 40 mg Documented By: ALVIN Escitalopram Oxalate (Escitalopram Oxalate 10 Mg Tablet) 10 mg PO DAILY [facility] Last Admin: 06/22/23 09:26 Dose: 10 mg Documented By: TREVIN Glucose (Glucose Gel 15 Gm Gel..Gram.) 15 gm PO Q15M PRN; Protocol PRN Reason: per Hypoglycemia Standing Ord. Guaifenesin (Guaifenesin La 600 Mg Tab.Er.12h) 600 mg PO BID [facility] Last Admin: 06/22/23 11:28 Dose: 600 mg Documented By: TREVIN Insulin Human Lispro (Insulin Lispro 100 Unit/Ml 3 Ml Vial) 0 unit SUBCUT QIDACHS [facility]; Protocol Last Admin: 06/22/23 11:35 Dose: 2 unit Documented By: TREVIN Levetiracetam (Levetiracetam 500 Mg Tablet) 500 mg PO BID [facility] Last Admin: 06/22/23 09:26 Dose: 500 mg Documented By: TREVIN Loperamide HCl (Loperamide Hcl 2 Mg Capsule) 2 mg PO Q4H PRN PRN Reason: diasrrhea Last Admin: 06/17/23 16:39 Dose: 2 mg Documented By: GUILHERME Lorazepam (Lorazepam 0.5 Mg Tablet) 0.5 mg PO DAILY PRN PRN Reason: anxiety Lorazepam (Lorazepam 2 Mg/Ml Vial) 1 mg IVPUSH ONCE PRN PRN Reason: anxiety/restlessness Last Admin: 06/15/23 11:33 Dose: 1 mg Documented By: KYLEIGH Melatonin (Melatonin 3 Mg Tablet) 6 mg PO BEDTIME PRN PRN Reason: Insomnia Ondansetron HCl (Ondansetron Hcl 4 Mg/2 Ml Vial) 4 mg IVPUSH Q8H PRN PRN Reason: Nausea and Vomiting Ondansetron HCl (Ondansetron Hcl 4 Mg/2 Ml Vial) 4 mg IVPUSH ONCE PRN PRN Reason: Nausea and Vomiting Sodium Chloride (0.9 % Sodium Chloride Flush 3 Ml Syringe) 3 ml IVFSH [facility] Last Admin: 06/22/23 09:27 Dose: 3 ml Documented By: TREVIN Trazodone HCl (Trazodone Hcl 100 Mg Tablet) 100 mg PO BEDTIME [facility] Last Admin: 06/21/23 20:22 Dose: 100 mg Documented By: OZORALB Valsartan (Valsartan 80 Mg Tablet) 80 mg PO DAILY [facility] Last Admin: 06/22/23 09:26 Dose: 80 mg Documented By: TREVIN Labs 06/13/23 18:55 06/21/23 05:03 Labs: Laboratory Results - last 24 hr 06/21/23 06/21/23 06/22/23 16:20 20:31 07:12 POC Glucose 134 H 177 H 121 H 06/22/23 11:17 POC Glucose 183 H Assessment and Plan (1) Swallowing problem: Status: Acute (2) Mediastinal lymphadenopathy: Status: Acute (3) New onset seizure: Status: Acute (4) Lung mass: Status: Acute Plan 67F PMH htn, cva, dm, gerd, lung mass (patient did not follow up for work up), presented with seizure Cough CXR negative for any infiltrates likely from mucus secretions post bronch Mucinex acute Toxic metabolic encephalopathy 2/2 seizure resolved Acute seizure concern for brain mets MRI had lot of artifacts from movements, no clear metastasis noted but small mets can not be totally excluded. 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 Quality Stroke Does the patient have a stroke diagnosis?: No VTE Prior VTE?: No VTE Risk Level:: Medical - moderate - high VTE Device Contraindication: Treatment Not Indicated VTE Drug Contraindication: N/A - Med Ordered
[2023-06-22 16:33] LABS: Glucose, Whole Blood 100 mg/dL (60-115)
[2023-06-22] MEDS: traZODone HCL 100 MG TABLET PO (19:57)
[2023-06-22 21:09] LABS: Glucose, Whole Blood 122 mg/dL (60-115)
[2023-06-23 03:53] VITALS: BP 102/50; PULSE 108; RESP 18; TEMP 37.1; O2SAT 99
[2023-06-23 07:07] VITALS: BP 124/59; PULSE 112; RESP 18; TEMP 37; O2SAT 98
[2023-06-23 07:45] LABS: Glucose, Whole Blood 114 mg/dL (60-115)
[2023-06-23] MEDS: Escitalopram Oxalate 10 MG TABLET PO (08:57)
[2023-06-23] MEDS: Valsartan 80 MG TABLET PO (08:57)
[2023-06-23] MEDS: guaiFENesin LA 600 MG TAB.ER.12H PO ×2 (08:57→22:20)
[2023-06-23] MEDS: levETIRAcetam 500 MG TABLET PO ×2 (08:57→22:20)
[2023-06-23] MEDS: 0.9 % Sodium Chloride Flush 3 ML SYRINGE IVFLUSH (08:57)
[2023-06-23 08:59] LABS: Anion Gap 17 (12-20); Blood Urea Nitrogen 6 mg/dL (9-16); Calcium 8.5 mg/dL (8.4-10.2); Carbon Dioxide 21 mmol/L (22-29); Chloride 104 mmol/L (96-108); Creatinine Clr Calc Pharmacy 67.6; Estimated Glomerular Filt Rate > 60; Glucose Random 129 mg/dL (60-115); Potassium 4.3 mmol/L (3.3-5.1); Sodium 138 mmol/L (135-145)
[2023-06-23 11:10] VITALS: BP 132/69; PULSE 104; RESP 18; TEMP 37.1; O2SAT 98
[2023-06-23 11:30] LABS: Glucose, Whole Blood 145 mg/dL (60-115)
--- NOTE | 2023-06-23 11:49 | HO.PM.IMPN ---
Subjective Subjective Date of Service: 06/23/23 Interval History: Seen and evaluated alert, interactive Having more cough and thick secretions this morning with drop in O2 sat to early 90s No reported seizures overnight Physical Exam Vital Signs: Vital Signs: Last Vital Signs Temp 98.7 F 06/23/23 11:10 Pulse 104 H 06/23/23 11:10 Resp 18 06/23/23 11:10 BP 132/69 06/23/23 11:10 Pulse Ox 98 06/23/23 11:10 O2 Del Method Room Air 06/23/23 11:10 O2 Flow Rate 2 06/23/23 07:07 BMI result Body Mass Index 19.6 Const: Other: Constitutional : alert, not in distress Neck : Normal inspection, Supple Cardiovascular : RRR, no JVP, no lower extremity edema Respiratory : fair air entry bilaterally, less on the left side, no crackles, scatterred wheezes Gastrointestinal: soft, lax, Normal bowel sounds, Non tender Skin : Warm, Dry Neurological : alert , oriented , no abnormal movements, No focal deficit Objective Data Active Medications Acetaminophen (Acetaminophen 325 Mg Tablet) 650 mg PO Q6H PRN PRN Reason: Pain, Mild (Pain Scale 1-3) Last Admin: 06/18/23 15:56 Dose: 650 mg Documented By: GUILHERME Acetaminophen (Acetaminophen 325 Mg Tablet) 650 mg PO ONCE PRN PRN Reason: Pain, Mild (Pain Scale 1-3) Dextrose (Dextrose 50 % 25 Gm/50 Ml Syringe) 25 gm IVPUSH Q15M PRN; Protocol PRN Reason: per Hypoglycemia Standing Ord. Enoxaparin Sodium (Enoxaparin Sodium 40 Mg/0.4 Ml Syringe) 40 mg SUBCUT Q24H [facility]PL[facility] Last Admin: 06/19/23 23:38 Dose: 40 mg Documented By: ALVIN Escitalopram Oxalate (Escitalopram Oxalate 10 Mg Tablet) 10 mg PO DAILY [facility] Last Admin: 06/23/23 08:57 Dose: 10 mg Documented By: TREVIN Glucose (Glucose Gel 15 Gm Gel..Gram.) 15 gm PO Q15M PRN; Protocol PRN Reason: per Hypoglycemia Standing Ord. Guaifenesin (Guaifenesin La 600 Mg Tab.Er.12h) 600 mg PO BID [facility] Last Admin: 06/23/23 08:57 Dose: 600 mg Documented By: TREVIN Insulin Human Lispro (Insulin Lispro 100 Unit/Ml 3 Ml Vial) 0 unit SUBCUT QIDACHS [facility]PLACED [facility]; Protocol Last Admin: 06/23/23 11:31 Dose: Not Given Documented By: TREVIN Non-Admin Reason: No Insulin Coverage Levetiracetam (Levetiracetam 500 Mg Tablet) 500 mg PO BID [facility] Last Admin: 06/23/23 08:57 Dose: 500 mg Documented By: TREVIN Loperamide HCl (Loperamide Hcl 2 Mg Capsule) 2 mg PO Q4H PRN PRN Reason: diasrrhea Last Admin: 06/17/23 16:39 Dose: 2 mg Documented By: GUILHERME Lorazepam (Lorazepam 0.5 Mg Tablet) 0.5 mg PO DAILY PRN PRN Reason: anxiety Lorazepam (Lorazepam 2 Mg/Ml Vial) 1 mg IVPUSH ONCE PRN PRN Reason: anxiety/restlessness Last Admin: 06/15/23 11:33 Dose: 1 mg Documented By: KYLEIGH Melatonin (Melatonin 3 Mg Tablet) 6 mg PO BEDTIME PRN PRN Reason: Insomnia Ondansetron HCl (Ondansetron Hcl 4 Mg/2 Ml Vial) 4 mg IVPUSH Q8H PRN PRN Reason: Nausea and Vomiting Ondansetron HCl (Ondansetron Hcl 4 Mg/2 Ml Vial) 4 mg IVPUSH ONCE PRN PRN Reason: Nausea and Vomiting Sodium Chloride (0.9 % Sodium Chloride Flush 3 Ml Syringe) 3 ml IVFLUSH [facility] Last Admin: 06/23/23 08:57 Dose: 3 ml Documented By: TREVIN Trazodone HCl (Trazodone Hcl 100 Mg Tablet) 100 mg PO BEDTIME [facility]PLACED [facility] Last Admin: 06/22/23 19:57 Dose: 100 mg Documented By: OZORALB Valsartan (Valsartan 80 Mg Tablet) 80 mg PO DAILY [facility]PL[facility] Last Admin: 06/23/23 08:57 Dose: 80 mg Documented By: TREVIN Labs 06/13/23 18:55 06/23/23 08:31 Labs: Laboratory Results - last 24 hr 06/22/23 06/22/23 06/23/23 16:30 20:16 07:21 Hold Purple Top Anion Gap Estim Creat Clear Calc Estimated GFR POC Glucose 100 122 H 114 Random Glucose Calcium 06/23/23 06/23/23 08:31 11:12 Hold Purple Top SEE NOTE Anion Gap 17 Estim Creat Clear Calc 67.6 Estimated GFR > 60 POC Glucose 145 H Random Glucose 129 H Calcium 8.5 Assessment and Plan (1) Mediastinal lymphadenopathy: Status: Acute (2) Lung mass: Status: Acute Plan 67F PMH htn, cva, dm, gerd, lung mass (patient did not follow up for work up), presented with seizure Cough CXR negative for any infiltrates likely from mucus secretions post bronch Mucinex acute Toxic metabolic encephalopathy 2/ seizure resolved Acute seizure concern for brain mets MRI had lot of artifacts from movements, no clear metastasis noted but small mets can not be totally excluded. 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 Quality Stroke Does the patient have a stroke diagnosis?: No VTE Prior VTE?: No VTE Risk Level:: Medical - moderate - high VTE Device Contraindication: Treatment Not Indicated VTE Drug Contraindication: N/A - Med Ordered
--- NOTE | 2023-06-23 14:02 | MHC.CM.PN ---
PT MEDICALLY READY TO RETURN TO [facility], [facility] INITIATED AUTH ON SATURDAY [employer] DID NOT PROVIDE A DETERMINATION AND WILL BE CLOSED THROUGH THE WEEKEND. PT EXPECTED TO DC SATURDAY BACK TO [facility] PENDING INSURANCE AUTH
[2023-06-23 15:11] VITALS: BP 149/65; PULSE 107; RESP 18; TEMP 36.5; O2SAT 98
[2023-06-23 16:37] LABS: Glucose, Whole Blood 150 mg/dL (60-115)
[2023-06-23 20:00] VITALS: BP 172/81; PULSE 116; RESP 20; TEMP 36.3; O2SAT 99
[2023-06-23 21:32] LABS: Glucose, Whole Blood 178 mg/dL (60-115)
[2023-06-23] MEDS: traZODone HCL 100 MG TABLET PO (22:20)
[2023-06-23] MEDS: Insulin Lispro 100 UNIT/ML 3 ML VIAL SUBCUT (22:26)
[2023-06-24] VITALS (7 sets, daily range): BP systolic 105–155; BP diastolic 57–80; PULSE 100–105; RESP 16–20; TEMP 36.1–37.2; O2SAT 92–100
[2023-06-24 07:28] LABS: Glucose, Whole Blood 107 mg/dL (60-115)
[2023-06-24] MEDS: Escitalopram Oxalate 10 MG TABLET PO (08:47)
[2023-06-24] MEDS: levETIRAcetam 500 MG TABLET PO ×2 (08:47→22:28)
[2023-06-24] MEDS: guaiFENesin LA 600 MG TAB.ER.12H PO ×2 (08:47→22:28)
[2023-06-24] MEDS: Valsartan 80 MG TABLET PO (08:47)
[2023-06-24] MEDS: 0.9 % Sodium Chloride Flush 3 ML SYRINGE IVFLUSH (08:48)
[2023-06-24 10:40] LABS: Estimated Average Glucose 80 mg/dL; Hemoglobin A1c % 4.4 % (<6.0)
[2023-06-24 11:10] LABS: Glucose, Whole Blood 126 mg/dL (60-115)
--- NOTE | 2023-06-24 13:12 | HO.PM.IMPN ---
Subjective Subjective Date of Service: 06/24/23 Interval History: Seen and evaluated alert, interactive Having more cough and thick secretions this morning with drop in O2 sat to early 90s No reported seizures overnight Physical Exam Vital Signs: Vital Signs: Last Vital Signs Temp 98.2 F 06/24/23 11:32 Pulse 101 H 06/24/23 11:32 Resp 20 06/24/23 11:32 BP 151/71 H 06/24/23 11:32 Pulse Ox 99 06/24/23 11:32 O2 Del Method Room Air 06/24/23 11:32 O2 Flow Rate 2 06/23/23 07:07 BMI result Body Mass Index 19.6 Const: Other: Constitutional : alert, not in distress Neck : Normal inspection, Supple Cardiovascular : RRR, no JVP, no lower extremity edema Respiratory : fair air entry bilaterally, less on the left side, no crackles, scatterred wheezes Gastrointestinal: soft, lax, Normal bowel sounds, Non tender Skin : Warm, Dry Neurological : alert , oriented , no abnormal movements, No focal deficit Objective Data Active Medications Acetaminophen (Acetaminophen 325 Mg Tablet) 650 mg PO Q6H PRN PRN Reason: Pain, Mild (Pain Scale 1-3) Last Admin: 06/18/23 15:56 Dose: 650 mg Documented By: GUILHERME Acetaminophen (Acetaminophen 325 Mg Tablet) 650 mg PO ONCE PRN PRN Reason: Pain, Mild (Pain Scale 1-3) Dextrose (Dextrose 50 % 25 Gm/50 Ml Syringe) 25 gm IVPUSH Q15M PRN; Protocol PRN Reason: per Hypoglycemia Standing Ord. Enoxaparin Sodium (Enoxaparin Sodium 40 Mg/0.4 Ml Syringe) 40 mg SUBCUT Q24H [facility] Last Admin: 06/19/23 23:38 Dose: 40 mg Documented By: ALVIN Escitalopram Oxalate (Escitalopram Oxalate 10 Mg Tablet) 10 mg PO DAILY [facility] Last Admin: 06/24/23 08:47 Dose: 10 mg Documented By: CAN Glucose (Glucose Gel 15 Gm Gel..Gram.) 15 gm PO Q15M PRN; Protocol PRN Reason: per Hypoglycemia Standing Ord. Guaifenesin (Guaifenesin La 600 Mg Tab.Er.12h) 600 mg PO BID [facility] Last Admin: 06/24/23 08:47 Dose: 600 mg Documented By: CAN Insulin Human Lispro (Insulin Lispro 100 Unit/Ml 3 Ml Vial) 0 unit SUBCUT QIDACHS [facility]; Protocol Last Admin: 06/24/23 11:14 Dose: Not Given Documented By: STEVAN Non-Admin Reason: No Insulin Coverage Levetiracetam (Levetiracetam 500 Mg Tablet) 500 mg PO BID [facility] Last Admin: 06/24/23 08:47 Dose: 500 mg Documented By: CAN Loperamide HCl (Loperamide Hcl 2 Mg Capsule) 2 mg PO Q4H PRN PRN Reason: diasrrhea Last Admin: 06/17/23 16:39 Dose: 2 mg Documented By: GUILHERME Lorazepam (Lorazepam 2 Mg/Ml Vial) 1 mg IVPUSH ONCE PRN PRN Reason: anxiety/restlessness Last Admin: 06/15/23 11:33 Dose: 1 mg Documented By: KYLEIGH Melatonin (Melatonin 3 Mg Tablet) 6 mg PO BEDTIME PRN PRN Reason: Insomnia Ondansetron HCl (Ondansetron Hcl 4 Mg/2 Ml Vial) 4 mg IVPUSH Q8H PRN PRN Reason: Nausea and Vomiting Ondansetron HCl (Ondansetron Hcl 4 Mg/2 Ml Vial) 4 mg IVPUSH ONCE PRN PRN Reason: Nausea and Vomiting Sodium Chloride (0.9 % Sodium Chloride Flush 3 Ml Syringe) 3 ml IVFLUSH [facility] Last Admin: 06/24/23 08:48 Dose: 3 ml Documented By: CAN Trazodone HCl (Trazodone Hcl 100 Mg Tablet) 100 mg PO BEDTIME [facility] Last Admin: 06/23/23 22:20 Dose: 100 mg Documented By: ALVIN Valsartan (Valsartan 80 Mg Tablet) 80 mg PO DAILY [facility] Last Admin: 06/24/23 08:47 Dose: 80 mg Documented By: CAN Labs 06/13/23 18:55 06/23/23 08:31 Labs: Laboratory Results - last 24 hr 06/23/23 06/23/23 06/24/23 16:28 21:26 07:24 POC Glucose 150 H 178 H 107 Estimat Average Glucose Hemoglobin A1c % Hold Red Top 06/24/23 06/24/23 10:17 11:05 POC Glucose 126 H Estimat Average Glucose 80 Hemoglobin A1c % 4.4 Hold Red Top See Note Assessment and Plan (1) Swallowing problem: Status: Acute (2) Mediastinal lymphadenopathy: Status: Acute (3) New onset seizure: Status: Acute Plan 67F PMH htn, cva, dm, gerd, lung mass (patient did not follow up for work up), presented with seizure Cough CXR negative for any infiltrates likely from mucus secretions post bronch Mucinex swallowing 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 Quality Stroke Does the patient have a stroke diagnosis?: No VTE Prior VTE?: No VTE Risk Level:: Medical - moderate - high VTE Device Contraindication: Treatment Not Indicated VTE Drug Contraindication: N/A - Med Ordered
--- NOTE | 2023-06-24 14:39 | MHC.CM.PN ---
did peer to peer and yulissa denied pt called and spoke to pt family needs to file an appeal looking into that process
--- NOTE | 2023-06-24 14:51 | MHC.SL.SWA ---
Addendum entered and electronically signed by Sarah Dumont MA, CCC-FRICTION SAW OPERATOR 06/24/23 14:51: Pt is scheduled for MBSS today at 4pm. Original Note: Speech Pathologist Impression: Risk of aspiration, oropharyngeal dysphagia Risk of Aspiration Due to: Neurological Condition Dysphasia Diet Status: Recommend patient continue on honey thick liquids and pureed solids with cues to swallow hard to minimize/eliminate s/s aspiration. Pills crushed in puree. Liquid Consistency and Strategies for Safe Swallow: Liquid Intake Recommendation: Honey Thick Liquid Intake Strategies: Small Sips No Straws Solid Food Consistency: Dietary Recommendations: Pureed (NDD1) Oral Medication Intake: Crushed with Puree Please contact the pharmacy regarding appropriate crushable or liquid drug formulations that are available whenever modified delivery is recommended. Compensatory Strategies and Precautions to be Taken for Safe Swallow: Sitting Upright (90 deg) No Straw Small Bites and Sips Rate of Ingestion Change Avoid Specific Foods Supervision While Eating and Drinking for Safe Swallow: Total Supervision (1:1) Foods to Avoid: Mixed textures Swallowing Recommended Treatments: Compens. Strategy Educat. Recommendation for Speech: Inpatient Speech Therapy Comment: Pt w/ hx CVA, here w/ new onset seizure. Pt tolerated thin liquids during evaluation on 06/14, downgraded to honey thick liquids on 06/17 d/t overt s/s aspiration. She started Keppra around the same time that dysphagia symptoms worsened. Per nursing, patient continues on Keppra at 500mg 2x/day. FRICTION SAW OPERATOR to follow as needed during hospitalization. Corn Chip Maker Clinican/Clinical Fellow: No Supervisory Statement: I have reviewed and agree with the student/clinical fellow's documentation: N/A Speech Language Pathologist: Sarah Dumont M.A., CCC-FRICTION SAW OPERATOR
[2023-06-24 16:49] LABS: Glucose, Whole Blood 180 mg/dL (60-115)
[2023-06-24] MEDS: Insulin Lispro 100 UNIT/ML 3 ML VIAL SUBCUT (16:56)
--- NOTE | 2023-06-24 16:59 | MHC.SL.IMP ---
Date of Plan of Treatment: 06/24/23 Onset of Symptoms/Illness: 06/14/23 Date Treatment Started: 06/14/23 Admitting Diagnosis: (1) Swallowing problem (2) Mediastinal lymphadenopathy (3) New onset seizure Primary Speech & Language Diagnosis: R13.12 Oropharyngeal Phase Dysphagia Reason for Today's Visit: 22940 Modified Barium Swallow Study Pre-evaluation Dietary Consistencies: Pureed (NDD1) Pre-evaluation Liquid Consistency: Honey Thick Pre-evaluation Medication Administration: Crushed with Puree Medical History: Modified Barium Swallow Study Fluoroscopic Evaluation of Swallowing Function CPT Code 94278 Evaluation Year: 2022 Reason for Study: Pt displays overt s/s of aspiration at bedside. Referring Physician: Yesy Osorio MD Evaluating Clinician: Sarah Dumont MA, CCC-SIGNAL CIRCUIT DESIGNER Study Number: 1 Patient Name: Jennifer Reid Status: Inpatient, Wheelchair Age: 67 Gender: Female Medical History Medical History (Updated 06/13/23 @ 21:49 by Isadora Brito MD) History of gastric ulcer Stroke Diabetes mellitus Essential hypertension Surgical History Hx of colonoscopy No pertinent past surgical history Current (pre-evaluation) Intake/Diet: Route: PO Diet Grade: Puree Liquid Consistencies: Honey Pre-Study Functional Oral Intake Scale (FOIS): 5- Total oral intake of multiple consistencies requiring special preparation Pain: None reported at time of study SUBJECTIVE: Pt w/ hx CVA and GERD, here w/ new onset seizure. Pt tolerated thin liquids during eval w/ SIGNAL CIRCUIT DESIGNER on 06/14, downgraded to honey thick liquids on 06/17 d/t overt s/s aspiration. She started Keppra around the same time that dysphagia symptoms worsened. Per nursing, patient continues on Keppra at 500mg 2x/day. Pt w/ recent dx lung mass concerning for malignancy with possible metastasis. Food and Liquid Trials: Oral Impairment: Lip Closure: Did not test Oral Impairment: Tongue Control During Bolus Hold: Did not test Oral Impairment: Bolus Preparation/Mastication: 2=Disorganized chewing/mashing with solid pieces of bolus Oral Impairment: Bolus Transport/Lingual Motion: 2=Slowed tongue motion Oral Impairment: Oral Residue: 2=Residue collection on oral structures Oral Impairment:Initiation of Pharyngeal Swallow: 3=Bolus head in pyriforms Pharyngeal Impairment: Soft Palate Elevation: 0=No bolus between soft palate (SP)/pharyngeal wall (PW) Pharyngeal Impairment: Laryngeal Elevation: 1=Partial thyroid cartilage/arytenoids to epiglottic petiole movement Pharyngeal Impairment: Anterior Hyoid Excursion: 1=Partial anterior movement Pharyngeal Impairment: Epiglottic Movement: 1=Partial inversion Pharyngeal Impairment: Laryngeal Vestibular Closure:: 1=Incomplete: narrow column air/contrast in laryngeal vestibule Pharyngeal Impairment: Pharyngeal Stripping Wave: 0=Present: complete Pharyngeal Impairment: Pharyngeal Contraction: Did not test Pharyngeal Impairment: Pharyngoesophageal Segment Openin=Partial distention/partial duration: partial obstruction of flow Pharyngeal Impairment: Tongue Base (TB) Retraction: 3=Wide column of contrast/air between TB and posterior PW Pharyngeal Impairment: Pharyngeal Residue: 2=Collection of residue within or on pharyngeal structures Pharyngeal Impairment: Esophageal Clearance Upright Position: Did not test Impressions and Recommendations Clinical Observations: OBJECTIVE: Time-out: performed at 16:00 Evaluation Start: 15:45; Stop: 15:55 Patient Positioning: Seated 70-90 degrees Viewing Planes: LATERAL ONLY Contrast: MBSImP? Standardized Protocol using commercially prepared, standardized Barium viscosities, including: Varibar? THIN LIQUID (40% w/v, <15 cps) , Varibar? NECTAR (40% w/v, <150-450 cps) , Varibar? THIN HONEY (40% w/v, <800-1800 cps) , 1/2 Shortbread Cookie (1 x1 x.25 ) MBSImP ID: [id number] [facility]: Lip closure for intraoral bolus containment could not be assessed due to logistical reasons not related to physiologic impairment. Tongue control during bolus hold could not be assessed due to logistical reasons not related to physiologic impairment. Bolus preparation and mastication demonstrated disorganized chewing/mashing with solid pieces of the bolus unchewed. Bolus transport/lingual motion was with slowed tongue motion. Oral residue was a collection on oral structures. Initiation of the pharyngeal swallow occurred when the bolus head was in the pyriform sinuses. Soft palate elevation resulted in no bolus between the soft palate and the pharyngeal wall. Laryngeal elevation was decreased, with partial superior movement of the thyroid cartilage/partial approximation of the arytenoids to the epiglottic petiole. Anterior hyoid excursion demonstrated partial anterior movement. Epiglottic movement resulted in partial inversion. Laryngeal vestibular closure was incomplete, with a narrow column of air/contrast noted within the laryngeal vestibule at the height of the swallow. Pharyngeal stripping wave was present and complete. Pharyngeal contraction could not be determined due to logistical reasons not related to physiologic impairment. Pharyngoesophageal segment opening demonstrated partial distension/partial duration, with partial obstruction of bolus flow. Tongue base retraction allowed a wide column of contrast or air between the retracted tongue base and the posterior pharyngeal wall. Pharyngeal residue was a collection of residue within or on pharyngeal structures. Esophageal clearance in the upright position could not be assessed due to logistical reasons not related to physiologic impairment. Oral Impairment Score: 9 (absence of score, component 1component 2) Pharyngeal Impairment Score: 10 (absence of score, component 13) Esophageal Impairment Score: --- (absence of score, component 17) Laryngeal Penetration and Aspiration: Aspiration was observed in today's study. Thin Contrast entered the airway, passed below the vocal folds, and was not ejected from the trachea despite effort. ASSESSMENT: Clinician Assessment: This exam was conducted by a multidisciplinary team, which consisted of a speech pathologist, radiologist, and interactive video technician. Pt was seated upright at 90 degrees for lateral view only. Pt trialed the following liquid and solid consistencies: thin liquid barium by cup sip, nectar thick liquid barium by cup sip, honey thick liquid barium by cup sip, pureed solid (applesauce mixed with barium paste), regular texture solid (Susannah Doone cookie coated with barium paste), whole barium pill tablet with bite of applesauce. Pt demonstrated good oral containment, w/ no significant anterior loss. Pt w/ slow, prolonged, and disorganized mastication. Chewing pattern consistent with piece meal deglutition. Posterior lingual motion was slowed and delayed. Pt swallowed twice per bite/sip in order to clear the oral cavity. Pt subsequently w/ mild residue on the palate and tongue. Pharyngeal swallow trigger was delayed, initiated as the bolus head reached the pyriforms. There was no nasopharyngeal reflux. Incomplete laryngeal elevation with partial anterior hyoid excursion and partial epiglottic inversion. There was incomplete laryngeal vestibular closure w/ trace aspiration on trial of thin liquid. Trace amount of thin liquid contrast entered the airway, pt produced an immediate cough in response, but did not eject contrast from the airway. No evidence of aspiration or penetration with repeated trials of nectar thick liquid, honey thick liquid, and various solid textures. There was trace to mild residue on the tongue base and in the pyriforms, which cleared with a dry swallow. Pt swallowed whole barium tablet with bite of applesauce. Tablet passed through the oral and pharyngeal cavities with no hang up. The following compensatory strategies have been used in therapy as well as in today's study and improved swallowing function: Honey-thick Liquid, [place]-thick Liquid eliminated Penetration, Aspiration Liquid Intake Recommendation: [place] Thick Liquid Intake Strategies: Small Sips, No Straws Dietary Recommendations: Chopped/Advanced (NDD3) Medication Administration: Whole with Puree Please contact the pharmacy regarding appropriate crushable or liquid drug formulations that are available whenever modified delivery is recommended. Compensatory Strategies Recommended: Sitting Upright (90 deg) Double Swallow No Straw Small Bites and Sips Rate of Ingestion Change Avoid Specific Foods Supervision during eating and or drinking: Total Supervision (1:1) Recommended Treatments: Compens. Strategy Educat. Recommendation for Speech Therapy: Inpatient Speech Therapy Speech Therapy through Rehab Facility Text Comment: Intake Recommendations: Route: PO Diet Grade: Chopped/Advanced (NDD3) Liquid Consistencies: [place] Post-Study Functional Oral Intake Scale (FOIS): 5- Total oral intake of multiple consistencies requiring special preparation This exam revealed deep penetration, with subsequent trace aspiration on trial of thin liquid. Pt did produce a cough in response to aspiration event. This did not eject contrast from the airway. No aspiration or penetration with nectar thick, honey thick, and various solid textures. Recommend UPGRADE to CHOPPED/ADVANCED (NDD3) solids and NECTAR THICK liquids via TEASPOON or CONTROLLED CUP. Recommend continue with 1:1 SUPERVISION during PO intake, as well as STRICT ASPIRATION PRECAUTIONS: -Frequent oral care (before first meal and after each subsequent meal) -Pt must be awake and alert, attending to PO; otherwise tray to be held -Sit upright during PO intake -Dentures must be placed when pt is eating solid foods -Take small bites and sips -One bite/sip at a time -Avoid the use of straws -Dry swallow between each bite and each sip to promote oral and pharyngeal clearance -Avoid mixed textures Therapy Recommendations: Recommend continue w/ ST for the treatment of dysphagia during hospitalization and at the next level of care. The following compensatory strategies and/or therapeutic exercises will be part of the upcoming therapy/management plan: [place]-thick Liquid Honey-thick Liquid Prognosis for Improvement: The prognosis for the patient to meet nutritional needs by mouth is fair based on degree of impairment, stimulability for treatment. Skilled Nursing Goals: ? The patient will tolerate the least restrictive diet with a safe/efficient swallow to maintain adequate nutrition and hydration. ? The patient and/or family will participate in further education for swallowing goals. Short Term Goals: ? Diet - The patient will tolerate a chopped/advanced diet with nectar thick liquids without signs or symptoms of penetration/aspiration 100% of the time. - The patient will participate in therapeutic PO trials with the SIGNAL CIRCUIT DESIGNER. ? Guidelines - The patient will comply with/recall the following guidelines/strategies 100% of the time with minimal cuing: [place]-thick Liquid, Bolus Volume Change, Rate of Ingestion Change, Additional Swallow(s) per Bolus, No Straws. ? Education - The patient, family, caregiver, nurse will verbalize/demonstrate understanding of the results of this evaluation, the above recommendations, and the swallowing guidelines. Frequency/Duration: PRN Date Range for Service Requested: Timeline to reassess: Clinician - Supplemental, Miscellaneous Communication: It is important to note MBSS objective studies are snapshots in time and Patient function might vary with factors such as time of day or concomitant medical conditions. For this reason, the final treatment plan for this patient should rest with their medical care team. Additional recommendations should be considered with the totality of the Patient in mind. Thank for the opportunity to participate in the care of this patient. If you have any questions about the content of this report, please contact the [facility] at [facility]. Education: Education regarding findings from today's study and plans for therapy were provided to Patient only through Verbal Instruction. Understanding was expressed by the Patient only. Director Chemistry Clinician/Clinical Fellow: No Supervisory Statement: N/A Speech Language Pathologist: Sarah Dumont M.A., [facility]-SIGNAL CIRCUIT DESIGNER
[2023-06-24 20:15] LABS: Glucose, Whole Blood 64 mg/dL (60-115)
[2023-06-24 20:49] LABS: Glucose, Whole Blood 170 mg/dL (60-115)
[2023-06-24] MEDS: traZODone HCL 100 MG TABLET PO (22:29)
[2023-06-25] VITALS (7 sets, daily range): BP systolic 104–157; BP diastolic 55–76; PULSE 100–113; RESP 16–20; TEMP 36–36.5; O2SAT 95–100
[2023-06-25 00:18] LABS: Glucose, Whole Blood 150 mg/dL (60-115)
--- NOTE | 2023-06-25 00:23 | PC.NURSE ---
Pt POC was 64, gave sorbet nectar thick to eat. Repeat POC was 170. Dr. Carter notified and said to do a repeat in an hour. Repeat POC done 1 hour later was 150. Dr. Carter aware.
[2023-06-25 07:22] LABS: Glucose, Whole Blood 138 mg/dL (60-115)
[2023-06-25] MEDS: Valsartan 80 MG TABLET PO (10:21)
[2023-06-25] MEDS: Escitalopram Oxalate 10 MG TABLET PO (10:21)
[2023-06-25] MEDS: levETIRAcetam Oral Soln 500 MG/5 ML PO ×2 (10:46→20:38)
[2023-06-25] MEDS: guaiFENesin 100 MG/5 ML LIQUID 20 ML PO ×3 (10:47→20:38)
[2023-06-25 11:15] LABS: Glucose, Whole Blood 149 mg/dL (60-115)
--- NOTE | 2023-06-25 14:42 | P.PNIM_ITS ---
Subjective Subjective Date of Service: 06/25/23 Interval History: Seen and evaluated alert, interactive Having more cough and thick secretions this morning with drop in O2 sat to early 90s No reported seizures overnight Physical Exam 2 Vital Signs: Vital Signs: Last Vital Signs Temp 97.7 F 06/25/23 11:27 Pulse 100 06/25/23 11:27 Resp 16 06/25/23 11:27 BP 157/76 H 06/25/23 11:27 Pulse Ox 98 06/25/23 11:27 O2 Del Method Room Air 06/25/23 11:27 O2 Flow Rate 2 06/23/23 07:07 BMI result Body Mass Index 19.6 Const: Other: Constitutional : alert, not in distress Neck : Normal inspection, Supple Cardiovascular : RRR, no JVP, no lower extremity edema Respiratory : fair air entry bilaterally, less on the left side, no crackles, scatterred wheezes Gastrointestinal: soft, lax, Normal bowel sounds, Non tender Skin : Warm, Dry Neurological : alert , oriented , no abnormal movements, No focal deficit Objective Data Active Medications Acetaminophen (Acetaminophen 325 Mg Tablet) 650 mg PO Q6H PRN PRN Reason: Pain, Mild (Pain Scale 1-3) Last Admin: 06/18/23 15:56 Dose: 650 mg Documented By: GUILHERME Acetaminophen (Acetaminophen 325 Mg Tablet) 650 mg PO ONCE PRN PRN Reason: Pain, Mild (Pain Scale 1-3) Dextrose (Dextrose 50 % 25 Gm/50 Ml Syringe) 25 gm IVPUSH Q15M PRN; Protocol PRN Reason: per Hypoglycemia Standing Ord. Enoxaparin Sodium (Enoxaparin Sodium 40 Mg/0.4 Ml Syringe) 40 mg SUBCUT Q24H [facility] Last Admin: 06/19/23 23:38 Dose: 40 mg Documented By: ALVIN Escitalopram Oxalate (Escitalopram Oxalate 10 Mg Tablet) 10 mg PO DAILY [facility] Last Admin: 06/25/23 10:21 Dose: 10 mg Documented By: GUANACO Glucose (Glucose Gel 15 Gm Gel..Gram.) 15 gm PO Q15M PRN; Protocol PRN Reason: per Hypoglycemia Standing Ord. Guaifenesin (Guaifenesin 100 Mg/5 Ml Liquid) 20 ml PO TID [facility] Last Admin: 06/25/23 10:47 Dose: 20 ml Documented By: GUANACO Insulin Human Lispro (Insulin Lispro 100 Unit/Ml 3 Ml Vial) 0 unit SUBCUT QIDACHS [facility]; Protocol Last Admin: 06/25/23 12:35 Dose: Not Given Documented By: SEJAL Non-Admin Reason: No Insulin Coverage Levetiracetam (Levetiracetam Oral Soln 500 Mg/5 Ml) 500 mg PO BID [facility] Last Admin: 06/25/23 10:46 Dose: 500 mg Documented By: GUANACO Loperamide HCl (Loperamide Hcl 2 Mg Capsule) 2 mg PO Q4H PRN PRN Reason: diasrrhea Last Admin: 06/17/23 16:39 Dose: 2 mg Documented By: GUILHERME Melatonin (Melatonin 3 Mg Tablet) 6 mg PO BEDTIME PRN PRN Reason: Insomnia Ondansetron HCl (Ondansetron Hcl 4 Mg/2 Ml Vial) 4 mg IVPUSH Q8H PRN PRN Reason: Nausea and Vomiting Ondansetron HCl (Ondansetron Hcl 4 Mg/2 Ml Vial) 4 mg IVPUSH ONCE PRN PRN Reason: Nausea and Vomiting Sodium Chloride (0.9 % Sodium Chloride Flush 3 Ml Syringe) 3 ml IVFLUSH QSHIFT [facility] Last Admin: 06/25/23 10:27 Dose: Not Given Documented By: GUANACO Non-Admin Reason: Patient Refused Trazodone HCl (Trazodone Hcl 100 Mg Tablet) 100 mg PO BEDTIME [facility] Last Admin: 06/24/23 22:29 Dose: 100 mg Documented By: ALVIN Valsartan (Valsartan 80 Mg Tablet) 80 mg PO DAILY [facility] Last Admin: 06/25/23 10:21 Dose: 80 mg Documented By: GUANACO Labs 06/13/23 18:55 06/23/23 08:31 Labs: Laboratory Results - last 24 hr 06/24/23 06/24/23 06/24/23 16:03 19:46 20:45 POC Glucose 180 H 64 170 H 06/25/23 06/25/23 06/25/23 00:10 07:10 11:09 POC Glucose 150 H 138 H 149 H Assessment and Plan (1) Swallowing problem: Status: Acute (2) Mediastinal lymphadenopathy: Status: Acute (3) New onset seizure: Status: Acute Plan 67F PMH htn, cva, dm, gerd, lung mass (patient did not follow up for work up), presented with seizure Cough CXR negative for any infiltrates likely from mucus secretions post bronch Mucinex swallowing problem PRINT SHOP ASSISTANT team following, MBSS done and diet advance properly acute Toxic metabolic encephalopathy 2/2 seizure resolved Acute seizure concern for brain mets MRI had lot of artifacts from movements, no clear metastasis noted but small mets can not be totally excluded. 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 Quality Stroke Does the patient have a stroke diagnosis?: No VTE Prior VTE?: No VTE Risk Level:: Medical - moderate - high VTE Device Contraindication: Treatment Not Indicated VTE Drug Contraindication: N/A - Med Ordered
--- NOTE | 2023-06-25 15:02 | MHC.CM.PN ---
yulissa calling to request additional medical imfo
--- NOTE | 2023-06-25 15:15 | MHC.SPEECHCO ---
Diet upgraded to Regular Solids by patient request. Continue to recommend [place]-Thick Liquids. Pt will need further re-inforcement to comply to thickend liquid recommendations if she is to return home.
--- NOTE | 2023-06-25 15:28 | MHC.SPEECHCO ---
Pt not seen on this date. Per RN she is tolerating her current diet with her Daughter in the room feeding her most meals.
[2023-06-25 16:20] LABS: Glucose, Whole Blood 184 mg/dL (60-115)
[2023-06-25] MEDS: Insulin Lispro 100 UNIT/ML 3 ML VIAL SUBCUT (17:36)
--- NOTE | 2023-06-25 20:03 | PC.NURSE ---
Assumed care at 07:00. patient A&O x 4, soft spoken, some poor articulation, but follows commands and responds appropriately. Resisitive to care at times, refused IV and MD aware. OOB to chair, ambulated to BR with 1 assist and walker. Has hoarse productive cough of clear to cloudy thin sputum. Biopsy still pending. Patient initially with dim LS at bases, now with coarse LS throughout, MD notified, will start IS and flutter valve per MD. Patient denies SOB or dyspnea, SpO2 98% on RA. Speech saw patietn today, reassessed diet texture and upgraded to regular diet with nectar thick liquids. Dinner was still ground, and patient ate very little of it, demonstrating poor appetite all day.
[2023-06-25] MEDS: traZODone HCL 100 MG TABLET PO (20:39)
[2023-06-25] MEDS: 0.9 % Sodium Chloride Flush 3 ML SYRINGE IVFLUSH (20:39)
[2023-06-25 20:47] LABS: Glucose, Whole Blood 125 mg/dL (60-115)
[2023-06-26] VITALS: BP 120/61; PULSE 111; RESP 16; TEMP 36.8; O2SAT 97
[2023-06-26 04:00] VITALS: BP 106/58; PULSE 105; RESP 16; TEMP 36.9; O2SAT 96
[2023-06-26 07:13] LABS: Glucose, Whole Blood 166 mg/dL (60-115)
[2023-06-26 07:24] VITALS: BP 116/55; PULSE 100; RESP 16; TEMP 36.2; O2SAT 96
[2023-06-26] MEDS: Insulin Lispro 100 UNIT/ML 3 ML VIAL SUBCUT (07:26)
[2023-06-26] MEDS: levETIRAcetam Oral Soln 500 MG/5 ML PO (07:26)
[2023-06-26] MEDS: guaiFENesin 100 MG/5 ML LIQUID 20 ML PO (07:27)
[2023-06-26] MEDS: Escitalopram Oxalate 10 MG TABLET PO (07:27)
[2023-06-26] MEDS: Valsartan 80 MG TABLET PO (07:27)
--- NOTE | 2023-06-26 08:57 | MHC.CM.PN ---
pt now agreeabl;e to returning to [facility] will be leaving at 11
--- NOTE | 2023-06-26 09:32 | HO.PM.IMPN ---
Subjective Subjective Date of Service: 06/26/23 Interval History: no complaints Physical Exam Vital Signs: Vital Signs: Last Vital Signs Temp 97.1 F 06/26/23 07:24 Pulse 100 06/26/23 07:24 Resp 16 06/26/23 07:24 BP 116/55 L 06/26/23 07:24 Pulse Ox 96 06/26/23 07:24 O2 Del Method Room Air 06/26/23 07:24 O2 Flow Rate 2 06/23/23 07:07 BMI result Body Mass Index 19.6 General: AO X 3, no acute distress Resp: CTA bilateral, no accessory muscles used CVS: S1,S2,RRR GI: soft, non tender, non distended Neuro: motor grossly intact, alert Psych: appropriate affect, appropriate insight Const: Other: Constitutional : alert, not in distress Neck : Normal inspection, Supple Cardiovascular : RRR, no JVP, no lower extremity edema Respiratory : fair air entry bilaterally, less on the left side, no crackles, scatterred wheezes Gastrointestinal: soft, lax, Normal bowel sounds, Non tender Skin : Warm, Dry Neurological : alert , oriented , no abnormal movements, No focal deficit Objective Data Active Medications Acetaminophen (Acetaminophen 325 Mg Tablet) 650 mg PO Q6H PRN PRN Reason: Pain, Mild (Pain Scale 1-3) Last Admin: 06/18/23 15:56 Dose: 650 mg Documented By: GUILHERME Acetaminophen (Acetaminophen 325 Mg Tablet) 650 mg PO ONCE PRN PRN Reason: Pain, Mild (Pain Scale 1-3) Dextrose (Dextrose 50 % 25 Gm/50 Ml Syringe) 25 gm IVPUSH Q15M PRN; Protocol PRN Reason: per Hypoglycemia Standing Ord. Enoxaparin Sodium (Enoxaparin Sodium 40 Mg/0.4 Ml Syringe) 40 mg SUBCUT Q24H [facility] Last Admin: 06/19/23 23:38 Dose: 40 mg Documented By: ALVIN Escitalopram Oxalate (Escitalopram Oxalate 10 Mg Tablet) 10 mg PO DAILY [facility] Last Admin: 06/26/23 07:27 Dose: 10 mg Documented By: SEJAL Glucose (Glucose Gel 15 Gm Gel..Gram.) 15 gm PO Q15M PRN; Protocol PRN Reason: per Hypoglycemia Standing Ord. Guaifenesin (Guaifenesin 100 Mg/5 Ml Liquid) 20 ml PO TID [facility] Last Admin: 06/26/23 07:27 Dose: 20 ml Documented By: SEJAL Insulin Human Lispro (Insulin Lispro 100 Unit/Ml 3 Ml Vial) 0 unit SUBCUT QIDACHS [facility]; Protocol Last Admin: 06/26/23 07:26 Dose: 2 unit Documented By: SEJAL Levetiracetam (Levetiracetam Oral Soln 500 Mg/5 Ml) 500 mg PO BID [facility] Last Admin: 06/26/23 07:26 Dose: 500 mg Documented By: SEJAL Loperamide HCl (Loperamide Hcl 2 Mg Capsule) 2 mg PO Q4H PRN PRN Reason: diasrrhea Last Admin: 06/17/23 16:39 Dose: 2 mg Documented By: GUILHERME Melatonin (Melatonin 3 Mg Tablet) 6 mg PO BEDTIME PRN PRN Reason: Insomnia Ondansetron HCl (Ondansetron Hcl 4 Mg/2 Ml Vial) 4 mg IVPUSH Q8H PRN PRN Reason: Nausea and Vomiting Ondansetron HCl (Ondansetron Hcl 4 Mg/2 Ml Vial) 4 mg IVPUSH ONCE PRN PRN Reason: Nausea and Vomiting Sodium Chloride (0.9 % Sodium Chloride Flush 3 Ml Syringe) 3 ml IVFLUSH QSHIFT [facility] Last Admin: 06/26/23 07:30 Dose: Not Given Documented By: SEJAL Non-Admin Reason: No Access Trazodone HCl (Trazodone Hcl 100 Mg Tablet) 100 mg PO BEDTIME [facility] Last Admin: 06/25/23 20:39 Dose: 100 mg Documented By: DIOMEDES Valsartan (Valsartan 80 Mg Tablet) 80 mg PO DAILY [facility] Last Admin: 06/26/23 07:27 Dose: 80 mg Documented By: SEJAL Labs 06/13/23 18:55 06/23/23 08:31 Labs: Laboratory Results - last 24 hr 06/25/23 06/25/23 06/25/23 11:09 16:07 20:36 POC Glucose 149 H 184 H 125 H 06/26/23 07:06 POC Glucose 166 H Assessment and Plan (1) Swallowing problem: Status: Acute (2) Mediastinal lymphadenopathy: Status: Acute (3) New onset seizure: Status: Acute Plan 67F PMH htn, cva, dm, gerd, lung mass (patient did not follow up for work up), presented with seizure Cough CXR negative for any infiltrates likely from mucus secretions post bronch Mucinex swallowing problem MAINTENANCE ELECTRICIAN team following, MBSS done recommending regular solids nctar thick liquids acute Toxic metabolic encephalopathy 2/2 seizure resolved Acute seizure concern for brain mets MRI had lot of artifacts from movements, no clear metastasis noted but small mets can not be totally excluded. 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 Quality Stroke Does the patient have a stroke diagnosis?: No VTE Prior VTE?: No VTE Risk Level:: Medical - moderate - high VTE Device Contraindication: Treatment Not Indicated VTE Drug Contraindication: N/A - Med Ordered
[2023-06-26 10:29] VITALS: BP 116/55; PULSE 100; O2SAT 96
[2023-06-26 11:21] VITALS: BP 95/51; PULSE 98; RESP 16; TEMP 36.7; O2SAT 97
[2023-06-26 11:21] LABS: Glucose, Whole Blood 149 mg/dL (60-115)
[2023-06-26] MEDS: polyethylene glycoL 3350 17 GM POWD.PACK PO (11:22)
--- NOTE | 2023-06-26 11:38 | MHC.SL.SWA ---
Speech Pathologist Impression: Risk of aspiration, oropharyngeal dysphagia, known aspiration on thin liquid Risk of Aspiration Due to: Neurological Condition Dysphasia Diet Status: No changes at this time. After changing diet to Chopped/Advanced Solids (NDD3), Pt became compliantive of solid food change. RN requested re-evaluation. Pt educated on risks of aspiration. She verbalized back understanding but continues to refuse diet texture modification. RN and MD informed. Order changed in medical record. Liquid Consistency and Strategies for Safe Swallow: Liquid Intake Recommendation: [place] Thick Liquid Intake Strategies: Small Sips No Straws Double Swallow Solid Food Consistency: Dietary Recommendations: Regular Additional Modifications to Solid Foods: Upgraded to regular texture diet per pt's request Oral Medication Intake: Whole with Puree Please contact the pharmacy regarding appropriate crushable or liquid drug formulations that are available whenever modified delivery is recommended. Compensatory Strategies and Precautions to be Taken for Safe Swallow: Sitting Upright (90 deg) Double Swallow No Straw Liquids from Cup Liquids from Spoon Small Bites and Sips Rate of Ingestion Change Avoid Specific Foods Supervision While Eating and Drinking for Safe Swallow: Total Supervision (1:1) Foods to Avoid: Mixed textures, hard to chew solids Swallowing Recommended Treatments: Compens. Strategy Educat. Recommendation for Speech: Inpatient Speech Therapy Speech Therapy through Rehab Facility SEE [facility] [place] 06/24 Vendor Management Consultant Clinican/Clinical Fellow: No Supervisory Statement: I have reviewed and agree with the student/clinical fellow's documentation: N/A Speech Language Pathologist: Sarah Dumont M.A., CCC-ROD GREASER
--- NOTE | 2023-06-26 13:04 | P.DS_ITS ---
DS: Providers Provider Date of Service: 06/26/23 Date of admission: 06/18/23 10:32 Primary care physician: Lizy Laguna MD Consults: 06/13/23 21:40 Consult to Neurology Routine Consulting Provider: [facility] Reason for consultation: new onset seizures 06/13/23 22:57 Consult to Hematology / Oncology Routine Consulting Provider: Darling Awan Reason for consultation: New onset seizures, pt with likely metastatic lung cancer Consult to Pulmonology Routine Consulting Provider: [facility] Reason for consultation: New onset seizures, pt with likely metastatic lung cancer 06/15/23 09:44 Consult to General Surgery Routine Consulting Provider: [facility] Reason for consultation: Ct Abd suggestive of proctitis and perirectal abscess in AMS patient DS: Diagnosis Discharge Diagnosis (1) Swallowing problem: Status: Acute (2) Mediastinal lymphadenopathy: Status: Acute (3) New onset seizure: Status: Acute DS: Summary Hospital Course Hospital Course: from initial hpi: 67-year-old female with a PMH significant for?HTN, hx of CVA, insulin-dependent type 2 diabetes, GERD, and recent diagnosis of lung mass concerning for malignancy who presents to the ED after having an unwitnessed seizure at home and a 2nd seizure witnessed by staff in the ED that lasted approximately 2-3 minutes. Patient currently nonverbal, confused, possibly postictal and does incapable of providing HPI which is instead obtained from provider and chart review. Patient without fall or head strike today. No known previous seizure history. Patient did have a recent fall 5 days prior on Saturday with a head strike. Presented to the ED where frontal scalp laceration was repaired with glue and Steri-Strips. CT of head and C-spine unremarkable for bleeding or acute traumatic injury. Labs unremarkable. Patient was admitted in February for evaluation of productive cough, pleuritic chest pain, and vaginal spotting. Patient had hematochezia, reported weight loss, and anorexia for several months. CTA of chest found irregular spiculated mass measuring 4.6 x 3.9 x 3.6 cm and upper left lobe concerning for malignancy, as well finding mediastinal and left hilar adenopathy concerning for metastasis. Patient was supposed to have outpatient bronchoscopy and biopsy, however patient does not appear to have completed these procedures. According to ED note on 06/08/2023 she admits that she was too scared to know her true diagnosis. In the ED labs were largely unremarkable: No leukocytosis, H&H stable. Electrolytes WNL. Renal function baseline, hepatic function baseline. UA likely negative for UTI. Tox screen negative. CXR redemonstrated left atypical mass concerning for neoplasm, and interim appearance of an 8 mm sclerotic lesion within the right humeral head. CT?of head showed no acute intracranial pathology. Pt was treated with Ativan, Keppra, and IVF. Pt will be admitted to the hospital under observation on telemetry for further evaluation of new onset seizures in the setting of recent fall with head strike and lung mass concerning for malignancy with possible metastasis. hospital course: Patient was admitted for seizure. There was concern for pain metastasis given known lung mass, MRI was poor quality due to movement artifact, however no clear metastasis noted. Was started on Keppra and had no further recurrences. She underwent bronchoscopy with biopsy with results pending she should follow-up with Oncology as outpatient. For dysphagia was seen by speech therapy who recommended modified barium swallow which was performed recommendations are currently for ndd3 solids and nectar thick liquids. Patient had acute metabolic encephalopathy due to her seizure on admission which resolved. For history of CVA she will continue on aspirin. For diabetes continue insulin. Patient was seen by physical therapy recommended short-term rehab at half-way facility to which she will be discharged. Time Spent with Patient Time attestation: Total time managing care of this patient today ____ minutes. Discharge coordination time: Greater than 30 minutes Quality: Safe Use of Opioids Does Pt have an Active Cancer Diagnosis on the Problem List?: Yes Opioid Measure Date for [facility] Report: 05/27/23 Opioid Measure Time for [facility] Report: 13:05 Quality: Stroke Does the patient have a stroke diagnosis?: No Physical Exam Vital Signs: Vital Signs: Last Vital Signs Temp 98.1 F 06/26/23 11:21 Pulse 98 06/26/23 11:21 Resp 16 06/26/23 11:21 BP 95/51 L 06/26/23 11:21 Pulse Ox 97 06/26/23 11:21 O2 Del Method Room Air 06/26/23 11:21 O2 Flow Rate 2 06/23/23 07:07 BMI result Body Mass Index 19.6 General: AO X 3, no acute distress Resp: CTA bilateral, no accessory muscles used CVS: S1,S2,RRR GI: soft, non tender, non distended Neuro: motor grossly intact, alert Psych: appropriate affect, appropriate insight Const: Other: Constitutional : alert, not in distress Neck : Normal inspection, Supple Cardiovascular : RRR, no JVP, no lower extremity edema Respiratory : fair air entry bilaterally, less on the left side, no crackles, scatterred wheezes Gastrointestinal: soft, lax, Normal bowel sounds, Non tender Skin : Warm, Dry Neurological : alert , oriented , no abnormal movements, No focal deficit DS: Data Data Completed and Pending Completed studies during hospitalization [Text1]: Pending at discharge 06/21/23 14:28 Surgical [PTH] Routine Pending studies at discharge: Pending at discharge 06/21/23 14:25 Cytology [PTH] Stat Labs on day of discharge: Laboratory Results - last 24 hr 06/25/23 06/25/23 06/26/23 16:07 20:36 07:06 POC Glucose 184 H 125 H 166 H 06/26/23 11:08 POC Glucose 149 H Discharge Plan Discharge Anticipated Discharge Date/Time: 06/24/23 09:43 Patient Disposition: Xfer SNF Discharge Diagnosis: New onset seizure Left sided lung mass Referrals: Darling Awan MD [Physician] - 1 Week Lizy Carey MD [Primary Care Provider] - 1 Week Discharge Medications: New levetiracetam 500 mg Tablet 500 mg PO BID Qty: 0 0RF Continued cholecalciferol (vitamin D3) 50 mcg (2,000 unit) capsule 50 mcg PO DAILY 90 Days Qty: 90 1RF (DME) pen needle, diabetic [Comfort EZ Pen [place]] 31 gauge x 5/16 needle See Rx Instructions .Route Qty: 100 3RF Rx Instructions: Use 1 pen needle once a day ferrous sulfate 325 mg (65 mg iron) tablet 325 mg PO DAILY 90 Days Qty: 90 1RF cetirizine [Allergy Relief (cetirizine)] 10 mg tablet 10 mg PO DAILY PRN (Reason: allergy symptoms) 90 Days Qty: 90 1RF lorazepam 0.5 mg tablet 0.5 mg PO DAILY PRN (Reason: anxiety) 90 Days Qty: 90 0RF acetaminophen [Mapap Arthritis Pain] 650 mg tablet extended release 650 mg PO Q8H PRN (Reason: fever or pain) 90 Days Qty: 270 2RF irbesartan 150 mg tablet 150 mg PO DAILY 90 Days Qty: 90 1RF trazodone 100 mg tablet 100 mg PO BEDTIME aspirin [Adult Low Dose Aspirin] 81 mg tablet,delayed release (DR/EC) 81 mg PO DAILY escitalopram oxalate 10 mg tablet 10 mg PO DAILY Changed insulin degludec [Tresiba FlexTouch U-100] 100 unit/mL (3 mL) insulin pen 8 unit subcut BEDTIME 90 Days Qty: 25.2 3RF Discharge Orders: Discharge Order (Routine); Ordered 06/26/23 Ordered By: Rikc Robertson Diet: ndd3 solids, nectar liq. Activity on Discharge: As tolerated Stand Alone Forms: Patient Portal Discharge page Other Ambulatory Orders: [place] barium swallow modified (Routine) Timeframe: 2 Weeks Facility: [facility] - Location: Radiology Ordered By: Yesy Osorio Care Plan Goals: recovery Health Concerns: lung mass, seizure, dysphagia Plan of Treatment: daniel, follow up pathology, oncology, ELECTR[employer] [facility]ER Assessment: see above
== END 2023-06-26 15:44 | disposition skilled nursing facility (03) | DRG 824 ==
LOC: HO.ED 19:09 → HO.EDOVER 21:45 → HO.S3 06-14 08:35
PROVIDERS: Internal Medicine; Internal Medicine Pulmonary Disease; Student in an Organized Health Care Education/Training Program; Admitting Provider Student in an Organized Health Care Education/Training Program; Emergency Provider Student in an Organized Health Care Education/Training Program; PCP Internal Medicine; Visit Provider Internal Medicine
PROC: 07B74ZX Excision of Thorax Lymphatic, Percutaneous Endoscopic Approach, Diagnostic (ICD-10-PCS; principal; 2023-06-21 13:30)
DX: C77.1 Secondary and unspecified malignant neoplasm of intrathoracic lymph nodes (principal); C34.12 Malignant neoplasm of upper lobe, left bronchus or lung; C79.31 Secondary malignant neoplasm of brain; C79.51 Secondary malignant neoplasm of bone; K62.89 Other specified diseases of anus and rectum; E11.9 Type 2 diabetes mellitus without complications; R56.9 Unspecified convulsions; I69.331 Monoplegia of upper limb following cerebral infarction affecting right dominant side; R13.10 Dysphagia, unspecified; Z87.891 Personal history of nicotine dependence; Z91.199 Patient's noncompliance with other medical treatment and regimen due to unspecified reason; Z79.4 Long term (current) use of insulin; Z79.82 Long term (current) use of aspirin; Z79.899 Other long term (current) drug therapy
CPT/HCPCS: 36415; 70450; 70553; 71045; 71250; 73060; 74176; 74230; 80048; 80053; 80307; 81001; 82378; 82947; 83036; 83615; 84443; 85025; 85610; 88172; 88173; 88177; 88305; 88341; 88342; 92526; 92610; 92611; 95816; 97110; 97116; 97162; 97166; 97530; 99285; A9585; J0171; J1650; J1953; J2060; J2405; J3010

== ENCOUNTER → 2023-06-13 21:40 | Outpatient (BNV) | payer MEDICARE, SELFPAY | PROVIDERS: Admitting Provider Student in an Organized Health Care Education/Training Program; Emergency Provider Student in an Organized Health Care Education/Training Program; PCP Internal Medicine; Visit Provider Surgery | DX: K62.89 Other specified diseases of anus and rectum (principal) | CPT/HCPCS: 99222 ==

== ENCOUNTER → 2023-06-13 21:40 | Outpatient (BNV) | payer MEDICARE, SELFPAY | PROVIDERS: Admitting Provider Student in an Organized Health Care Education/Training Program; Emergency Provider Student in an Organized Health Care Education/Training Program; PCP Internal Medicine; Visit Provider Student in an Organized Health Care Education/Training Program | DX: R56.9 Unspecified convulsions (principal); R13.10 Dysphagia, unspecified; R59.0 Localized enlarged lymph nodes | CPT/HCPCS: 99222; 99231; 99232; 99233; 99239 ==

== ENCOUNTER → 2023-06-13 21:40 | Outpatient (BNV) | payer MEDICARE, SELFPAY | PROVIDERS: Admitting Provider Student in an Organized Health Care Education/Training Program; Emergency Provider Student in an Organized Health Care Education/Training Program; PCP Internal Medicine; Visit Provider Internal Medicine | DX: R91.8 Other nonspecific abnormal finding of lung field (principal) | CPT/HCPCS: 99221 ==

== ENCOUNTER → 2023-06-13 21:40 | Outpatient (BNV) | payer MEDICARE, SELFPAY | PROVIDERS: Admitting Provider Student in an Organized Health Care Education/Training Program; Emergency Provider Student in an Organized Health Care Education/Training Program; PCP Internal Medicine; Visit Provider Hospitalist | DX: C34.90 Malignant neoplasm of unspecified part of unspecified bronchus or lung (principal) | CPT/HCPCS: 31625; 31652; 99223; 99232 ==

== ENCOUNTER 2023-06-18 10:32 | Outpatient (BNV) | payer MEDICARE, SELFPAY | END 2023-06-24 13:02 | PROVIDERS: Admitting Provider Student in an Organized Health Care Education/Training Program; Emergency Provider Student in an Organized Health Care Education/Training Program; PCP Internal Medicine; Visit Provider Radiology Diagnostic Radiology | DX: R13.10 Dysphagia, unspecified (principal) | CPT/HCPCS: 74230 ==

== ENCOUNTER 2023-07-22 05:01 | Emergency (ER) | payer MEDICARE, SELFPAY ==
--- NOTE | 2023-07-22 | ECG_ITS ---
Test Reason : SOB Blood Pressure : / mmHG Vent. Rate : 122 BPM Atrial Rate : 122 BPM P-R Int : 096 ms QRS Dur : 058 ms QT Int : 312 ms P-R-T Axes : 083 082 239 degrees QTc Int : 444 ms Sinus tachycardia with short PA Possible Left atrial enlargement ST & T wave abnormality, consider inferolateral ischemia Abnormal ECG When compared with ECG of 08-JUN-2023 06:46, Non-specific change in ST segment in Inferior leads ST now depressed in Anterolateral leads ST more depressed Inferior leads Inverted T waves have replaced nonspecific T wave abnormality in Lateral leads Referred By: Generic ED Physician Electronically Signed By:ALBERT GAMBOA MD
--- NOTE | ~2023-07-22 | XR_ITS ---
EXAMINATION: XR CHEST CLINICAL INFORMATION: Shortness of breath and elevated white blood cell count COMPARISON: Portable chest 06/22/2023 TECHNIQUE: AP upright portable view of the chest was obtained. 10:12 AM FINDINGS: The lungs are well expanded. Left apical mass again seen. Right apical pleural thickening is again noted. No acute focal consolidation. No pleural effusion. No significant abnormality is noted involving the heart, mediastinum, bony thorax or soft tissues. XR/XR chest 1V IMPRESSION: No acute cardiopulmonary disease.
[2023-07-22 05:15] VITALS: BP 116/76; BP 141/64; PULSE 122; PULSE 91; RESP 22; TEMP 37; BMI 16.7
[2023-07-22 05:36] VITALS: O2SAT 100
[2023-07-22 05:45] LABS: Hematocrit 33.6 % (37.0-47.0); Hemoglobin 10.6 g/dl (12.0-16.0); Mean Corpuscular HGB Conc 31.5 g/dl (31.0-35.0); Mean Corpuscular Volume 98.2 fL (80.0-98.0); Mean Platelet Volume 9.4 fL (9.4-12.3); Platelet Count 263 X10*3/uL (160-400); Red Blood Count 3.42 X10*6/uL (4.20-5.50); Red Cell Distribution Width 12.5 % (11.0-16.0); White Blood Count 15.9 X10*3/uL (4.8-10.8)
[2023-07-22 05:53] VITALS: BP 121/59; PULSE 123; RESP 19; O2SAT 100
--- NOTE | 2023-07-22 06:09 | PC.NURSE ---
pt changed over, labs collected, ekg completed, pure wick in place, pt placed on bedside monitor.
[2023-07-22 06:10] LABS: Alanine Aminotransferase 7 U/L (0-31); Albumin Level 3.6 g/dL (3.5-5.0); Alkaline Phosphatase 83 U/L (39-117); Anion Gap 26 (12-20); Aspartate Amino Transferase 8 U/L (5-31); Bilirubin Total 0.8 mg/dL (0.0-1.0); Blood Urea Nitrogen 56 mg/dL (9-16); Calcium 10.5 mg/dL (8.4-10.2); Carbon Dioxide 18 mmol/L (22-29); Chloride 107 mmol/L (96-108); Estimated Glomerular Filt Rate 50; Glucose Random 376 mg/dL (60-115); Potassium 4.7 mmol/L (3.3-5.1); Sodium 146 mmol/L (135-145); Total Protein 8.2 g/dL (6.5-8.0)
--- NOTE | 2023-07-22 06:21 | PC.NURSE ---
Pt nonverbal at this time. Does not answer questions appropriately. quality assurance engineer spoke with family member danie which is person who called EMS. Provider Jaquelin spoke with family member as well. Plan of care ongoing.
[2023-07-22] MEDS: 0.9 % Sodium Chloride 1,000 ML 999 ML IVCONT (06:30)
--- NOTE | 2023-07-22 06:51 | PC.NURSE ---
called to notify us Daughter Jeri is health [phone].
--- NOTE | 2023-07-22 06:53 | PC.NURSE ---
This RN called and l/m for Jeri [phone] who is the pts healthcare proxy to call ED.
--- NOTE | 2023-07-22 07:04 | PC.NURSE ---
According to reji Wilcox pt is a full code.
--- NOTE | 2023-07-22 07:45 | ED_ITS ---
HPI - General Adult General Chief complaint: General Medical Stated complaint: weakness SOB Time Seen by Provider: 07/22/23 05:54 Source: family and EMS Mode of arrival: EMS Limitations: other (Patient nonverbal) History of Present Illness HPI narrative: Patient comes to the emergency room via ambulance. Patient is nonverbal. According to EMS, the patient's son called 911, because the patient was having shortness of breath. I was able to get in touch with the patient's son, unclear what happened, seems that the patient was getting out of bed and trying to get to the bathroom, seems that the patient was too weak to get up and patient seem short of breath, therefore the son stated that he called 911. The patient's son states that the patient is verbal. However, the patient here is not speaking. Related Data Home Medications Medication Instructions Recorded Confirmed aspirin 81 mg tablet,delayed 81 mg PO DAILY 02/08/22 07/25/23 release (Adult Low Dose Aspirin) escitalopram oxalate 10 mg tablet 10 mg PO DAILY 02/08/22 07/25/23 trazodone 100 mg tablet 100 mg PO BEDTIME 06/08/23 07/25/23 Previous Rx's Medication Instructions Recorded cholecalciferol (vitamin D3) 50 50 mcg PO DAILY 90 days #90 caps 06/24/22 mcg (2,000 unit) capsule pen needle, diabetic 31 gauge x #100 ea 10/03/2202/12 (Comfort EZ Pen [place]) cetirizine 10 mg tablet (Allergy 10 mg PO DAILY PRN allergy 10/29/22 Relief (cetirizine)) symptoms 90 days #90 tabs ferrous sulfate 325 mg (65 mg 325 mg PO DAILY 90 days #90 tabs 10/29/22 iron) tablet lorazepam 0.5 mg tablet 0.5 mg PO DAILY PRN anxiety 90 10/30/22 days #90 tabs acetaminophen 650 mg 650 mg PO Q8H PRN fever or pain 03/06/23 tablet,extended release (Mapap days #270 tabs Arthritis Pain) irbesartan 150 mg tablet 150 mg PO DAILY 90 days #90 tabs 04/25/23 insulin degludec 100 unit/mL (3 8 unit (0.08 mL) subcut BEDTIME 06/24/23 mL) subcutaneous pen (Tresiba days #25.2 mL FlexTouch U-100 insulin) levetiracetam 500 mg tablet 500 mg PO BID #0 tabs 06/26/23 Allergies Allergy/AdvReac Type Severity Reaction Status Date / Time codeine [CODEINE] Allergy Unknown HIVES Verified 04/03/23 11:26 morphine [MORPHINE] Allergy Unknown ITCHING, Verified 04/03/23 11:26 itchy Review of Systems 2 Review of Systems: Yes Other (Patient nonverbal) [facility] Past Medical History Medical History (Updated 07/26/23 @ 03:13 by Nidia Hammer MD) Proctitis New onset seizure Lung mass Rectal mass Bronchitis History of gastric ulcer Stroke Diabetes mellitus Essential hypertension Surgical History Hx of colonoscopy No pertinent past surgical history Family History Family History Mother Hypertension Father No problems noted. Social History Social History Household Members: Spouse Housing: House Do you presently have visiting nurse or other home services: No Unable to assess alcohol history related to: Unable to respond Alcohol intake: never Patient Tobacco Use Status: Former Tobacco user Quit Date: Quit a month ago Tobacco use type: Cigarette Years Smoked: 30 e-Cigarette/Vaping Use: Never Used Second Hand Smoke Exposure: No Advance Directives Date on File: 06/10/23 service: No Current occupational status: retired Cognitive needs: No Hearing needs: No Vision needs: No Physical Exam ED Vital Signs: Vital Signs - 24 hr 07/25/23 06:00 07/25/23 16:00 Temperature 98.1 F Respiratory Rate 18 18 Pulse Oximetry 98 Oxygen Delivery Method Room Air BMI result Body Mass Index 16.7 Const Other: Appearance: Alert. Nonverbal, no acute distress. Eyes: Pupils equal, round and reactive to light. ENT: Pharynx normal. Dry oral mucosa Neck: Normal inspection. Neck supple. No lymph nodes noted. No crepitus CVS: Normal heart rate and rhythm. Pulses normal. Normal S1 and S2 Respiratory: No respiratory distress. Breath sounds normal. No Wheezing. No rales Abdomen: Soft and nontender. No rigidity. No distention. Skin: Skin warm and dry. Normal skin color. Normal skin turgor. Extremities: No lower extremity edema. No Lacerations. No Rash Neuro: Moving all extremities, patient cannot participate in cranial nerve assessment Psych: calm, Course Course Course Narrative: -I was able to get in touch with the patient's son, seems that they want the patient to be a full code. -I reviewed patient's notes from oncology from May of 2023, it was still unclear at the office visit of May with Dr. Carcamo, if the patient wanted to pursue any further workup or treatment for her lung cancer. In the meantime, patient was sent home with Home and short-term rehab -patient came in tachycardic with a heart rate between 10/20/2029. Not hypoxic. Given patient's recent diagnosis of cancer, CT scan to rule out pulmonary embolism has been ordered, pending. -sign-out given to Dr. Espinoza Reevaluation(s) Reevaluation #1: Elevated WBC and lactic acid will obtain CXR to see if there is an underlying pneumonia Time: 08:34 Reevaluation #2: No infiltrate on xray, no infection will not give abx at this time. Awaiting for family to decide best course of treatment. Essentially patient is dying of cancer Time: 10:23 Reevaluation #3: I have told the nurse not to do vitals Time: 12:35 Additional Reevaluation(s): physician observation: patient is dying of lung cancer, awaiting PT and social service as patient needs hospice level care 07/23/2023 - physician observation continued. No overnight events per nursing staff. Per case management note, hospice life care referral was placed. Awaiting Case Management dispo, will continue to monitor. 07/24/2023 08:50 Physician observation continued. Per nursing, patient was awake until 3:00 a.m., rolling back and forth in bed and appearing uncomfortable. P.r.n. morphine ordered. Case management following for placement. 07/25/26 0735- patient to remain in observation, uneventful night, patient has p.r.n. morphine ordered. Case management following placement, hospice consult pending. Per BARRETT Mahoney patient now DNR/DNI documentation of discussion with daughter per CM. New molst pending Medications Administered Generic Name Dose Route Start Last Admin Trade Name Freq PRN Reason Stop Dose Admin Insulin Glargine 5.6 unit 07/25/23 21:00 07/25/23 20:55 Insulin Glargine,Hum.Rec.Anlog 100 Unit/Ml 10 Ml Vial SUBCUT 5.6 unit BEDTIME JANNETH Administration Levetiracetam 500 mg 07/25/23 21:00 07/25/23 20:54 Levetiracetam 500 Mg Tablet PO 500 mg BID JANNETH Administration Morphine Sulfate 2.5 mg 07/24/23 07:50 07/24/23 13:48 Morphine Sulfate Oral Kacy 10 Mg/5 Ml Solution PO 2.5 mg Q4H PRN Administration Pain, Moderate(Pain Scale 4-6) Trazodone HCl 100 mg 07/25/23 21:00 07/25/23 20:54 Trazodone Hcl 100 Mg Tablet PO 100 mg BEDTIME JANNETH Administration Discontinued Medications Generic Name Dose Route Start Last Admin Trade Name Freq PRN Reason Stop Dose Admin Sodium Chloride 1,000 mls @ 999 mls/hr 07/22/23 06:23 07/22/23 14:45 Ns IVCONT 07/22/23 07:23 0 mls/hr .Q1H1M ONE Infusion Insulin Human Lispro 10 unit 07/22/23 07:52 07/22/23 08:50 Insulin Lispro 100 Unit/Ml 3 Ml Vial SUBCUT 07/22/23 07:53 10 unit ONCE ONE Administration Medical Decision Making Medical Decision Making [facility] Narrative: -received a phone call at 02:45 from the patient's nurse. Patient was found unresponsive. -at bedside, physical exam revealed no pulse, no spontaneous respirations, no pupillary reflexes. For documentation purposes, an EKG was done, patient is in asystole. -time of was called at 02:47, patient is DNR, DNI, comfort measures only -I called the patient's daughter Jeri Cisneros and informed her of the patient's . They will be coming in shortly with the patient's Differential Diagnosis Differential Diagnoses: The differential diagnosis associated with the presentation includes (Deconditioning, pneumonia, UTI, pulmonary embolism, worsening tumor burden) Admission/Observation Consideration of admission/observation: Escalation of care including admission/observation considered (Given the patient's presentation, patient seems dehydrated, needs IV fluids, pulmonary embolism needs to be ruled out, admission has been considered) Lab Data [facility] Lab Attestation statement: I reviewed the patient's lab results. 07/22/23 05:40 07/22/23 07:42 Labs: Lab Results 07/22/23 07/22/23 07/22/23 Range/Units 05:40 07:42 08:41 WBC 15.9 H (4.8-10.8) X10*3/uL RBC 3.42 L (4.20-5.50) X10*6/uL Hgb 10.6 L (12.0-16.0) g/dl Hct 33.6 L (37.0-47.0) % MCV 98.2 H (80.0-98.0) fL MCH 31.0 (27.0-33.0) pg MCHC 31.5 (31.0-35.0) g/dl RDW 12.5 (11.0-16.0) % Plt Count 263 (160-400) X10*3/uL MPV 9.4 (9.4-12.3) fL Absolute Nucleated RBC 0.000 (0.0-0.012) X10*3/uL Nucleated RBC % (auto) 0.0 (0.0-0.2) /100WBC PT 12.5 (11.1-13.3) SEC INR 1.0 (0.9-1.1) Sodium 146 H 144 (135-145) mmol/L Potassium 4.7 4.4 (3.3-5.1) mmol/L Chloride 107 109 H (96-108) mmol/L Carbon Dioxide 18 L 13 L (22-29) mmol/L Anion Gap 26 H 26 H (12-20) BUN 56 H 53 H (9-16) mg/dL Creatinine 1.09 1.11 (0.5-1.4) mg/dL Estim Creat Clear Calc 32.0 31.5 Estimated GFR 50 49 POC Glucose (60-115) mg/dL Random Glucose 376 H* 370 H* (60-115) mg/dL Lactic Acid 3.3 H* (0.5-2.0) mmol/L Calcium 10.5 H D 10.9 H (8.4-10.2) mg/dL Magnesium 3.3 H (1.6-2.6) mg/dL Total Bilirubin 0.8 1.0 (0.0-1.0) mg/dL Direct Bilirubin 0.5 (0.0-0.5) mg/dL AST 8 10 (5-31) U/L ALT 7 9 (0-31) U/L Alkaline Phosphatase 83 94 (39-117) U/L Total Protein 8.2 H 9.0 H (6.5-8.0) g/dL Albumin 3.6 3.5 (3.5-5.0) g/dL COVID-19 (ISAEL) Negative (Negative) COVID-19 Clin Com See Note 07/25/23 Range/Units 19:13 WBC (4.8-10.8) X10*3/uL RBC (4.20-5.50) X10*6/uL Hgb (12.0-16.0) g/dl Hct (37.0-47.0) % MCV (80.0-98.0) fL MCH (27.0-33.0) pg MCHC (31.0-35.0) g/dl RDW (11.0-16.0) % Plt Count (160-400) X10*3/uL MPV (9.4-12.3) fL Absolute Nucleated RBC (0.0-0.012) X10*3/uL Nucleated RBC % (auto) (0.0-0.2) /100WBC PT (11.1-13.3) SEC INR (0.9-1.1) Sodium (135-145) mmol/L Potassium (3.3-5.1) mmol/L Chloride (96-108) mmol/L Carbon Dioxide (22-29) mmol/L Anion Gap (12-20) BUN (9-16) mg/dL Creatinine (0.5-1.4) mg/dL Estim Creat Clear Calc Estimated GFR POC Glucose 573 H* (60-115) mg/dL Random Glucose (60-115) mg/dL Lactic Acid (0.5-2.0) mmol/L Calcium (8.4-10.2) mg/dL Magnesium (1.6-2.6) mg/dL Total Bilirubin (0.0-1.0) mg/dL Direct Bilirubin (0.0-0.5) mg/dL AST (5-31) U/L ALT (0-31) U/L Alkaline Phosphatase (39-117) U/L Total Protein (6.5-8.0) g/dL Albumin (3.5-5.0) g/dL COVID-19 (ISAEL) (Negative) COVID-19 Clin Com Independent Interpretation I performed an independent interpretation of an: EKG Interpretation: My interpretation of EKG, sinus tachycardia, nonspecific ST changes in V3, no T- wave inversions, QTC 444 Independent Historian Clinical information obtained from an independent historian. History obtained from or confirmed by: Other (Patient's son) External Record Review External record reviewed: Outpatient record (Per patient's documentation of positive thus visit with Dr. Carcamo in May, patient has not made a decision whether she wants full treatment or comfort measures only) Tests considered The following testing was considered but not selected: CT of chest not done as patient does not want any further studies Prescription Management I considered prescription management with: Antibiotic (no evidence of infection) Chronic Conditions Patient?s care impacted by: Other (lung cancer) Discharge Plan Discharge Clinical Impression: Acute dyspnea, Weakness, Primary lung cancer with metastasis from lung to other site Patient Disposition: Prescriptions: No Action cholecalciferol (vitamin D3) 50 mcg (2,000 unit) capsule 50 mcg PO DAILY 90 Days Qty: 90 1RF (DME) pen needle, diabetic [Comfort EZ Pen [place]] 31 gauge x 5/16 needle See Rx Instructions .Route Qty: 100 3RF Rx Instructions: Use 1 pen needle once a day ferrous sulfate 325 mg (65 mg iron) tablet 325 mg PO DAILY 90 Days Qty: 90 1RF cetirizine [Allergy Relief (cetirizine)] 10 mg tablet 10 mg PO DAILY PRN (Reason: allergy symptoms) 90 Days Qty: 90 1RF lorazepam 0.5 mg tablet 0.5 mg PO DAILY PRN (Reason: anxiety) 90 Days Qty: 90 0RF acetaminophen [Mapap Arthritis Pain] 650 mg tablet extended release 650 mg PO Q8H PRN (Reason: fever or pain) 90 Days Qty: 270 2RF irbesartan 150 mg tablet 150 mg PO DAILY 90 Days Qty: 90 1RF insulin degludec [Tresiba FlexTouch U-100] 100 unit/mL (3 mL) insulin pen 8 unit subcut BEDTIME 90 Days Qty: 25.2 3RF levetiracetam 500 mg Tablet 500 mg PO BID Qty: 0 0RF trazodone 100 mg tablet 100 mg PO BEDTIME aspirin [Adult Low Dose Aspirin] 81 mg tablet,delayed release (DR/EC) 81 mg PO DAILY escitalopram oxalate 10 mg tablet 10 mg PO DAILY
[2023-07-22 07:54] LABS: Prothrombin Time 12.5 SEC (11.1-13.3)
[2023-07-22 08:11] LABS: Lactic Acid 3.3 mmol/L (0.5-2.0)
[2023-07-22 08:22] VITALS: BP 141/65; PULSE 119; RESP 14; O2SAT 100
[2023-07-22 08:25] LABS: Alanine Aminotransferase 9 U/L (0-31); Albumin Level 3.5 g/dL (3.5-5.0); Alkaline Phosphatase 94 U/L (39-117); Anion Gap 26 (12-20); Aspartate Amino Transferase 10 U/L (5-31); Bilirubin Direct 0.5 mg/dL (0.0-0.5); Blood Urea Nitrogen 53 mg/dL (9-16); Calcium 10.9 mg/dL (8.4-10.2); Carbon Dioxide 13 mmol/L (22-29); Chloride 109 mmol/L (96-108); Creatinine Clr Calc Pharmacy 31.5; Estimated Glomerular Filt Rate 49; Glucose Random 370 mg/dL (60-115); Magnesium 3.3 mg/dL (1.6-2.6); Potassium 4.4 mmol/L (3.3-5.1); Sodium 144 mmol/L (135-145)
--- NOTE | 2023-07-22 08:25 | PC.NURSE ---
patient is refusing all care, spoke to MD and patients daughter regarding patients refusal of care. patients daughter delon states she will try to come be at bedside. MD aware. patient currently shows no signs of distress
[2023-07-22] MEDS: Insulin Lispro 100 UNIT/ML 3 ML VIAL 10 UNIT SUBCUT (08:50)
[2023-07-22 08:57] LABS: COVID-19 Test Negative (Negative); IDNOW Serial# BCCEAD1C
[2023-07-22 09:46] LABS: Reflex Lactate? Lactic Acid Added
--- NOTE | 2023-07-22 10:51 | PC.NURSE ---
patient resting in bed, does not appear to be in any distress, given cup of water
--- NOTE | 2023-07-22 10:53 | PC.NURSE ---
attempte to call patients daughter/hcp regarding patients care and potential d/c home. no answer at [phone]
--- NOTE | 2023-07-22 10:59 | PC.NURSE ---
patients daughter states she will be here by [phone]
--- NOTE | 2023-07-22 11:42 | PC.NURSE ---
patient moved into private room, cleaned up, new linens and pads placed. patient shows no signs of distress
--- NOTE | 2023-07-22 12:48 | PC.NURSE ---
MD had conversation with patients family regarding care, plan for comfort care. patient resting in bed, given water pitcher. family at bedside
--- NOTE | 2023-07-22 14:01 | PC.NURSE ---
patient incontinent of stool, changed patient, given new pads and cleaned up
--- NOTE | 2023-07-22 16:57 | MHC.CM.ED ---
LATE ENTRY FROM 07/22/23 AT 11AM: Received case management consult from Dr Espinoza. Patient came to the ER due to weakness. Patient has lung cancer with mets. Dr Espinoza met with patient and daughter, Jeri. Patient and family is interested in hospice. Attempted to meet with patient and daughter, Jeri. Patient sleeping. Spoke with patient's daughter outside of patient's room. Jeri doesn't feel hospice would be appropriate at home because her mother refuses services. The cost of room and board discussed briefly. Jeri will speak with her father about cost of room and board at a detention facility. Referral made to [facility] so that informational meeting can be arranged. Betsy from [facility] at bedside at 130pm . Daughter was not at bedside. Granddaughter provided Jeri's telephone number. T/W is waiting to hear if [facility] was able to connect with Jeri. Anticipate patient will remain in ER overnight. Continue to monitor for d/c needs.
[2023-07-22 18:26] VITALS: PULSE 118; RESP 12
--- NOTE | 2023-07-22 18:29 | PC.NURSE ---
patient resting in bed, son at bedside. gave patient water as requested, patient shows no signs of distress
[2023-07-22 22:06] VITALS: PULSE 114; RESP 18; O2SAT 98
--- NOTE | 2023-07-22 22:07 | PC.NURSE ---
this rn assumed care of pt. this rn cleaned and repositioned pt. purewick placed for pt. respirations even and unlabored, lung sounds clear bilaterally. pt requesting water, pt too few sips. lights dimmed and pt resting comfortably at this time.
[2023-07-23] VITALS (9 sets, daily range): BP systolic 92–102; BP diastolic 49–82; PULSE 112–119; RESP 12–18; O2SAT 98–100
--- NOTE | 2023-07-23 04:01 | PC.NURSE ---
pt sleeping comfortably, respirations even and unlabored.
--- NOTE | 2023-07-23 04:36 | PC.NURSE ---
pt repositioned and changed in bed at this time. pt sitting comfortably.
--- NOTE | 2023-07-23 09:05 | MHC.CM.ED ---
Addendum entered by Maru Cam 07/23/23 13:21: [facility] is unable to offer a bed. Referral broadcasted in [facility]. Bed offers discussed with patient's daughter/HCP, Jeri via telephone at [phone]. Jeri will speak with her father and get back to . Original Note: Patient remains in ER. Received telephone call from patient's daughter/HCP, Jeri. Family is interested in hospice at a detention facility. Family is aware they will need to privately pay for room and board. [facility] is [facility]st choice. Referral made via [facility]. Explained to Jeri that [facility] only has 17 beds. If no bed is available, referral will be broadcasted locally. Jeri agreeable but does not want a referral to [facility] [address] because patient had a bad experience at that facility. Continue to monitor for d/c needs.
--- NOTE | 2023-07-23 10:14 | PC.NURSE ---
this RN resumed care of pt at this time. vss and uo to date. pt c/o 03/09 lower back pain at this time. pt denies any other sx. pt resting comfortably w/the lights dimmed at this time. respirations even and unlabored. call brannon placed within reach.
--- NOTE | 2023-07-23 13:15 | PC.NURSE ---
pt was incontinent of stool. pt changed/cleaned/has fresh linen. pt repositioned to comfort. respirations remain even and unlabored at this time. call brannon placed within reach.
--- NOTE | 2023-07-23 15:55 | MHC.EDTECH ---
This pct helped another tech transfer patient upon arriving in the overflow unit i myself noticed patient was soaked through all her bedding(saoker pads and fitted sheet so bad the fitted sheet was dripping,I cleaned up patient and changed all bed linen. RN Aware
--- NOTE | 2023-07-23 16:08 | PC.NURSE ---
Patient is on thickened nectar thicken liquids at home.
--- NOTE | 2023-07-23 20:49 | MHC.EDTECH ---
Patient was soiled did a full bed change.
--- NOTE | 2023-07-24 00:55 | MHC.EDTECH ---
pt was inc of bm, did inc care and repositioned
[2023-07-24 05:54] VITALS: PULSE 117; RESP 18; TEMP 36.5; O2SAT 100
--- NOTE | 2023-07-24 08:01 | PC.NURSE ---
Contact made to ED MLP andCM. Pt awaiting bed at SNF for hospice. Pain medication and nausea medication ordered. Plan to order Glandorf thick fluid diet. CM to update [facility]OL[facility] Today with daughter
[2023-07-24 09:02] VITALS: BP 86/47; PULSE 117; RESP 19; TEMP 36.4; O2SAT 98
[2023-07-24] MEDS: Morphine Sulfate Oral Sol 10 MG/5 ML SOLUTION 2.5 MG PO (13:48)
--- NOTE | 2023-07-24 14:11 | MHC.CM.ED ---
Patient remains in ER overflow. On license of [facility] and [facility] are able to offer beds with 14 days up front. The other facilities that are able to offer a bed are requiring 30 days up front. This information was discussed with patient's daughter/HCP, Jeri. Jeri and family want to accept bed at [facility]. Lester has been madecris geiger and will reach out to Jeri to arrange financials. [facility] made aware. Continue to monitor for d/c needs.
--- NOTE | 2023-07-24 18:30 | PC.NURSE ---
Patient noted to be incontinent and harmony care was provided. Patient cooperative with care and tolerated it well. Patient repositioned and family came and sat with patient.
--- NOTE | 2023-07-24 18:39 | MHC.EDTECH ---
Patient needed repositioning. Patient was cleaned up, repositioned and put into a new brief. Patient is comfortable at this time.
[2023-07-24 18:44] VITALS: BP 111/54; PULSE 120; RESP 18; TEMP 36.8; O2SAT 99
[2023-07-24 21:51] VITALS: RESP 18
--- NOTE | 2023-07-25 03:44 | PC.NURSE ---
Assumed care of pt. Pt lying on stretcher, respirations even and unlabored, no acute distress at this time. Continuing plan of care.
[2023-07-25 06:00] VITALS: RESP 18
--- NOTE | 2023-07-25 09:31 | PHA.MEDREC ---
Pharmacy Consult ? Medication Reconciliation Pharmacy has completed the medication reconciliation. Patient nonverbal, recently discharged 06/26; used combination of claim history and discharge packet
--- NOTE | 2023-07-25 11:29 | PC.NURSE ---
Patient alert, non verbal, family at bedside, repositioned frequently for comfort
--- NOTE | 2023-07-25 12:15 | MHC.CM.ED ---
Addendum entered by Maru Cam 07/25/23 14:46: Received notification from [facility] that Jeri is completing necessary financial paperwork now. Original Note: Patient remains in ER overflow. Per [facility], Jeri will tour facility this morning. Continue to monitor for d/c needs.
[2023-07-25 16:00] VITALS: RESP 18; TEMP 36.7; O2SAT 98
--- NOTE | 2023-07-25 18:12 | PC.NURSE ---
Patient continues to decline food or fluids, repositioned for comfort. No s/s of pain or discomfort
[2023-07-25 19:21] LABS: Glucose, Whole Blood 573 mg/dL (60-115)
[2023-07-25] MEDS: traZODone HCL 100 MG TABLET PO (20:54)
[2023-07-25] MEDS: levETIRAcetam 500 MG TABLET PO (20:54)
[2023-07-25] MEDS: Insulin Glargine,Hum.rec.anlog 100 UNIT/ML 10 ML VIAL 5.6 UNIT SUBCUT (20:55)
--- NOTE | 2023-07-26 02:51 | PC.NURSE ---
Called by primary RN to come with physician to assess pt who was found unresponsive and pulseless. Pt with current DNR/DNI order. No pulse noted on auscultation or monitor. TOD called at [phone] Hammer.
--- NOTE | 2023-07-26 03:38 | PC.NURSE ---
0235 - This nurse called by video technician to evaluate patient. Pt was lying supine, no response to sternal rub, pt's body warm to the touch. No palpable pulse noted. Pt was comfort measure only DNR/DNI. Charge nurse was called to bring ED provider and staff member for patient evaluation. TOD called by MD bender at 0247. Family notified. Pt family at bedside [phone].
== END 2023-07-26 06:18 | disposition expired ==
PROVIDERS: Emergency Medicine; Emergency Provider Emergency Medicine
DX: R06.02 Shortness of breath (principal); R53.1 Weakness; R00.0 Tachycardia, unspecified; C34.90 Malignant neoplasm of unspecified part of unspecified bronchus or lung; C79.9 Secondary malignant neoplasm of unspecified site; Z87.891 Personal history of nicotine dependence; Z79.899 Other long term (current) drug therapy; Z11.52 Encounter for screening for COVID-19; Z20.822 Contact with and (suspected) exposure to COVID-19
CPT/HCPCS: 36415; 71045; 80048; 80053; 80076; 82248; 82947; 83605; 83735; 85027; 85610; 87040; 87635; 93005; 96360; 96361; 99285